=== PATIENT | male | born 1940 | race Caucasian/White ===

== ENCOUNTER → 2016-12-18 | Outpatient (CLI) | payer BC ==
[~2016-12-18] MED LIST: ASPEC81 PO; ATEN50TA8 PO; CALCTAB5 PO; CLR5 PO; COQ10100 PO; CRSUNK; HYDUNK; ISOS60TA25 PO; LISI-461 PO; MAGN400T6 PO; MULT-506 PO; NTRGSL/4 UT; OMEG10007 PO; SPIRULINA; flaxseed oil PO
[2016-12-18 10:02] LABS: CHOLESTEROL/HDL RATIO 2.7
== END | disposition home or self-care (01) ==
LOC: C.LAB1850 07:09
PROVIDERS: ATTEND Internal Medicine Cardiovascular Disease
DX: I25.10 Atherosclerotic heart disease of native coronary artery without angina pectoris (principal)

== ENCOUNTER → 2017-08-15 | Outpatient (CLI) | payer BC ==
--- NOTE | 2017-08-15 12:09 | DIAGNOSTIC IMAGING REPORT ---
ABDOMEN COMPLETE (US) CLINICAL HISTORY: Abdominal pain. COMPARISON STUDY: CT of the abdomen and pelvis August 26, 2016. FINDINGS: Liver morphology is normal. Several hepatic cysts are noted. There is no biliary ductal dilatation. A nonmobile gallstone was noted within the gallbladder. Mild gallbladder wall thickening was noted. The wall measured 5 mm in thickness. No sonographic Ledezma sign was elicited. Mild gallbladder distention was noted. There was no pericholecystic fluid. Pancreas was within normal limits by sonography although the tail was partially obscured. The size of the spleen is normal. The right kidney measures 11.3 cm and the left measures 10.3 cm. There is no hydronephrosis. The caliber of the abdominal aorta is normal. IMPRESSION: 1. Cholelithiasis, mild gallbladder wall thickening and mild gallbladder distention. No sonographic Ledezma sign. A hepatobiliary scan could be performed as indicated to evaluate for acute cholecystitis. 2. No biliary ductal dilatation. 3. No hydronephrosis. Electronically signed by: Varun Collins M.D. 08/15/2017 12:07 PM Dictated Date/Time: 08/15/2017 12:05 PM
== END | disposition home or self-care (01) ==
LOC: C.ULTR 10:35
PROVIDERS: ATTEND Family Medicine
DX: R10.9 Unspecified abdominal pain (principal); K80.20 Calculus of gallbladder without cholecystitis without obstruction

== ENCOUNTER → 2017-12-21 | Outpatient (CLI) | payer BC | END | disposition home or self-care (01) | LOC: C.LAB1850 08:03 | PROVIDERS: ATTEND Internal Medicine Cardiovascular Disease | DX: E78.00 Pure hypercholesterolemia, unspecified (principal) ==

== ENCOUNTER 2020-04-20 22:19 | Observation (INO) ==
[2020-04-20] MEDS ORDERED: LIDOCAINE 4% INH SOLN 4 ML BTL NAE ONE (22:25)
[2020-04-20] MEDS ORDERED: OXYMETAZOLINE 0.05% 30 ML BTL NAE ONE (22:25)
[2020-04-20] MEDS ORDERED: TXA 10% Non-IV Routes 100 MG/ML VIAL TOP ONE (22:25)
--- NOTE | 2020-04-20 22:51 | Emergency Department Note ---
History of Present Illness General Chief complaint: Nose Bleed (Minor) Stated complaint: NOSE BLEED Time Seen by Provider: 04/20/20 22:21 Source: patient, family (), RN notes reviewed and old records reviewed Mode of arrival: ambulatory Limitations: no limitations History of Present Illness Provider complaint: Epistaxis Onset (ago): hour(s) 1 Location: face (nose) Treatments prior to arrival: none This is a 89-year-old male who presents the emergency department complaining of nosebleed. The patient was seen approximate 1 week ago in the emergency department and a anterior balloon was placed. The patient had close follow-up with ear nose and throat. They cauterized his nose after the balloon was removed. Today the patient was trying to close a window and strained himself. He did start to bleed on the left nose. He denies any pain. He has been unable to get the bleeding under control using a towel. Home Medications Home Medications Medication Instructions Recorded Confirmed Type coenzyme Q10 [Co Q-10] 200 mg PO QAM #0 03/08/11 04/20/20 History ascorbic acid (vitamin C) [Vitamin 500 mg PO QAM 09/13/18 04/20/20 History C] blue-green algae (Spirulina) 500 500 mg PO QAM tab 04/08/19 04/20/20 History mg tablet cinnamon bark 500 mg capsule 1,000 mg PO QAM cap 04/08/19 04/20/20 History loratadine 10 mg capsule 10 mg PO QAM cap 04/08/19 04/20/20 History magnesium 250 mg tablet 250 mg PO QAM 04/08/19 04/20/20 History multivitamin 1 tab PO QAM 04/08/19 04/20/20 History nitroglycerin 0.4 mg sublingual 0.4 mg SL Q5M PRN #25 tab 04/08/19 04/20/20 History tablet flaxseed oil 1,000 mg capsule 1,000 mg PO BID cap 07/26/19 04/20/20 History aspirin 81 mg PO QAM 07/27/19 04/20/20 History atenolol 100 mg PO BID 07/27/19 04/20/20 History calcium carbonate-vitamin D3 1 tab PO BID 07/27/19 04/20/20 History [Os-Brent 500 + D3] omega 9-psf-ttc-fish oil [Fish Oil] 2 cap PO QAM 07/27/19 04/20/20 History saw palmetto 1,000 mg PO BID 07/27/19 04/20/20 History hydrochlorothiazide 25 mg tablet 25 mg PO QAM #90 tab 10/21/19 04/20/20 Rx rosuvastatin 40 mg tablet 40 mg PO HS #90 tab 03/08/20 04/20/20 Rx isosorbide mononitrate 60 mg PO QAM 04/14/20 04/20/20 History lisinopril 20 mg PO BID 04/14/20 04/20/20 History sodium chloride [Deep Sea Nasal] 2 spray INTRANASAL QID 04/20/20 04/20/20 History amoxicillin-pot clavulanate 1 tab PO BID #10 tab 04/22/20 Rx [Augmentin] oxycodone 5 mg PO Q4H PRN #30 tab 04/22/20 Rx Allergies Allergy/AdvReac Type Severity Reaction Status Date / Time streptokinase Allergy Intermediate Flushing Verified 04/20/20 23:46 Past Med/Surg History Medical History Atrial fibrillation DX 2014 (REASON FOR TAKING XARELTO) History of cardiac pacemaker 2007 (S/P SYNCOPAL EPISODE) FOLLOWED BY DR. SMITH 2019 CHANGED PACEMAKER (MEDTRONIC DEVICE) Hyperlipidemia Hypertension Myocardial Infarction 1991 Raynauds syndrome Sick sinus syndrome 2008 DX Surgical History History of cardiac catheterization 1992 ANGIOPLASTY @ [facility] [place] History of cataract surgery RT/LEFT History of colonoscopy History of wisdom tooth extraction Family History Father Heart disease Stroke Social History Smoking Status: Never smoker Second Hand Exposure: No; Hx Alcohol Use: No Hx Substance Use: No Preferred Language: Chinese Communication Ability: Effective Chief Substation Operator Required: No Beliefs That Will Affect Care: None marital status: Current Living Situation: Spouse 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 GENERAL - 79-year-old male appearing stated age who is in no acute distress. Communicates well with provider and answers questions appropriately. SKIN - Without rashes. HEAD - NC/AT. EYES - PERRL with EOMI bilaterally. Sclera anicteric. Palpebral conjunctiva pink and moist with no injection noted. EARS - No deformities of external structures noted on gross examination bilater ally. No pain elicited with palpation of the tragus bilaterally. External auditory canals without discharge or otorrhea. Tympanic membranes pearly ford without retraction or bulging. No fluid or purulent material visualized behind the TM. Handle of malleus, umbo, cone of light, pars tensa/flaccid all easily visualized. NOSE - Severe epistaxis left nostril, running into patient's throatSeptum midl ine without deviation or septal hematoma noted. MOUTH/OROPHARYNX - Without perioral cyanosis. Buccal mucosa pink and moist and without leukoplakia. Tongue midline with equal elevation of palate bilaterally. No tonsillar hypertrophy, erythema, or exudates noted. dentition noted. NECK - Neck with FROM. Supple to palpation. lymphadenopathy noted. No nuchal rigidity. LUNGS - Chest wall symmetric without accessory muscle use, intercostals retractions, or central cyanosis. Normal vesicular breath sounds CTA B/L. No wheezes, rales, or rhonchi appreciated. CARDIAC - RRR with S1/S2. No murmur, rubs, or gallops appreciated. ABDOMEN - Abdominal contour without pulsations or visible masses. BS normoactive all four quadrants. No tenderness, palpable masses, hepatosplenomegaly, or ascites noted. EXTREMITIES - No clubbing or peripheral cyanosis. No pretibial edema present. +3/5 radial, posterior tibial, and dorsalis pedis pulses palpated throughout. +5/5 strength noted in UE/LE bilaterally. NEUROLOGIC - Cranial nerves II through XII grossly intact. Sensory intact to light touch throughout. Patellar reflexes +2/4. PSYCH - A&Ox3 and cooperates fully with examiner. Pt is very pleasant and interacts well with examiner. Procedures Epistaxis Control Time Out Performed: Yes (I performed the procedure) Nostril: left (anterior and posterior) Nose Prepped With: lidocaine and phenylephrine Direct Inspection: unable to visualize Clots Removed by: manually Cautery Used: none Device Inserted: hemostatic balloon Device Size: 5 Patient Tolerated Procedure: well Complications: continued epistaxis (A second Balloon was placed in the patients anterior Right canal due to continued bleeding. ) Course Administered Medications Discontinued Medications Acetaminophen (Acetaminophen 325 Mg Tab) 650 mg PO Q4H PRN PRN Reason: Pain or Fever Stop: 05/21/20 01:42 Last Admin: 04/22/20 08:24 Dose: 650 mg Documented by: [id number] Admin: 04/21/20 12:55 Dose: 650 mg Documented by: [id number] Amoxicillin/Clavulanate Potassium (Amoxicillin/Clavulanate 875 Mg Tab) 1 tab PO NOW ONE Stop: 04/20/20 23:04 Last Admin: 04/21/20 01:18 Dose: 1 tab Documented by: [id number] Atenolol (Atenolol 50 Mg Tablet) 100 mg PO BID RUFUS Stop: 05/21/20 08:59 Last Admin: 04/22/20 08:24 Dose: 100 mg Documented by: [id number] Admin: 04/21/20 19:52 Dose: 100 mg Documented by: [id number] Admin: 04/21/20 08:45 Dose: 100 mg Documented by: [id number] Hydralazine HCl (Hydralazine Hcl 20 Mg/Ml Vial) 10 mg IV Q4H PRN PRN Reason: Hypertension Stop: 05/21/20 03:48 Last Admin: 04/21/20 04:25 Dose: 10 mg Documented by: [id number] Hydromorphone HCl (Hydromorphone Inj 0.5 Mg/0.5 Ml Syr) 0.5 mg IV NOW STA Stop: 04/21/20 00:35 Last Admin: 04/21/20 01:11 Dose: 0.5 mg Documented by: [id number] Acetaminophen (Ofirmev) 1,000 mg in 100 mls @ 400 mls/hr IV NOW STA Stop: 04/21/20 00:48 Last Infusion: 04/21/20 01:56 Dose: 0 mls/hr Documented by: [id number] Admin: 04/21/20 01:16 Dose: 400 mls/hr Documented by: [id number] Potassium Chloride/Sodium Chloride (Normal Saline W/20 Meq Kcl) 20 meq in 1,000 mls @ 80 mls/hr IV .[id number] [facility] Stop: 05/21/20 03:29 Last Infusion: 04/21/20 16:39 Dose: 0 mls/hr Documented by: [id number] Admin: 04/21/20 04:24 Dose: 80 mls/hr Documented by: [id number] Isosorbide Mononitrate (Isosorbide [place] Extended Rel 60 Mg Tabcr) 60 mg PO QAM RUFUS Stop: 05/21/20 08:59 Last Admin: 04/22/20 08:24 Dose: 60 mg Documented by: [id number] Admin: 04/21/20 08:46 Dose: 60 mg Documented by: [id number] Lidocaine HCl (Lidocaine 4% Inh Soln 4 Ml Btl) 3 ml SAI NOW ONE Stop: 04/20/20 22:26 Last Admin: 04/21/20 01:56 Dose: 3 ml Documented by: [id number] Lisinopril (Lisinopril 20 Mg Tab) 20 mg PO BID [facility] Stop: 05/21/20 08:59 Last Admin: 04/22/20 08:24 Dose: 20 mg Documented by: [id number] Admin: 04/21/20 19:53 Dose: 20 mg Documented by: [id number] Admin: 04/21/20 08:45 Dose: 20 mg Documented by: [id number] Ondansetron HCl (Ondansetron Inj 2 Mg/Ml 2 Ml Vial) 4 mg IV NOW [facility] Stop: 04/21/20 00:35 Last Admin: 04/21/20 01:08 Dose: 4 mg Documented by: [id number] Oxycodone HCl (Oxycodone Hcl Ir 5 Mg Tab (Immediate Release)) 5 mg PO Q4H PRN PRN Reason: Moderate Pain Stop: 05/05/20 18:23 Last Admin: 04/21/20 19:52 Dose: 5 mg Documented by: [id number] Oxymetazoline HCl (Oxymetazoline 0.05% 30 Ml Btl) 1 sprays SAI NOW ONE Stop: 04/20/20 22:26 Last Admin: 04/21/20 01:55 Dose: 1 sprays Documented by: [id number] Rosuvastatin Calcium (Rosuvastatin Calcium 20 Mg Tab) 40 mg PO HS RUFUS Stop: 05/21/20 20:59 Last Admin: 04/21/20 19:53 Dose: 40 mg Documented by: [id number] Tranexamic Acid (Txa 10% Non-Iv Routes 100 Mg/Ml Vial) 1,000 mg TOP ONE ONE Stop: 04/20/20 22:26 Last Admin: 04/21/20 01:55 Dose: 1,000 mg Documented by: [id number] Tranexamic Acid (Txa 10% Non-Iv Routes 100 Mg/Ml Vial) 1,000 mg TOP ONE ONE Stop: 04/21/20 00:35 Last Admin: 04/21/20 01:56 Dose: 1,000 mg Documented by: [id number] Medical Decision Making Differential Diagnosis Anterior epistaxis, coagulopathy, traumatic injury, fracture, septal hematoma, posterior epistaxis, infections, as well as other pathologies. Medical Records Attestation: I reviewed the patient's medical records. Home Medications Current Medication List: was personally reviewed by me Laboratory Data Result diagrams: 04/22/20 06:33 04/22/20 06:33 Lab Results 04/21/20 04/21/20 Range/Units 00:58 00:58 WBC 9.65 (4.8-10.8) K/uL RBC 4.76 (4.7-6.1) M/uL Hgb 14.6 (14.0-18.0) g/dL Hct 41.6 L (42-52) % MCV 87.4 (80-100) fL MCH 30.7 (25-34) pg MCHC 35.1 (32-36) g/dL RDW Std Deviation 41.0 (36.4-46.3) fL RDW Coeff of Larry 12.7 (11.5-14.5) % Plt Count 135 (130-400) K/uL MPV 11.9 H (7.4-10.4) fL Immature Gran % (Auto) 0.2 % Neut % (Auto) 78.5 % Lymph % (Auto) 12.4 % Harlan % (Auto) 7.9 % Eos % (Auto) 0.9 % Baso % (Auto) 0.1 % Neut # (Auto) 7.57 H (1.4-6.5) K/uL Lymph # (Auto) 1.20 (1.2-3.4) K/uL Harlan # (Auto) 0.76 H (0.11-0.59) K/uL Eos # (Auto) 0.09 (0-0.5) K/uL Baso # (Auto) 0.01 (0-0.2) K/uL Immature Gran # (Auto) 0.02 (0.00-0.02) K/uL Sodium 132 L (136-145) mmol/L Potassium 3.5 (3.5-5.1) mmol/L Chloride 101 (98-107) mmol/L Carbon Dioxide 23 (21-32) mmol/L Anion Gap 7.0 (3-11) BUN 22 H (7-18) mg/dl Creatinine 0.90 (0.6-1.4) mg/dl Est Cr Clr Drug Dosing 63.3 ml/min Est GFR ( Amer) 93.2 Est GFR (Non-Af Amer) 80.4 BUN/Creatinine Ratio 24.2 H (10-20) Glucose 147 H (70-99) mg/dl Calcium 8.8 (8.5-10.1) mg/dl Total Bilirubin 0.6 (0.2-1) mg/dl AST 31 (15-37) U/L ALT 35 (12-78) U/L Alkaline Phosphatase 60 (45-117) U/L Total Protein 7.1 (6.4-8.2) gm/dl Albumin 3.7 (3.4-5.0) gm/dl Globulin 3.4 (2.5-4.0) gm/dl Albumin/Globulin Ratio 1.1 (0.9-2) Lipase 261 (73-393) U/L ECG Data Attestation: I personally reviewed and interpreted this ECG as follows: Indication: + other (epistaxis) Rate (beats per minute): 70 Rhythm: + normal sinus ECG Intervals/blocks: + First degree AV block and + Left anterior fascicular block ECG [place]: + Normal ECG ST segments: no ST depression and no ST elevation Comparison ECG Date: from (04/14/2020) Change: the following changes noted (NSR has replaced paced rythym) MDM Narrative This is a 89-year-old male who presents emergency department with epistaxis of the left nares. I did originally attempt to get the bleeding under control with a left anterior balloon with no success. After that a left anterior posterior balloon was placed using TXA lidocaine and Afrin. Despite the placement of this balloon the patient continued to bleed out of his right nares and therefore a second balloon was placed in the right nares. Due to 2 balloons being placed I did discuss the case with ear nose and throat and noted that the patient would probably be admitted. I then discussed the case with the hospitalist service who did agree to admit the patient. Patient was seen and evaluated as above in room C8. Review was performed of nursing notes and vital signs. I did review pertinent previous visits and patient history. After obtaining a thorough history and physical examination the above work up was performed. An order was placed for continuous cardiac monitoring. The monitor shows a rate of 61 with Normal SInus rhythm. The patient was evaluated during the global COVID-19 pandemic, and that diagnosis was suspected/considered upon their initial presentation. Their evaluation, treatment and testing was consistent with current guidelines for patients who present with complaints or symptoms that may be related to COVID- 19. Impression & Plan Epistaxis Discharge Plan Visit Data Chief Complaint: Nose Bleed (Minor) Stated Complaint: NOSE BLEED ED Provider: Rocky Adams Discharge Problem: Epistaxis Patient Disposition: Home - Self-Care Condition: Good Discharge Instructions Interventions: ED Discharge Assessment Last Done: 04/21/20 03:03
[2020-04-20] MEDS ORDERED: AMOXICILLIN/CLAVULANATE 875 MG TAB PO ONE (23:03)
[2020-04-21] MEDS ORDERED: ACETAMINOPHEN 1,000 MG/100 ML VIAL IV STA (00:34)
[2020-04-21] MEDS ORDERED: HYDROmorphone INJ 0.5 MG/0.5 ML SYR IV STA (00:34)
[2020-04-21] MEDS ORDERED: TXA 10% Non-IV Routes 100 MG/ML VIAL TOP ONE (00:34)
[2020-04-21] MEDS ORDERED: ONDANSETRON INJ 2 MG/ML 2 ML VIAL IV STA (00:34)
[2020-04-21 01:11] LABS: Basophils # (auto) 0.01 K/uL (0-0.2); Basophils % (auto) 0.1 %; Eosinophils # (auto) 0.09 K/uL (0-0.5); Eosinophils % (auto) 0.9 %; Hematocrit (blood only) 41.6 % (42-52); Hemoglobin 14.6 g/dL (14.0-18.0); Immature Granulocytes # (auto) 0.02 K/uL (0.00-0.02); Immature Granulocytes % (auto) 0.2 %; Lymphocytes % (auto) 12.4 %; Mean Corpuscular Hemoglobin 30.7 pg (25-34); Mean Corpuscular Hgb Conc 35.1 g/dL (32-36); Mean Corpuscular Volume 87.4 fL (80-100); Mean Platelet Volume 11.9 fL (7.4-10.4); Monocytes # (auto) 0.76 K/uL (0.11-0.59); Monocytes % (auto) 7.9 %; Neutrophils # (auto) 7.57 K/uL (1.4-6.5); Neutrophils % (auto) 78.5 %; Platelet Count 135 K/uL (130-400); RDW Coefficient of Variation 12.7 % (11.5-14.5); Red Blood Count 4.76 M/uL (4.7-6.1); White Blood Count 9.65 K/uL (4.8-10.8)
[2020-04-21 01:28] LABS: Albumin Level 3.7 gm/dl (3.4-5.0); BUN Creatinine Ratio 24.2 (10-20); Calcium 8.8 mg/dl (8.5-10.1); Creatinine Clr Calc Pharmacy 63.3 ml/min; Est GFR (African American) 93.2; Est GFR (Non-African American) 80.4; Potassium 3.5 mmol/L (3.5-5.1)
[2020-04-21 01:31] LABS: Albumin Globulin Ratio 1.1 (0.9-2); Bilirubin,Total 0.6 mg/dl (0.2-1); Globulin 3.4 gm/dl (2.5-4.0); Total Protein 7.1 gm/dl (6.4-8.2)
[2020-04-21] MEDS ORDERED: HYDROmorphone INJ 0.5 MG/0.5 ML SYR IV PRN (01:35)
[2020-04-21] MEDS ORDERED: ONDANSETRON INJ 2 MG/ML 2 ML VIAL IV PRN (01:43)
--- NOTE | 2020-04-21 03:04 | History & Physical Report ---
Date of Service April 21, 2020 Assessment & Plan (1) Acute anterior epistaxis: Admit to monitored bed. Hold aspirin, flaxseed oil, omega-3 fish oil, and Xarelto. Consult ENT placed by the ED. Present on Admission?: Yes (2) Ulcerative colitis: (3) Coronary artery disease: CAD/hypertension/paroxysmal atrial fibrillation- Hold aspirin, flaxseed oil, HCTZ, omega-3 fatty acids, and Xarelto Present on Admission?: Yes (4) Paroxysmal atrial fibrillation: See above Present on Admission?: Yes (5) Raynauds phenomenon: (6) Hypercholesterolemia: Continue rosuvastatin 40 mg at bedtime Present on Admission?: Yes History of Present Illness Chief Complaint: Patient presents to the emergency department with a recurrence of severe nosebleed. Primary Care Provider: Ben Solis MD The patient is an 79-year-old male with a past medical history including history of LA, ulcerative colitis, Raynaud's phenomenon, presence of cardiac pacemaker, paroxysmal atrial fibrillation, hypercholesterolemia, CAD, BPH, sick sinus syndrome and hypertension. He was initially seen at the emergency department for a nosebleed on 04/14/2020, treated with rapid Rhino, and then referred to ENT. He was seen by ENT Dr. Sims on 04/18/2020 in the outpatient office, and had silver nitrate cautery and overlaid with Surgicel. His Xarelto had been discontinued at emergency room visit on 04/14, and was resumed on 04/18 after treatment above. The patient reports he began having uncontrolled bleeding earlier in the day today, and presented to the ED for treatment. Allergies Allergy/AdvReac Type Severity Reaction Status Date / Time streptokinase Allergy Intermediate Flushing Verified 04/20/20 23:46 Home Medications Home Medications Medication Instructions Recorded Confirmed Type coenzyme Q10 [Co Q-10] 200 mg PO QAM #0 03/08/11 04/20/20 History ascorbic acid (vitamin C) [Vitamin 500 mg PO QAM 09/13/18 04/20/20 History C] blue-green algae (Spirulina) 500 500 mg PO QAM tab 04/08/19 04/20/20 History mg tablet cinnamon bark 500 mg capsule 1,000 mg PO QAM cap 04/08/19 04/20/20 History loratadine 10 mg capsule 10 mg PO QAM cap 04/08/19 04/20/20 History magnesium 250 mg tablet 250 mg PO QAM 04/08/19 04/20/20 History multivitamin 1 tab PO QAM 04/08/19 04/20/20 History nitroglycerin 0.4 mg sublingual 0.4 mg SL Q5M PRN #25 tab 04/08/19 04/20/20 History tablet flaxseed oil 1,000 mg capsule 1,000 mg PO BID cap 07/26/19 04/20/20 History Xarelto 20 mg PO QDD 07/27/19 04/20/20 History aspirin 81 mg PO QAM 07/27/19 04/20/20 History atenolol 100 mg PO BID 07/27/19 04/20/20 History calcium carbonate-vitamin D3 1 tab PO BID 07/27/19 04/20/20 History [Os-Brent 500 + D3] omega 5-kdb-nid-fish oil [Fish Oil] 2 cap PO QAM 07/27/19 04/20/20 History saw palmetto 1,000 mg PO BID 07/27/19 04/20/20 History hydrochlorothiazide 25 mg tablet 25 mg PO QAM #90 tab 10/21/19 04/20/20 Rx rosuvastatin 40 mg tablet 40 mg PO HS #90 tab 03/08/20 04/20/20 Rx amoxicillin-pot clavulanate 1 tab PO BID #10 tab 04/14/20 04/20/20 Rx [Augmentin] isosorbide mononitrate 60 mg PO QAM 04/14/20 04/20/20 History lisinopril 20 mg PO BID 04/14/20 04/20/20 History mupirocin 2 % topical ointment 1 applic TOPICAL BID #15 g 04/18/20 04/20/20 Rx oxymetazoline 2 spray INTRANASAL TID 04/20/20 04/20/20 History sodium chloride [Deep Sea Nasal] 2 spray INTRANASAL QID 04/20/20 04/20/20 History Past Med/Surg History Medical History (Updated 04/20/20 @ 23:25 by Rocky Adams MD) Atrial fibrillation DX 2014 (REASON FOR TAKING XARELTO) History of cardiac pacemaker 2007 (S/P SYNCOPAL EPISODE) FOLLOWED BY DR. SMITH 2019 CHANGED PACEMAKER (MEDTRONIC DEVICE) Hyperlipidemia Hypertension Myocardial Infarction 1991 Raynauds syndrome Sick sinus syndrome 2008 DX Surgical History History of cardiac catheterization 1991 ANGIOPLASTY @ [facility] [place] History of cataract surgery RT/LEFT History of colonoscopy History of wisdom tooth extraction Family History Father Heart disease Stroke Social History Smoking Status: Former smoker Second Hand Exposure: No; Hx Alcohol Use: Yes Alcohol type: beer, wine and hard liquor Hx Substance Use: No Preferred Language: Korean Communication Ability: Effective Health Records Technology Teacher Required: No Beliefs That Will Affect Care: None marital status: Current Living Situation: Spouse 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 The review of systems is otherwise negative other than for that already noted above, and at least 10 systems have been reviewed. Physical Exam Physical Exam: The patient is awake, alert and oriented 3, well developed and well nourished, has a clip on nares bilaterally, lying in bed and in no acute distress. HEENT--PERRL, EOMI, mucous membranes and oropharynx dry. Neck--supple. No JVD. No bruits. Thyroid normal, trachea midline, no adenopathy. Heart--normal S1 and S2. No murmurs, rubs or gallops. Lungs--clear bilaterally, no respiratory distress, no accessory muscle use. Abdomen--normal bowel sounds and soft. Nontender. Nondistended. Extremities--no cyanosis or clubbing. No edema. Dermatologic--normal skin turgor, normal color, no abnormal lymph nodes, no rash. Neurologic--cranial nerves II through XII grossly intact. Rheumatologic--normal range of motion. Psychiatric--normal affect. Results & Data Results & Data ([facility]) Vital Signs (Past 12 Hours) Vital Signs Temp Pulse Resp BP BP Pulse Ox 04/21/20 02:00 94 04/21/20 01:59 66 20 213/122 H 94 04/20/20 22:39 97.3 F L 18 169/114 H Laboratory Results Laboratory Results WBC 9.65 K/uL (4.8-10.8) 04/21/20 00:58 RBC 4.76 M/uL (4.7-6.1) 04/21/20 00:58 Hgb 14.6 g/dL (14.0-18.0) 04/21/20 00:58 Hct 41.6 % (42-52) L 04/21/20 00:58 MCV 87.4 fL (80-100) 04/21/20 00:58 MCH 30.7 pg (25-34) 04/21/20 00:58 MCHC 35.1 g/dL (32-36) 04/21/20 00:58 RDW Std Deviation 41.0 fL (36.4-46.3) 04/21/20 00:58 RDW Coeff of Larry 12.7 % (11.5-14.5) 04/21/20 00:58 Plt Count 135 K/uL (130-400) 04/21/20 00:58 MPV 11.9 fL (7.4-10.4) H 04/21/20 00:58 Immature Gran % (Auto) 0.2 % 04/21/20 00:58 Neut % (Auto) 78.5 % 04/21/20 00:58 Lymph % (Auto) 12.4 % 04/21/20 00:58 [place] % (Auto) 7.9 % 04/21/20 00:58 Eos % (Auto) 0.9 % 04/21/20 00:58 Baso % (Auto) 0.1 % 04/21/20 00:58 Neut # (Auto) 7.57 K/uL (1.4-6.5) H 04/21/20 00:58 Lymph # (Auto) 1.20 K/uL (1.2-3.4) 04/21/20 00:58 [place] # (Auto) 0.76 K/uL (0.11-0.59) H 04/21/20 00:58 Eos # (Auto) 0.09 K/uL (0-0.5) 04/21/20 00:58 Baso # (Auto) 0.01 K/uL (0-0.2) 04/21/20 00:58 Immature Gran # (Auto) 0.02 K/uL (0.00-0.02) 04/21/20 00:58 Sodium 132 mmol/L (136-145) L 04/21/20 00:58 Potassium 3.5 mmol/L (3.5-5.1) 04/21/20 00:58 Chloride 101 mmol/L (98-107) 04/21/20 00:58 Carbon Dioxide 23 mmol/L (21-32) 04/21/20 00:58 Anion Gap 7.0 (3-11) 04/21/20 00:58 BUN 22 mg/dl (7-18) H 04/21/20 00:58 Creatinine 0.90 mg/dl (0.6-1.4) 04/21/20 00:58 Est Cr Clr Drug Dosing 63.3 ml/min 04/21/20 00:58 Est GFR ( Amer) 93.2 04/21/20 00:58 Est GFR (Non-Af Amer) 80.4 04/21/20 00:58 BUN/Creatinine Ratio 24.2 (10-20) H 04/21/20 00:58 Glucose 147 mg/dl (70-99) H 04/21/20 00:58 Calcium 8.8 mg/dl (8.5-10.1) 04/21/20 00:58 Total Bilirubin 0.6 mg/dl (0.2-1) 04/21/20 00:58 AST 31 U/L (15-37) 04/21/20 00:58 ALT 35 U/L (12-78) 04/21/20 00:58 Alkaline Phosphatase 60 U/L (45-117) 04/21/20 00:58 Total Protein 7.1 gm/dl (6.4-8.2) 04/21/20 00:58 Albumin 3.7 gm/dl (3.4-5.0) 04/21/20 00:58 Globulin 3.4 gm/dl (2.5-4.0) 04/21/20 00:58 Albumin/Globulin Ratio 1.1 (0.9-2) 04/21/20 00:58 Lipase 261 U/L (73-393) 04/21/20 00:58 Code Status & VTE Plan Code Status Full code VTE Prophylaxis Plan VTE Prophylaxis will be ordered: Yes PG Care Time/CCT Total # of Minutes Spent Total Time Spent with Patient: Total time spent is greater than 50% in coordination of care (as documented) at patient's floor/unit and/or counseling patient: Coding Level of Care Code 17436 OBS Care - Level 3 Diagnoses Acute anterior epistaxis R04.0 Ulcerative colitis K51.90 Coronary artery disease I25.10 Paroxysmal atrial fibrillation I48.0 Raynauds phenomenon I73.00 Hypercholesterolemia E78.00
[2020-04-21] MEDS ORDERED: NSS + 20MEQ KCL 20 MEQ/1,000 ML BAG IV SCH (03:30)
[2020-04-21] MEDS ORDERED: HydrALAZINE HCL 20 MG/ML VIAL IV PRN (03:49)
[2020-04-21 04:49] LABS: Appearance Urine Clear (Clear); Bilirubin Urine Negative (Negative); Blood Urine Negative (Negative); Color Urine Yellow; Glucose Urine UA Negative (Negative); Ketones Urine Negative (Negative); Leukocyte Esterase Urine Negative (Negative); Nitrite Urine Negative (Negative); Protein Urine Negative (Negative); Urobilinogen Urine Negative (Negative)
[2020-04-21 07:24] LABS: Basophils # (auto) 0.02 K/uL (0-0.2); Basophils % (auto) 0.2 %; Eosinophils # (auto) 0.02 K/uL (0-0.5); Eosinophils % (auto) 0.2 %; Hematocrit (blood only) 46.1 % (42-52); Hemoglobin 16.3 g/dL (14.0-18.0); Immature Granulocytes # (auto) 0.01 K/uL (0.00-0.02); Immature Granulocytes % (auto) 0.1 %; Lymphocytes # (auto) 1.35 K/uL (1.2-3.4); Mean Corpuscular Hgb Conc 35.4 g/dL (32-36); Mean Corpuscular Volume 87.8 fL (80-100); Mean Platelet Volume 12.7 fL (7.4-10.4); Monocytes # (auto) 0.53 K/uL (0.11-0.59); Monocytes % (auto) 6.3 %; Neutrophils # (auto) 6.53 K/uL (1.4-6.5); Neutrophils % (auto) 77.2 %; Platelet Count 152 K/uL (130-400); RDW Coefficient of Variation 12.6 % (11.5-14.5); RDW Standard Deviation 40.4 fL (36.4-46.3); Red Blood Count 5.25 M/uL (4.7-6.1); White Blood Count 8.46 K/uL (4.8-10.8)
[2020-04-21 07:46] LABS: Albumin Level 4.2 gm/dl (3.4-5.0); BUN Creatinine Ratio 18.8 (10-20); Creatinine Clr Calc Pharmacy 60.6 ml/min; Est GFR (African American) 88.4; Est GFR (Non-African American) 76.3; Potassium 3.7 mmol/L (3.5-5.1)
[2020-04-21 07:47] LABS: Phosphorus 2.6 mg/dl (2.5-4.9)
[2020-04-21] MEDS: ATENOLOL 50 MG TABLET PO SCH ×2 (08:45→19:52)
[2020-04-21] MEDS: lisinopriL 20 MG TAB PO SCH ×2 (08:45→19:53)
[2020-04-21] MEDS: ISOSORBIDE MONO EXTENDED REL 60 MG TABCR PO SCH (08:46)
[2020-04-21] MEDS ORDERED: AMOXICILLIN/CLAVULANATE 875MG HOME PACK PO SCH (09:00)
[2020-04-21] MEDS: ACETAMINOPHEN 325 MG TAB PO PRN (12:55)
--- NOTE | 2020-04-21 16:02 | Hospitalist Progress Note ---
Date of Service April 21, 2020 Assessment & Plan (1) Acute anterior epistaxis: Patient is had no reduced reduction in blood count remains on Augmentin therapy it was started on admission Hold aspirin, flaxseed oil, omega-3 fish oil, and Xarelto. Consult ENT placed by the ED did recontact ENT on 04/21 just for further advice patient's hemoglobin hemodynamics are stable likely will not need emergent intervention at this time. (2) Ulcerative colitis: (3) Coronary artery disease: CAD/hypertension/paroxysmal atrial fibrillation-remains rate controlled on atenolol 100 twice daily Hold aspirin, flaxseed oil, HCTZ, omega-3 fatty acids, and Xarelto Otherwise for his hypertension he is on lisinopril 20 mg twice daily and for coronary disease he continues to take isosorbide mononitrate 60 (4) Paroxysmal atrial fibrillation: See above (5) Raynauds phenomenon: (6) Hypercholesterolemia: Continue rosuvastatin 40 mg at bedtime Admission and Anticipated Discharge Date Admission Date: April 21, 2020 Subjective Patient is had no overt large amount of bleeding but he still has some oozing from his Rhino Rocket's and some blood actually coming from his right eye. Review of Systems Review of Systems: Mild distress and fatigue no headache, blurry or double vision Small bleeding from his right eye bilateral rhino rockets in place, inflated no speech or swallowing issues no chest pain, pressure or palpitations no shortness of breath, cough or wheezes no abdominal pain, nausea or vomiting, diarrhea or constipation no dysuria, hematuria or frequency no focal joint pain or swelling no back pain, CVA tenderness or radicular pain no bruising, bleeding or rashes no focal signs of weakness or numbness or altered sensation no complaints or anxiety or depression. Physical Exam Physical Exam: The patient appeared well nourished and normally developed. He is mildly uncomfortable because of his nasal packing. There is some bloody discharge from his right eye which likely is from his nasal lacrimal duct Posterior oropharynx is without active bleeding at this time Vital signs as documented. Head exam is normocephalic atraumatic no scleral icterus Neck is without JVD, thyromegaly, or carotid bruits. Lungs are clear to auscultation, no focal loss of breath sounds Cardiac exam, Rhythm is regular.. No murmurs, rubs or gallops. Neurologic exam is alert and oriented, no focal loss of strength or sensation Skin is without bruises or rashes Psychologically is without concerns for anxiety or depression Results & Data Results & Data ([facility]) Vital Signs (Past 12 Hours) Vital Signs Temp Pulse Pulse Resp BP BP Pulse Ox 04/21/20 14:58 97.9 F 68 20 174/84 H 96 04/21/20 11:17 97.5 F L 68 20 176/89 H 97 04/21/20 07:57 97.9 F 61 18 147/71 H 93 PG Care Time/CCT Total # of Minutes Spent Total Time Spent with Patient: Total time spent is greater than 50% in coordination of care (as documented) at patient's floor/unit and/or counseling patient: Coding Level of Care Code 91268 Subseq Obs Care Lvl 2 Diagnoses Acute anterior epistaxis R04.0 Ulcerative colitis K51.90 Coronary artery disease I25.10 Paroxysmal atrial fibrillation I48.0 Raynauds phenomenon I73.00 Hypercholesterolemia E78.00
[2020-04-21] MEDS ORDERED: MELATONIN 3 MG TAB PO PRN (18:24)
[2020-04-21] MEDS ORDERED: OXYCODONE HCL IR 5 MG TAB (IMMEDIATE RELEASE) PO PRN (18:24)
--- NOTE | 2020-04-21 18:24 | Billing Data ---
Date of Service April 21, 2020 Coding Level of Care Code 62159 Prolonged Care (int'l) Comment I spent from - in this patient's room in the hallway and discussion with healthcare providers regarding this patient's care
[2020-04-21] MEDS ORDERED: ROSUVASTATIN CALCIUM 20 MG TAB PO SCH (21:00)
[2020-04-22 07:19] LABS: Basophils # (auto) 0.01 K/uL (0-0.2); Basophils % (auto) 0.1 %; Eosinophils # (auto) 0.01 K/uL (0-0.5); Eosinophils % (auto) 0.1 %; Hematocrit (blood only) 43.2 % (42-52); Immature Granulocytes # (auto) 0.03 K/uL (0.00-0.02); Immature Granulocytes % (auto) 0.3 %; Lymphocytes # (auto) 1.14 K/uL (1.2-3.4); Lymphocytes % (auto) 9.9 %; Mean Corpuscular Hemoglobin 30.3 pg (25-34); Mean Corpuscular Hgb Conc 34.7 g/dL (32-36); Mean Corpuscular Volume 87.3 fL (80-100); Mean Platelet Volume 12.2 fL (7.4-10.4); Monocytes # (auto) 1.07 K/uL (0.11-0.59); Monocytes % (auto) 9.2 %; Neutrophils # (auto) 9.31 K/uL (1.4-6.5); Neutrophils % (auto) 80.4 %; Platelet Count 138 K/uL (130-400); RDW Coefficient of Variation 12.6 % (11.5-14.5); RDW Standard Deviation 40.5 fL (36.4-46.3); Red Blood Count 4.95 M/uL (4.7-6.1); White Blood Count 11.57 K/uL (4.8-10.8)
[2020-04-22 07:44] LABS: Albumin Level 3.3 gm/dl (3.4-5.0); BUN Creatinine Ratio 14.1 (10-20); Calcium 8.3 mg/dl (8.5-10.1); Est GFR (African American) 99.9; Est GFR (Non-African American) 86.2; Phosphorus 2.4 mg/dl (2.5-4.9); Potassium 3.9 mmol/L (3.5-5.1)
[2020-04-22] MEDS: ACETAMINOPHEN 325 MG TAB PO PRN (08:24)
[2020-04-22] MEDS: lisinopriL 20 MG TAB PO SCH (08:24)
[2020-04-22] MEDS: ATENOLOL 50 MG TABLET PO SCH (08:24)
[2020-04-22] MEDS: ISOSORBIDE MONO EXTENDED REL 60 MG TABCR PO SCH (08:24)
--- NOTE | 2020-04-22 16:27 | Electrocardiogram Report ---
Test Reason : Blood Pressure : / mmHG Vent. Rate : 070 BPM Atrial Rate : 070 BPM P-R Int : 242 ms QRS Dur : 118 ms QT Int : 406 ms P-R-T Axes : 103 -57 090 degrees QTc Int : 438 ms Poor data quality, interpretation may be adversely affected Sinus rhythm with 1st degree A-V block with Premature atrial complexes Left anterior fascicular block Left ventricular hypertrophy with QRS widening and repolarization abnormality Possible Lateral infarct (cited on or before 24-JAN-2008) Abnormal ECG When compared with ECG of 14-APR-2020 07:34, Sinus rhythm has replaced Electronic atrial pacemaker Confirmed by Dennis Adler ([id number]) on 04/22/2020 4:26:58 PM Referred By: REFERRED SELF Confirmed By:Dennis Adler
--- NOTE | 2020-05-04 17:45 | Discharge Summary ---
Date of Service April 22, 2020 Admission HPI Per Admitting Provider The patient is an 79-year-old male with a past medical history including history of MO, ulcerative colitis, Raynaud's phenomenon, presence of cardiac pacemaker, paroxysmal atrial fibrillation, hypercholesterolemia, CAD, BPH, sick sinus syndrome and hypertension. He was initially seen at the emergency department for a nosebleed on 04/14/2020, treated with rapid Rhino, and then referred to ENT. He was seen by ENT Dr. Sims on 04/18/2020 in the outpatient office, and had silver nitrate cautery and overlaid with Surgicel. His Xarelto had been discontinued at emergency room visit on 04/14, and was resumed on 04/18 after treatment above. The patient reports he began having uncontrolled bleeding earlier in the day today, and presented to the ED for treatment. Principal Diagnosis epistaxis Discharge Exam The patient appeared well Vital signs as documented. Both nares were packed with Rhino Rocket's they are crusted with some mild bruising Lungs are clear to auscultation and appear unlabored Cardiac exam, Rhythm is regular.. No murmurs, rubs or gallops. Abdominal exam reveals normal bowel sounds, soft non tender, no masses Extremities are nonedematous and both pedal pulses are normal. Neurologic exam is alert and oriented, no focal loss of strength or sensation Skin is without bruises or rashes Psychologically is without concerns for anxiety or depression. Discharge Data Allergies Allergy/AdvReac Type Severity Reaction Status Date / Time streptokinase Allergy Intermediate Flushing Verified 05/02/20 11:08 Consultations 04/21/20 00:23 Consult Otolaryngology (Head and Neck) Stat ED Decision to Admit Stat 04/21/20 01:47 Consult Case Management - Discharge Planning Routine 04/22/20 11:49 [facility] Routine Hospital Course (1) Acute anterior epistaxis: Patient is had no reduced reduction in blood count remains on Augmentin therapy it was started on admission Hold aspirin, flaxseed oil, omega-3 fish oil, and Xarelto. Consult ENT placed by the ED did recontact ENT on 04/21 just for further advice patient's hemoglobin hemodynamics are stable likely will not need emergent intervention at this time. 80 degrees and the patient has follow-up this week on recommend he goes home with moisturizing the protruding tips of the Rhino Rocket's with saline and continue his Augmentin therapy (2) Ulcerative colitis: (3) Coronary artery disease: CAD/hypertension/paroxysmal atrial fibrillation-remains rate controlled on atenolol 100 twice daily Continue to hold aspirin, flaxseed oil, HCTZ, omega-3 fatty acids, and Xarelto Otherwise for his hypertension he is on lisinopril 20 mg twice daily and for coronary disease he continues to take isosorbide mononitrate 60 (4) Paroxysmal atrial fibrillation: See above (5) Raynauds phenomenon: (6) Hypercholesterolemia: Continue rosuvastatin 40 mg at bedtime Total Time Total Time Spent Total Time Spent (In Minutes): It required greater than 30 minutes to prepare this patient for discharge Discharge Plan Discharge Items Patient Disposition: Home - Self-Care Reason For Visit: EPISTAXIS ON XARELTO Discharge Diagnosis: nose bleed on xarelto Condition on Discharge: Good Activity: Resume your previous activity Non-emergency contact: Primary Care Provider and Surgeon Call non-emergency contact if: you have any medication questions and your symptoms worsen Follow-up/Referrals: Ben Solis MD [Primary Care Provider] - Jenny Ghotra MD [Surgeon] - 04/26/20 Diet: Regular Addtl Attending Provider Instructions: please keep your nasal packing moist with saline take your antibiotics until instructed otherwise by ENT, while you are taking antibiotics it may help to have some probiotics in your diet, yogurt or cottage cheese can be good, or you may buy a probiotic pill or drink do not take your xarelto until you are instructed to restart by the ENT or Dr Bosch office call the ENT, Dr Paz, for appointment this week and notify Dr Bosch office that you were instructed to hold your Xarelto Pending Studies at Discharge: No Stand-Alone Forms: My [employer], Smoking Cessation Medications and DC Order Prescriptions: New oxycodone 5 mg Tablet 5 mg PO Q4H PRN (Reason: pain) Qty: 30 RF: 0 amoxicillin-pot clavulanate [Augmentin] 875-125 mg tablet 1 tab PO BID Qty: 10 RF: 0 Continued coenzyme Q10 [Co Q-10] 200 mg Capsule 200 mg PO QAM Qty: 0 RF: 0 hydrochlorothiazide 25 mg tablet 25 mg PO QAM Qty: 90 RF: 3 rosuvastatin 40 mg tablet 40 mg PO HS Qty: 90 RF: 3 loratadine 10 mg capsule 10 mg PO QAM RF: 0 magnesium 250 mg tablet 250 mg PO QAM RF: 0 nitroglycerin 0.4 mg tablet, sublingual 0.4 mg SL Q5M PRN (Reason: chest pain) Qty: 25 RF: 0 multivitamin tablet 1 tab PO QAM RF: 0 blue-green algae (Spirulina) 500 mg tablet 500 mg PO QAM RF: 0 flaxseed oil 1,000 mg capsule 1,000 mg PO BID RF: 0 lisinopril 20 mg tablet 20 mg PO BID RF: 0 isosorbide mononitrate 60 mg tablet extended release 24 hr 60 mg PO QAM RF: 0 sodium chloride [Deep Sea Nasal] 0.65 % Aerosol,Sandwich 2 spray INTRANASAL QID RF: 0 ascorbic acid (vitamin C) [Vitamin C] 500 mg Tablet 500 mg PO QAM RF: 0 cinnamon bark [Cinnamon] 500 mg capsule 1,000 mg PO QAM RF: 0 aspirin 81 mg Tablet,Delayed Release (Dr/Ec) 81 mg PO QAM RF: 0 saw palmetto 500 mg Capsule 1,000 mg PO BID RF: 0 calcium carbonate-vitamin D3 [Os-Brent 500 + D3] 500 mg(1,250mg) -200 unit Tablet 1 tab PO BID RF: 0 omega [id number] oil [Fish Oil] 1,000 mg (120 mg-180 mg) Capsule 2 cap PO QAM RF: 0 atenolol 100 mg tablet 100 mg PO BID RF: 0 Discontinued mupirocin 2 % ointment 1 applic topical BID Qty: 15 RF: 2 oxymetazoline 0.05 % Mist 2 spray INTRANASAL TID RF: 0 Xarelto 20 mg tablet 20 mg PO QDD RF: 0 Discharge Orders: Discharge Order (Routine); Ordered 04/22/20 Ordered By: Heraclio Lockett Admission Data Admit Date/Time: 04/21/20 01:44 Attending Provider: Heraclio Lockett Admit Provider: Jason Dupree Primary Care Provider: Ben Solis Other Providers: Jason Dupree ; Jenny Ghotra Other Interventions: Discharge Summary Assessment (RN) Last Done: 04/22/20 11:55 Coding Level of Care Code D/C Day Management >30 mins Diagnoses Acute anterior epistaxis R04.0 Ulcerative colitis K51.90 Coronary artery disease I25.10 Paroxysmal atrial fibrillation I48.0 Raynauds phenomenon I73.00 Hypercholesterolemia E78.00
== END 2020-04-22 12:34 | disposition home or self-care (01) ==
LOC: ED 22:19 → 2N 22:19 → SUATTDRO 04-21 01:44 → 2N 04-21 03:03

== ENCOUNTER 2024-09-28 09:19 | Inpatient (IN) ==
--- NOTE | 2024-09-28 09:24 | Emergency Department Note ---
Impression & Plan Observed seizure-like activity ADMIT ED Provider Note HPI: History obtained from The patient is a 84-year-old gentleman with history of intracranial hemorrhage, history of paroxysmal atrial fibrillation currently on anticoagulation with Xarelto, presents the emergency department with a chief complaint of seizure- like activity. Patient's later arrived at the bedside and stated that the patient was eating breakfast and in his normal state of health when he seemed to become acutely altered and then fell over and began to shake like he was having a seizure. Patient's states this lasted several minutes and she did contact EMS. On arrival here to the ED the patient is alert to verbal stimuli but he is seemingly confused, he is unable to follow commands, he is saturating well on room air on arrival. Blood pressure is 168/107 on my initial assessment. Patient's states that he did take his Xarelto last night around dinnertime. ROS: - Per HPI Differential Diagnosis: New onset seizure, intracranial hemorrhage, stroke, syncopal event, arrhythmia, critical electrolyte abnormalities, amongst other potential pathologies. *Outpatient medications and allergy history reviewed. PE: General: Alert to verbal stimuli HEENT: Laceration to the left anterior scalp approximately 3 cm in length with minimal active bleeding, otherwise normocephalic, trachea midline Eyes: Extraocular eye movement is intact, no scleral erythema Pulmonary: Clear to auscultation bilaterally, no wheezing Cardio: Regular rate and rhythm GI: Abdomen is soft to palpation : No suprapubic tenderness MSK: No evidence of trauma or malformation of the extremities, no edema Skin: No evidence of rash Neuro: Alert, no focal deficits, ambulates all extremities spontaneously, unable to follow commands Psychiatric: Cooperative INDEPENDENT INTERPRETATIONS: personnel monitor: (As interpreted by myself): - An order was placed for continuous cardiac monitoring - Patient was noted to be in Atrial fibrillation with a rate of 80 EKG: (As interpreted by myself): Rate: 79 Rhythm: Atrial fibrillation Intervals: Within normal limits ST changes: No ST elevation Time: 0936 Interventions provided in ED: -IV fluid bolus, IV Keppra, IV labetalol, lidocaine epinephrine topical Laceration repair: Verbal consent was obtained from the patient Wound was irrigated with tap water, no evidence of foreign body Location: Left forehead Length: [3 cm] Anesthesia: Topical lidocaine with epinephrine Suture: 6 separate mandeep were placed with good approximation of the wound edges Patient tolerated the procedure well Medical Decision Making: IV was established and lab work obtained, patient was placed on radiologic technician. Stroke alert was initiated from the field to expedite patient CT imaging over concern for possible intracranial hemorrhage given his history, CT imaging of the head without contrast does not show any evidence of intracranial hemorrhage. 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 Lab work obtained shows white blood cell count of 5.6, hemoglobin is stable at 11.6, platelet count is 84 which appears to be slightly below the patient's normal baseline. CMP does not show any evidence of any critical findings. Troponin is negative. Blood glucose level is 142. NIH was unable to be obtained secondary to the patient's inability to follow commands on arrival, patient appears to had a new onset seizure. No evidence of any large vessel occlusion on CT angiography. Patient does not have any obvious focal deficits on my exam to suggest an acute ischemic stroke. Patient is not a candidate for lysis regardless with his history of intracranial hemorrhage and also current anticoagulation. I discussed all of the above findings with the patient and his at the bedside, the case was also discussed with the on-call neurosurgery attending at [facility], Dr. Wade, he is in agreement at this time for the patient to be admitted at our facility and in regards to the 7 mm GLORIA aneurysm he will help arrange outpatient follow-up to have repeat CT angiography done in the future. Case was discussed with the on-call hospitalist for [facility], Dr. De Santiago, the patient was placed for admission in stable condition. Consultants/Discussions held with other healthcare providers: -Hospitalist, Dr. De Santiago -Neurosurgery at [facility], Dr. Wade Disposition discussion held by myself with: -Patient and patient's at the bedside Diagnosis: 1. Seizure-like activity, acute 2. Closed head injury, acute 3. Forehead laceration, acute 4. Thrombocytopenia, acute on chronic 5. Altered mental status, acute Disposition: Admission Gary Lockett DO Emergency Medicine Past Med/Surg History Problem List (Updated 09/28/24 @ 14:46 by Gary Lockett DO) Observed seizure-like activity (Acute) Seizure-like activity Intracranial hemorrhage Other symptoms and signs involving cognitive functions and awareness Epistaxis (Acute) H/O umbilical hernia repair (08/18/19) Open Umbilical Hernia Repair Dr. Zamora 08/18/19 Encounter for pre-operative examination Patient okay for surgery as per cardiology 07/26/19. Past heart attack (Acute) had in 1991 Presence of cardiac pacemaker (Acute) Paroxysmal atrial fibrillation (Acute) Hyperglycemia (Acute) Hypercholesterolemia (Acute) Gross hematuria (Acute) Former smoker (Acute) Elevated prostate specific antigen (PSA) (Acute) Coronary artery disease (Acute) Benign prostatic hyperplasia with elevated prostate specific antigen (PSA) (Acute) Allergic rhinitis (Acute) Umbilical hernia without mention of obstruction or gangrene Sick sinus syndrome (Acute) 2008 DX Hypertension (Acute) Medical History (Updated 09/28/24 @ 14:46 by Gary Lockett DO) Raynauds syndrome Atrial fibrillation DX 2014 (REASON FOR TAKING XARELTO) Myocardial Infarction 1991 Hyperlipidemia Raynauds phenomenon Ulcerative colitis History of cardiac pacemaker 2007 (S/P SYNCOPAL EPISODE) FOLLOWED BY DR. SMITH 2019 CHANGED PACEMAKER (MEDTRONIC DEVICE) Surgical History History of colonoscopy History of cataract surgery RT/LEFT History of cardiac catheterization 1991 ANGIOPLASTY @ [facility] History of wisdom tooth extraction Family History Father Heart disease Stroke Social History Smoking Status: Never smoker Second Hand Exposure: No; Do You Dip or Chew Tobacco: No; Hx Alcohol Use: No Hx Substance Use: No Preferred Language: Nigerian Communication Ability: Effective Business Intelligence Director Required: No Beliefs That Will Affect Care: None marital status: Current Living Situation: Spouse 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 status: 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 Feels Safe at Home: Yes Assistive Devices: None Allergies Allergies Allergy/AdvReac Type Severity Reaction Status Date / Time streptokinase Allergy Intermediate Flushing Verified 09/27/24 10:22 Home Meds Home Medications Medication Instructions Recorded Confirmed coenzyme Q10 200 mg capsule (Co 200 mg PO QAM ##0 03/08/11 09/28/24 Q-10) ascorbic acid (vitamin C) 500 mg 500 mg PO QAM 09/13/18 09/27/24 tablet (Vitamin C) nitroglycerin 0.4 mg sublingual 0.4 mg sublingual Q5M PRN chest 08/02/19 01/22/25 tablet pain #25 tabs aspirin 81 mg tablet,delayed 81 mg PO QAM 07/27/19 09/28/24 release sodium chloride 0.65 % nasal spray 2 spray intranasal QID PRN NASAL 04/20/20 09/28/24 aerosol (Deep Sea Nasal) DRYNESS magnesium 250 mg tablet 400 mg PO QAM 07/11/20 09/27/24 cholecalciferol (vitamin D3) 25 25 mcg PO DAILY 01/11/21 09/27/24 mcg (1,000 unit) capsule [id number] 300 mcg-K 60 1 tab PO DAILY 01/10/22 09/28/24 mcg-lycop 600 mcg-lutein 300 mcg tablet (Centrum Silver Men) rivaroxaban 20 mg tablet (Xarelto) 20 mg PO QDD 06/22/24 09/28/24 lisinopril 2.5 mg tablet 2.5 mg PO DAILY 09/27/24 09/28/24 Previous Rx's Medication Instructions Recorded rosuvastatin 40 mg tablet 40 mg PO HS #90 tabs 03/18/24 atenolol 100 mg tablet 100 mg PO BID #180 tabs 05/23/24 escitalopram oxalate 5 mg tablet 5 mg PO DAILY #20 tabs 09/11/24 Results & Data (ED) Vital Signs Vital Signs - 24 hr 09/28/24 09:35 09/28/24 09:36 09/28/24 09:51 Temperature 36.8 C Temperature Source Skin Pulse Rate 81 79 Pulse Rate from SpO2 Sensor Respiratory Rate 18 Blood Pressure 168/107 H 168/106 H Blood Pressure Mean 127 122 Pulse Oximetry 96 Oxygen Delivery Method Room Air Sepsis Recent Fever Within 48 Hours No Sepsis New/Unexplained Change in Mental Status Yes Sepsis Action Taken by Nursing No Action Required 09/28/24 09:53 09/28/24 09:54 09/28/24 10:00 Temperature Temperature Source Pulse Rate 77 76 Pulse Rate from SpO2 Sensor 78 Respiratory Rate 16 Blood Pressure 168/106 H 139/94 Blood Pressure Mean 99 Pulse Oximetry 95 Oxygen Delivery Method Sepsis Recent Fever Within 48 Hours Sepsis New/Unexplained Change in Mental Status Sepsis Action Taken by Nursing 09/28/24 10:00 09/28/24 10:08 Temperature Temperature Source Pulse Rate 92 H 88 Pulse Rate from SpO2 Sensor 90 Respiratory Rate 20 Blood Pressure 132/94 Blood Pressure Mean Pulse Oximetry 96 Oxygen Delivery Method Sepsis Recent Fever Within 48 Hours Sepsis New/Unexplained Change in Mental Status Sepsis Action Taken by Nursing Laboratory Data 09/28/24 09:36 09/28/24 09:36 Lab Results 09/28/24 09/28/24 Range/Units 09:34 09:36 WBC 5.67 (4.8-10.8) K/ul RBC 3.82 L (4.70-6.10) M/uL Hgb 11.6 L (14.0-18.0) g/dl Hct 34.9 L (42.0-52.0) % MCV 91.4 (80.0-100.0) fL MCH 30.4 (25.0-34.0) pg MCHC 33.2 (32.0-36.0) g/dL RDW Std Deviation 48.9 H (36.4-46.3) fL RDW Coeff of Larry 14.6 H (11.5-14.5) % Plt Count 84 L (130-400) K/uL MPV 12.1 (9.4-12.4) fL Immature Gran % (Auto) 0.5 % Neut % (Auto) 66.7 % Lymph % (Auto) 22.4 % Mccracken % (Auto) 7.4 % Eos % (Auto) 2.5 % Baso % (Auto) 0.5 % Neut # (Auto) 3.78 (1.40-6.50) K/uL Lymph # (Auto) 1.27 (1.20-3.40) K/uL Mccracken # (Auto) 0.42 (0.11-0.59) K/uL Eos # (Auto) 0.14 (0.00-0.50) K/uL Baso # (Auto) 0.03 (0.00-0.20) K/uL Immature Gran # (Auto) 0.03 (0.01-0.20) K/uL PT 16.1 H (9.0-12.0) Seconds INR 1.5 H (0.9-1.1) APTT 29 (21-31) Seconds PTT Ratio 1.1 Sodium 137 (136-145) mmol/L Potassium 3.9 (3.5-5.1) mmol/L Chloride 104 (98-107) mmol/L Carbon Dioxide 24 (21-32) mmol/L Anion Gap 9 (3-11) BUN 12 (6-23) mg/dl Creatinine 0.79 (0.6-1.4) mg/dl Est Cr Clr Drug Dosing 66.1 ml/min eGFR 87.06 BUN/Creatinine Ratio 15.2 (10-20) Glucose 142 H (70-99(Fasting)) mg/dl POC Glucose 140 H (70-99) mg/dl Calcium 8.5 L (8.6-10.3) mg/dl Magnesium 1.9 (1.7-2.4) mg/dl Total Bilirubin 0.8 (0.2-1.0) mg/dl AST 20 (13-39) U/L ALT 14 (7-52) U/L Alkaline Phosphatase 41 (34-104) U/L Troponin I High Sens 4.6 (0-20) pg/ml Total Protein 5.0 L (6.0-8.3) gm/dl Albumin 3.5 (3.4-5.0) gm/dl Globulin 1.5 L (2.5-4.0) gm/dl Albumin/Globulin Ratio 2.3 H (0.9-2) Blood Type O Negative Antibody Screen NEGATIVE Administered Medications Discontinued Medications Sodium Chloride (Nss) 1,000 mls @ 999 mls/hr IV .Q1H1M ONE Stop: 09/28/24 10:37 Last Infusion: 09/28/24 11:58 Dose: Infused Documented By: Admin: 09/28/24 09:47 Dose: 999 mls/hr Documented By: JUANY Ioversol (Optiray 320 125ml) 112 ml IV ONCE ONE Stop: 09/28/24 09:33 Last Admin: 09/28/24 09:32 Dose: 112 ml Documented By: JOSE ENRIQUE Labetalol HCl (Labetalol Hcl Iv 5 Mg/Ml 20ml) 10 mg IV NOW STA Stop: 09/28/24 09:47 Last Admin: 09/28/24 09:53 Dose: 10 mg Documented By: JUANY Levetiracetam (Levetiracetam 500 Mg/5 Ml Vial) 2,000 mg IV NOW STA Stop: 09/28/24 09:37 Last Admin: 09/28/24 09:47 Dose: 2,000 mg Documented By: JUANY Lidocaine (Lidocaine/Epineph/Tetracaine 1 Ea Syr) 1 each EXT NOW STA Stop: 09/28/24 09:42 Last Admin: 09/28/24 09:54 Dose: 1 each Documented By: JUANY Imaging Data Radiologist's Impression: Head CT 09/28/24 09:21 CT OF THE HEAD WITHOUT CONTRAST CLINICAL HISTORY: neuro deficit, acute stroke suspected. Fall. Laceration. COMPARISON STUDY: Head CT September 11, 2024. TECHNIQUE: Helical axial images of the head were obtained without IV contrast. Automated exposure control was utilized for the study. A dose lowering technique was utilized adhering to the principles of ALARA. FINDINGS: No acute intracranial hemorrhage, midline shift or mass effect is present. Encephalomalacia within the left frontal lobe is similar to CT of September 11, 2024. A punctate radiodensity on image 23 is unchanged. This favors a calcification. The findings favor sequela of prior hemorrhage shown on CT of June 22, 2024 as well as postoperative change. Ventricular system is stable. The basal cisterns are patent. There are no extra axial collections. Extensive white matter hypodensities are unchanged and favor small vessel disease. There are no calvarial fractures. A left frontal craniotomy is noted. There is overlying soft tissue swelling and soft tissue gas. There is also a small left temporal scalp contusion. Given the clinical history, these findings are likely traumatic. Small air-fluid level with mucosal thickening within the left maxillary sinus is present. There are postoperative findings within the sinuses. IMPRESSION: 1. No acute intracranial findings. No change in appearance of the brain since CT of September 11, 2024. 2. No calvarial fractures. 3. Status post left frontal craniotomy. Overlying soft tissue swelling and soft tissue gas and a small left temporal scalp contusion. Given the clinical history of trauma, the findings favor a scalp contusion and laceration. ACT 112: Negative or not required by law. Electronically signed by: Varun Collins M.D. 09/28/2024 9:48 AM Head CTA 09/28/24 09:21 CT angio head w con CLINICAL HISTORY: neuro deficit, acute stroke suspected. COMPARISON STUDY: None TECHNIQUE: Unenhanced axial CT scan of the brain is performed. Subsequently, following the IV administration of 112 cc of Optiray, CT angiogram of the brain was performed from the skull base to the vertex. Images are reviewed in the axial, sagittal, and coronal planes. 3-D MIPS images are created and assessed. IV contrast was administered without complication. All measurements were obtained according to NASCET criteria. A dose lowering technique was utilized adhering to the principles of ALARA. CT DOSE: 1090.53 mGy.cm FINDINGS: The left vertebral artery is dominant and the distal aspect of the right vertebral artery is diminutive, anatomic variant. Otherwise no significant narrowing seen at the intracranial internal carotid or vertebral arteries bilaterally. Basilar artery is widely patent. Anterior, middle, and posterior cerebral arteries are patent bilaterally. There is a oval aneurysm at the anterior communicating artery, best seen on axial series 6 image 122 and coronal series 600 image 33. There is prominence of the ventricles out of proportion for sulci which could represent cerebral atrophy or normal pressure hydrocephalus. IMPRESSION: 1. No significant arterial narrowing or occlusion seen at the brain. 2. 7 mm anterior communicating artery aneurysm. Follow-up CTA suggested in 6 months. Consider consultation with interventional neurology/neuroradiology. ACT 112: Positive. There are findings on this exam that require communication between the performing entity and the patient following Patient Test Result Information Act ([place] Act 112) guidelines. The above report was generated using voice recognition software. It may contain grammatical, syntax or spelling errors. Electronically signed by: Dave Van M.D. 09/28/2024 9:48 AM Neck CTA 09/28/24 09:21 CT angio neck with con CLINICAL HISTORY: neuro deficit, acute stroke suspected TECHNIQUE: CT angiography of the neck was performed following intravenous administration of iodinated contrast. Coronal and sagittal MIPS were obtained from the axial data set and were submitted for review. Automated dose lowering techniques and/or adjustment according to patient size were utilized for this examination. All measurements were calculated based on NASCET criteria. Comparison: None available at the time of this dictation. FINDINGS: Lungs and soft tissues are unremarkable. CTA Neck: The left common carotid artery shares common origin with the innominate artery. There is no significant atherosclerotic plaque in the aortic arch or the origins of the innominate, left common carotid, and left subclavian arteries. The common carotid, external carotid, cervical segments of the internal carotid arteries, and the cervical segments of the vertebral arteries are patent without hemodynamically significant stenosis. The left vertebral artery is dominant. IMPRESSION: No occlusion, hemodynamically significant stenosis, or dissection in the major cervical arteries. Assessment of stenosis of the internal carotid arteries is based on NASCET criteria. ACT 112: Negative or not required by law. Electronically signed by: Jamison Womack M.D. 09/28/2024 9:45 AM Discharge Plan Visit Data Chief Complaint: Stroke Alert Stated Complaint: STROKE ALERT, SEIZURE, FALL ED Provider: Gary Lockett Discharge Problem: Observed seizure-like activity Patient Disposition: Admitted As Inpatient Discharge Instructions Interventions: ED Discharge Assessment Last Done: 09/28/24 12:51
[2024-09-28] MEDS: OPTIRAY 320 125ml IV ONE (09:32)
[2024-09-28] MEDS: levETIRAcetam 500 MG/5 ML VIAL IV STA (09:47)
[2024-09-28] MEDS: SODIUM CHLORIDE 0.9% 1,000 ML IV ONE (09:47)
--- NOTE | 2024-09-28 09:47 | CT Scan Report ---
CT angio neck with con CLINICAL HISTORY: neuro deficit, acute stroke suspected TECHNIQUE: CT angiography of the neck was performed following intravenous administration of iodinated contrast. Coronal and sagittal MIPS were obtained from the axial data set and were submitted for rev iew. Automated dose lowering techniques and/or adjustment according to patient size were utilized fo r this examination. All measurements were calculated based on NASCET criteria. Comparison: None available at the time of this dictation. FINDINGS: Lungs and soft tissues are unremarkable. CTA Neck: The left common carotid artery shares common origin with the innominate artery. There is n o significant atherosclerotic plaque in the aortic arch or the origins of the innominate, left common carotid, and left subclavian arteries. The common carotid, external carotid, cervical segments of t he internal carotid arteries, and the cervical segments of the vertebral arteries are patent without hemodynamically significant stenosis. The left vertebral artery is dominant. IMPRESSION: No occlusion, hemodynamically significant stenosis, or dissection in the major cervical arteries. Assessment of stenosis of the internal carotid arteries is based on NASCET criteria. ACT 112: Negative or not required by law. Electronically signed by: Jamison Womack M.D. 09/28/2024 9:45 AM
--- NOTE | 2024-09-28 09:49 | CT Scan Report ---
CT angio head w con CLINICAL HISTORY: neuro deficit, acute stroke suspected. COMPARISON STUDY: None TECHNIQUE: Unenhanced axial CT scan of the brain is performed. Subsequently, following the IV adminis tration of 112 cc of Optiray, CT angiogram of the brain was performed from the skull base to the vert ex. Images are reviewed in the axial, sagittal, and coronal planes. 3-D MIPS images are created and a ssessed. IV contrast was administered without complication. All measurements were obtained according to NASCET criteria. A dose lowering technique was utilized adhering to the principles of ALARA. CT DOSE: 1090.53 mGy.cm FINDINGS: The left vertebral artery is dominant and the distal aspect of the right vertebral artery i s diminutive, anatomic variant. Otherwise no significant narrowing seen at the intracranial internal carotid or vertebral arteries bilaterally. Basilar artery is widely patent. Anterior, middle, and pos terior cerebral arteries are patent bilaterally. There is a oval aneurysm at the anterior communicati ng artery, best seen on axial series 6 image 122 and coronal series 600 image 33. There is prominence of the ventricles out of proportion for sulci which could represent cerebral atrophy or normal press ure hydrocephalus. IMPRESSION: 1. No significant arterial narrowing or occlusion seen at the brain. 2. 7 mm anterior communicating artery aneurysm. Follow-up CTA suggested in 6 months. Consider consult ation with interventional neurology/neuroradiology. ACT 112: Positive. There are findings on this exam that require communication between the performing entity and the patient following Patient Test Result Information Act ([place] Act 112) guidelines. The above report was generated using voice recognition software. It may contain grammatical, syntax o r spelling errors. Electronically signed by: Dave Van M.D. 09/28/2024 9:48 AM
--- NOTE | 2024-09-28 09:49 | CT Scan Report ---
CT OF THE HEAD WITHOUT CONTRAST CLINICAL HISTORY: neuro deficit, acute stroke suspected. Fall. Laceration. COMPARISON STUDY: Head CT September 11, 2024. TECHNIQUE: Helical axial images of the head were obtained without IV contrast. Automated exposure con trol was utilized for the study. A dose lowering technique was utilized adhering to the principles o f ALARA. FINDINGS: No acute intracranial hemorrhage, midline shift or mass effect is present. Encephalomalacia within the left frontal lobe is similar to CT of September 11, 2024. A punctate radiodensity on image 2 3 is unchanged. This favors a calcification. The findings favor sequela of prior hemorrhage shown on CT of June 22, 2024 as well as postoperative change. Ventricular system is stable. The basal ciste rns are patent. There are no extra axial collections. Extensive white matter hypodensities are unchan ged and favor small vessel disease. There are no calvarial fractures. A left frontal craniotomy is no chas. There is overlying soft tissue swelling and soft tissue gas. There is also a small left temporal scalp contusion. Given the clinical history, these findings are likely traumatic. Small air-fluid le brisa with mucosal thickening within the left maxillary sinus is present. There are postoperative findi ngs within the sinuses. IMPRESSION: 1. No acute intracranial findings. No change in appearance of the brain since CT of September 11, 2024. 2. No calvarial fractures. 3. Status post left frontal craniotomy. Overlying soft tissue swelling and soft tissue gas and a smal l left temporal scalp contusion. Given the clinical history of trauma, the findings favor a scalp con tusion and laceration. ACT 112: Negative or not required by law. Electronically signed by: Varun Collins M.D. 09/28/2024 9:48 AM
[2024-09-28] MEDS: LABETALOL HCL IV 5 MG/ML 20ML IV STA (09:53)
[2024-09-28] MEDS: LIDOCAINE/EPINEPH/TETRACAINE 1 EA SYR EXT STA (09:54)
[2024-09-28 10:02] LABS: INR 1.5 (0.9-1.1); Partial Thromboplastin Ratio 1.1; Partial Thromboplastin Time 29 Seconds (21-31); Prothrombin Time 16.1 Seconds (9.0-12.0)
[2024-09-28 10:23] LABS: Albumin Globulin Ratio 2.3 (0.9-2); Albumin Level 3.5 gm/dl (3.4-5.0); BUN Creatinine Ratio 15.2 (10-20); Bilirubin,Total 0.8 mg/dl (0.2-1.0); Calcium 8.5 mg/dl (8.6-10.3); Creatinine Clr Calc Pharmacy 66.1 ml/min; Globulin 1.5 gm/dl (2.5-4.0); Magnesium 1.9 mg/dl (1.7-2.4); Potassium 3.9 mmol/L (3.5-5.1)
[2024-09-28 10:27] LABS: Basophils # (auto) 0.03 K/uL (0.00-0.20); Basophils % (auto) 0.5 %; Eosinophils # (auto) 0.14 K/uL (0.00-0.50); Eosinophils % (auto) 2.5 %; Hematocrit (blood only) 34.9 % (42.0-52.0); Hemoglobin 11.6 g/dl (14.0-18.0); Immature Granulocytes # (auto) 0.03 K/uL (0.01-0.20); Immature Granulocytes % (auto) 0.5 %; Lymphocytes # (auto) 1.27 K/uL (1.20-3.40); Lymphocytes % (auto) 22.4 %; Mean Corpuscular Hemoglobin 30.4 pg (25.0-34.0); Mean Corpuscular Hgb Conc 33.2 g/dL (32.0-36.0); Mean Corpuscular Volume 91.4 fL (80.0-100.0); Mean Platelet Volume 12.1 fL (9.4-12.4); Monocytes # (auto) 0.42 K/uL (0.11-0.59); Monocytes % (auto) 7.4 %; Neutrophils # (auto) 3.78 K/uL (1.40-6.50); Neutrophils % (auto) 66.7 %; Platelet Count 84 K/uL (130-400); RDW Coefficient of Variation 14.6 % (11.5-14.5); RDW Standard Deviation 48.9 fL (36.4-46.3); Red Blood Count 3.82 M/uL (4.70-6.10); White Blood Count 5.67 K/ul (4.8-10.8)
[2024-09-28 10:28] LABS: Troponin I High Sensitivity 4.6 pg/ml (0-20)
--- NOTE | 2024-09-28 11:01 | History & Physical Report ---
Date of Service September 28, 2024 Assessment & Plan (1) Seizure-like activity: (2) Paroxysmal atrial fibrillation: (3) Presence of cardiac pacemaker: Plan Dung is an 84M with a PMHx of CAD, paroxysmal afib (on Xarelto), HTN, intracranial hemorrhage (06/2024), BPH, REJI on CPAP who presents to the ED with concerns for seizure like activity. Fell from sitting, with shaking activity and post ictal state - not being able to follow commands. Head CT no acute findings. Pacemaker is not MRI compatible. Admitted for neurology consult, EEG and further workup. #Seizure like activity/Altered Mental Status No hx of seizures, but did have ICH 06/2024 CT head no acute findings. 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 Pacemaker is not MRI compatible. Consult Neurology - keep NPO until eval EEG orderedd Received 2g Keppra in ED. continue 500mg BD IV per Neurology PT/OT #Head Laceration S/p Staple placement - 6 mandeep placed in ED 09/28 - remove in 7 to 10 days #Paroxysmal Afib /CAD/ HTN Hold Xarelto and Aspirin. Continue atenolol, statin, lisinopril when safe to take PO Mental health - continue lexapro when safe to take PO Dispo: admit to PCU DVT proh: hold chemical with hx of ICH and AMS, SCDs CODE STATUS: DNR/DNI Family updated at bedside on admission. History of Present Illness Chief Complaint: Stroke Alert Primary Care Provider: Kenny Rubalcava MD Dung is an 84M with a PMHx of CAD, paroxysmal afib (on Xarelto), HTN, intracranial hemorrhage (06/2024), BPH, REJI on CPAP who presents to the ED with concerns for seizure like activity. This morning he showered and had breakfast and took medications this morning without issue. Was sitting on the kitchen chair, his heard a noise and Dung was making a face and then feel to the floor. Shaking while down and has not been the same since. Unsure if he was incontinent during this episode, as that is something that frequently happens to him. Scalp laceration at area of prior incision from brain surgery. Responds to name but does not answer questions appropriately and does not follow commands. reports that he had been in his normal state of health the last few days. Did not sleep well last night and was very restless. Some underlying cognitive impairment, no formal dx, was supposed to see psychiatry and this was appointment was cancelled due to his brain bleed. No recent illness, fevers or chills. reports no recent changes in appetite. Saw cardiology yesterday and had no issues. ED Course: Keppra 2g IV NSS 1L x 1 labetalol 10mg IV x1 Allergies Allergy/AdvReac Type Severity Reaction Status Date / Time streptokinase Allergy Intermediate Flushing Verified 09/27/24 10:22 Home Medications Medication Instructions Recorded Confirmed Type coenzyme Q10 200 mg capsule (Co 200 mg PO QAM ##0 03/08/11 09/28/24 History Q-10) ascorbic acid (vitamin C) 500 mg 500 mg PO QAM 09/13/18 09/27/24 History tablet (Vitamin C) nitroglycerin 0.4 mg sublingual 0.4 mg sublingual Q5M PRN chest 04/08/19 09/28/24 History tablet pain #25 tabs aspirin 81 mg tablet,delayed 81 mg PO QAM 07/27/19 09/28/24 History release sodium chloride 0.65 % nasal spray 2 spray intranasal QID PRN NASAL 04/20/20 09/28/24 History aerosol (Deep Sea Nasal) DRYNESS magnesium 250 mg tablet 400 mg PO QAM 07/11/20 09/27/24 History cholecalciferol (vitamin D3) 25 25 mcg PO DAILY 01/11/21 09/27/24 History mcg (1,000 unit) capsule skxygopo-uh-hlkwa 300 mcg-K 60 1 tab PO DAILY 01/10/22 09/28/24 History mcg-lycop 600 mcg-lutein 300 mcg tablet (Centrum Silver Men) rosuvastatin 40 mg tablet 40 mg PO HS #90 tabs 03/18/24 09/28/24 Rx atenolol 100 mg tablet 100 mg PO BID #180 tabs 05/23/24 09/28/24 Rx rivaroxaban 20 mg tablet (Xarelto) 20 mg PO QDD 06/22/24 09/28/24 History escitalopram oxalate 5 mg tablet 5 mg PO DAILY #20 tabs 09/11/24 09/28/24 Rx lisinopril 2.5 mg tablet 2.5 mg PO DAILY 09/27/24 09/28/24 History Past Med/Surg History Problem List (Updated 09/28/24 @ 14:46 by Gary Lockett DO) Observed seizure-like activity (Acute) Seizure-like activity Intracranial hemorrhage Other symptoms and signs involving cognitive functions and awareness Epistaxis (Acute) H/O umbilical hernia repair (08/18/19) Open Umbilical Hernia Repair Dr. Zamora 08/18/19 Encounter for pre-operative examination Patient okay for surgery as per cardiology 07/26/19. Past heart attack (Acute) had in 1991 Presence of cardiac pacemaker (Acute) Paroxysmal atrial fibrillation (Acute) Hyperglycemia (Acute) Hypercholesterolemia (Acute) Gross hematuria (Acute) Former smoker (Acute) Elevated prostate specific antigen (PSA) (Acute) Coronary artery disease (Acute) Benign prostatic hyperplasia with elevated prostate specific antigen (PSA) (Acute) Allergic rhinitis (Acute) Umbilical hernia without mention of obstruction or gangrene Sick sinus syndrome (Acute) 2008 DX Hypertension (Acute) Medical History (Updated 09/28/24 @ 14:46 by Gary Lockett DO) Raynauds syndrome Atrial fibrillation DX 2014 (REASON FOR TAKING XARELTO) Myocardial Infarction 1991 Hyperlipidemia Raynauds phenomenon Ulcerative colitis History of cardiac pacemaker 2007 (S/P SYNCOPAL EPISODE) FOLLOWED BY DR. SMITH 2018 CHANGED PACEMAKER (MEDTRONIC DEVICE) Surgical History History of colonoscopy History of cataract surgery RT/LEFT [place] of cardiac [place] [facility] [place] of wisdom tooth extraction Family History Father Heart disease Stroke Social History Smoking Status: Former smoker Tobacco Type: Cigarettes Second Hand Exposure: No; Do You Dip or Chew Tobacco: No; Hx Alcohol Use: Yes Alcohol type: wine Hx Substance Use: No Preferred Language: South Korean Communication Ability: Effective Formal Service Waiter Required: No Beliefs That Will Affect Care: None marital status: Current Living Situation: Spouse 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 no focal deficits, no facial droop Skin: scalp lesion - stapled by ED, dressing in place c/d/i Results & Data Results & Data Vital Signs (Past 12 Hours) Vital Signs Temp Pulse Resp BP Pulse Ox O2 Del Method 09/28/24 10:08 88 132/94 09/28/24 10:00 92 H 20 96 09/28/24 10:00 139/94 09/28/24 09:54 76 16 95 09/28/24 09:53 77 168/106 H 09/28/24 09:51 168/106 H 09/28/24 09:36 79 09/28/24 09:35 98.2 F 81 18 168/107 H 96 Room Air Laboratory Results cbc, chemistry, INR reviewed troponin reviewed Diagnostic Findings head and neck CTA head CT reviewed Supervising Physician Co-Signing Physician Notes I personally saw and examined the patient. I independently reviewed the labs, EKG, imaging, problem list, medication list, past medical history and family history. I verified all mitchell points and agree with Yumiko Estrella PA-C with the following exceptions and/or additions: 84 year old male presents to the ER with concern for seizure like activity while at the kitchen table causing him to fall off the chair and hit his head. Reportedly following commands better than from earlier in the day. O/E Alert, HS irregular rhythm, regular rate, no murmurs, Chest CTAB, Abdo SNT, some expressive dysphasia and difficulty following directions making neurology exam difficult but no pronator drift, possible difficulty moving right lower extremity A/P Seizure like episode - start Keppra 500mg IV BID, EEG, consult neurology for ongoing recommendations Stroke-like symptoms - having difficulty with expressive dysphasia similar to prior stroke, suspected post ictal (recrudescence of prior stroke symptoms) from seizure activity and appears to be improving, unable to get MRI Traumatic head injury - mandeep placed in the ER for laceration, CT head in AM, hold Xarelto pending CT head PG Care Time/CCT Total # of Minutes Spent Total Time Spent with Patient: Total time spent is greater than 50% in coordination of care (as documented) at patient's floor/unit and/or counseling patient: Coding Level of Care Code 97639 INT INP/OBS CARE 3/75MIN Diagnoses Seizure-like activity R56.9 Paroxysmal atrial fibrillation I48.0 Presence of cardiac pacemaker Z95.0
--- NOTE | 2024-09-28 11:48 | Electrocardiogram Report ---
Test Reason : Blood Pressure : */* mmHG Vent. Rate : 79 BPM Atrial Rate : * BPM P-R Int : * ms QRS Dur : 114 ms QT Int : 428 ms P-R-T Axes : * -55 115 degrees QTcB Int : 490 ms Atrial fibrillation with frequent ventricular-paced complexes Left axis deviation Minimal voltage criteria for LVH, may be normal variant Septal infarct , age undetermined Abnormal ECG When compared with ECG of 11-Sep-2024 12:08, Vent. rate has increased by 11 bpm Confirmed by Samuel Dubose ([id number]) on 09/28/2024 11:48:10 AM Referred By: Confirmed By: Samuel Dubose
--- NOTE | 2024-09-28 12:45 | Neurology Consultation ---
Date of Consultation September 28, 2024 Assessment & Plan (1) Seizure-like activity: History of Present Illness History of Present Illness S: pt now awake and talking and interacting. answering simple questions. CT head no acute bleed or findins, does have left frontal scalp hematoma/bleed from the fall today. pt did hit his head as he was falling this morning. pt with prior hx of SDH from a fall and s/p left frtonal crani. chart reviewed. pt followed by michoacano robert in our clinic. admission HPI: Dung is an 84M with a PMHx of CAD, paroxysmal afib (on Xarelto), HTN, intracranial hemorrhage (06/2024), BPH, REJI on CPAP who presents to the ED with concerns for seizure like activity. This morning he showered and had breakfast and took medications this morning without issue. Was sitting on the kitchen chair, his heard a noise and Dung was making a face and then feel to the floor. Shaking while down and has not been the same since. Unsure if he was incontinent during this episode, as that is something that frequently happens to him. Scalp laceration at area of prior incision from brain surgery. Responds to name but does not answer questions appropriately and does not follow commands. reports that he had been in his normal state of health the last few days. Did not sleep well last night and was very restless. Some underlying cognitive impairment, no formal dx, was supposed to see psychiatry and this was appointment was cancelled due to his brain bleed. No recent illness, fevers or chills. reports no recent changes in appetite. Saw cardiology yesterday and had no issues. Allergies Allergy/AdvReac Type Severity Reaction Status Date / Time streptokinase Allergy Intermediate Flushing Verified 09/27/24 10:22 Home Medications Medication Instructions Recorded Confirmed Type coenzyme Q10 200 mg capsule (Co 200 mg PO QAM ##0 03/08/11 09/28/24 History Q-10) ascorbic acid (vitamin C) 500 mg 500 mg PO QAM 09/13/18 09/27/24 History tablet (Vitamin C) nitroglycerin 0.4 mg sublingual 0.4 mg sublingual Q5M PRN chest 04/08/19 09/28/24 History tablet pain #25 tabs aspirin 81 mg tablet,delayed 81 mg PO QAM 07/27/19 09/28/24 History release sodium chloride 0.65 % nasal spray 2 spray intranasal QID PRN NASAL 04/20/20 09/28/24 History aerosol (Deep Sea Nasal) DRYNESS magnesium 250 mg tablet 400 mg PO QAM 07/11/20 09/27/24 History cholecalciferol (vitamin D3) 25 25 mcg PO DAILY 01/11/21 09/27/24 History mcg (1,000 unit) capsule qlvxduse-ag-lxzli 300 mcg-K 60 1 tab PO DAILY 01/10/22 09/28/24 History mcg-lycop 600 mcg-lutein 300 mcg tablet (Centrum Silver Men) rosuvastatin 40 mg tablet 40 mg PO HS #90 tabs 03/18/24 09/28/24 Rx atenolol 100 mg tablet 100 mg PO BID #180 tabs 05/23/24 09/28/24 Rx rivaroxaban 20 mg tablet (Xarelto) 20 mg PO QDD 06/22/24 09/28/24 History escitalopram oxalate 5 mg tablet 5 mg PO DAILY #20 tabs 09/11/24 09/28/24 Rx lisinopril 2.5 mg tablet 2.5 mg PO DAILY 09/27/24 09/28/24 History Patient History Medical History (Updated 09/28/24 @ 11:34 by Sheila Martinez PA-C) Raynauds syndrome Atrial fibrillation DX 2014 (REASON FOR TAKING XARELTO) Myocardial Infarction 1991 Hyperlipidemia Raynauds phenomenon Ulcerative colitis History of cardiac pacemaker 2007 (S/P SYNCOPAL EPISODE) FOLLOWED BY DR. SMITH 2019 CHANGED PACEMAKER (MEDTRONIC DEVICE) Surgical History History of colonoscopy History of cataract surgery RT/LEFT History of cardiac catheterization 1992 ANGIOPLASTY @ [facility] [place] History of wisdom tooth extraction Family History Father Heart disease Stroke Social History Smoking Status: Never smoker Second Hand Exposure: No; Do You Dip or Chew Tobacco: No; Hx Alcohol Use: No Hx Substance Use: No Preferred Language: Guinean Communication Ability: Effective Shade Classifier Required: No Beliefs That Will Affect Care: None marital status: Current Living Situation: Spouse 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 follows simple commands. , fluent speech, normal comprehension, mild apraxia, noted for L/R confusion, no neglect CN: PERRL, Full EOM, symmetric face, midline T/U/P, grossly full ROM neck Motor: No abnormal movements, normal tone, 5/5 t/o bilaterally grossly overall Coord: intact grossly. DTR: 1+ sym b/l Impression: 84 yo male with likely seizure event and post seizure confusion and s/p concussion from the fall in setting of prior SDH, on OAC. Recommendations: hold OAC for next 24 hrs for now, get repeat non-con CT head again tomorrow morning. if CT head stable, restart Xarelto, recommend not starting ASA anymore in the future. continue keppra 500mg IV/PO bid seizure precaution. check for UTI and metabolic disorders can't get mri due to pacer not compatible. pending EEG, pt clinically not in status. Chart reviewed I have spent more than 50% educating patient about potential diagnosis and neurological evaluation and coordinating care with patient's treatment team. Total time spent (including chart review and coordination of care): 60 min (this includes chart review). Results & Data Vital Signs (Past 12 Hours) Vital Signs Temp Pulse Pulse Resp BP BP Pulse Ox 09/28/24 12:38 76 17 148/101 H 99 09/28/24 10:08 88 132/94 09/28/24 10:00 92 H 20 96 09/28/24 10:00 139/94 09/28/24 09:54 76 16 95 09/28/24 09:53 77 168/106 H 09/28/24 09:51 168/106 H 09/28/24 09:36 79 09/28/24 09:35 36.8 C 81 18 168/107 H 96 O2 Del Method 09/28/24 12:38 Room Air 09/28/24 10:08 09/28/24 10:00 09/28/24 10:00 09/28/24 09:54 09/28/24 09:53 09/28/24 09:51 09/28/24 09:36 09/28/24 09:35 Room Air PG Care Time/CCT Total # of Minutes Spent Total Time Spent with Patient: Total time spent is greater than 50% in coordination of care (as documented) at patient's floor/unit and/or counseling patient: Coding Level of Care Code 02160 IN/OBS CONSULT LVL 4,60M Diagnoses Seizure-like activity R56.9
--- NOTE | 2024-09-28 15:04 | Electroencephalogram ---
EEG Procedure Note Date of Service September 28, 2024 Start / End Times Start Time: 1423 End Time: 1453 Referring Physician lena rice History seizure Home Medication List Medication Instructions Recorded Confirmed Type coenzyme Q10 200 mg capsule (Co 200 mg PO QAM ##0 03/08/11 09/28/24 History Q-10) ascorbic acid (vitamin C) 500 mg 500 mg PO QAM 09/13/18 09/27/24 History tablet (Vitamin C) nitroglycerin 0.4 mg sublingual 0.4 mg sublingual Q5M PRN chest 04/08/19 09/28/24 History tablet pain #25 tabs aspirin 81 mg tablet,delayed 81 mg PO QAM 07/27/19 09/28/24 History release sodium chloride 0.65 % nasal spray 2 spray intranasal QID PRN NASAL 04/20/20 09/28/24 History aerosol (Deep Sea Nasal) DRYNESS magnesium 250 mg tablet 400 mg PO QAM 07/11/20 09/27/24 History cholecalciferol (vitamin D3) 25 25 mcg PO DAILY 01/11/21 09/27/24 History mcg (1,000 unit) capsule rshhthfx-xu-vuypn 300 mcg-K 60 1 tab PO DAILY 01/10/22 09/28/24 History mcg-lycop 600 mcg-lutein 300 mcg tablet (Centrum Silver Men) rosuvastatin 40 mg tablet 40 mg PO HS #90 tabs 03/18/24 09/28/24 Rx atenolol 100 mg tablet 100 mg PO BID #180 tabs 05/23/24 09/28/24 Rx rivaroxaban 20 mg tablet (Xarelto) 20 mg PO QDD 06/22/24 09/28/24 History escitalopram oxalate 5 mg tablet 5 mg PO DAILY #20 tabs 09/11/24 09/28/24 Rx lisinopril 2.5 mg tablet 2.5 mg PO DAILY 09/27/24 09/28/24 History Inpatient Medication List Discontinued Medications Sodium Chloride (Nss) 1,000 mls @ 999 mls/hr IV .Q1H1M ONE Stop: 09/28/24 10:37 Last Infusion: 09/28/24 11:58 Dose: Infused Documented By: Admin: 09/28/24 09:47 Dose: 999 mls/hr Documented By: DS Ioversol (Optiray 320 125ml) 112 ml IV ONCE ONE Stop: 09/28/24 09:33 Last Admin: 09/28/24 09:32 Dose: 112 ml Documented By: JOSE ENRIQUE Labetalol HCl (Labetalol Hcl Iv 5 Mg/Ml 20ml) 10 mg IV NOW STA Stop: 09/28/24 09:47 Last Admin: 09/28/24 09:53 Dose: 10 mg Documented By: JUANY Levetiracetam (Levetiracetam 500 Mg/5 Ml Vial) 2,000 mg IV NOW STA Stop: 09/28/24 09:37 Last Admin: 09/28/24 09:47 Dose: 2,000 mg Documented By: JUANY Lidocaine (Lidocaine/Epineph/Tetracaine 1 Ea Syr) 1 each EXT NOW STA Stop: 09/28/24 09:42 Last Admin: 09/28/24 09:54 Dose: 1 each Documented By: JUANY Description This is a 21 electrode EEG with a single channel dedicated to limited EKG. The electrodes were placed in accordance with the International 10-20 system. Interpretation This is a 21 electrode EEG with a single channel dedicated to limited EKG. The electrodes were placed in accordance with the International 10-20 system. There is a posterior dominant rhythm of 8 Hz which is symmetrically dist ributed and attenuates with eye opening. There is a normal anterior to posterior organization. Photic stimulation: unremarkable Hyperventilation performed: ___ unremarkable; _x_ not performed. There is no focal slowing. No epileptiform abnormalities. Sleep stage: _x_ not achieved, ___drowsy state, ___ Stage II, ___ REM stage achieved. Interpretation Normal-appearing awake EEG. A normal EEG does not completely exclude a diagnosis of epilepsy. [facility] EEG Procedure Codes Indication for Procedure (1) Seizure-like activity: Neurology Neurology: 84051 EEG include record awake & drowsy
[2024-09-28 15:54] LABS: Appearance Urine Clear (Clear); Bacteria Urine Automated 4+ (None Seen); Bilirubin Urine Negative (Negative); Blood Urine Trace (Negative); Cast Urine Automated 0-2 /lpf (0-2); Color Urine Yellow; Epithelial Cell Urine Auto 0-2 /hpf (0-2); Glucose Urine UA Negative (Negative); Ketones Urine Negative (Negative); Leukocyte Esterase Urine 2+ (Negative); Nitrite Urine Positive (Negative); Protein Urine Negative (Negative); Specific Gravity Urine 1.026 (1.000-1.030); Urobilinogen Urine Negative (Negative); WBC Urine Automated >50 /hpf (0-5)
[2024-09-28] MEDS: levETIRAcetam 500 MG/5 ML VIAL IV SCH (21:33)
[2024-09-28] MEDS: ATENOLOL 50 MG TABLET PO SCH (21:39)
[2024-09-28] MEDS: ROSUVASTATIN CALCIUM 20 MG TAB PO SCH (21:39)
[2024-09-28 23:30] VITALS: RESP 18
[2024-09-29 06:54] LABS: Basophils # (auto) 0.02 K/uL (0.00-0.20); Basophils % (auto) 0.3 %; Eosinophils # (auto) 0.06 K/uL (0.00-0.50); Eosinophils % (auto) 0.8 %; Hematocrit (blood only) 36.9 % (42.0-52.0); Hemoglobin 12.3 g/dl (14.0-18.0); Immature Granulocytes # (auto) 0.02 K/uL (0.01-0.20); Immature Granulocytes % (auto) 0.3 %; Lymphocytes # (auto) 1.41 K/uL (1.20-3.40); Lymphocytes % (auto) 18.1 %; Mean Corpuscular Hemoglobin 30.8 pg (25.0-34.0); Mean Corpuscular Hgb Conc 33.3 g/dL (32.0-36.0); Mean Corpuscular Volume 92.3 fL (80.0-100.0); Mean Platelet Volume 12.7 fL (9.4-12.4); Monocytes # (auto) 0.68 K/uL (0.11-0.59); Monocytes % (auto) 8.7 %; Neutrophils # (auto) 5.61 K/uL (1.40-6.50); Neutrophils % (auto) 71.8 %; Platelet Count 94 K/uL (130-400); RDW Coefficient of Variation 14.4 % (11.5-14.5); RDW Standard Deviation 48.8 fL (36.4-46.3)
[2024-09-29 06:56] LABS: BUN Creatinine Ratio 16.7 (10-20); Calcium 8.9 mg/dl (8.6-10.3); Creatinine Clr Calc Pharmacy 60.7 ml/min; Potassium 3.4 mmol/L (3.5-5.1)
[2024-09-29] MEDS: lisinopril 2.5 MG TAB PO SCH (08:29)
[2024-09-29] MEDS: ESCITALOPRAM OXALATE 10 MG TAB PO SCH (08:29)
--- NOTE | 2024-09-29 08:32 | CT Scan Report ---
CT head/brain wo con CLINICAL HISTORY: [address], seizure like activity, fall Technique: Contiguous axial CT images of the head were acquired from the base of the skull to the alexandro joesph without intravenous contrast administration. Images were viewed in brain, subdural and bone windo ws. Automated dose lowering techniques and/or adjustment according to patient size were utilized for this exam. Comparison: Comparison is made to CT head 09/28/2024 Findings: In the interval, there is development of subarachnoid hemorrhage in the left posterior fossa outlinin g the tentorium and cerebellum. There is also a small amount of extension into the lateral ventricles bilaterally. Bilateral maxillary sinus soft tissue thickening is seen. The orbits appear normal. Post craniotomy c hanges are seen again seen in the left frontal calvarium. Impression: Interval development of subarachnoid hemorrhage with intraventricular extension. ACT 112: Negative or not required by law. Electronically signed by: Jamison Womack M.D. 09/29/2024 8:31 AM
[2024-09-29] MEDS: POTASSIUM CHLORIDE CRTAB 20 MEQ TABCR PO STA (08:33)
[2024-09-29] MEDS: KCENTRA (500unit vial) 2000 units IVP IV SCH (09:56)
--- NOTE | 2024-09-29 10:20 | Neurology Progress Note ---
Date of Service September 29, 2024 Assessment & Plan (1) Intracranial hemorrhage: Admission and Anticipated Discharge Date Admission Date: September 28, 2024 Subjective pt this morning still confused but alert and follows command occasionally. speech still slow and dysarthric. CT head noted SAH with small IVH component. Results & Data Vital Signs (Past 12 Hours) Vital Signs Temp Pulse Pulse Resp BP Pulse Ox O2 Del Method 09/29/24 07:45 37.1 C 78 18 164/115 H 99 Room Air 09/29/24 02:36 37.4 C 78 18 174/101 H 96 Room Air 09/28/24 22:55 36.7 C 63 18 155/83 H 97 Room Air 09/28/24 22:21 72 Exam (Neuro) Physical Exam: Neuro: Mental: Alert, knew his , not sure of month or time. follows simple commands. , fluent speech but slow and dysarthric, , mild apraxia, noted for L/R confusion, no neglect CN: PERRL, Full EOM, symmetric face, Motor: No abnormal movements, normal tone, 5/5 t/o bilaterally grossly overall Coord: intact grossly. Impression: 84 yo male with likely seizure event and post seizure confusion and s/p concussion from the fall in setting of prior SDH, on OAC, repeat CT head noted for now new SAH and small IVH too. Pt is DNR/DNI. discussed with family about transfer and they will discuss with hopsitalist for furher action as if they want surgical intervention or not to transfer to [place]. Recommendations: hold all anticoag and antiplatelet meds for at least 2 weeks, until bleeding resolved. keep SBP below 150. fall precaution repeat non-con CT head q24 hrs next 3 days. continue keppra 500mg IV/PO bid seizure precaution. EEG unremarkable. pending decision by family for possible transfer to [place] or not. Chart reviewed I have spent more than 50% educating patient/family about potential diagnosis and neurological evaluation and coordinating care with patient's treatment team. Total time spent (including chart review and coordination of care): 35 min (this includes chart review). PG Care Time/CCT Total # of Minutes Spent Total Time Spent with Patient: Total time spent is greater than 50% in coordination of care (as documented) at patient's floor/unit and/or counseling patient: Coding Level of Care Code 30494 SUB INP/OBS CARE 235MIN Diagnoses Intracranial hemorrhage I62.9
--- NOTE | 2024-09-29 13:02 | Hospitalist Progress Note ---
Date of Service September 29, 2024 Assessment & Plan (1) Seizure-like activity: Plan: New onset. This was witnessed by his and occurred before he fell, not after. Appreciate neurology consultation and recommendations. Keppra has been discontinued and reversed with Kcentra. He is now on intravenous Keppra which we will continue for now (2) Intracranial hemorrhage: Plan: Seen on second head CT scan. Xarelto is on hold and has been reversed with Kcentra. Arranging transfer to [facility] for neurosurgery evaluation (3) Paroxysmal atrial fibrillation: Plan: Ventricular rate controlled. Xarelto has been discontinued and reversed. PPM in place. Telemetry (4) Presence of cardiac pacemaker: Plan: Not MRI compatible. Telemetry (5) Coronary artery disease: Plan: Stable. Continue current medical management. Telemetry Plan Hopeful transfer to [facility] for tertiary care and neurosurgical evaluation Admission and Anticipated Discharge Date Admission Date: September 28, 2024 Subjective The patient is awake and alert but totally disoriented. Family is at the bedside. Awaiting callback from [facility] neurosurgery to see if they will accept this patient back to their facility since he recently had neurosurgery there in June 2024 related to a subdural hemorrhage. Xarelto is on hold and Kcentra has been administered for reversal per Dr. Reeder. MRI cannot be obtained due to presence of incompatible pacemaker. Mild hypokalemia will be corrected orally. He remains on intravenous Keppra. Neurology consultation and recommendations appreciated. Review of Systems 2 Review of Systems: The patient is totally disoriented and cannot reliably answer any questions related to review of systems at this time Physical Exam 2 Physical Exam: General-alert but totally disoriented. No distress. No fever HEENT-head atraumatic and normocephalic, pupils equal and reactive to light, extraocular muscles intact. Bandaged staple laceration left temporal region at the site of the previous neurosurgery Neck-no lymphadenopathy or thyromegaly, trachea midline Chest-clear to auscultation. No rales, wheezing or rhonchi Cardiac-regular rate and rhythm, normal S1 and S2 Abdomen-normal bowel sounds, no hepatosplenomegaly Extremities-no cyanosis, clubbing, or edema Neuro-cranial nerves II through XII intact, motor and sensory function within normal limits, strength symmetrical, no focal deficits Psych-normal affect, but disoriented Results & Data Results & Data Vital Signs (Past 12 Hours) Vital Signs Temp Pulse Resp BP Pulse Ox O2 Del Method 09/29/24 11:45 36.7 C 78 18 174/106 H 98 Room Air 09/29/24 07:45 37.1 C 78 18 164/115 H 99 Room Air 09/29/24 02:36 37.4 C 78 18 174/101 H 96 Room Air Laboratory Results 09/29/24 06:11 09/29/24 06:11 PG Care Time/CCT Total # of Minutes Spent Total Time Spent with Patient: Total time spent is greater than 50% in coordination of care (as documented) at patient's floor/unit and/or counseling patient: Coding Level of Care Code 65184 SUB INP/OBS CARE 3/50MIN Diagnoses Seizure-like activity R56.9 Intracranial hemorrhage I62.9 Paroxysmal atrial fibrillation I48.0 Presence of cardiac pacemaker Z95.0 Coronary artery disease I25.10
[2024-09-29] MEDS ORDERED: hydrALAZINE HCL 20 MG/ML VIAL IV PRN (13:14)
--- NOTE | 2024-09-29 13:19 | Discharge Summary ---
Discharge Summary Date of Service September 29, 2024 Principal Dx & Hospital Course #1 = Principal Diagnosis (1) Seizure-like activity: New onset. This was witnessed by his and occurred before he fell, not after. Appreciate neurology consultation and recommendations. Keppra has been discontinued and reversed with Kcentra. He is now on intravenous Keppra which we will continue for now (2) Intracranial hemorrhage: Seen on second head CT scan. Xarelto is on hold and has been reversed with Kcentra. Arranging transfer to [facility] for neurosurgery evaluation (3) Paroxysmal atrial fibrillation: Ventricular rate controlled. Xarelto has been discontinued and reversed. PPM in place. Telemetry (4) Presence of cardiac pacemaker: Not MRI compatible. Telemetry (5) Coronary artery disease: Stable. Continue current medical management. Telemetry Plan Hopeful transfer to [facility] for tertiary care and neurosurgical evaluation Admission HPI Per Admitting Provider Dung is an 84M with a PMHx of CAD, paroxysmal afib (on Xarelto), HTN, intracranial hemorrhage (06/2024), BPH, REJI on CPAP who presents to the ED with concerns for seizure like activity. This morning he showered and had breakfast and took medications this morning without issue. Was sitting on the kitchen chair, his heard a noise and Dung was making a face and then feel to the floor. Shaking while down and has not been the same since. Unsure if he was incontinent during this episode, as that is something that frequently happens to him. Scalp laceration at area of prior incision from brain surgery. Responds to name but does not answer questions appropriately and does not follow commands. reports that he had been in his normal state of health the last few days. Did not sleep well last night and was very restless. Some underlying cognitive impairment, no formal dx, was supposed to see psychiatry and this was appointment was cancelled due to his brain bleed. No recent illness, fevers or chills. reports no recent changes in appetite. Saw cardiology yesterday and had no issues. ED Course: Keppra 2g IV NSS 1L x 1 labetalol 10mg IV x1 Discharge Exam General-alert but totally disoriented. No distress. No fever HEENT-head atraumatic and normocephalic, pupils equal and reactive to light, extraocular muscles intact. Bandaged staple laceration left temporal region at the site of the previous neurosurgery Neck-no lymphadenopathy or thyromegaly, trachea midline Chest-clear to auscultation. No rales, wheezing or rhonchi Cardiac-regular rate and rhythm, normal S1 and S2 Abdomen-normal bowel sounds, no hepatosplenomegaly Extremities-no cyanosis, clubbing, or edema Neuro-cranial nerves II through XII intact, motor and sensory function within normal limits, strength symmetrical, no focal deficits Psych-normal affect, but disoriented Discharge Plan Discharge Items Patient Disposition: Transfer Acute Care Hospital Reason For Visit: AMS, SEIZURE LIKE ACTIVITY Discharge Diagnosis: Subarachnoid hemorrhage after fall, new onset tonic-clonic seizure activity Activity: As commented below Activity Comment: Bedrest for now Non-emergency contact: Primary Care Provider Call non-emergency contact if: your symptoms worsen Follow-up/Referrals: Kenny Rubalcava MD [Primary Care Provider] - Diet: Regular and Heart Healthy Addtl Attending Provider Instructions: See your primary care provider soon as possible after return from [facility] Pending Studies at Discharge: No Stand-Alone Forms: My [facility] Skilled Items Patient informed of condition?: Yes DNR: Yes Discharge Level of Care: Other Communicable Disease: No Discharge Prognosis: Stable Lines: Peripheral IV Urinary Catheter: Yes Medications and DC Order Prescriptions: New levetiracetam [Keppra] 500 mg/5 mL Solution 500 mg IV Q12H Qty: 0 0RF hydralazine 20 mg/mL Solution 10 mg IV Q2H PRN (Reason: hypertension) Qty: 0 0RF Continued coenzyme Q10 [Co Q-10] 200 mg Capsule 200 mg PO QAM Qty: 0 rosuvastatin 40 mg tablet 40 mg PO HS Qty: 90 3RF atenolol 100 mg tablet 100 mg PO BID Qty: 180 3RF Centrum Silver Men 300-600-300 mcg tablet 1 tab PO DAILY nitroglycerin 0.4 mg tablet, sublingual 0.4 mg SL Q5M PRN (Reason: chest pain) Qty: 25 magnesium 250 mg tablet 400 mg PO QAM cholecalciferol (vitamin D3) 25 mcg (1,000 unit) capsule 25 mcg PO DAILY lisinopril 2.5 mg tablet 2.5 mg PO DAILY Deep Sea Nasal 0.65 % Aerosol,[place] 2 spray INTRANASAL QID PRN (Reason: NASAL DRYNESS) ascorbic acid (vitamin C) [Vitamin C] 500 mg Tablet 500 mg PO QAM aspirin 81 mg Tablet,Delayed Release (Dr/Ec) 81 mg PO QAM escitalopram oxalate 5 mg tablet 5 mg PO DAILY Qty: 20 0RF Discontinued Xarelto 20 mg tablet 20 mg PO QDD Rx Instructions: must administer with evening meal Discharge Orders: Discharge Order (Routine); Ordered 09/29/24 Ordered By: Dung Hung Admission Data Admit Date/Time: 09/28/24 11:45 Attending Provider: Dung Hung Admit Provider: Jonel De Santiago Primary Care Provider: Kenny Rubalcava Other Providers: Jonel De Santiago; Noah Dhillon; Renata Reeder Hospital Stay Data Consultations 09/28/24 10:46 ED Decision to Admit Stat 09/28/24 11:17 Consult Neurology Routine 09/29/24 08:56 Consult Hematology Routine Diagnostic Imagining Performed 09/28/24 09:21 CT angio head w con Stat CT angio neck with con Stat CT head/brain wo con Stat 09/29/24 07:00 CT head/brain wo con Urgent Pending Results Patient Have Any Pending Studies at Discharge: No Discharge Instructions Given to Patient (Per Discharging Provider) See your primary care provider soon as possible after return from [facility] Total Time Total Time Spent Total Time Spent (In Minutes): 50 minutes Coding Level of Care Code 28736 INP/OBS DISCH >30 MIN Diagnoses Seizure-like activity R56.9 Intracranial hemorrhage I62.9 Paroxysmal atrial fibrillation I48.0 Presence of cardiac pacemaker Z95.0 Coronary artery disease I25.10
[2024-09-29] MEDS: hydrALAZINE HCL 20 MG/ML VIAL IV STA (13:22)
--- NOTE | 2024-09-29 13:46 | Discharge Summary ---
Discharge Summary Date of Service September 29, 2024 Principal Dx & Hospital Course #1 = Principal Diagnosis (1) Seizure-like activity: New onset. This was witnessed by his and occurred before he fell, not after. Appreciate neurology consultation and recommendations. Keppra has been discontinued and reversed with Kcentra. He is now on intravenous Keppra which we will continue for now (2) Intracranial hemorrhage: Seen on second head CT scan. Xarelto is on hold and has been reversed with Kcentra. Arranging transfer to [facility] for neurosurgery evaluation (3) Paroxysmal atrial fibrillation: Ventricular rate controlled. Xarelto has been discontinued and reversed. PPM in place. Telemetry (4) Presence of cardiac pacemaker: Not MRI compatible. Telemetry (5) Coronary artery disease: Stable. Continue current medical management. Telemetry Plan transfer to [facility] today, 09/29, for tertiary care and neurosurgical evaluation Admission HPI Per Admitting Provider Dung is an 84M with a PMHx of CAD, paroxysmal afib (on Xarelto), HTN, intracranial hemorrhage (06/2024), BPH, REJI on CPAP who presents to the ED with concerns for seizure like activity. This morning he showered and had breakfast and took medications this morning without issue. Was sitting on the kitchen chair, his heard a noise and Dung was making a face and then feel to the floor. Shaking while down and has not been the same since. Unsure if he was incontinent during this episode, as that is something that frequently happens to him. Scalp laceration at area of prior incision from brain surgery. Responds to name but does not answer questions appropriately and does not follow commands. reports that he had been in his normal state of health the last few days. Did not sleep well last night and was very restless. Some underlying cognitive impairment, no formal dx, was supposed to see psychiatry and this was appointment was cancelled due to his brain bleed. No recent illness, fevers or chills. reports no recent changes in appetite. Saw cardiology yesterday and had no issues. ED Course: Keppra 2g IV NSS 1L x 1 labetalol 10mg IV x1 Discharge Exam General-alert but totally disoriented. No distress. No fever HEENT-head atraumatic and normocephalic, pupils equal and reactive to light, extraocular muscles intact. Bandaged staple laceration left temporal region at the site of the previous neurosurgery Neck-no lymphadenopathy or thyromegaly, trachea midline Chest-clear to auscultation. No rales, wheezing or rhonchi Cardiac-regular rate and rhythm, normal S1 and S2 Abdomen-normal bowel sounds, no hepatosplenomegaly Extremities-no cyanosis, clubbing, or edema Neuro-cranial nerves II through XII intact, motor and sensory function within normal limits, strength symmetrical, no focal deficits Psych-normal affect, but disoriented Discharge Plan Discharge Items Patient Disposition: Transfer Acute Care Hospital Reason For Visit: AMS, SEIZURE LIKE ACTIVITY Discharge Diagnosis: Subarachnoid hemorrhage after fall, new onset tonic-clonic seizure activity Activity: As commented below Activity Comment: Bedrest for now Non-emergency contact: Primary Care Provider Call non-emergency contact if: your symptoms worsen Follow-up/Referrals: Kenny Rubalcava MD [Primary Care Provider] - Diet: Regular and Heart Healthy Addtl Attending Provider Instructions: See your primary care provider soon as possible after return from [facility] Pending Studies at Discharge: No Stand-Alone Forms: My [facility] Skilled Items Patient informed of condition?: Yes DNR: Yes Discharge Level of Care: Other Communicable Disease: No Discharge Prognosis: Stable Lines: Peripheral IV Urinary Catheter: Yes Medications and DC Order Prescriptions: New levetiracetam [Keppra] 500 mg/5 mL Solution 500 mg IV Q12H Qty: 0 0RF hydralazine 20 mg/mL Solution 10 mg IV Q2H PRN (Reason: hypertension) Qty: 0 0RF Continued coenzyme Q10 [Co Q-10] 200 mg Capsule 200 mg PO QAM Qty: 0 rosuvastatin 40 mg tablet 40 mg PO HS Qty: 90 3RF atenolol 100 mg tablet 100 mg PO BID Qty: 180 3RF Centrum Silver Men 300-600-300 mcg tablet 1 tab PO DAILY nitroglycerin 0.4 mg tablet, sublingual 0.4 mg SL Q5M PRN (Reason: chest pain) Qty: 25 magnesium 250 mg tablet 400 mg PO QAM cholecalciferol (vitamin D3) 25 mcg (1,000 unit) capsule 25 mcg PO DAILY lisinopril 2.5 mg tablet 2.5 mg PO DAILY Deep Sea Nasal 0.65 % Aerosol,[place] 2 spray INTRANASAL QID PRN (Reason: NASAL DRYNESS) ascorbic acid (vitamin C) [Vitamin C] 500 mg Tablet 500 mg PO QAM aspirin 81 mg Tablet,Delayed Release (Dr/Ec) 81 mg PO QAM escitalopram oxalate 5 mg tablet 5 mg PO DAILY Qty: 20 0RF Discontinued Xarelto 20 mg tablet 20 mg PO QDD Rx Instructions: must administer with evening meal Discharge Orders: Discharge Order (Routine); Ordered 09/29/24 Ordered By: Dung Hung Admission Data Admit Date/Time: 09/28/24 11:45 Attending Provider: Dung Hung Admit Provider: Jonel De Santiago Primary Care Provider: Kenny Rubalcava Other Providers: Jonel De Santiago; Noah Dhillon; Renata Reeder Hospital Stay Data Consultations 09/28/24 10:46 ED Decision to Admit Stat 09/28/24 11:17 Consult Neurology Routine 09/29/24 08:56 Consult Hematology Routine 09/29/24 13:33 Burn CD for patient Routine Diagnostic Imagining Performed 09/28/24 09:21 CT angio head w con Stat CT angio neck with con Stat CT head/brain wo con Stat 09/29/24 07:00 CT head/brain wo con Urgent Pending Results Patient Have Any Pending Studies at Discharge: No Discharge Instructions Given to Patient (Per Discharging Provider) See your primary care provider soon as possible after return from [facility] Total Time Total Time Spent Total Time Spent (In Minutes): 45 minutes Coding Level of Care Code 92835 INP/OBS DISCH >30 MIN Diagnoses Seizure-like activity R56.9 Intracranial hemorrhage I62.9 Paroxysmal atrial fibrillation I48.0 Presence of cardiac pacemaker Z95.0 Coronary artery disease I25.10
[2024-09-29 14:55] VITALS: BP 134/86; PULSE 81; TEMP 98.8; O2SAT 97
[2024-09-29] MEDS ORDERED: traMADol HCL 50 MG TABLET PO PRN (15:12)
[2024-09-29] MEDS: traMADol HCL 50 MG TABLET PO STA (15:51)
== END 2024-09-29 16:29 | disposition short-term general hospital (02) | DRG 87 ==
LOC: ED 09:19 → EDINP 11:45 → SUATTDRO 11:45 → 2E 12:51

== ENCOUNTER 2024-11-04 12:22 | Inpatient (IN) ==
--- NOTE | 2024-11-04 12:45 | Emergency Department Note ---
Impression & Plan AMS (altered mental status), UTI (urinary tract infection), RLL pneumonia ED Provider Note NAME: MALATHI GAMEZ Jr AGE: 84 SEX: Male INFORMANT: Patient and ED PROVIDER(S): Noah Domínguez MD CHIEF COMPLAINT: Change in mental status PLAN: Disposition: Admitted Outpatient prescription management: None Referral: None MEDICAL DECISION MAKING: Patient present because of change mental status. Testing was performed. He underwent CT and CT angiography. No acute findings were noted thankfully. Patient had an unremarkable Bio[employer]. Laboratory testing was unremarkable. He did have findings concerning for pneumonia on x-ray imaging. noted he was flushed and had a cough yesterday. Antibiotics ordered after discussion with ED pharmacist. Patient had a urinalysis formed and was also found to have a UTI. Further management in the hospital will be necessary. and patient in agreement. Consultation was made with Dr. Armando Langford of the [facility] service. Patient was evaluated in the ER for further management. Care/management discussed with: none Level of care consideration(s): After review of the information above and other included data, I feel the patient requires escalation of care to admission Triage Nursing notes: reviewed and agree them. Vital Signs: reviewed and remarkable for no significant abnormalities Additional History obtained from: Patient's Chronic Medical/Social Conditions affecting care: History Prior/ Outside/ External records reviewed: none Differential Diagnosis: CVA, TIA,Infection, dehydration, metabolic abnormality, hypo/hyperglycemia, electrolyte disturbance, anemia, hypoxia, cardiac sources, intracerebral event, toxicologic, neurologic, as well as other pathologies. Diagnostics, independently interpreted by me: ECG: Twelve-lead ECG reveals atrial fibrillation at 75 bpm. Left anterior fascicular block and LVH. Cardiac Monitoring: Cardiac monitoring ordered by me: The patient was placed on continuous cardiac monitoring and observed. It revealed a paced rhythm at 87 bpm. Medical decision rules: none Imaging studies: Head CT: A noncontrast CT scan of the head was performed and was negative for tumor, fracture, intracranial hemorrhage, or other acute pathology. Chest x-ray concerning for lobar infiltrate HPI: 84 year old Male arrives for evaluation of change in mental status. This started last night and is worse today. is present helps with history. She notes that he slid out of bed last night. He did not appear to hurt himself. He was generally weak and seemed to be confused this morning. He was less communicative. Patient suffered an intracranial hemorrhage on October 05 and was treated at [facility]. He spent 2 weeks at [facility]. Has been home for about a week and a half. Patient was given no medications prior to arrival. Current pain is rated as 0/10. Patient is able to answer a few basic questions and denies any headache, chest pain, or abdominal pain. History is limited secondary to his mental status. PAST MEDICAL HISTORY: See Below, CVA PAST SURGICAL HISTORY: See Below, SOCIAL HISTORY: See Below, HOME MEDICATIONS: See Below ALLERGIES: Streptokinase, see below VITALS: See Below PHYSICAL EXAMINATION: GENERAL: Awake, alert, [id number]-[id number], in no distress HENT: Normocephalic, atraumatic. Oropharynx unremarkable. EYES: Normal conjunctiva. Sclera non-icteric. PERRLA. Patient will not follow commands for EOMI testing however with observation he does appear to move his eyes appropriately throughout without any visible deficit. NECK: Inspection normal. Non-tender. Supple. No nuchal rigidity. FROM. No masses. RESPIRATORY: Clear to auscultation. No wheezes. No rales. Normal respiratory effort. CARDIAC: Normal rate. Normal rhythm. No murmurs. No rubs. Extremities warm and well perfused. Pulses equal. No JVD. GI: Soft, non-distended. No tenderness to palpation. No rebound or guarding. No masses. MUSCULOSKELETAL: Atraumatic. Chest examination reveals no tenderness. The back is symmetrical on inspection without obvious abnormality. There is no CVA tenderness to palpation. No joint edema. LOWER EXTREMITIES: Calves are equal size bilaterally and non-tender. No edema. No discoloration. NEURO: Altered sensorium. Patient seems generally weak. He has drift in all extremities. He has difficulty following commands and has very limited response to questioning. SKIN: No rash or jaundice noted. PROCEDURES: none CRITICAL CARE: None OBSERVATION NOTE: none Past Med/Surg History Problem List (Updated 11/04/24 @ 20:51 by Noah Domínguez MD) RLL pneumonia (Acute) UTI (urinary tract infection) (Acute) AMS (altered mental status) (Acute) Intracranial hemorrhage Seizure-like activity Other symptoms and signs involving cognitive functions and awareness Epistaxis (Acute) H/O umbilical hernia repair (12/12/19) Open Umbilical Hernia Repair Dr. Zamora 08/18/19 Encounter for pre-operative examination Patient okay for surgery as per cardiology 07/26/19. Past heart attack (Acute) had in 1991 Hyperglycemia (Acute) Hypercholesterolemia (Acute) Gross hematuria (Acute) Former smoker (Acute) Elevated prostate specific antigen (PSA) (Acute) Benign prostatic hyperplasia with elevated prostate specific antigen (PSA) (Acute) Allergic rhinitis (Acute) Umbilical hernia without mention of obstruction or gangrene Sick sinus syndrome (Acute) 2008 DX Hypertension (Acute) Medical History (Updated 11/04/24 @ 20:51 by Noah Domínguez MD) Coronary artery disease Paroxysmal atrial fibrillation Presence of cardiac pacemaker Raynauds syndrome Atrial fibrillation DX 2014 (REASON FOR TAKING XARELTO) Myocardial Infarction 1991 Hyperlipidemia Raynauds phenomenon Ulcerative colitis History of cardiac pacemaker 2007 (S/P SYNCOPAL EPISODE) FOLLOWED BY DR. SMITH 2018 CHANGED PACEMAKER (MEDTRONIC DEVICE) Surgical History (Updated 10/09/24 @ 00:05 by Sahil Manriquez) History of colonoscopy History of cataract surgery RT/LEFT History of cardiac catheterization 1991 ANGIOPLASTY @ 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 Feels Safe at Home: Yes Assistive Devices: CPAP, Walker and Wheelchair Allergies Allergies Allergy/AdvReac Type Severity Reaction Status Date / Time streptokinase Allergy Intermediate Flushing Verified 09/27/24 10:22 Home Meds Home Medications Medication Instructions Recorded Confirmed coenzyme Q10 200 mg capsule (Co 200 mg PO QAM ##0 03/08/11 11/04/24 Q-10) nitroglycerin 0.4 mg sublingual 0.4 mg sublingual Q5M PRN chest 08/02/19 02/28/25 tablet pain #25 tabs aspirin 81 mg tablet,delayed 81 mg PO QAM 07/27/19 11/04/24 release sodium chloride 0.65 % nasal spray 2 spray intranasal QID PRN NASAL 04/20/20 11/04/24 aerosol (Deep Sea Nasal) DRYNESS [id number] 300 mcg-K 60 1 tab PO QAM 01/10/22 11/04/24 mcg-lycop 600 mcg-lutein 300 mcg tablet (Centrum Silver Men) lisinopril 2.5 mg tablet 10 mg PO BID 09/27/24 11/04/24 escitalopram oxalate 5 mg tablet 5 mg PO QAM 11/04/24 11/04/24 Previous Rx's Medication Instructions Recorded rosuvastatin 40 mg tablet 40 mg PO HS #90 tabs 03/18/24 atenolol 100 mg tablet 100 mg PO BID #180 tabs 05/23/24 Results & Data (ED) Vital Signs Vital Signs - 24 hr 11/04/24 12:20 11/04/24 14:19 11/04/24 14:26 Temperature 36.7 C Temperature Source Oral Pulse Rate 68 76 Pulse Rate [Apical] 73 Pulse Rhythm Regular Pulse Strength Normal Pulse Strength [Apical] Normal Respiratory Rate 19 18 Respiratory Effort / Characteristics Non-Labored Spontaneous Non-Labored Spontaneous Respiratory Depth Normal Normal Respiratory Pattern Regular Regular Blood Pressure 163/111 H Blood Pressure [Right Arm] 167/107 H Blood Pressure Mean 128 Blood Pressure Mean [Right Arm] 127 Pulse Oximetry 90 99 Oxygen Delivery Method Room Air Room Air Sepsis Recent Fever Within 48 Hours No Sepsis New/Unexplained Change in Mental Status Yes Sepsis Action Taken by Nursing No Action Required Laboratory Data 11/04/24 12:44 11/04/24 12:44 Lab Results 11/04/24 11/04/24 11/04/24 Range/Units 12:44 12:49 13:29 WBC 5.71 (4.8-10.8) K/ul RBC 4.56 L (4.70-6.10) M/uL Hgb 14.3 (14.0-18.0) g/dl POC Hgb 14.6 (14.0-18.0) g/dl Hct 42.8 (42.0-52.0) % POC Hct 43 (42-52) % MCV 93.9 (80.0-100.0) fL MCH 31.4 (25.0-34.0) pg MCHC 33.4 (32.0-36.0) g/dL RDW Std Deviation 43.0 (36.4-46.3) fL RDW Coeff of Larry 12.4 (11.5-14.5) % Plt Count 130 (130-400) K/uL MPV 12.5 H (9.4-12.4) fL Immature Gran % (Auto) 0.4 % Neut % (Auto) 67.7 % Lymph % (Auto) 21.9 % Cloud % (Auto) 8.4 % Eos % (Auto) 1.4 % Baso % (Auto) 0.2 % Neut # (Auto) 3.87 (1.40-6.50) K/uL Lymph # (Auto) 1.25 (1.20-3.40) K/uL Cloud # (Auto) 0.48 (0.11-0.59) K/uL Eos # (Auto) 0.08 (0.00-0.50) K/uL Baso # (Auto) 0.01 (0.00-0.20) K/uL Immature Gran # (Auto) 0.02 (0.01-0.20) K/uL PT 11.7 (9.0-12.0) Seconds INR 1.1 (0.9-1.1) APTT 25 (21-31) Seconds PTT Ratio 0.9 POC Sodium 143 (135-144) mmol/L Sodium 143 (136-145) mmol/L POC Potassium 3.8 (3.3-5.0) mmol/L Potassium 3.8 (3.5-5.1) mmol/L POC Chloride 106 (101-112) mmol/L Chloride 109 H (98-107) mmol/L Carbon Dioxide 31 (21-32) mmol/L POC Total CO2 27 (24-31) mmol/L Anion Gap 3 (3-11) POC Anion Gap 16.0 (16-25) mmol/L POC BUN 13 (7-18) mg/dl BUN 14 (6-23) mg/dl Creatinine 0.96 (0.6-1.4) mg/dl POC Creatinine 1.0 (0.6-1.3) mg/dl Est Cr Clr Drug Dosing 52.5 ml/min eGFR 77.46 BUN/Creatinine Ratio 14.6 (10-20) Glucose 89 (70-99(Fasting)) mg/dl POC Glucose (other) 87 (70-99) mg/dl Calcium 9.5 (8.6-10.3) mg/dl POC Ioniz Calcium Fouzia 1.23 (1.12-1.32) mmol/l Magnesium 2.3 (1.7-2.4) mg/dl Total Bilirubin 0.6 (0.2-1.0) mg/dl AST 21 (13-39) U/L ALT 22 (7-52) U/L Alkaline Phosphatase 66 (34-104) U/L Troponin I High Sens 10.6 (0-20) pg/ml B-Natriuretic Peptide (0-100) pg/ml Total Protein 6.6 (6.0-8.3) gm/dl Albumin 4.2 (3.4-5.0) gm/dl Globulin 2.4 L (2.5-4.0) gm/dl Albumin/Globulin Ratio 1.8 (0.9-2) Procalcitonin (0-0.5) ng/ml Adenovirus (PCR) Not Detected (NotDetected) B. pertussis DNA (PCR) Not Detected (NotDetected) B.parapertussis DNA PCR Not Detected (NotDetected) C. pneumoniae DNA (PCR) Not Detected (NotDetected) Coronavirus OC43 (PCR) Not Detected (NotDetected) Coronavirus HKU1 (PCR) Not Detected (NotDetected) Coronavirus 229E (PCR) Not Detected (NotDetected) SARS-CoV-2 (PCR) Not Detected (NotDetected) Coronavirus NL63 (PCR) Not Detected (NotDetected) Human Metapneumovir PCR Not Detected (NotDetected) Influenza Type A (PCR) Not Detected (NotDetected) Influenza Type B (PCR) Not Detected (NotDetected) M. pneumoniae (PCR) Not Detected (NotDetected) Parainfluenza 1 (PCR) Not Detected (NotDetected) Parainfluenza 2 (PCR) Not Detected (NotDetected) Parainfluenza 3 (PCR) Not Detected (NotDetected) Parainfluenza 4 (PCR) Not Detected (NotDetected) RSV (PCR) Not Detected (NotDetected) Entero/Rhino (PCR) Not Detected (NotDetected) Blood Type O Negative Antibody Screen NEGATIVE 11/04/24 Range/Units 14:26 WBC (4.8-10.8) K/ul RBC (4.70-6.10) M/uL Hgb (14.0-18.0) g/dl POC Hgb (14.0-18.0) g/dl Hct (42.0-52.0) % POC Hct (42-52) % MCV (80.0-100.0) fL MCH (25.0-34.0) pg MCHC (32.0-36.0) g/dL RDW Std Deviation (36.4-46.3) fL RDW Coeff of Larry (11.5-14.5) % Plt Count (130-400) K/uL MPV (9.4-12.4) fL Immature Gran % (Auto) % Neut % (Auto) % Lymph % (Auto) % Cloud % (Auto) % Eos % (Auto) % Baso % (Auto) % Neut # (Auto) (1.40-6.50) K/uL Lymph # (Auto) (1.20-3.40) K/uL Cloud # (Auto) (0.11-0.59) K/uL Eos # (Auto) (0.00-0.50) K/uL Baso # (Auto) (0.00-0.20) K/uL Immature Gran # (Auto) (0.01-0.20) K/uL PT (9.0-12.0) Seconds INR (0.9-1.1) APTT (21-31) Seconds PTT Ratio POC Sodium (135-144) mmol/L Sodium (136-145) mmol/L POC Potassium (3.3-5.0) mmol/L Potassium (3.5-5.1) mmol/L POC Chloride (101-112) mmol/L Chloride (98-107) mmol/L Carbon Dioxide (21-32) mmol/L POC Total CO2 (24-31) mmol/L Anion Gap (3-11) POC Anion Gap (16-25) mmol/L POC BUN (7-18) mg/dl BUN (6-23) mg/dl Creatinine (0.6-1.4) mg/dl POC Creatinine (0.6-1.3) mg/dl Est Cr Clr Drug Dosing ml/min eGFR BUN/Creatinine Ratio (10-20) Glucose (70-99(Fasting)) mg/dl POC Glucose (other) (70-99) mg/dl Calcium (8.6-10.3) mg/dl POC Ioniz Calcium Fouzia (1.12-1.32) mmol/l Magnesium (1.7-2.4) mg/dl Total Bilirubin (0.2-1.0) mg/dl AST (13-39) U/L ALT (7-52) U/L Alkaline Phosphatase (34-104) U/L Troponin I High Sens (0-20) pg/ml B-Natriuretic Peptide 393 H (0-100) pg/ml Total Protein (6.0-8.3) gm/dl Albumin (3.4-5.0) gm/dl Globulin (2.5-4.0) gm/dl Albumin/Globulin Ratio (0.9-2) Procalcitonin < 0.02 (0-0.5) ng/ml Adenovirus (PCR) (NotDetected) B. pertussis DNA (PCR) (NotDetected) B.parapertussis DNA PCR (NotDetected) C. pneumoniae DNA (PCR) (NotDetected) Coronavirus OC43 (PCR) (NotDetected) Coronavirus HKU1 (PCR) (NotDetected) Coronavirus 229E (PCR) (NotDetected) SARS-CoV-2 (PCR) (NotDetected) Coronavirus NL63 (PCR) (NotDetected) Human Metapneumovir PCR (NotDetected) Influenza Type A (PCR) (NotDetected) Influenza Type B (PCR) (NotDetected) M. pneumoniae (PCR) (NotDetected) Parainfluenza 1 (PCR) (NotDetected) Parainfluenza 2 (PCR) (NotDetected) Parainfluenza 3 (PCR) (NotDetected) Parainfluenza 4 (PCR) (NotDetected) RSV (PCR) (NotDetected) Entero/Rhino (PCR) (NotDetected) Blood Type Antibody Screen Administered Medications Atenolol (Atenolol 50 Mg Tablet) 100 mg PO BID RUFUS Stop: 12/04/24 20:59 Last Admin: 11/04/24 20:17 Dose: 100 mg Documented By: JOSE Lisinopril (Lisinopril 10 Mg Tab) 10 mg PO BID RUFUS Stop: 12/04/24 20:59 Last Admin: 11/04/24 20:17 Dose: 10 mg Documented By: JOSE Rosuvastatin Calcium (Rosuvastatin Calcium 20 Mg Tab) 40 mg PO HS RUFUS Stop: 12/04/24 20:59 Last Admin: 11/04/24 20:17 Dose: 40 mg Documented By: JOSE Discontinued Medications Cefepime HCl (Maxipime 2000mg) 2,000 mg in 20 mls @ 5 mls/min IV NOW STA; Protocol Stop: 11/04/24 13:52 Last Admin: 11/04/24 14:29 Dose: 5 mls/min Documented By: EYAD Doxycycline Hyclate 100 mg/ (Dextrose) 100 mls @ 50 mls/hr IV NOW STA Stop: 11/04/24 15:48 Last Infusion: 11/04/24 16:30 Dose: Infused Documented By: Admin: 11/04/24 14:26 Dose: 50 mls/hr Documented By: EYAD Ioversol (Optiray 320 125ml) 118 ml IV ONCE ONE Stop: 11/04/24 13:09 Last Admin: 11/04/24 13:09 Dose: 118 ml Documented By: ZA Labetalol HCl (Labetalol Hcl Iv 5 Mg/Ml 20ml) 5 mg IV NOW STA Stop: 11/04/24 16:56 Last Admin: 11/04/24 17:03 Dose: 5 mg Documented By: EYAD Labetalol HCl (Labetalol Hcl Iv 5 Mg/Ml 20ml) 5 mg IV NOW STA Stop: 11/04/24 18:05 Last Admin: 11/04/24 18:27 Dose: 5 mg Documented By: EYAD Imaging Data Radiologist's Impression: Chest X-Ray 11/04/24 12:30 XR chest 1V portable CLINICAL HISTORY: neuro deficit, acute stroke suspected COMPARISON STUDY: 09/11/2024 FINDINGS: Stable pacemaker. Stable cardiomegaly without pulmonary vascular congestion. There is interval faint reticular and patchy opacity at the right lung base. No pleural effusion or pneumothorax. IMPRESSION: Early pneumonia versus atelectasis right lung base. ACT 112: Negative or not required by law. Electronically signed by: Dave Van M.D. 11/04/2024 1:[address] 11/04/24 12:30 CT head/brain wo con CLINICAL HISTORY: neuro deficit, acute stroke suspected. TECHNIQUE: Multiple axial CT images of the head were obtained without contrast. A dose lowering technique was utilized adhering to the principles of ALARA. CT DOSE: 1045 COMPARISON: 09/29/2024 FINDINGS: There is stable prominence of the ventricles out of proportion to sulci which could represent cerebral atrophy or normal pressure hydrocephalus. There are stable severe chronic small vessel ischemic changes. Stable small area of encephalomalacia anterior left frontal lobe. No intracranial hemorrhage seen. No mass effect or midline shift. No skull fracture seen. IMPRESSION: No acute findings. ACT 112: Negative or not required by law. The above report was generated using voice recognition software. It may contain grammatical, syntax or spelling errors. Electronically signed by: Dave Van M.D. 11/04/2024 1:18 PM Head CTA 11/04/24 12:30 CT angio head w con, CT angio neck with con CLINICAL HISTORY: 84 years-old Male with neuro deficit, acute stroke suspected. Acute stroke like symptoms COMPARISON STUDY: Head CT of same day, CTA head and neck on 225 TECHNIQUE: Following the IV administration of 118 cc of Optiray, CT angiogram of the head and neck was performed from the aortic arch to the skull apex. Images are reviewed in the axial, sagittal, and coronal planes. 3-D MIPS images are created and assessed. IV contrast was administered without complication. All measurements were obtained according to NASCET criteria. A dose lowering technique was utilized adhering to the principles of ALARA. CT DOSE: 1044.83 mGy.cm FINDINGS: CT BRAIN: Dictated separately. Chronic left frontal lobe infarct. Left frontal craniotomy. CT ANGIOGRAM OF THE BRAIN: Left subclavian pacer. Atherosclerosis of the thoracic aortic arch. Patency of the innominate and image subclavian arteries. The common carotid arteries are patent. Atherosclerosis of the carotid bulbs without high-grade stenosis. The bilateral anterior and middle cerebral arteries are also patent. 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 The vertebrobasilar system and posterior cerebral arteries are widely patent. There is no aneurysm, high-grade stenosis, or proximal branch occlusion identified. Dural sinuses appear patent. Interstitial pulmonary edema. Layering right pleural effusion. Mild mediastinal lymphadenopathy. Degenerative changes of the cervical spine. Mild to moderate mucosal thickening of the paranasal sinuses. IMPRESSION: 1. No arterial occlusion or high-grade stenosis identified. 2. 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 ACT 112: Negative or not required by law. The above report was generated using voice recognition software. It may contain grammatical, syntax or spelling errors. Electronically signed by: Danilo Sheehan M.D. 11/04/2024 1:36 PM Neck CTA 11/04/24 12:30 CT angio head w con, CT angio neck with con CLINICAL HISTORY: 84 years-old Male with neuro deficit, acute stroke suspected. Acute stroke like symptoms COMPARISON STUDY: Head CT of same day, CTA head and neck on TECHNIQUE: Following the IV administration of 118 cc of Optiray, CT angiogram of the head and neck was performed from the aortic arch to the skull apex. Images are reviewed in the axial, sagittal, and coronal planes. 3-D MIPS images are created and assessed. IV contrast was administered without complication. All measurements were obtained according to NASCET criteria. A dose lowering technique was utilized adhering to the principles of ALARA. CT DOSE: 1044.83 mGy.cm FINDINGS: CT BRAIN: Dictated separately. Chronic left frontal lobe infarct. Left frontal craniotomy. CT ANGIOGRAM OF THE BRAIN: Left subclavian pacer. Atherosclerosis of the thoracic aortic arch. Patency of the innominate and image subclavian arteries. The common carotid arteries are patent. Atherosclerosis of the carotid bulbs without high-grade stenosis. The bilateral anterior and middle cerebral arteries are also patent. 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 The vertebrobasilar system and posterior cerebral arteries are widely patent. There is no aneurysm, high-grade stenosis, or proximal branch occlusion identified. Dural sinuses appear patent. Interstitial pulmonary edema. Layering right pleural effusion. Mild mediastinal lymphadenopathy. Degenerative changes of the cervical spine. Mild to moderate mucosal thickening of the paranasal sinuses. IMPRESSION: 1. No arterial occlusion or high-grade stenosis identified. 2. 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 ACT 112: Negative or not required by law. The above report was generated using voice recognition software. It may contain grammatical, syntax or spelling errors. Electronically signed by: Danilo Sheehan M.D. 11/04/2024 1:36 PM Discharge Plan Visit Data Chief Complaint: Neuro Symptoms/Deficit ED Provider: Noah Domínguez Discharge Problem: AMS (altered mental status), UTI (urinary tract infection), RLL pneumonia Patient Disposition: Admitted As Inpatient Discharge Instructions Interventions: ED Discharge Assessment Last Done: 11/04/24 18:09
[2024-11-04 13:01] LABS: iSTAT Hemoglobin 14.6 g/dl (14.0-18.0); iSTAT Ionized Calcium 1.23 mmol/l (1.12-1.32); iSTAT Potassium 3.8 mmol/L (3.3-5.0)
[2024-11-04] MEDS: OPTIRAY 320 125ml IV ONE (13:09)
[2024-11-04 13:17] LABS: Basophils # (auto) 0.01 K/uL (0.00-0.20); Basophils % (auto) 0.2 %; Eosinophils # (auto) 0.08 K/uL (0.00-0.50); Eosinophils % (auto) 1.4 %; Hematocrit (blood only) 42.8 % (42.0-52.0); Hemoglobin 14.3 g/dl (14.0-18.0); Immature Granulocytes # (auto) 0.02 K/uL (0.01-0.20); Immature Granulocytes % (auto) 0.4 %; Lymphocytes # (auto) 1.25 K/uL (1.20-3.40); Lymphocytes % (auto) 21.9 %; Mean Corpuscular Hemoglobin 31.4 pg (25.0-34.0); Mean Corpuscular Hgb Conc 33.4 g/dL (32.0-36.0); Mean Corpuscular Volume 93.9 fL (80.0-100.0); Mean Platelet Volume 12.5 fL (9.4-12.4); Monocytes # (auto) 0.48 K/uL (0.11-0.59); Monocytes % (auto) 8.4 %; Neutrophils # (auto) 3.87 K/uL (1.40-6.50); Neutrophils % (auto) 67.7 %; Platelet Count 130 K/uL (130-400); RDW Coefficient of Variation 12.4 % (11.5-14.5); Red Blood Count 4.56 M/uL (4.70-6.10); White Blood Count 5.71 K/ul (4.8-10.8)
--- NOTE | 2024-11-04 13:20 | CT Scan Report ---
CT head/brain wo con CLINICAL HISTORY: neuro deficit, acute stroke suspected. TECHNIQUE: Multiple axial CT images of the head were obtained without contrast. A dose lowering tech nique was utilized adhering to the principles of ALARA. CT DOSE: 1045 COMPARISON: 09/29/2024 FINDINGS: There is stable prominence of the ventricles out of proportion to sulci which could represe nt cerebral atrophy or normal pressure hydrocephalus. There are stable severe chronic small vessel is chemic changes. Stable small area of encephalomalacia anterior left frontal lobe. No intracranial hem orrhage seen. No mass effect or midline shift. No skull fracture seen. IMPRESSION: No acute findings. ACT 112: Negative or not required by law. The above report was generated using voice recognition software. It may contain grammatical, syntax o r spelling errors. Electronically signed by: Dave Van M.D. 11/04/2024 1:18 PM
[2024-11-04 13:35] LABS: Albumin Globulin Ratio 1.8 (0.9-2); Albumin Level 4.2 gm/dl (3.4-5.0); BUN Creatinine Ratio 14.6 (10-20); Bilirubin,Total 0.6 mg/dl (0.2-1.0); Calcium 9.5 mg/dl (8.6-10.3); Creatinine Clr Calc Pharmacy 52.5 ml/min; Globulin 2.4 gm/dl (2.5-4.0); Magnesium 2.3 mg/dl (1.7-2.4); Potassium 3.8 mmol/L (3.5-5.1); Total Protein 6.6 gm/dl (6.0-8.3)
--- NOTE | 2024-11-04 13:37 | CT Scan Report ---
CT angio head w con, CT angio neck with con CLINICAL HISTORY: 84 years-old Male with neuro deficit, acute stroke suspected. Acute stroke like symptoms COMPARISON STUDY: Head CT of same day, CTA head and neck on 225 TECHNIQUE: Following the IV administration of 118 cc of Optiray, CT angiogram of the head and neck wa s performed from the aortic arch to the skull apex. Images are reviewed in the axial, sagittal, and c oronal planes. 3-D MIPS images are created and assessed. IV contrast was administered without complic ation. All measurements were obtained according to NASCET criteria. A dose lowering technique was uti lized adhering to the principles of ALARA. CT DOSE: 1044.83 mGy.cm FINDINGS: CT BRAIN: Dictated separately. Chronic left frontal lobe infarct. Left frontal craniotomy. CT ANGIOGRAM OF THE BRAIN: Left subclavian pacer. Atherosclerosis of the thoracic aortic arch. Patency of the innominate and elsa ge subclavian arteries. The common carotid arteries are patent. Atherosclerosis of the carotid bulbs without high-grade stenosis. The bilateral anterior and middle cerebral arteries are also patent. 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 The vertebrobasilar system and posterior cereb ral arteries are widely patent. There is no aneurysm, high-grade stenosis, or proximal branch occlusi on identified. Dural sinuses appear patent. Interstitial pulmonary edema. Layering right pleural effusion. Mild mediastinal lymphadenopathy. Dege nerative changes of the cervical spine. Mild to moderate mucosal thickening of the paranasal sinuses. IMPRESSION: 1. No arterial occlusion or high-grade stenosis identified. 2. 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 ACT 112: Negative or not required by law. The above report was generated using voice recognition software. It may contain grammatical, syntax o r spelling errors. Electronically signed by: Danilo Sheehan M.D. 11/04/2024 1:36 PM
[2024-11-04 13:39] LABS: Troponin I High Sensitivity 10.6 pg/ml (0-20)
[2024-11-04 13:40] LABS: INR 1.1 (0.9-1.1); Partial Thromboplastin Ratio 0.9; Partial Thromboplastin Time 25 Seconds (21-31); Prothrombin Time 11.7 Seconds (9.0-12.0)
--- NOTE | 2024-11-04 13:43 | XRay Report ---
XR chest 1V portable CLINICAL HISTORY: neuro deficit, acute stroke suspected COMPARISON STUDY: 09/11/2024 FINDINGS: Stable pacemaker. Stable cardiomegaly without pulmonary vascular congestion. There is inter ashley faint reticular and patchy opacity at the right lung base. No pleural effusion or pneumothorax. IMPRESSION: Early pneumonia versus atelectasis right lung base. ACT 112: Negative or not required by law. Electronically signed by: Dave Van M.D. 11/04/2024 1:41 PM
[2024-11-04] MEDS: DOXYCYCLINE HYCLATE 100 MG in DEXTROSE 5% MINI-B 100 ML IV STA (14:26)
[2024-11-04] MEDS: CEFEPIME 2000MG 2,000 MG/20 ML SYR IV STA (14:29)
--- NOTE | 2024-11-04 14:33 | History & Physical Report ---
Date of Service November 04, 2024 Assessment & Plan (1) UTI (urinary tract infection): (2) RLL pneumonia: (3) AMS (altered mental status): Plan Dung is an 84-year-old male with PMH of intracranial hemorrhage, MO, BPH, sick sinus syndrome, and HTN. He presented on 11/04 for altered mental status. Patient is a poor historian at this time. History is obtained from his (Hilda) who was present at bedside. reports that he had a unwitnessed fall around 12:30 AM this morning. She is unsure if he accidentally slid out of bed; he was found directly on the side of the bed, and his CPAP machine was stuck between the bed and the wall. Patient is unable to provide details of this fall. #UTI UA positive on arrival No leukocytosis; afebrile Blood cultures drawn in the ED Most recent UCx on 09/28/24 grew Klebsiella with sensitivities to ceftriaxone Ceftriaxone 2000 mg IV q24h Follow current UCx #Pneumonia CXR revealed early pneumonia in the right lower lung BioFire negative Procalcitonin WNL Rocephin (as above) Will add on doxycycline 100 mg IV BID for atypical coverage #Fall/ambulatory dysfunction PT/OT evaluations appreciated Fall precautions #Altered mental status Suspect secondary to UTI/acute infection Note: ED initially presented patient as a stroke workup on admission Head CT, head CTA, and neck CTA on arrival revealed no acute findings At this time, patient exhibits no focal deficits on physical exam Patient's denies slurred speech, facial droop, or unilateral deficits on admission Given positive UA, suspect that his altered mental status is more in alignment with acute UTI v. stroke Note: Patient has a cardiac pacemaker that is not MRI compatible; will defer at this time While lower suspicion for stroke, given his history, recommend monitoring for interval progression of symptoms / repeat head CT on 11/05 if clinical worsening Okay to treat BP; labetalol product safety professional for SBP >180 or DBP >120 #Remote history of ICH Occurred on 06/2024 Recurrence of seizure-like activity and altered mental status on 09/28/2024 Continue Keppra #Atrial fibrillation Rate controlled; continue beta-josé miguel No anticoagulation [facility] Regular diet, aspiration cautions VTE PPx: Teds History of Present Illness Chief Complaint: Neurosymptoms/deficits Primary Care Provider: Kenny Rubalcava MD Dung is an 84-year-old male with PMH of intracranial hemorrhage, MO, BPH, sick sinus syndrome, and HTN. He presented on 11/04 for altered mental status. Patient is a poor historian at this time. History is obtained from his (Hilda) who was present at bedside. reports that he had a unwitnessed fall around 12:30 AM this morning. She is unsure if he accidentally slid out of bed; he was found directly on the side of the bed, and his CPAP machine was stuck between the bed and the wall. Patient is unable to provide details of this fall. called neighbor, and they were able to get him back in the bed. He slept all night, but then he when he woke up this morning he was "not himself". He would barely interact or look at the physical therapist to came to their house. He also did endorse increased weakness this morning, and was not willing to walk. Patient's reports that he does have a history of UTIs, with the last being in July. She has also had a dry cough. The physical therapist took the patient's temperature this morning, but did not notice a fever. That said, patient's reports that there has been an acute change in cognitive baseline since last night. She denies any slurred speech, facial droop, or unilateral deficits today. Although, does note his right leg has been weaker than his left ever since his hospitalization in September 2024.remote history of intracranial hemorrhage at [facility] 06/2024, and recent hospital admission at [facility] 09/2024; was discharged from [facility] ago. Patient denies smoking, tobacco use, recent alcohol use. Patient is hypertensive 167/107 at time of admission; vitals otherwise stable. ED course: Cefepime 2000 mg IV Doxycycline 100 mg IV Unable to obtain ROS due to patient's cognitive baseline. Allergies Allergy/AdvReac Type Severity Reaction Status Date / Time streptokinase Allergy Intermediate Flushing Verified 09/27/24 10:22 Home Medications Medication Instructions Recorded Confirmed Type coenzyme Q10 200 mg capsule (Co 200 mg PO QAM ##0 03/08/11 11/04/24 History Q-10) nitroglycerin 0.4 mg sublingual 0.4 mg sublingual Q5M PRN chest 04/08/19 11/04/24 History tablet pain #25 tabs aspirin 81 mg tablet,delayed 81 mg PO QAM 07/27/19 11/04/24 History release sodium chloride 0.65 % nasal spray 2 spray intranasal QID PRN NASAL 04/20/20 11/04/24 History aerosol (Deep Sea Nasal) DRYNESS imcvulco-ry-chgob 300 mcg-K 60 1 tab PO QAM 01/10/22 11/04/24 History mcg-lycop 600 mcg-lutein 300 mcg tablet (Centrum Silver Men) rosuvastatin 40 mg tablet 40 mg PO HS #90 tabs 03/18/24 11/04/24 Rx atenolol 100 mg tablet 100 mg PO BID #180 tabs 05/23/24 11/04/24 Rx lisinopril 2.5 mg tablet 10 mg PO BID 09/27/24 11/04/24 History escitalopram oxalate 5 mg tablet 5 mg PO QAM 11/04/24 11/04/24 History Past Med/Surg History Problem List (Updated 11/04/24 @ 16:58 by Lyle Mckeon PA-C) RLL pneumonia UTI (urinary tract infection) AMS (altered mental status) (Acute) Intracranial hemorrhage Seizure-like activity Other symptoms and signs involving cognitive functions and awareness Epistaxis (Acute) H/O umbilical hernia repair (08/18/19) Open Umbilical Hernia Repair Dr. Zamora 08/18/19 Encounter for pre-operative examination Patient okay for surgery as per cardiology 07/26/19. Past heart attack (Acute) had in 1991 Hyperglycemia (Acute) Hypercholesterolemia (Acute) Gross hematuria (Acute) Former smoker (Acute) Elevated prostate specific antigen (PSA) (Acute) Benign prostatic hyperplasia with elevated prostate specific antigen (PSA) (Acute) Allergic rhinitis (Acute) Umbilical hernia without mention of obstruction or gangrene Sick sinus syndrome (Acute) 2007 DX Hypertension (Acute) Medical History (Updated 11/04/24 @ 16:58 by Lyle Mckeon PA-C) Coronary artery disease Paroxysmal atrial fibrillation Presence of cardiac pacemaker Raynauds syndrome Atrial fibrillation DX 2014 (REASON FOR TAKING XARELTO) Myocardial Infarction 1991 Hyperlipidemia Raynauds phenomenon Ulcerative colitis History of cardiac pacemaker 2007 (S/P SYNCOPAL EPISODE) FOLLOWED BY DR. SMITH 2019 CHANGED PACEMAKER (MEDTRONIC DEVICE) Surgical History (Updated 10/09/24 @ 00:05 by Sahil Manriquez) History of colonoscopy History of cataract surgery RT/LEFT History of cardiac catheterization 1991 ANGIOPLASTY @ [facility] History of wisdom tooth extraction Family History Father Heart disease Stroke Social History Smoking Status: Former smoker Tobacco Type: Cigarettes Second Hand Exposure: No; Do You Dip or Chew Tobacco: No; Hx Alcohol Use: Yes Alcohol type: wine Hx Substance Use: No Preferred Language: Guamanian Communication Ability: Effective Technical Producer Required: No Beliefs That Will Affect Care: None marital status: Current Living Situation: Spouse 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 status: 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 Feels Safe at Home: Yes Assistive Devices: CPAP, Walker and Wheelchair Review of Systems Review of Systems: See HPI above Physical Exam Physical Exam: General: no acute distress; at bedside; non-toxic appearing; frail appearing; cooperative; SpO2 99% on RA HEENT: normocephalic, atraumatic; no scleral icterus; PERRLA w/ EOMs intact; vision and hearing intact Neck: supple; trachea midline Skin: warm, dry without signs of tenting; no cyanosis; no rashes, bruising, lesions, or erythema noted CV: chest wall NTP; RRR; S1/S2 normal; no murmurs/rubs/gallops; pulses intact and symmetric at radial, DP, and PT Lungs: no acute respiratory distress; symmetrical chest wall expansion; clear breath sounds across all lung lucas w/o adventitious sounds; no wheezing ABD: Soft, NTP; BS present; no rebound/guarding; no distention MSK: no tics or fasciculations; no edema noted in the LEs b/l, nonerythematous; 5/5 data management strength bilaterally; patient demonstrates ability to wiggle toes and lift legs from the bed bilaterally with 5/5 strength Neuro: Patient is oriented to name and date of ; no facial droop or slurred speech; not oriented to purpose in the hospital, events of his fall, month, or location; he does respond to some questions and commands, but not others (for instance he will wiggle his toes and lift his legs, but not stick out his tongue on command (since that he gives a blank stare); unable to assess sensation Results & Data Results & Data Vital Signs (Past 12 Hours) Vital Signs Temp Pulse Pulse Resp BP BP Pulse Ox 11/04/24 14:26 76 11/04/24 14:19 73 18 167/107 H 99 11/04/24 12:20 36.7 C 68 19 163/111 H 90 O2 Del Method 11/04/24 14:26 11/04/24 14:19 Room Air 11/04/24 12:20 Room Air Laboratory Results Abnormal lab results 11/04/24 Range/Units 12:44 RBC 4.56 L (4.70-6.10) M/uL MPV 12.5 H (9.4-12.4) fL Chloride 109 H (98-107) mmol/L Globulin 2.4 L (2.5-4.0) gm/dl Diagnostic Findings Chest X-Ray 11/04/24 12:30 XR chest 1V portable CLINICAL HISTORY: neuro deficit, acute stroke suspected COMPARISON STUDY: 09/11/2024 FINDINGS: Stable pacemaker. Stable cardiomegaly without pulmonary vascular congestion. There is interval faint reticular and patchy opacity at the right lung base. No pleural effusion or pneumothorax. IMPRESSION: Early pneumonia versus atelectasis right lung base. ACT 112: Negative or not required by law. Electronically signed by: Dave Van M.D. 11/04/2024 1:[address] 11/04/24 12:30 CT head/brain wo con CLINICAL HISTORY: neuro deficit, acute stroke suspected. TECHNIQUE: Multiple axial CT images of the head were obtained without contrast. A dose lowering technique was utilized adhering to the principles of ALARA. CT DOSE: 1045 COMPARISON: 09/29/2024 FINDINGS: There is stable prominence of the ventricles out of proportion to sulci which could represent cerebral atrophy or normal pressure hydrocephalus. There are stable severe chronic small vessel ischemic changes. Stable small area of encephalomalacia anterior left frontal lobe. No intracranial hemorrhage seen. No mass effect or midline shift. No skull fracture seen. IMPRESSION: No acute findings. ACT 112: Negative or not required by law. The above report was generated using voice recognition software. It may contain grammatical, syntax or spelling errors. Electronically signed by: Dave Van M.D. 11/04/2024 1:18 PM Head CTA 11/04/24 12:30 CT angio head w con, CT angio neck with con CLINICAL HISTORY: 84 years-old Male with neuro deficit, acute stroke suspected. Acute stroke like symptoms COMPARISON STUDY: Head CT of same day, CTA head and neck on 225 TECHNIQUE: Following the IV administration of 118 cc of Optiray, CT angiogram of the head and neck was performed from the aortic arch to the skull apex. Images are reviewed in the axial, sagittal, and coronal planes. 3-D MIPS images are created and assessed. IV contrast was administered without complication. All measurements were obtained according to NASCET criteria. A dose lowering technique was utilized adhering to the principles of ALARA. CT DOSE: 1044.83 mGy.cm FINDINGS: CT BRAIN: Dictated separately. Chronic left frontal lobe infarct. Left frontal craniotomy. CT ANGIOGRAM OF THE BRAIN: Left subclavian pacer. Atherosclerosis of the thoracic aortic arch. Patency of the innominate and image subclavian arteries. The common carotid arteries are patent. Atherosclerosis of the carotid bulbs without high-grade stenosis. The bilateral anterior and middle cerebral arteries are also patent. 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 The vertebrobasilar system and posterior cerebral arteries are widely patent. There is no aneurysm, high-grade stenosis, or proximal branch occlusion identified. Dural sinuses appear patent. Interstitial pulmonary edema. Layering right pleural effusion. Mild mediastinal lymphadenopathy. Degenerative changes of the cervical spine. Mild to moderate mucosal thickening of the paranasal sinuses. IMPRESSION: 1. No arterial occlusion or high-grade stenosis identified. 2. 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 ACT 112: Negative or not required by law. The above report was generated using voice recognition software. It may contain grammatical, syntax or spelling errors. Electronically signed by: Danilo Sheehan M.D. 11/04/2024 1:36 PM Neck CTA 11/04/24 12:30 CT angio head w con, CT angio neck with con CLINICAL HISTORY: 84 years-old Male with neuro deficit, acute stroke suspected. Acute stroke like symptoms COMPARISON STUDY: Head CT of same day, CTA head and neck on 225 TECHNIQUE: Following the IV administration of 118 cc of Optiray, CT angiogram of the head and neck was performed from the aortic arch to the skull apex. Images are reviewed in the axial, sagittal, and coronal planes. 3-D MIPS images are created and assessed. IV contrast was administered without complication. All measurements were obtained according to NASCET criteria. A dose lowering technique was utilized adhering to the principles of ALARA. CT DOSE: 1044.83 mGy.cm FINDINGS: CT BRAIN: Dictated separately. Chronic left frontal lobe infarct. Left frontal craniotomy. CT ANGIOGRAM OF THE BRAIN: Left subclavian pacer. Atherosclerosis of the thoracic aortic arch. Patency of the innominate and image subclavian arteries. The common carotid arteries are patent. Atherosclerosis of the carotid bulbs without high-grade stenosis. The bilateral anterior and middle cerebral arteries are also patent. 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 The vertebrobasilar system and posterior cerebral arteries are widely patent. There is no aneurysm, high-grade stenosis, or proximal branch occlusion identified. Dural sinuses appear patent. Interstitial pulmonary edema. Layering right pleural effusion. Mild mediastinal lymphadenopathy. Degenerative changes of the cervical spine. Mild to moderate mucosal thickening of the paranasal sinuses. IMPRESSION: 1. No arterial occlusion or high-grade stenosis identified. 2. 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 ACT 112: Negative or not required by law. The above report was generated using voice recognition software. It may contain grammatical, syntax or spelling errors. Electronically signed by: Danilo Sheehan M.D. 11/04/2024 1:36 PM ECG Additional Comments: ECG revealed atrial fibrillation at 75 bpm; QTc 464 Code Status & VTE Plan Code Status DNR/DNI (confirmed with patient's at bedside) VTE Prophylaxis Plan VTE Prophylaxis will be ordered: Yes Supervising Physician Co-Signing Physician Notes Patient seen and examined, chart reviewed, case discussed with Lyle Mckeon PA-C and I agree with the assessment and plan as above except as otherwise noted Labs and images reviewed 84-year-old male with a past history of ICH/CVA, hypoglycemia, tobacco abuse, sick sinus syndrome who presents with altered mental status. Is found to have suspected early pneumonia versus atelectasis at the right lung base on chest x- ray and a infected appearing UA. No leukocytosis. Was initially activated stroke alert due to altered mental status although without focal neurologic symptoms on exam. CTA head/neck and CThead are without acute findings. Patient does have ventriculomegaly similar to prior given age and persistence likely ex vacuo although NPH is not definitively excluded. Given evidence of UTI suspect metabolic encephalopathy is more likely. Agree with treat with antibiotics. Rocephin/Doxy will also cover potential pneumonia although x-ray findings are subtle and DDx they are includes atelectasis. He has not hypoxic and O2 sat is 99% on room air. Agree with assessment and management as above. At time of bedside he has no focal deficits, some increased speech latency but distal extremity strength and sensation is intact and has no cranial nerve deficits. Given underlying UTI and lower suspicion for stroke would treat to BP goal of 180. Stroke is not definitively ruled out as patient cannot get an MRI however lower suspicion for this. Can obtain a 24-hour CT if needed and patient does not improve her suspected metabolic encephalopathy. Agree with above. PG Care Time/CCT Total # of Minutes Spent Total Time Spent with Patient: Total time spent is greater than 50% in coordination of care (as documented) at patient's floor/unit and/or counseling patient: [place] [address] INT INP/OBS CARE 3/75MIN Patient Type Established History Comprehensive Exam Comprehensive Medical Decision Making High Complexity Diagnoses UTI (urinary tract infection) N39.0 RLL pneumonia J18.9 AMS (altered mental status) R41.82
[2024-11-04 14:35] LABS: Adenovirus PCR Not Detected (NotDetected); Bordetella parapertussis PCR Not Detected (NotDetected); Bordetella pertussis PCR Not Detected (NotDetected); Chlamydia pneumoniae PCR Not Detected (NotDetected); Coronavirus 229E PCR Not Detected (NotDetected); Coronavirus CoV-2 (COVID19)PCR Not Detected (NotDetected); Coronavirus HKU1 PCR Not Detected (NotDetected); Coronavirus NL63 PCR Not Detected (NotDetected); Coronavirus OC43PCR Not Detected (NotDetected); Human Metapneumovirus PCR Not Detected (NotDetected); Influenza A PCR Not Detected (NotDetected); Influenza B PCR Not Detected (NotDetected); Mycoplasma pneumoniae PCR Not Detected (NotDetected); Parainfluenza Virus 1 PCR Not Detected (NotDetected); Parainfluenza Virus 2 PCR Not Detected (NotDetected); Parainfluenza Virus 3 PCR Not Detected (NotDetected); Parainfluenza Virus 4 PCR Not Detected (NotDetected); Respiratory Syncytial VirusPCR Not Detected (NotDetected); Rhinovirus/Enterovirus PCR Not Detected (NotDetected)
[2024-11-04 14:45] LABS: Appearance Urine Cloudy (Clear); Bacteria Urine Automated 4+ (None Seen); Bilirubin Urine Negative (Negative); Blood Urine Negative (Negative); Cast Urine Automated 0-2 /lpf (0-2); Color Urine Yellow; Epithelial Cell Urine Auto 0-2 /hpf (0-2); Glucose Urine UA Negative (Negative); Ketones Urine Negative (Negative); Leukocyte Esterase Urine 2+ (Negative); Nitrite Urine Negative (Negative); Protein Urine Trace (Negative); RBC Urine Automated 0-2 /hpf (0-2); Specific Gravity Urine 1.015 (1.000-1.030); Urobilinogen Urine Negative (Negative); WBC Urine Automated >50 /hpf (0-5); pH Urine 7.5 (4.5-7.5)
[2024-11-04] MEDS ORDERED: LABETALOL HCL IV 5 MG/ML 20ML IV PRN (16:54)
[2024-11-04] MEDS: LABETALOL HCL IV 5 MG/ML 20ML IV STA ×2 (17:03→18:27)
[2024-11-04] MEDS ORDERED: ACETAMINOPHEN 325 MG TAB PO PRN (18:08)
[2024-11-04] MEDS ORDERED: MELATONIN 3 MG TAB PO PRN (18:08)
[2024-11-04] MEDS: ATENOLOL 50 MG TABLET PO SCH (20:17)
[2024-11-04] MEDS: lisinopril 10 MG TAB PO SCH (20:17)
[2024-11-04] MEDS: ROSUVASTATIN CALCIUM 20 MG TAB PO SCH (20:17)
--- OUTSIDE RECORDS SUMMARY | 2024-11-04 21:35 | External Medical Summary | Continuity of Care Document ---
Author Name Unknown Organization [facility] Address [address] [place] [phone] Care Team Providers Care Cutter Grinder Name Role Phone Kenny Rubalcava Primary Care Physician [phone] Encounter [facility] [id number] Date(s): 09/29/24 - 10/06/[address] [phone] Encounter Diagnosis Tinea unguium(Discharge Diagnosis) - 09/29/24 Intraparenchymal hemorrhage of brain(Discharge Diagnosis) - 10/06/24 IVH (intraventricular hemorrhage)(Discharge Diagnosis) - 10/06/24 Discharge Disposition: Other Type Healthcare Facility Attending Physician: MD Rayne, Dave Napoles Admitting Physician: MD Ashly, Shaw Garcia Allergies, Adverse Reactions, Alerts Substance Criticality Severity Reaction Reaction Severity Status streptokinase hot flash, rash Active streptogramins Propensity to adverse reaction Active Functional Status 10/06/24 History of Fall in Last 3 Months Carranza Y es Presence of Secondary Diagnosis Carranza Ye s Use of Ambulatory Aid Carranza None/bedrest /nurse assist IV/Heparin Lock Fall Risk Carranza Yes Gait/Transferring Fall Risk Carranza Weak Mental Status Fall Risk Carranza Forgets li mitations Carranza Fall Risk Score 85 Carranza Fall Risk High risk 10/06/24 Neurological Symptoms Confusion/Disorien tation ADLs Moderate assistance Facial Symmetry Symmetric Gait Unable to assess Swallowing Difficulty Pills, Solids Level of Consciousness Neuro Alert Hallucinations Present None Speech Pattern Clear, Aphasic Immunizations Given and Recorded Vaccine Date Status Refusal Reason RSV Vaccine Unspecified 08/07/23 Recorded SARS-CoV-2 (COVID-19) mRNA-vacc - [id number] 06/17/23 Recorded influenza virus vaccine, inactivated 06/03/23 Give n influenza virus vaccine, inactivated 06/07/21 Give n influenza virus vaccine, inactivated 06/08/20 Valdez rded influenza virus vaccine, inactivated 07/08/19 Give n influenza virus vaccine, inactivated 06/08/18 Give n influenza virus vaccine, inactivated 07/06/17 Give n influenza virus vaccine, inactivated 06/20/16 Give n influenza virus vaccine, inactivated 07/13/15 Give n influenza virus vaccine, inactivated 05/31/14 Give n influenza virus vaccine, inactivated 08/18/13 Give n influenza virus vaccine, inactivated 07/15/12 Give n SARS-CoV-2 mRNA-1273 (6y+ bivalent) 2 07/16/22 Rec orded SARS-CoV-2 (COVID-19) mRNA-1273 vaccine 3 12/25/21 Recorded SARS-CoV-2 (COVID-19) mRNA-1273 vaccine 4 07/25/21 Recorded SARS-CoV-2 (COVID-19) mRNA-1273 vaccine 12/04/20 R ecorded SARS-CoV-2 (COVID-19) mRNA-1273 vaccine 11/02/20 R ecorded SARS-CoV-2 (COVID-19) mRNA BNT-162b2 vax 12/04/20 Recorded pneumococcal 23-valent vaccine 07/18/19 Given zoster vaccine, inactivated 5 11/01/18 Recorded zoster vaccine, inactivated 07/02/18 Recorded pneumococcal 13-valent vaccine 05/26/17 Given zoster vaccine live 07/15/12 Recorded influenza virus vaccine, H1N1 6 07/28/09 Recorded 1Result Comment: 2023-09-04: Historical information-source unspecified 2Result Comment: 2023-06-03: Historical information-source unspecified 3Result Comment: 2023-06-03: Historical information-source unspecified 4Result Comment: 2023-06-03: Historical information-source unspecified 5Result Comment: 2019-07-18: Historical information-source unspecified 6Result Comment: 2019-07-18: Historical information-source unspecified Medications aspirin 81 mg oral delayed release tablet Start: 10/06/24 9:57:00 AM EST, 1 tab, PO, Daily Start Date: 10/06/24 Status: Ordered atenolol 100 mg oral tablet Start: 04/27/20 10:05:00 AM EDT, 1 tab, PO, bid Start Date: 04/27/20 Status: Ordered Crestor 40 mg oral tablet Start: 08/01/13 8:32:59 AM EST, See Instructions, Disp# 90, Refills: 3, TAKE ONE TABLET BY MOUTH ATBEDTIME, Pharmacy: [facility] #[id number], TAKE ONE TABLET BY MOUTH AT BEDTIME Start Date: 08/01/13 Status: Ordered Deep Sea Nasal [place] Start: 05/22/22 1:13:00 PM EDT, 2 spray intranasally qid Start Date: 05/22/22 Status: Ordered escitalopram 5 mg oral tablet Start: 09/22/24 12:05:00 PM EST, 1 tab, PO, Daily, Disp# 30 tab, Refills: 3, Pharmacy: [facility]/pharmacy #[id number] Start Date: 09/22/24 Status: Ordered Bhumi-C 1000 mg oral tablet Start: 03/05/15 9:59:00 AM EDT, 1 tab, PO, Daily Start Date: 03/05/15 Status: Ordered HumaLOG Sliding Scale Low Dose Range: SSI, injection, subQ, 10/03/24 4:30:00 PM EST, 10/03/24 4:33:01 PM EST, Estimated correction need for patients using total insulin daily dose between 31 and 60 units., 09/30/24 23:48:00 EST Start Date: 10/03/24 Stop Date: 10/03/24 Status: Completed HumaLOG Sliding Scale Low Dose Range: SSI, injection, subQ, 10/03/24 10:00:00 PM EST, 10/03/24 10:05:15 PM EST, Estimated correction need for patients using total insulin daily dose between 31 and 60 units., 09/30/24 23:48:00 EST Start Date: 10/03/24 Stop Date: 10/03/24 Status: Completed HumaLOG Sliding Scale Low Dose Range: SSI, injection, subQ, 10/04/24 7:30:00 AM EST, 10/04/24 9:06:17 AM EST, Estimated correction need for patients using total insulin daily dose between 31 and 60 units., 09/30/24 23:48:00 EST Start Date: 10/04/24 Stop Date: 10/04/24 Status: Completed isosorbide dinitrate 20 mg oral tablet Start: 10/06/24 9:57:00 AM EST, 1 tab, PO, tid Start Date: 10/06/24 Status: Ordered Keppra 250 mg oral tablet Start: 10/06/24 9:58:00 AM EST, 1 tab, PO, bid Start Date: 10/06/24 Status: Ordered lisinopril 10 mg oral tablet Start: 10/06/24 9:57:00 AM EST, 1 tab, PO, q12h Start Date: 10/06/24 Status: Ordered magnesium gluconate Start: 09/06/24 11:49:00 AM EST, 200mg daily Start Date: 09/06/24 Status: Ordered multivitamin Start: 05/22/22 1:12:00 PM EDT, 1 tab, PO, Daily, centrum silver men Start Date: 05/22/22 Status: Ordered nitroglycerin 0.4 mg sublingual tablet Start: 07/29/24 3:06:00 PM EST, 1 tab, SL, q5min, Disp# 25 tab, Refills: 3, PRN: as needed for chest pain, Pharmacy: [facility]/pharmacy #[id number] Start Date: 07/29/24 Status: Ordered Penlac Nail Lacquer 8% topical solution Start: 09/22/24 11:24:00 AM EST, 1 appl, topical, Daily, Disp# 6.6 mL, Refills: 6, Apply to affectedtoenails once per day for 6 months, Pharmacy: [facility] #[id number] Start Date: 09/22/24 Stop Date: 12/12/27 Status: Ordered Tylenol 325 mg oral tablet Start: 08/13/24 12:15:00 PM EST, 2 tab, PO, q4h, PRN: fever/mild pain (1-3) Start Date: 08/13/24 Status: Ordered Mental Status 09/30/24 Primary Language Paraguayan Problem List Condition Confirmation Course Effective Dates Status H ealth Status Informant Actinic keratosis Confirmed Active Atrial fibrillation Confirmed Active BPH without urinary obstruction Confirmed Active Body mass index [BMI] 24.0-24.9, adult Confirmed 04/26/24 Active CAD - Coronary artery disease Confirmed Active Changing skin lesion Confirmed Active Daytime sleepiness Confirmed 04/26/24 Active Encounter for follow-up examination after completed treatment for cancer Confirmed Active History of actinic keratoses Confirmed Active History of intracranial hemorrhage Confirmed Active 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 Hypertension Confirmed Active Impaired fasting glycaemia Confirmed Active Inflamed seborrheic keratosis Confirmed Active Chronic anticoagulation Confirmed Active Hyperlipidemia Confirmed Active Notalgia paresthetica Confirmed Active REJI on CPAP Confirmed Active Tinea unguium Confirmed Active Bursitis, prepatellar, left Confirmed Active Seborrheic keratoses Confirmed Active Sun-damaged skin Confirmed Active Hypovitaminosis D Confirmed Active Diagnosis Diagnosis Type Effective Dates Health Status Clinical Service Informant Tinea unguium Discharge Diagnosis 09/29/24 Non-Specified Intraparenchymal hemorrhage of brain Discharge Diagnosis 10/06/24 Non-Specified IVH (intraventricular hemorrhage) Discharge Diagnosis 10/06/24 Non-Specified Procedures Procedure Date Related Diagnosis Body Site Status Curettage 1 07/25/21 Completed Shave biopsy and cauterization of skin 07/17/21 Completed Shave biopsy 2 05/04/[address] - Computerised tomography,ABD/Pelvis combo 08/26/16 Comp leted Shave biopsy of skin 08/05/16 Comp leted Shave biopsy 01/29/16 Completed Cataract surgery 3 05/17/14 Comple chas Colonoscopy 4 09/25/09 Completed Cataract surgery 2003 Complete d Angiopathy Completed Full sleep study Complete d pacemaker Completed 1w/ drysol 2central scalp 3left eye 4Normal mucosa. No inflammation. Few diverticuli. No polyps/neoplasia. Cecum ok. Random Bx. Results Laboratory List Name Date Complete Blood Count (CBC w Platelets) Nephrology Panel 10/06/24 Complete Blood Count (CBC w Platelets) Nephrology Panel 10/05/24 Glucose Meter (GLUCOSE METER) 10/04/24 Complete Blood Count (CBC w Platelets) Nephrology Panel 10/04/24 Glucose Meter (GLUCOSE METER) 10/03/24 Glucose Meter (GLUCOSE METER) 10/03/24 Hemoglobin A1C 10/01/24 Added on Lab order 09/30/24 Liver Profile (LIVER PROFILE) 09/30/24 Phos, Mg (PHOS, MG) 09/30/24 Blood Type/Antibody Screen (for possible transfusion) (TYPE AND SCREEN) 09/29/24 Prothrombin Time w/ INR (PT/INR) 09/29/24 MRSA Surveillance (Nasal Swab) 1/23/25 Most recent to oldest [Reference Range]: 1 2 3 ABO/Rh O NEGATIVE (09/29/24 9:42 PM) Antibody Scr NEGATIVE (09/29/24 9:42 PM) Expires at 0600AM on 10/02/2024 (09/29/24 9:42 PM) # Units 0 (09/29/24 9:42 PM) R Number NRQ (09/29/24 9:42 PM) eGFR CKD-EPI [>60 mL/min/1.73 m2] >90 mL/min/1.73 m2 (10/06/24 7:43 AM) 86 mL/min/1.73 m2 (10/05/24 3:07 AM) 85 mL/min/1.73 m2 (10/04/24 3:11 AM) Blood Glucose [70-120 mg/dL] 133 mg/dL 1 *HI* (10/04/24 9:06 AM) 139 mg/dL 2 *HI* (10/03/24 10:05 PM) 138 mg/dL 3 *HI* (10/03/24 4:32 PM) Estimated Average Glucose 108 mg/dL (10/01/24 4:16 AM) Request of Physician mag rosado LFT (09/30/24 4:15 AM) Action Taken YES (09/30/24 4:15 AM) Estimated CrCl 73.99 mL/min (10/06/24 9:58 AM) 60.46 mL/min (10/05/24 4:02 AM) 56.98 mL/min (10/04/24 4:34 AM) MPV [9.0-12.2 fL] 12.9 fL *HI* (10/06/24 7:43 AM) 12.8 fL *HI* (10/05/24 3:07 AM) 12.5 fL *HI* (10/04/24 3:11 AM) RDW [11.5-14.2 %] 14.3 % *HI* (10/06/24 7:43 AM) 14.4 % *HI* (10/05/24 3:07 AM) 14.4 % *HI* (10/04/24 3:11 AM) Component RED CELLS (09/29/24 9:42 PM) MRSA Surveillance, on Admission [MSND] MRSA NOT detected (09/29/24 6:48 PM) Anion Gap [5-14 mmol/L] 14 mmol/L (10/06/24 7:43 AM) 11 mmol/L (10/05/24 3:07 AM) 9 mmol/L (10/04/24 3:11 AM) Alb [3.5-5.2 g/dL] 3.7 g/dL (10/06/24 7:43 AM) 3.7 g/dL (10/05/24 3:07 AM) 3.6 g/dL (10/04/24 3:11 AM) Alk Phos [40-130 unit/L] 53 unit/L 4 (09/30/24 4:14 AM) ALT [0-41 unit/L] 13 unit/L (09/30/24 4:14 AM) BUN [6-23 mg/dL] 20 mg/dL (10/06/24 7:43 AM) 29 mg/dL *HI* (10/05/24 3:07 AM) 27 mg/dL *HI* (10/04/24 3:11 AM) Ca [8.4-10.2 mg/dL] 9.3 mg/dL (10/06/24 7:43 AM) 8.8 mg/dL (10/05/24 3:07 AM) 9.0 mg/dL (10/04/24 3:11 AM) Cl- [98-107 mmol/L] 109 mmol/L *HI* (10/06/24 7:43 AM) 112 mmol/L *HI* (10/05/24 3:07 AM) 112 mmol/L *HI* (10/04/24 3:11 AM) HCO3 [22-29 mmol/L] 19 mmol/L *LOW* (10/06/24 7:43 AM) 23 mmol/L (10/05/24 3:07 AM) 23 mmol/L (10/04/24 3:11 AM) Cret [0.70-1.30 mg/dL] 0.67 mg/dL *LOW* (10/06/24 7:43 AM) 0.82 mg/dL (10/05/24 3:07 AM) 0.87 mg/dL (10/04/24 3:11 AM) HbA1c [<5.7 %] 5.4 % 5 (10/01/24 4:16 AM) Glu [74-109 mg/dL] 103 mg/dL 6 (10/06/24 7:43 AM) 108 mg/dL 7 (10/05/24 3:07 AM) 136 mg/dL 8 *HI* (10/04/24 3:11 AM) Gluc Meter [74-109 mg/dL] 133 mg/dL *HI* (10/04/24 9:04 AM) 139 mg/dL *HI* (10/03/24 10:03 PM) 138 mg/dL *HI* (10/03/24 4:30 PM) Hct [39-48 %] 39.6 % (10/06/24 7:43 AM) 37.0 % *LOW* (10/05/24 3:07 AM) 34.2 % *LOW* (10/04/24 3:11 AM) Hgb [13.0-17.0 g/dL] 12.9 g/dL *LOW* (10/06/24 7:43 AM) 11.8 g/dL *LOW* (10/05/24 3:07 AM) 11.1 g/dL *LOW* (10/04/24 3:11 AM) INR [0.9-1.1] 1.2 9 *HI* (09/29/24 6:48 PM) K [3.5-5.1 mmol/L] 3.4 mmol/L 10 *LOW* (10/06/24 7:43 AM) 3.9 mmol/L (10/05/24 3:07 AM) 3.6 mmol/L (10/04/24 3:11 AM) MCH [28-33 pg] 30.8 pg (10/06/24 7:43 AM) 31.0 pg (10/05/24 3:07 AM) 30.7 pg (10/04/24 3:11 AM) MCHC [32-36 g/dL] 32.6 g/dL (10/06/24 7:43 AM) 31.9 g/dL *LOW* (10/05/24 3:07 AM) 32.5 g/dL (10/04/24 3:11 AM) MCV [81-96 fL] 94.5 fL (10/06/24 7:43 AM) 97.1 fL *HI* (10/05/24 3:07 AM) 94.7 fL (10/04/24 3:11 AM) Mg [1.6-2.6 mg/dL] 2.2 mg/dL (09/30/24 4:14 AM) Na [136-145 mmol/L] 142 mmol/L (10/06/24 7:43 AM) 146 mmol/L *HI* (10/05/24 3:07 AM) 144 mmol/L (10/04/24 3:11 AM) PO4 [2.5-4.5 mg/dL] 2.8 mg/dL (10/06/24 7:43 AM) 2.8 mg/dL (10/05/24 3:07 AM) 2.8 mg/dL (10/04/24 3:11 AM) Plts [150-350 K/uL] 140 K/uL *LOW* (10/06/24 7:43 AM) 119 K/uL *LOW* (10/05/24 3:07 AM) 108 K/uL *LOW* (10/04/24 3:11 AM) PT [12.0-14.2 seconds] 14.7 seconds *HI* (09/29/24 6:48 PM) RBC [4.40-5.60 M/uL] 4.19 M/uL *LOW* (10/06/24 7:43 AM) 3.81 M/uL *LOW* (10/05/24 3:07 AM) 3.61 M/uL *LOW* (10/04/24 3:11 AM) T Bili [0.0-1.2 mg/dL] 1.0 mg/dL (09/30/24 4:14 AM) WBC [4.0-10.4 K/uL] 9.64 K/uL (10/06/24 7:43 AM) 6.10 K/uL (10/05/24 3:07 AM) 5.99 K/uL (10/04/24 3:11 AM) 1Result Comment: Performed at: [address] [place] [address] 2Result Comment: Performed at: [address] [place] [address] 3Result Comment: Performed at: [facility], [facility] [place] [address] 4Result Comment: Low levels of ALKP may indicate a deficiency in zinc, magnesium, or malnutritionbutcan also be an indicator of a rare genetic disease hypophosphatasia (HPP). 5Result Comment: ADA Recommended [place] Reference Range: Normal: <5.7% Prediabetes: 5.7-6.4% Diabetes: >6.4% Hb A1c results in patients with severe anemia or recent RBC transfusion are unreliable and do not represent the patient glycemic control. 6Result Comment: ADA recommendation for FASTING Serum/Plasma Glucose: Normal: 70-100 mg/dL Prediabetes: 100-125 mg/dL Diabetes: 126 mg/dL or higher 7Result Comment: ADA recommendation for FASTING Serum/Plasma Glucose: Normal: 70-100 mg/dL Prediabetes: 100-125 mg/dL Diabetes: 126 mg/dL or higher 8Result Comment: ADA recommendation for FASTING Serum/Plasma Glucose: Normal: 70-100 mg/dL Prediabetes: 100-125 mg/dL Diabetes: 126 mg/dL or higher 9Result Comment: Suggested therapeutic range for low-intensity Coumadin therapy for venous thromboembolism is INR 2.0-3.0 (ex: atrial fibrillation, history of TIA/stroke). For high risk patients, the suggested therapeutic range is INR 2.5-3.5 (ex: mechanical prosthetic valves). 10Result Comment: HEMOLYZED SPECIMEN Radiology Reports * Exam Date Time Procedure Performing Provider Status 09/30/24 8:[address] Brain/Head w/o Contrast Olivia Loera V; Final Notes: (CT Brain/Head w/o Contrast) Reason For Exam: F/u [facility] CT Brain/Head w/o Contrast EXAMINATION: CT OF THE HEAD WITHOUT CONTRAST CLINICAL HISTORY: F/u [facility] COMPARISON: CT/CTA head 09/29/2024. CT head 08/13/2024. CT/CTA head 06/22/2024 (Image timestamp is early 06/23/2024) TECHNIQUE: Noncontrast CT head. [employer] procedural planning protocol. 1 mm thick axial images and 2 mm thick coronal and sagittal images reconstructed with a soft tissue algorithm. DOSE: Total Reported Dose Length Product (DLP) = 976.61 mGy.cm FINDINGS: Gliosis and encephalomalacia in the left frontal lobe is compatible with sequelae of the previous parenchymal hemorrhage seen more acutely in the CT scan of 06/22/2024 and post surgical changes secondary to subsequent evacuation. Minimal calcification is present along the lateral periphery of the gliosis. Postsurgical changes secondary to previous left frontal craniotomy are also evident. Residual soft tissue swelling is present in the adjacent scalp. The subarachnoid hemorrhage at the left ambient cistern the left side of the quadrigeminal plate cistern does not appear significantly changed in amount compared to 09/29/2024. Mass effect mildly indents the adjacent left posterior aspect of the midbrain. A small focus of subarachnoid hemorrhage also appears to be present within a lateral left cerebellar sulcus, also likely not significantly changed. A thin hyperdense component extending to the inferior lateral right occipital sulcus does not appear significantly changed dating back to 06/22/2024 images represent calcification. A small amount of hyperdense hemorrhage within the dependent aspects of the trigones of the lateral ventricles is also not significantly changed in amount. Other ill-defined hypodensity in the periventricular regions extending to the subcortical white matter is nonspecific but compatible with moderate severe chronic microvascular ischemic changes. Thereis no definite CT evidence of new transcortical infarction new extra axial collection, new intracranial mass, or significant midline shift. Moderate enlargement of the third and lateral ventricles does not appear significantly changed compared to 09/29/2024. No destructive osseous lesions. Mild mucosal thickening in the left maxillary sinus with a few minimal cortical components in the remainder the paranasal sinuses. The mastoid air cells appear clear. Intraocular lens implants are present. IMPRESSION: 1. Subarachnoid hemorrhage, predominantly at the left ambient cistern the left side of the quadrigeminal plate cistern, and a small amount of intraventricular hemorrhage do not appear significantly changed in amount. 2. Sequelae of previous hemorrhage in the left frontal lobe. 3. Moderately enlarged ventricles do not appear significantly changed in size. 4. 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 [place] Act 112: This study does not meet the requirements of [place] Act 112. Workstation ID: [id number] Final Dictated by:MD Shasha, Freddy Linda Dictated DT/TM:09/30/2024 10:04 Signed by:MD Pulliam Scott Nyshin Signed (Electronic Signature):09/30/2024 10:03 * Exam Date Time Procedure Performing Provider Status 09/29/24 11:[address] Angio Brain/Head Miranda Adkins Iris ie; Final Notes: (CT Angio Brain/Head) Reason For Exam: L infratent SAH, IVH, c/f anx CT Angio Brain/Head EXAMINATION: CT Angio Brain/Head CLINICAL HISTORY: L infratent SAH, IVH, c/f anx COMPARISON: CT head 08/13/2024. CT/CTA head 06/22/2024 (Images are time-stamped as early 06/23/2024). TECHNIQUE: CT head without contrast: Axial 1 mm and 5 mm thick images. 2 mm thick coronal and sagittal images. CTA head with IV contrast: 1 mm thick and 3 mm thick axial images. 2 mm thick axial, sagittal, and coronal maximum intensity projection images. Full slab maximum intensity projection and 3D volumetric images. This study was analyzed with Viz ContaCT for measurement of intracranial arterial flow for detection of large vessel occlusion. FINDINGS: Head CT: Cerebral parenchyma: Unchanged area of encephalomalacia/gliosis in the left frontal lobe with tiny region of peripheral calcification from prior intraparenchymal hemorrhage 06/22/2024. No acute intraparenchymal hemorrhage. Unchanged confluent periventricular and deep matter hypodensities which are nonspecific but can be seen with [id number] microangiopathic ischemic changes. No CT evidence of acute transcortical infarction. Extra-axial spaces: Hyperdense subarachnoid hemorrhage within the left ambient cistern and left side of the quadrigeminal plate cistern with extension along the left side of the tentorium. Possible small focus in a left lateral cerebellar sulcus. Resolution of previous hypodense left subdural collection. Ventricles: Small amount of hemorrhage in the dependent aspects of the trigones of the lateral ventricles. Moderate ex vacuo dilation is not significantly change in comparison to 06/22/2024. Mass effect: Mass effect contours the adjacent left posterior aspect of the midbrain. Overall, no significant midline shift. No other evidence of new intracranial soft tissue mass. Orbits: Intraocular lens implants. Other: Postoperative changes from left frontal craniotomy with some overlying soft tissue edema. Mild mucosal thickening left maxillary sinus. Head CTA: Internal carotid artery: Calcifications are present along the distal internal carotid arteries, from the petrous to supraclinoid segments on the left and at the cavernous to supraclinoid segments andthe right. There is mild luminal irregularity and narrowing. GLORIA: Anatomic variation is present with a hypoplastic right A1 segment. The aneurysm at the anterior commuting artery appears to involve the junction of the left A1 and A2 segments. The anterior cerebral arteries otherwise appear patent. ACOM: Unchanged size of anterior communicating artery aneurysm measuring approximately 6 mm in length and 4 mm in width in the current study and in the study of 06/22/2024. As noted above, the aneurysm appears to involve the junction of the left A1 and A2 segments. Although in close proximity to the right A1 A2 junction, there appears to be a small gap between the junction in the aneurysm. MCA: Normal ACCOUNTING SUPERVISOR: Normal PCOM: The posterior containing arteries are likely hypoplastic. Vertebrobasilar arteries: Normal. The left vertebral artery is dominant Dural venous sinuses: No definite abnormal filling defect IMPRESSION: 1. New subarachnoid hemorrhage, predominantly within the left ambient cistern and left side of the quadrigeminal cisterns. 2. Small amount of intraventricular hemorrhage within the bilateral lateral ventricles. 3. 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 4. No new aneurysm. No high-grade intracranial arterial stenosis. 5. Encephalomalacia/ gliosis of the left frontal lobe from previous hemorrhage. [place] Act 112: This study does not meet the requirements of [place] Act 112. Dr. Julius Gore is the dictating resident. Finalized reports status indicates that the attending has reviewed the images and report, and agrees with the interpretation. Preliminary report status should be regarded as NOT interpreted by the attending radiologist. Workstation ID: [id number] Final Dictated by:DO Gore Alex Dictated DT/TM:09/30/2024 10:56 Resident:DO Gore Alex Signed by:MD Pulliam Scott Nyshin Signed (Electronic Signature):09/30/2024 10:54 Vital Signs Most recent to oldest [Reference Range]: 1 2 3 Height 172 cm (09/29/24 7:08 PM) Patient Weight 62.2 kg (10/06/24 6:20 AM) 67.5 kg (10/05/24 8:24 PM) 64.8 kg (10/04/24 12:00 PM) Body Mass Index 21.9 kg/m2 (09/30/24 8:00 AM) 21.94 kg/m2 (09/29/24 7:08 PM) Temperature [36.5-37.9 DegC] 35.9 DegC *LOW* (10/06/24 11:20 AM) 36.2 DegC *LOW* (10/06/24 7:54 AM) 36.3 DegC *LOW* (10/06/24 3:39 AM) Heart Rate 81 bpm (10/06/24 11:20 AM) 88 bpm (10/06/24 7:54 AM) 80 bpm (10/06/24 3:39 AM) Respiratory Rate 16 br/min (10/06/24 11:20 AM) 16 br/min (10/06/24 7:54 AM) 16 br/min (10/06/24 3:39 AM) Blood Pressure 109/77mmHg (10/06/24 11:20 AM) 125/74mmHg (10/06/24 7:54 AM) 144/95mmHg (10/06/24 3:39 AM) Mean Blood Pressure 87 mmHg (10/06/24 11:20 AM) 90 mmHg (10/06/24 7:54 AM) 107 mmHg (10/06/24 3:39 AM) Cuff Pulse Pressure 32 mmHg (10/06/24 11:20 AM) 51 mmHg (10/06/24 7:54 AM) 49 mmHg (10/06/24 3:39 AM) BP Location # 1 Left Arm (10/06/24 11:20 AM) Left Arm (10/06/24 7:54 AM) Left Arm (10/06/24 3:39 AM) Social History Social History Type Response Tobacco Former smoker, Cigar ettes, Started age 16 Years. Stopped age 21 Years. Smoking Status Former Smoker, quit > 1 yr Sex Male Sex Representation Male (finding) Implantable Device List Procedure Provider Procedure Date Device Type Site Unknown Unknown 06/24/24 Unknown Unknown Device Identifier Serial Number Lot or Batch Number Manufacturing Date Expiration Date Distinct Identification Code MRI Safety Implantable Status Assigning Authority Unknown Unknown n.a Unknown Unknown Unknown Unknown Active Unkn own Unknown Unknown n.a Unknown Unknown Unknown Unknown Active Unkn own Unknown Unknown n.a Unknown Unknown Unknown Unknown Active Unkn own Unknown Unknown [id number] Unknown 06/06/26 Unknown Unknown Active Unk [employer] [facility] * RAMAN Quiros Kristen E: MODIFY, MODIFY, MODIFY, MODIFY, MODIFY, PERFORM, MODIFY, MODIFY, MODIFY Event Display: [facility] Authored Date: [id number] [facility] HISTORY AND PHYSICAL Name: MALATHI GAMEZ Jr. Patient Number: [id number] : 1940 Date of Service: 09/30/2024 Chief Complaint: IPH w/hypertension History of Present Illness: Mr. Malathi Gamez is an 84 year old male with previous left frontal IPHs/p SANDEEP evacuation 06/2024, acute on chronic SDH after fall without surgical intervention 08/2024 as well as atrial fibrillation on Eliquis, CAD/MD s/p pacemaker on aspirin, hypertension, hyperlipidemia, and REJI who presented to [facility] on 09/28/2024 due to full body shaking witnessed by followed by fall. Initially, his head CT was negative for acute intracranial abnormality. He was admitted to [facility] for close neurological monitoring and follow up head CT. On follow up head CT (09/29), he was noted to have a left infratentorial hemorrhage. His Eliquis was reversed. He was loaded with levetiracetam and started on 500 mg BID. He was transferred to [facility] for further evaluation/management. Overnight, he had SBP > 150 requiring 5 prns for blood pressure control. There was also concern for waxing/waning exam; head CT pending as well as EEG. He is being upgraded for concern of mental status change and blood pressure control. Of note, he was last seen via tele health visit in 09/2024. Baseline is oriented to name only and dysarthria otherwise no other deficits appreciated. Past Medical History: 1. L frontal IPH, 06/2024 2. 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 Atrial fibrillation 4. CAD/MD 5. Hypertension 6. Hyperlipidemia 7. Obstructive sleep apnea compliant w/CPAP 8. BPH Surgical History: 1. SANDEEP evacuation 06/2024 2. Pacemaker Social History: . 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 Lives at home with car salesman assistance. Nonsmoker. Allergies and Sensitivities: streptogramins(Propensity to adverse reaction) streptokinase(hot flash, rash) 24-Hour Vital Signs: T Range: Tmax: HR Range: RR Range: SBP Range: DBP Range: O2 Sat. Range: Most Recent Fi02: 36.3- 36.4 36.4 72- 98 13- 25 122-186 87-118 98-100 Neurophysiology: No ranges over the past 24 hours found. Hemodynamics: No ranges over the past 24 hours found. Monitor Rhythm: Afib w/PVC No Vent Detail Found. Weight: On admission: 09/29 64.900 kg Today: 64.9 kg on 09/29/2024 19:08 Input and Output - (6am Yesterday - 6am Today) Total In: 306 Total Out: 500 Total Balance: -194 Electrolyte IV Solution 1,000 mL: 298 Male External Urinary Device: 500 DCP GENERIC CODE: 8 Total Balance x 3 days: -194 Total Balance x 7 days: -194 Most Recent Lab Results over the last 24 Hours: CBC: on 09/30/2024 04:14 BMP: on 09/30/2024 04:14 12.7 142 106 13 7.2 100 94 38.4 3.7 20 0.68 Ca = 8.8 PT: = 14.0 INR: = 1.2 Active Inpt Meds: atenolol 100 mg PO bid clotrimazole topical (clotrimazole 1% topical cream) 1 appl topical bid escitalopram 5 mg PO Daily famotidine (Pepcid) 20 mg PO bid levETIRAcetam (Keppra) 500 mg PO bid lisinopril 2.5 mg PO Daily mupirocin topical (mupirocin 2% nasal ointment) 1 appl each nostril bid rosuvastatin (Crestor) 40 mg PO qhs senna 8.6 mg PO Daily Active PRN Meds: calcium carbonate (Tums 500 mg oral tablet, chewable) 500 mg PO tid guaiFENesin (Robitussin) 200 mg PO q4h hydrALAZINE 10 mg IV Push q20min labetalol 10 mg IV Push q10min loratadine (Claritin) 10 mg PO Daily nitroglycerin 0.4 mg SL q5min ocular lubricant (Refresh ophthalmic solution) 1 drop both eyes q6h ondansetron (Zofran) 4 mg IV Push q6h phenol topical (Chloraseptic Viburnum) 1 spray PO As indicated polyethylene glycol 3350 (MiraLax) 17 g PO Daily simethicone 20 mg PO q6h sodium chloride nasal ([place]erton 0.65% nasal spray) 1 spray each nostril q30min One Time Meds: (Completed) iohexol (Omnipaque 350) 75 mL w/ contrast-IV ONCE Active IV Meds: Electrolyte IV Solution 1,000 mL 1,000 mL 75 mL/HR Physical Exam: General: Awake, communicative on initial meeting - stated "Good morning." Head: L forehead mandeep. Regards, tracks. PERRL - 3 mm. Mixed aphasia w/dysarthria. Difficult to assess facial symmetry. Cardiac: Irregular rate, rhythm. S1, S2 - no murmurs appreciated. Lungs: Respirations equal, unlabored. Breath sounds with rhonchi in right lower lobe otherwise clear/diminished. Abdomen: Soft, flat. : Incontinence. Extremities: No edema appreciated. Neuro: Eyes open spontaneously. Agreed to name but not oriented despite options to place/time; perseverating speech. Intermittently follows commands otherwise mimics - BUE 5/5 w/right side high tone.BLE spontaneously 2/5. Skin: [place], warm, dry. B PIV. Assessment/Plan: Acute L infratentorial IPH w/SAH & IVH w/acute encephalopathy related to neurological injury; concern for seizures - previous L frontal IPH w/SANDEEP evacuation (06/2024) -> EEG during this admission neg for seizures - previous acute on chronic left subdural hematoma (08/2024) - neuro checks q1h - CTA (09/29): neg for vascular abnormality per NSGY, pending read - head CT pending now given change in exam - episode of full body shaking witnessed by -> loaded w/levetiracetam, cont on 500 mg BID -> EEG pending - SBP goal < 150 -> see below - hold home Eliquis (s/p reversal) -> per NSGY, unlikely to restart given recent hemorrhage history - hold home aspirin - maintain euglycemia -> glucose 90's, SSI low dose, A1c pending (06/30: 6) - pain control: prn acetaminophen Mood disorder - cont home escitalopram 5 mg daily Hypertensive emergency; atrial fibrillation; CAD w/previous MD s/p pacemaker - SBP goal < 150 - HR goal < 110 - per last FCM clinic note, BP at home 140-160 -> d/c amlodipine, started low dose lisinopril d/t labile blood pressures - cont home lisinopril 2.5 mg daily (recently started) -> low threshold to titrate up - cont home atenolol 100 mg q12h - start isosorbide 20 mg TID (home isosorbide ER 60 mg daily) - hold home HCTZ 25 mg daily for now - prn labetalol, hydralazine -> required 5 overnight - start nicardipine for goal - place arterial line - hold home Eliquis and aspirin given IPH - keep K > 4, mag > 2.5 - add on mag, phos to morning labs Hyperlipidemia - cont home rosuvastatin 40 mg daily - added on LFTs to morning labs REJI - per , he does use a ResMed CPAP at home, but struggles during night with its use - will hold for now, agrees with plan FEN; concern for dysphagia - per clinic note 09/2024, recent weight loss - NPO pending dysphagia screen, STREET VENDOR ordered - Normosol @ 75 mL/hr - bowel regimen: senna - daily labs Hypokalemia - replace for K goal > 4 - add on mag, phos to morning labs BPH - bladder scan prn Prophylaxis: DVT: SCDs, pharm contraindicated given IPH GIB: no indication Disposition: - requires NCCU due to potential for rapid neurological decline necessitating frequent neuro exams,hemodynamic monitoring w/titration of vasoactive medications - POA: (Living Will on chart) - full code - reordered PT/OT Critical Care Shared/Split Visit: I have spent40 minutes of discrete time providing critical care services at the bedside. This includes performing a bedside examination of the patient and reviewing the electronic medical record, including progress notes by consultants or other members of the interprofessional team. The timeEXCLUDEStime performing procedures. Timealsoincludesthe following: _X__ Review results of diagnostic testing and/or imaging _X__ Interprofessional collaboration to establish/discuss plan of care _X__ Collaboration with primary team and/or consultants to establish/discuss plan of care _X__ Establish/discuss plan of care with the patient and/or family member(s) _X__ Document care in the medical record Electronic Signature on File Electronically Reviewed/Signed by: RAMAN Foley Author Signature Dt/Tm:09/30/2024 04:42 PM Department of Neurosurgery [facility] * MD Limon Ephraim W: MODIFY MD Limon Ephraim W: MODIFY Event Display: Neurosurgery H&P Authored Date: [id number] Name:MALATHI GAMEZ Jr. Patient Number:[id number] :1940 Date of Service:09/29/2024 Chief Complaint Confusion, c/f sz History of Present Illness This is an 83-year-old male with history of hypertension, hyperlipidemia, CAD, A-fib, MD, pacemaker, ulcerative colitis, BPH, and REJI who is presenting [facility] as a transfer from [facility] emergency department after being found to have a 1cm Left infratentorial SAH w/ IVH. Of note he is on eliquis/ASAfor the above which he last took 09/27 and 09/28. He was first seen by our department in June 2024 when he presented with a left frontal 30cc IPH requiring surgical evacuation after his exam declined. He presented again in August after a falland was found to have a L frontal acute on chronic SDH requiring reversal of his anticoagulation but no surgical intervention. His current baseline is oriented by 1 otherwise intact. He lives at home with his and shehas caretakers to help take care of him. She states that he was doing quite well up untilyesterday when he had an episode of full body shaking concerning for seizure and fell.His prior left frontal incision opened up and was bleeding and he hadstaples placed at the outside hospital. Shestates that they reversed his Xarelto and his INR was 1.2 on his arrival atour institution. Shestates that they also gave him Keppra. He has no history of seizures. His prior CTAdid not show anyaneurysms. After the event he had some dysarthria and some difficulty understanding her. She states that he is not moving around as much as he used to but she cannot say whether 1 side is movingmore less than the other. She states that he does seem more confused than usual. Review of Systems Negative except as in HPI Physical Exam Vitals & Measurements T:36.4C HR:97(Monitored) RR:22 BP:164/93 SpO2:98% Oxygen Therapy:Room Air HT:172cm WT:64.900kg(Dosing) WT:64.9kg BMI:21.94 Alert and oriented x1 (baseline) PERRL, EOMI Unable to test facial sensation Face symmetric, Tongue midline (however the patient does not follow commands smile) Unable to test drift Patient not following commands Purposely moving all extremities antigravity The left side he appears to movemore spontaneously than the right Mobile present left forehead Assessment/Plan NEURO: - Mitchell Issue:1cm SAH along infra L tent w/ IVH - Neuro Checks: q2 - Meds: hold home ASA/eliquis, cont home escitalopram, cont keppra - Cranial Imaging: rCTH/A pend - Plan to consult neurology for continuous EEG CV: #Hx afib/MD/pacemaker on ASA/Xarelto, HTN, HLD - SBP < 150 -BP PRNs - eliquis/ASA rs plan pend - cont home lisinopril, statin, atenolol PULM: No needs GI:Diet pend swallow eval, bowel reg ordered :No Needs HEME: Daily CBC ID: No needs ENDO: No Needs PPX: SCDs, pLov contraindicated at this time DISPO: IMC, PTOTSLP Attestation Attending vascular neurosurgeon attestation: I did not see the patient but I reviewed the relevant imaging and discussed the case with the party demonstrator team. I agree with the resident physician/PA assessment and plan. Problem List/Past Medical History Ongoing Actinic keratosis Atrial fibrillation Body mass index [BMI] 24.0-24.9, adult BPH without urinary obstruction Bursitis, prepatellar, left CAD - Coronary artery disease Changing skin lesion Chronic anticoagulation Daytime sleepiness Encounter for follow-up examination after completed treatment for cancer History of actinic keratoses History of intracranial hemorrhage History of squamous cell carcinoma in situ Hyperlipidemia Hypertension Hypovitaminosis D Impaired fasting glycaemia Inflamed seborrheic keratosis Notalgia paresthetica REJI on CPAP Seborrheic keratoses Sun-damaged skin Tinea unguium Resolved Cyst Fatigue Hearing loss Medicare annual wellness visit, subsequent Neoplasm of uncertain behavior of skin Piriformis syndrome ROUTINE GENERAL MEDICAL EXAMINATION AT A HEALTH CARE FACILITY Senile hyperkeratosis TMJ SYNDROME. Procedure/Surgical History Curettage| Service Date: 07/25/2021have biopsy and cauterization of skin| Service Date: 07/17/2021have biopsy| Service Date: 05/04/2018CT - Computerised tomography,ABD/Pelvis combo| Service Date: 08/26/2016Shave biopsy of skin| Service Date: 08/05/2016Shave biopsy| Service Date: 01/29/2016Cataract surgery| Service Date: 05/17/2014Colonoscopy| Service Date: 09/25/2009Cataract surgery| Service Date: 2003AngiopathypacemakerFull sleep study Medications Inpatient atenolol, 100 mg= 2 tab, PO, bid calcium carbonate(Tums 500 mg oral tablet, chewable), 500 mg= 1 tab, PO, tid, PRN clotrimazole topical(clotrimazole 1% topical cream), 1 appl, topical, bid Electrolyte IV Solution 1,000 mL, 1000 mL, IV Fluid escitalopram, 5 mg= 0.5 tab, PO, Daily famotidine(Pepcid), 20 mg= 1 tab, PO, bid guaiFENesin(Robitussin), 200 mg= 10 mL, PO, q4h, PRN hydrALAZINE, 10 mg= 0.5 mL, IV Push, q20min, PRN labetalol, 10 mg= 2 mL, IV Push, q10min, PRN levETIRAcetam(Keppra), 500 mg= 1 tab, PO, bid lisinopril, 2.5 mg= 1 tab, PO, Daily loratadine(Claritin), 10 mg= 1 tab, PO, Daily, PRN mupirocin topical(mupirocin 2% nasal ointment), 1 appl, each nostril, bid nitroglycerin, 0.4 mg= 1 tab, SL, q5min, PRN ocular lubricant(Refresh ophthalmic solution), 1 drop, both eyes, q6h, PRN ondansetron(Zofran), 4 mg= 2 mL, IV Push, q6h, PRN phenol topical(Chloraseptic Viburnum), 1 spray, PO, As indicated, PRN polyethylene glycol 3350(MiraLax), 17 g, PO, Daily, PRN rosuvastatin(Crestor), 40 mg= 1 tab, PO, qhs senna, 8.6 mg= 1 tab, PO, Daily simethicone, 20 mg= 0.3 mL, PO, q6h, PRN sodium chloride nasal([place] 0.65% nasal spray), 1 spray, each nostril, q30min, PRN Home acetaminophen(Tylenol 325 mg oral tablet), 650 mg= 2 tab, PO, q4h, PRN ascorbic acid(Bhumi-C 1000 mg oral tablet), 1000 mg= 1 tab, PO, Daily atenolol(atenolol 100 mg oral tablet), 100 mg= 1 tab, PO, bid ciclopirox topical(Penlac Nail Lacquer 8% topical solution), 1 appl, topical, Daily, 6 refills escitalopram(escitalopram 5 mg oral tablet), 5 mg= 1 tab, PO, Daily, 3 refills lisinopril(lisinopril 2.5 mg oral tablet), 2.5 mg= 1 tab, PO, Daily, 3 refills magnesium gluconate multivitamin, 1 tab, PO, Daily nitroglycerin(nitroglycerin 0.4 mg sublingual tablet), 0.4 mg= 1 tab, SL, q5min, PRN, 3 refills potassium chloride(Potassium Chloride (Eqv-K-Tab) 20 mEq oral tablet, extended release) rivaroxaban(Xarelto 20 mg oral tablet), 20 mg= 1 tab, PO, qPM rosuvastatin(Crestor 40 mg oral tablet), See Instructions, 3 refills sodium chloride nasal(Deep Sea Nasal Viburnum) Allergies streptograminsPropensity to adverse reaction streptokinasehot flash, rash Social History Smoking Status Patient refused to answer Alcohol Use:Current Type:Liquor Frequency:3-5 times per week Average drinks per episode in last year:1 Exercise - Occasional exercise Duration (average number of minutes):120 Times per week:1-2 times/week Self assessment:Good condition Exercise type:Walking, Weight lifting, Treadmill running - Comments: Now more active under the guidance of Dr Gallardo Hasn't been able to exercise regularly d/t having cancer for the past year. Takes care of the household duties (cooking, cleaning etc.) Home/Environment Lives with:Spouse - Comments: Condo Tobacco - Low Risk Use:Former smoker Type:Cigarettes Started at age:16Years Stopped at age:21Years Family History Aortic aneurysm..: Father. Arthritis: Mother. Heart attack: Father. Health Status Family Member(s) Immunizations Vaccine Date Status RSV Vaccine Unspecified 08/07/2023 Recorded SARS-CoV-2 (COVID-19) mRNA-vacc - [id number] 06/17/2023 Recorded Comments : 2023-09-04: Historical information-source unspecified influenza virus vaccine, inactivated 06/03/2023 Given SARS-CoV-2 mRNA-1273 (6y+ bivalent) 07/16/2022 Recorded Comments : 2023-06-03: Historical information-source unspecified SARS-CoV-2 (COVID-19) mRNA-1273 vaccine 12/25/2021 Recorded Comments : 2023-06-03: Historical information-source unspecified SARS-CoV-2 (COVID-19) mRNA-1273 vaccine 07/25/2021 Recorded Comments : 2023-06-03: Historical information-source unspecified influenza virus vaccine, inactivated 06/07/2021 Given SARS-CoV-2 (COVID-19) mRNA-1273 vaccine 12/04/2020 Recorded SARS-CoV-2 (COVID-19) mRNA-1273 vaccine 11/02/2020 Recorded influenza virus vaccine, inactivated 06/08/2020 Recorded pneumococcal 23-valent vaccine 07/18/2019 Given influenza virus vaccine, inactivated 07/08/2019 Given zoster vaccine, inactivated 11/01/2018 Recorded Comments : 2019-07-18: Historical information-source unspecified zoster vaccine, inactivated 07/02/2018 Recorded influenza virus vaccine, inactivated 06/08/2018 Given influenza virus vaccine, inactivated 07/06/2017 Given pneumococcal 13-valent vaccine 05/26/2017 Given influenza virus vaccine, inactivated 06/20/2016 Given influenza virus vaccine, inactivated 07/13/2015 Given influenza virus vaccine, inactivated 05/31/2014 Given influenza virus vaccine, inactivated 08/18/2013 Given influenza virus vaccine, inactivated 07/15/2012 Given zoster vaccine live 07/15/2012 Recorded influenza virus vaccine, H1N1 07/28/2009 Recorded Comments : 2019-07-18: Historical information-source unspecified Electronic Signature on File Electronically Reviewed/Signed by: Alee Carcamo MD Author Signature Dt/Tm:09/29/2024 09:31 PM Resident Department of Neurosurgery Electronically Reviewed/Signed by: Shaw Limon MD, FAANS, FACS Cosigner Signature Dt/Tm: 09/30/2024 03:03 PM E Learning Designer of Neurosurgery, Neurology, and Eyelet Row Marker, Cerebral Revascularization Program Department of Neurosurgery, [facility] Neurology Consult note * MD Cesia, Jarett: MODIFY MD Callaway Bhavan: MODIFY, MODIFY, MODIFY Event Display: Neurology Consult Authored Date: [id number] Chief Complaint Transfer from OSH after found to have SAH and IVH Reason for Consultation Seizure activity History of Present Illness 83-year-old male with history of hypertension, hyperlipidemia, CAD, A-fib, MD, pacemaker, ulcerative colitis, BPH, and REJI who is presenting [facility] as a transfer from [facility] emergency department after being found to have a 1cm Left infratentorial SAH w/ IVH. Of note he is on eliquis/ASAfor the above which he last took 09/27 and 09/28. Neurology were consulted for concerns of seizure. History was gathered from chart review as patient appears encephalopathic. Per H&P: "... 83-year-old male with history of hypertension, hyperlipidemia, CAD, A-fib, MD, pacemaker, ulcerative colitis, BPH, and REJI who is presenting [facility] as a transfer from [facility] emergency department after being found to have a 1cm Left infratentorial SAH w/ IVH.Of note he is on eliquis/ASAfor the above which he last took 09/27 and 09/28. He was first seen ... in June 2024 when he presented with a left frontal 30cc IPH requiring surgical evacuation after his exam declined. He presented again in August after a fall and was foundto have a L frontal acute on chronic SDH requiring reversal of his anticoagulation but no surgical intervention. His current baseline is oriented by 1 otherwise intact. He lives at home with his and shehas caretakers to help take care of him. She states that he was doing quite well up untilyesterday when he had an episode of full body shaking concerning for seizure and fell.His prior left frontal incision opened up and was bleeding and he hadstaples placed at the outside hospital. Shestates that they reversed his Xarelto and his INR was 1.2 on his arrival atour institution. Shestates that they also gave him Keppra. He has no history of seizures. His prior CTAdid not show anyaneurysms. After the event he had some dysarthria and some difficulty understanding her. She states that he is not moving around as much as he used to but she cannot say whether 1 side is movingmore less than the other. She states that he does seem more confused than usual. When neurology consult went to see the patient,he appeared to be sleepingand was opened his eyes to voice. He really noddedwhen asked iflights could be turned on forhistory taking. When askedto state his full name, patient triedspeaking butit was onlygarbledwords. Patien tdid not answer any further questions or did not follow commands. Patient was resisting examinationlike eye openingandpassive movement of theall extremities. Patientseemeddrowsy andwouldclose his eyesquickly butwould open his eyes tolight touch. Patientgroanedand withdraw to painin all 4 extremities. Review of Systems Unable to obtain due to patient's status Physical Exam Vitals & Measurements T:36.4C HR:85(Monitored) RR:18 BP:150/93 SpO2:98% Oxygen Therapy:Room Air WT:64.900kg(Dosing) WT:64.9kg Input and Output - Last 24 hours (Last 8 hours) Total In: 6 (6) Total Out: 100 (100) Total Balance: -94 (-94) MED INTAKE:6 (6) Male External Urinary Device:100 (100) General:Not in acute distress Neurologic Examination: Mental status:Opens eyes tovoice and tactile stimuli. Does not answer any questions or followcommands.One time when patienttried to state namespeech was dysarthric, expressive aphasia. CN:Blink to threat is presentin both eyes; PERRL, patient also appeared to trackresidentwhen moving in the room,nofacial asymmetry Motor:Patient resistingpassive movement of all 4 extremities. Patient did move all4 extremities on his own spontaneously and equally. Withdraws to pain in all 4 extremities. Reflexes:Deferreddue to patient'scooperation Sensory:Withdraws to pain in all 4 extremities Coordination:Unable to perform due to patient's cooperation Gait:Deferred for patient's safety Assessment/Plan 83-year-old male with history of hypertension, hyperlipidemia, CAD, A-fib, MD, pacemaker, ulcerative colitis, BPH, and REJI who is presenting [facility] as a transfer from [facility] emergency department after being found to have a 1cm Left infratentorial SAH w/ IVH. Patient does not have history of prior seizures. Reported to haveseizure activity described as full body shaking followed by a fall. Imaging at the outside hospital hadshown new1 cm left infratentorial subarachnoid hemorrhage with IVH. Patient also has prior history of intraparenchymal hemorrhage andSDH - L frontal IPH s/p SANDEEP evac (06/2024 30cc), L acute on cSDH (08/2024). Patient currentlyappears encephalopathicbutopens eyestospeech andtactile stimuli. Moves all extremities spontaneously,and withdraws to pain in all 4 extremities. He appears to haveexpressive aphasiaand dysarthria. Patient's seizureis described as full body shaking. Routine EEG done at OSHwas reportedly normal(no report available). Lower suspicion of ongoing seizures at this time. Recommendations: No suspicion of subclinical seizures at this time.Continuous EEGwill be considered if there is any deterioration ofpatient's exam concerning forseizure-like activity orsubclinicalseizures. Recommend getting routine EEG in the morning. S/p Keppra loadgiven at the OSHbutdose of the Keppra given at OSH not confirmed. Continue Keppra 500 mg twice daily. Patient wasdiscussed over the phone_with_attending of recordDr. Jarett Callaway,who agrees with the plan with exceptions in their addendum. Attestation Attending addendum Idiscussed this patient with the Resident on phone and reviewed the note authored by the Resident. I confirmed the mitchell elements of history and physical examination, discussed the care plan with theResident and agree with the impression and plan as noted above.I also agree with the problem list, status, severity, goals and plans as outlined above. Cesia Denson MD, MPH, E Learning Designer Neurology Division of Epilepsy Problem List/Past Medical History Ongoing Actinic keratosis Atrial fibrillation Body mass index [BMI] 24.0-24.9, adult BPH without urinary obstruction Bursitis, prepatellar, left CAD - Coronary artery disease Changing skin lesion Chronic anticoagulation Daytime sleepiness Encounter for follow-up examination after completed treatment for cancer History of actinic keratoses History of intracranial hemorrhage History of squamous cell carcinoma in situ Hyperlipidemia Hypertension Hypovitaminosis D Impaired fasting glycaemia Inflamed seborrheic keratosis Notalgia paresthetica REJI on CPAP Seborrheic keratoses Sun-damaged skin Tinea unguium Resolved Cyst Fatigue Hearing loss Medicare annual wellness visit, subsequent Neoplasm of uncertain behavior of skin Piriformis syndrome ROUTINE GENERAL MEDICAL EXAMINATION AT A [facility] Senile hyperkeratosis TMJ SYNDROME. Procedure/Surgical History Curettage| Service Date: 07/25/2021have biopsy and cauterization of skin| Service Date: 07/17/2021have biopsy| Service Date: 05/04/2018CT - Computerised tomography,ABD/Pelvis combo| Service Date: 08/26/2016Shave biopsy of skin| Service Date: 08/05/2016Shave biopsy| Service Date: 01/29/2016Cataract surgery| Service Date: 05/17/2014Colonoscopy| Service Date: 09/25/2009Cataract surgery| Service Date: 2003AngiopathypacemakerFull sleep study Medications Inpatient atenolol, 100 mg= 1 tab, PO, bid calcium carbonate(Tums 500 mg oral tablet, chewable), 500 mg= 1 tab, PO, tid, PRN clotrimazole topical(clotrimazole 1% topical cream), 1 appl, topical, bid Electrolyte IV Solution 1,000 mL, 1000 mL, IV Fluid escitalopram, 5 mg= 0.5 tab, PO, Daily famotidine(Pepcid), 20 mg= 1 tab, PO, bid guaiFENesin(Robitussin), 200 mg= 10 mL, PO, q4h, PRN hydrALAZINE, 10 mg= 0.5 mL, IV Push, q20min, PRN iohexol(Omnipaque 350), 75 mL, contrast-IV, ONCE labetalol, 10 mg= 2 mL, IV Push, q10min, PRN levETIRAcetam(Keppra), 500 mg= 1 tab, PO, bid lisinopril, 2.5 mg= 1 tab, PO, Daily loratadine(Claritin), 10 mg= 1 tab, PO, Daily, PRN mupirocin topical(mupirocin 2% nasal ointment), 1 appl, each nostril, bid nitroglycerin, 0.4 mg= 1 tab, SL, q5min, PRN ocular lubricant(Refresh ophthalmic solution), 1 drop, both eyes, q6h, PRN ondansetron(Zofran), 4 mg= 2 mL, IV Push, q6h, PRN phenol topical(Chloraseptic Viburnum), 1 spray, PO, As indicated, PRN polyethylene glycol 3350(MiraLax), 17 g, PO, Daily, PRN rosuvastatin(Crestor), 40 mg= 1 tab, PO, qhs senna, 8.6 mg= 1 tab, PO, Daily simethicone, 20 mg= 0.3 mL, PO, q6h, PRN sodium chloride nasal([place] 0.65% nasal spray), 1 spray, each nostril, q30min, PRN Home acetaminophen(Tylenol 325 mg oral tablet), 650 mg= 2 tab, PO, q4h, PRN ascorbic acid(Bhumi-C 1000 mg oral tablet), 1000 mg= 1 tab, PO, Daily atenolol(atenolol 100 mg oral tablet), 100 mg= 1 tab, PO, bid ciclopirox topical(Penlac Nail Lacquer 8% topical solution), 1 appl, topical, Daily, 6 refills escitalopram(escitalopram 5 mg oral tablet), 5 mg= 1 tab, PO, Daily, 3 refills lisinopril(lisinopril 2.5 mg oral tablet), 2.5 mg= 1 tab, PO, Daily, 3 refills magnesium gluconate multivitamin, 1 tab, PO, Daily nitroglycerin(nitroglycerin 0.4 mg sublingual tablet), 0.4 mg= 1 tab, SL, q5min, PRN, 3 refills potassium chloride(Potassium Chloride (Eqv-K-Tab) 20 mEq oral tablet, extended release) rivaroxaban(Xarelto 20 mg oral tablet), 20 mg= 1 tab, PO, qPM rosuvastatin(Crestor 40 mg oral tablet), See Instructions, 3 refills sodium chloride nasal(Deep Sea Nasal Viburnum) Allergies streptograminsPropensity to adverse reaction streptokinasehot flash, rash Social History Smoking Status Patient refused to answer Alcohol Use:Current Type:Liquor Frequency:3-5 times per week Average drinks per episode in last year:1 Exercise - Occasional exercise Duration (average number of minutes):120 Times per week:1-2 times/week Self assessment:Good condition Exercise type:Walking, Weight lifting, Treadmill running - Comments: Now more active under the guidance of Dr Gallardo Hasn't been able to exercise regularly d/t having cancer for the past year. Takes care of the household duties (cooking, cleaning etc.) Home/Environment Lives with:Spouse - Comments: Condo Tobacco - Low Risk Use:Former smoker Type:Cigarettes Started at age:16Years Stopped at age:21Years Family History Aortic aneurysm..: Father. Arthritis: Mother. Heart attack: Father. Health Status Family Member(s) Immunizations Vaccine Date Status RSV Vaccine Unspecified 08/07/2023 Recorded SARS-CoV-2 (COVID-19) mRNA-vacc - [id number] 06/17/2023 Recorded Comments : 2023-09-04: Historical information-source unspecified influenza virus vaccine, inactivated 06/03/2023 Given SARS-CoV-2 mRNA-1273 (6y+ bivalent) 07/16/2022 Recorded Comments : 2023-06-03: Historical information-source unspecified SARS-CoV-2 (COVID-19) mRNA-1273 vaccine 12/25/2021 Recorded Comments : 2023-06-03: Historical information-source unspecified SARS-CoV-2 (COVID-19) mRNA-1273 vaccine 07/25/2021 Recorded Comments : 2023-06-03: Historical information-source unspecified influenza virus vaccine, inactivated 06/07/2021 Given SARS-CoV-2 (COVID-19) mRNA-1273 vaccine 12/04/2020 Recorded SARS-CoV-2 (COVID-19) mRNA-1273 vaccine 11/02/2020 Recorded influenza virus vaccine, inactivated 06/08/2020 Recorded pneumococcal 23-valent vaccine 07/18/2019 Given influenza virus vaccine, inactivated 07/08/2019 Given zoster vaccine, inactivated 11/01/2018 Recorded Comments : 2019-07-18: Historical information-source unspecified zoster vaccine, inactivated 07/02/2018 Recorded influenza virus vaccine, inactivated 06/08/2018 Given influenza virus vaccine, inactivated 07/06/2017 Given pneumococcal 13-valent vaccine 05/26/2017 Given influenza virus vaccine, inactivated 06/20/2016 Given influenza virus vaccine, inactivated 07/13/2015 Given influenza virus vaccine, inactivated 05/31/2014 Given influenza virus vaccine, inactivated 08/18/2013 Given influenza virus vaccine, inactivated 07/15/2012 Given zoster vaccine live 07/15/2012 Recorded influenza virus vaccine, H1N1 07/28/2009 Recorded Comments : 2019-07-18: Historical information-source unspecified Electronic Signature on File Electronically Reviewed/Signed by: Jeferson Matos MD Author Signature Dt/Tm:09/30/2024 03:24 AM Resident Department of Neurology Electronically Reviewed/Signed by: Meron Ordoñez Signature Dt/Tm: 10/03/2024 10:10 AM Department of Neurology [facility] Facility Discharge Instructions * RAMILA Rodriguez, Latricia Funk: PERFORM Event Display: Facility Discharge Instructions Authored Date: [id number] VERA Nelson MALATHI Murphy :1940 Visit Date:09/29/2024 Facility Discharge Instructions [facility] For medical concerns, call: . Date of Admission:09/29/2024 Date of Discharge:10/06/2024 Physician:MD Rayne, Dave Napoles Service:Neurosurgery Discharge Disposition: Primary Care Provider/Phone: MD ARNEL, KENNY Diaz (BUSINESS) [phone] (FAX BUSINESS) . Advance Directive:Living will, Health Care Power of Director Security Management Reason for Hospitalization Intraparenchymal hemorrhage of brain Your Diagnoses Intraparenchymal hemorrhage of brain IVH (intraventricular hemorrhage) Tinea unguium My Health Patient Portal: [facility] makes it easy for you to manage your health information online. My [facility] [employer]ot is a free service that provides you instant, secure access to your medical information anytime, anywhere. Sign in or set up your account today at [email or web address] Thank you for allowing us to assist you with your healthcare needs. If you need additional community resources, REBECCA Paul can help at [email or web address]. 211 can assist you in connecting with social programs based on your unique needs and locations. 211 is an anonymous search that can help you locate resources for: Food, Housing, Transportation, Goods, Education and Healthcare. Hospital Course 09/29/2024 CT Angio Brain/Head IMPRESSION: 1. New subarachnoid hemorrhage, predominantly within the left ambient cistern and left side of the quadrigeminal cisterns. 2. Small amount of intraventricular hemorrhage within the bilateral lateral ventricles. 3. 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 4. No new aneurysm. No high-grade intracranial arterial stenosis. 5. Encephalomalacia/ gliosis of the left frontal lobe from previous hemorrhage. 09/30/2024 CT Brain/Head w/o Contrast IMPRESSION: 1. Subarachnoid hemorrhage, predominantly at the left ambient cistern the left side of the quadrigeminal plate cistern, and a small amount of intraventricular hemorrhage do not appear significantly changed in amount. 2. Sequelae of previous hemorrhage in the left frontal lobe. 3. Moderately enlarged ventricles do not appear significantly changed in size. 4. 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 EEG09/30/2024 Impression: This is an abnormal routine EEG due to moderate diffuse background slowing which is suggestive of moderate encephalopathy of non specific etiology. No seizures or epileptiform discharges seen. Brief History: Mr. 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 Initially, his head CT was negative for acute intracranial abnormality. He was admitted to [facility] for close neurological monitoring and follow up head CT. On follow up head CT (09/29), he was noted to have aleft infratentorial hemorrhage. His Eliquis was reversed. He was loaded with levetiracetam and start ed on 500 mg BID. He was transferred to [facility] for further evaluation/management. Hospital Course: Mr. Tongferred for further evaluation and management. Hewas hypertensiverequiringmultiplePRN medications.He was thenupgradedtothe ICUfora cardenedrip.Therewere concerns for waxing/waning exam. An EEG was performed which was negative for seizures. A repeat CT head showed a stable subarachnoid hemorrhage, predominantly at the left ambient cistern theleft side of the quadrigeminal plate cistern, and a small amount of intraventricular hemorrhage do not appear significantly changed in amount. His blood pressure remained stable off of the cardenedrip on 10/02/24, he was downgraded. His exam slowly improved. PT/OT evaluated the patient andidentifiedongoing inpatientneeds.Patient was cleared for a level 6 diet. Discharged [facility]10/06[facility]24.Patient was afebrile, voiding spontaneously, toleratingPO diet, and medically and neurologically stable. Follow-up with neurosurgery in1 monthwith CT. He was discharged in stable medical/neurological condition. Optimal future stroke prevention and risk factor modification was addressed/discussed. He and his family received a stroke information packet near the time of hospital discharge. Exam on Discharge Vitals & Measurements: T:36.2C TMIN:36.0C TMAX:36.4C HR:88(Monitored) RR:16 BP:125/74 SpO2:98% Oxygen Therapy:Room Air WT:62.2kg Neuro Exam: Eyes open spontaneously, alert and oriented x 0-1 (baseline) int answ questions o/w expressively aphasic PERRL, face symmetric intermittently Following commands BUE purposeful movements Ag BLE move spontaneously antigravity L frontal inc CDI, mandeep in place Medications What How Much When Why Instructions Next Dose New aspirin (aspirin 81 mg oral delayed release tablet) 1 tab(s) by mouth Once daily New isosorbide dinitrate (isosorbide dinitrate 20 mg oral tablet) 1 tab(s) by mouth 3 times daily New levETIRAcetam (Keppra 250 mg oral tablet) 1 tab(s) by mouth 2 times daily Changed lisinopril (lisinopril 10 mg oral tablet) 1 tab(s) by mouth Every 12 hours Unchanged acetaminophen (Tylenol 325 mg oral tablet) 2 tab(s) by mouth Every 4 hours as needed for fever/mild pain (1-3) Unchanged ascorbic acid (Bhumi-C 1000 mg oral tablet) 1 tab(s) by mouth Once daily Unchanged atenolol (atenolol 100 mg oral tablet) 1 tab(s) by mouth 2 times daily Unchanged ciclopirox topical (Penlac Nail Lacquer 8% topical solution) 1 adriana topically Once daily Tinea unguium Duration: 24 week(s) Apply to affected toenails once per day for 6 months Unchanged escitalopram (escitalopram 5 mg oral tablet) 1 tab(s) by mouth Once daily Unchanged magnesium gluconate 200mg daily Unchanged multivitamin 1 tab(s) by mouth Once daily centrum silver men Unchanged nitroglycerin (nitroglycerin 0.4 mg sublingual tablet) 1 tab(s) sublingually Every 5 minutes as needed for as needed for chest pain Unchanged rosuvastatin (Crestor 40 mg oral tablet) See instructions TAKE ONE TABLET BY MOUTH AT BEDTIME Unchanged sodium chloride nasal (Deep Sea Nasal Viburnum) 2 spray intranasally qid What How Much When Comments Stop Taking potassium chloride (Potassium Chloride (Eqv-K-Tab) 20 mEq oral tablet, extended release) Stop Taking rivaroxaban (Xarelto 20 mg oral tablet) 1 tab(s) by mouth Every evening TAKE 1 TABLET BY MOUTH DAILY, TAKE WITH EVENING MEAL Allergies streptograminsPropensity to adverse reaction streptokinasehot flash, rash What to do next Instructions From Your Doctor --Follow up with neurosurgery in one month. You will have a CT scan prior to the visit. You will be contacted with the date and time of this appointment. Call [phone] if you have not received an appointment within5 business days of discharge or to cancel/change an appointment. -- DVT prophylaxis per facility (no contraindication) -- Bowel regimen per facility -- Please remove mandeep on 10/12/2024 -- Restart Aspirin 10/06/2024 -- DO NOT RESTART ELIQUIS - THIS WILL BE DISCUSSED AT HIS FOLLOW UP APPOINTMENT. --Follow up with your primary care physician (PCP) in 1-2 weeks following discharge. Lifestyle changes such as quitting tobacco, limiting alcohol intake, eating a diet low in salt and saturated fat, and routinely doing 30 minutes of exercise daily can help to improve your health without the addition of prescription medications. Work with your PCP to modify any of the risk factors below which are applicable to you in order to reduce your risk of having another stroke: - High blood pressure - High cholesterol - Diabetes - Obstructive sleep apnea - Being overweight - Tobacco use - Excessive alcohol use - Illicit/Illegal drug use - Atrial fibrillation - Heart disease Diet Instructions: --Level 6 soft and bite sized diet, thin liquids. Meds crushed in puree. Call [phone] immediately if experiencing any of the warning signs and symptoms of stroke --B.E. F.A.S.T. : Balance: Is there trouble with walking or coordination? Eyes: Is there double vision or visual loss? Face: Smile - do both sides of the face move equally? Arm: Raise arms - do both arms move equally? Speech: Is speech slurred or inappropriate? Time: Time is critical, call [phone] immediately You may also reach the stroke nurse line at [facility] at [phone] (M-F 8a-5p). After hours, contact the care line at . Call for: - any activity causing shortness of breath or chest pain - a fever greater than 101 degrees F - nausea, vomiting or abdominal pain - bleeding or bruising - twitching or seizure activity - any other concerns Contact neurosurgery at [phone] with any other questions/concerns. After 5 PM and on weekends/holidays call [phone] and ask for the neurosurgery resident on-call. If you notice the following symptoms Please report any of the following symptoms to the neurosurgery office at [phone] Thursday through Thursday 8a.m.4:30p.m. After hours and on weekends or holidays please call [phone] and ask for the neurosurgery resident on-call: Signs and symptoms of infection, such as a fever > 101F Persistent or severe headache unrelieved by pain medicine Extreme neck stiffness Seizures Changes in mental function such as confusion, restlessness, or drowsiness New or increased weakness of the arms/legs Difficulty speaking or walking Visual changes, including double vision, blurry vision, or dark spots Calf tenderness or swelling If unable to contact your physician and you feel it is an emergency, go to the nearest Emergency Room or call 911 Contact the [facility] Careline at . If unable to contact your physician and you feel it is an emergency, go to the nearest Emergency Room or call 911 Diet Instructions Speech Therapy Recommendations: 1. Level 6 Soft and Bite Sized diet, thin liquids. Must be fully awake and alert 2. Aspiration precautions: sit upright 90*, remain upright 20 min after meals, small bites/sips, eat slowly 3. Oral care 2-3x/daily 4. Meds crushed in puree Activity Instructions --Follow the activities recommended by your physical, occupational and/or speech therapist. --Gradually increase your activity level with a goal of 30 minutes most days of the week. --Please do not drive or operate heavy machinery until you are cleared by your PCP or neurosurgery. Follow-Up Appointments Scheduled Follow-Up Appointments Date/Time:Provider/Resource: Nov 02:25 pmMD Arnel, Kenny Diaz Location/Instructions:[facility], [address] [place] [address], [place] [address] Someone Will Contact You Regarding These Appointments --Follow up with neurosurgery in one month. You will have a CT scan prior to the visit. You will be contacted with the date and time of this appointment. Call [phone] if you have not received an appointment within5 business days of discharge or to cancel/change an appointment. The Following Services Have Been Arranged for You Service: Organization: Business Address: Phone Number: Acute Rehab [facility] formerly [address], [address] Tests Pending None Nursing Assessment Spann: Male External Urinary Device Insert Date:09/29/24 19:15 Removal Date:09/30/24 08:00 Spann: Male External Urinary Device Insert Date:10/01/24 14:00 Removal Date:10/01/24 18:00 SPECIAL NEEDS: Sensory Deficits: Speech deficit Level of Consciousness Neuro: Alert Neurological Symptoms: Confusion/Disorientation ADLS: Moderate assistance Last BM: 09/07/2024 Basic Skin Assessment: [place], Warm, Dry Special Instructions Common Emergency Awareness Tips Call 911 immediately if: experiencing any of the warning signs and symptoms of stroke: B.E. F.A.S.T. Balance: is there trouble with walking or coordination Eyes: is there double vision or visual loss Face: Smile, do both sides of face move equally Arm: Raise arms, do both arms move equally Speech: Is speech slurred or inappropriate Time: Time is critical, call 911 immediately Heart Attack Signs Chest discomfort: Most heart attacks involve discomfort in the center of the chest and lasts more than a few minutes, or goes away and comes back. It can feel like uncomfortable pressure, squeezing, fullness or pain. Discomfort in upper body: Symptoms can include pain or discomfort in one or both arms, back, neck, jaw or stomach. Shortness of breath: With or without discomfort. Other signs: Breaking out in a cold sweat, nausea, or lightheaded. Remember, MINUTES DO MATTER. If you experience any of these heart attack warning signs, call to get immediate medical attention! Patient Care team information Care Team Personnel Name: Sylvia Mendez Amy E Position: Pharmacist Member Role: Pharmacy - Lifetime Address: [address] [address] [place] Name: DO Syed Sameer Position: Resident Member Role: Lifetime Relationship Address: [address] [address] [place] Name: MD Rubalcava Joseph P Position: Physician - Family Med Member Role: Primary Care Provider Address: [address] [place] [address] Care Team Related Persons Name: GREGORY GAMEZ Name: NEHA GAMEZ Name: NEHA GAMEZ Name: FREDDY GAMEZ
[2024-11-04] MEDS: cefTRIAXone SODIUM 2,000 MG/50 ML BAG IV SCH (21:58)
--- NOTE | 2024-11-04 23:02 | Electrocardiogram Report ---
Test Reason : Blood Pressure : */* mmHG Vent. Rate : 75 BPM Atrial Rate : * BPM P-R Int : * ms QRS Dur : 110 ms QT Int : 416 ms P-R-T Axes : * -53 120 degrees QTcB Int : 464 ms Atrial fibrillation Left anterior fascicular block Left ventricular hypertrophy with repolarization abnormality Abnormal ECG When compared with ECG of 28-Sep-2024 09:36, Ventricular paced complexes are no longer present Confirmed by Dennis Adler ([id number]) on 11/04/2024 11:02:33 PM Referred By: Confirmed By: Dennis Adler
[2024-11-05] MEDS: DOXYCYCLINE HYCLATE 100 MG in DEXTROSE 5% MINI-B 100 ML IV SCH (01:36)
[2024-11-05 06:50] LABS: BUN Creatinine Ratio 12.2 (10-20); Calcium 8.8 mg/dl (8.6-10.3); Creatinine Clr Calc Pharmacy 61.5 ml/min; Potassium 3.4 mmol/L (3.5-5.1)
[2024-11-05 07:15] LABS: Basophils # (auto) 0.02 K/uL (0.00-0.20); Basophils % (auto) 0.3 %; Eosinophils # (auto) 0.18 K/uL (0.00-0.50); Hematocrit (blood only) 40.1 % (42.0-52.0); Hemoglobin 13.4 g/dl (14.0-18.0); Immature Granulocytes # (auto) 0.02 K/uL (0.01-0.20); Immature Granulocytes % (auto) 0.3 %; Lymphocytes % (auto) 18.3 %; Mean Corpuscular Hemoglobin 30.7 pg (25.0-34.0); Mean Corpuscular Hgb Conc 33.4 g/dL (32.0-36.0); Mean Platelet Volume 12.2 fL (9.4-12.4); Monocytes # (auto) 0.45 K/uL (0.11-0.59); Monocytes % (auto) 7.5 %; Neutrophils # (auto) 4.25 K/uL (1.40-6.50); Neutrophils % (auto) 70.6 %; Platelet Count 113 K/uL (130-400); RDW Coefficient of Variation 12.1 % (11.5-14.5); RDW Standard Deviation 40.7 fL (36.4-46.3); Red Blood Count 4.36 M/uL (4.70-6.10); White Blood Count 6.02 K/ul (4.8-10.8)
[2024-11-05] MEDS: ASPIRIN 81 MG ECTAB PO SCH (08:59)
[2024-11-05] MEDS ORDERED: levETIRAcetam 500 MG TAB PO SCH (09:00)
[2024-11-05] MEDS: ESCITALOPRAM OXALATE 10 MG TAB PO SCH (09:00)
[2024-11-05] MEDS: levETIRAcetam ORAL SOLN 100MG/ML PO SCH (09:04)
--- NOTE | 2024-11-05 14:12 | Hospitalist Progress Note ---
Date of Service November 05, 2024 Assessment & Plan (1) UTI (urinary tract infection): (2) RLL pneumonia: (3) AMS (altered mental status): Plan Dung is an 84-year-old male with PMH of intracranial hemorrhage, IN, BPH, sick sinus syndrome, and HTN. He presented on 11/04 for altered mental status with an unwitnessed fall - he was found directly on the side of the bed, and his CPAP machine was stuck between the bed and the wall. Patient is unable to provide details of this fall. Inital evaluation revealed UA concerning for UTI and PNA on CXR. Heat CT/ head and neck CTA showed no acute findings. #UTI UA positive on arrival. UC: Klebsiella, sensitivities pending. Contiue ceftriaxone based on prior cultures. Blood cultures: pending #Pneumonia CXR revealed early pneumonia in the right lower lung. BioFire negative Rocephin (as above), Continue doxycycline 100 mg IV BID for atypical coverage #Fall/ambulatory dysfunction PT/OT evaluations appreciated Fall precautions #Altered mental status Suspect secondary to UTI/acute infection. Head CT, head CTA, and neck CTA on arrival revealed no acute findings Was a stroke alert on admission, however no focal deficits. AMS is likely secondary to infection but given his history if progression of symptoms plan for repeat head CT Mental status seems improved 11/05 and confirms, will hold off head CT for now #Remote history of ICH Occurred on 06/2024, Recurrence of seizure-like activity and altered mental status on 09/28/2024 Continue Keppra #Atrial fibrillation Rate controlled; continue beta-josé miguel No anticoagulation Disposition: continued inpatient stay, awaiting therapy evals. Of note, does not want to return to [facility] PPx: Berry updated at bedside 11/05 Admission and Anticipated Discharge Date Admission Date: November 04, 2024 Supervising Physician Co-Signing Physician Notes Attending Attestation - Chart reviewed, care plan d/w REBECCA Martinez. I agree w/ the mitchell components of her documentation. Patient with expressive aphasia - apparently since his last ICH?? CT head with very large ventricles - could be due to brain atrophy - but consider w/u for NPH. Prior B12/TSH/B1 levels all wnl in 2023. Jonel Martinez MD Subjective Patient seen sitting up in bed, present at bedside. reports that he is much better today - recent admission at [facility] stating that he had brain bleed, but did not a require surgery has been basically aphasic since Denies pain, able to follow most of my commands Review of Systems Review of Systems: All systems reviewed & are unremarkable except as noted in Subjective Physical Exam Physical Exam: General: NAD, VS as above, fraile appearing sitting up in bed, Resp: normal respiratory effort, lungs clear to auscultation CV: RRR, no murmur, Abd: normal bowel sounds, non tender, no suprapubic tenderness . Extremities: Moves all extremities, no edema Neuro: orientation difficulty to full assess because of dysphagia - follows commands, can wiggle toes. no focal neuro deficits Results & Data Results & Data Vital Signs (Past 12 Hours) Vital Signs Temp Pulse Resp BP BP Pulse Ox O2 Del Method 11/05/24 10:24 77 131/79 11/05/24 08:57 81 140/87 11/05/24 07:23 98.2 F 84 16 147/94 H 98 Room Air Laboratory Results cbc, chemistry, UA reviewed PG Care Time/CCT Total # of Minutes Spent Total Time Spent with Patient: Total time spent is greater than 50% in coordination of care (as documented) at patient's floor/unit and/or counseling patient: Coding Level of Care Code 30409 SUB INP/OBS CARE 3/50MIN Diagnoses UTI (urinary tract infection) N39.0 RLL pneumonia J18.9 AMS (altered mental status) R41.82
[2024-11-06 06:33] LABS: Hematocrit (blood only) 42.7 % (42.0-52.0); Hemoglobin 14.4 g/dl (14.0-18.0); Mean Corpuscular Hemoglobin 30.6 pg (25.0-34.0); Mean Corpuscular Hgb Conc 33.7 g/dL (32.0-36.0); Mean Corpuscular Volume 90.9 fL (80.0-100.0); Mean Platelet Volume 12.3 fL (9.4-12.4); Platelet Count 99 K/uL (130-400); RDW Coefficient of Variation 12.2 % (11.5-14.5); RDW Standard Deviation 40.9 fL (36.4-46.3); White Blood Count 6.01 K/ul (4.8-10.8)
[2024-11-06 07:04] LABS: BUN Creatinine Ratio 14.9 (10-20); Calcium 8.9 mg/dl (8.6-10.3); Creatinine Clr Calc Pharmacy 68.1 ml/min; Potassium 3.7 mmol/L (3.5-5.1)
--- NOTE | 2024-11-06 13:08 | Hospitalist Progress Note ---
Date of Service November 06, 2024 Assessment & Plan (1) UTI (urinary tract infection): (2) RLL pneumonia: (3) AMS (altered mental status): Plan Dung is an 84-year-old male with PMH of intracranial hemorrhage, [place], BPH, sick sinus syndrome, and HTN. He presented on 11/04 for altered mental status with an unwitnessed fall - he was found directly on the side of the bed, and his CPAP machine was stuck between the bed and the wall. Patient is unable to provide details of this fall. Inital evaluation revealed UA concerning for UTI and PNA on CXR. Heat CT/ head and neck CTA showed no acute findings. #Altered mental status Suspect secondary to UTI/acute infection. Head CT, head CTA, and neck CTA on arrival revealed no acute findings Was a stroke alert on admission, however no focal deficits. AMS is likely secondary to infection but given his history if progression of symptoms plan for repeat head CT 11/06: mental status seems to be worse, not following commands. ? hypoactive delrium with hx of ICH. regardless repeat Head CT today would be helpful to have records from recent [facility] d/[place] #UTI UA positive on arrival. UC: Klebsiella. continue ceftriaxone, can be transition to oral at discharge Blood cultures: no growth at 24 hours #Pneumonia CXR revealed early pneumonia in the right lower lung. BioFire negative Rocephin (as above), Continue doxycycline 100 mg IV BID for atypical coverage #Fall/ambulatory dysfunction PT/OT - recommend rehab Fall precautions #Remote history of ICH Occurred on 06/2024, Recurrence of seizure-like activity and altered mental status on 09/28/2024 Keppra discontinued - reports he does not take this anymore #Atrial fibrillation Rate controlled; continue beta-josé miguel No anticoagulation Disposition: continued inpatient stay, awaiting therapy evals. Of note, does not want to return to [facility] PPx: Berry updated at bedside 11/05 & 11/06 Admission and Anticipated Discharge Date Admission Date: November 04, 2024 Supervising Physician Co-Signing Physician Notes Attending Attestation - Chart reviewed, care plan d/w REBECCA Martinez. I agree w/ the mitchell components of her documentation. Patient with expressive aphasia - apparently since his last ICH?? CT head with very large ventricles - could be due to brain atrophy - but consider w/u for NPH. Prior B12/TSH/B1 levels all wnl in 2023. Continues with altered MS - agree with repeat head CT. Unfortunately MRI brain is not possible - pacemaker is incompatible. Jonel Martinez MD Subjective patient seen this morning around 10 AM, present at bedside at this time. He did not wake to verbal stimuli. said that he had been sleeping for most the duration. States that she has done her research and the vesting that you can do for brain bleed is to let them sleep. I agreed with letting him sleep but I will reevaluate after lunch Reevaluated around 12:40 PM. Patient is awake to stimuli at this time, is no longer present at bedside. However does not answer my questions in any form, did not follow commands to wiggle his toes. Will plan to repeat head CT this afternoon Review of Systems Review of Systems: Unobtainable due to cognitive status Physical Exam Physical Exam: General: NAD, VS as above, fraile appearing sitting up in bed, Resp: normal respiratory effort, lungs clear to auscultation CV: RRR, no murmur, Abd: normal bowel sounds, non tender, no suprapubic tenderness . Neuro: orientation difficulty to full assess because of dysphagia - does not follow commands today. No focal neurological deficits. very flat affect, stares blankly Results & Data Results & Data Vital Signs (Past 12 Hours) Vital Signs Temp Pulse Resp BP Pulse Ox O2 Del Method 11/06/24 09:22 68 136/82 11/06/24 07:51 97.5 F L 82 18 167/97 H 98 Room Air Laboratory Results CBC and chemistry reviewed Blood cultures and urine culture reviewed PG Care Time/CCT Total # of Minutes Spent Total Time Spent with Patient: Total time spent is greater than 50% in coordination of care (as documented) at patient's floor/unit and/or counseling patient: Coding Level of Care Code 04258 SUB INP/OBS CARE 3/50MIN Diagnoses UTI (urinary tract infection) N39.0 RLL pneumonia J18.9 AMS (altered mental status) R41.82
--- NOTE | 2024-11-06 14:04 | CT Scan Report ---
CT head/brain wo con CLINICAL HISTORY: 84 years-old Male with AMS, hx of ICH. Acutely altered mental status TECHNIQUE: Multiple axial CT images of the head were obtained without contrast. A dose lowering tech nique was utilized adhering to the principles of ALARA. CT DOSE: 547.75 mGy.cm COMPARISON: 11/04/2024 FINDINGS: No acute intracranial hemorrhage, midline shift, intracranial mass, acute hydrocephalus, territorial ischemia or abnormal extra-axial collection. Involutional changes with chronic microvascular ischemic disease. Chronic left frontal lobe encephalomalacia with adjacent craniotomy. Unchanged ventriculome brandie which may be secondary to the chronic volume loss. The calvarium is intact. Minimal mucosal thickening of the paranasal sinuses. Unremarkable soft tiss ues and orbits. IMPRESSION: 1. No acute intracranial abnormality. 2. Chronic findings as above. ACT 112: Negative or not required by law. The above report was generated using voice recognition software. It may contain grammatical, syntax o r spelling errors. Electronically signed by: Danilo Sheehan M.D. 11/06/2024 2:03 PM
[2024-11-07 07:36] LABS: Hematocrit (blood only) 39.7 % (42.0-52.0); Hemoglobin 13.4 g/dl (14.0-18.0); Mean Corpuscular Hemoglobin 30.8 pg (25.0-34.0); Mean Corpuscular Hgb Conc 33.8 g/dL (32.0-36.0); Mean Corpuscular Volume 91.3 fL (80.0-100.0); Mean Platelet Volume 12.3 fL (9.4-12.4); Platelet Count 132 K/uL (130-400); RDW Standard Deviation 40.2 fL (36.4-46.3); Red Blood Count 4.35 M/uL (4.70-6.10); White Blood Count 5.62 K/ul (4.8-10.8)
[2024-11-07 07:57] LABS: Calcium 8.9 mg/dl (8.6-10.3); Potassium 3.2 mmol/L (3.5-5.1)
[2024-11-07 08:03] LABS: BUN Creatinine Ratio 18.4 (10-20)
--- NOTE | 2024-11-07 08:27 | Hospitalist Progress Note ---
Date of Service November 07, 2024 Assessment & Plan (1) UTI (urinary tract infection): (2) RLL pneumonia: (3) AMS (altered mental status): Plan Dung is an 84-year-old male with PMH of intracranial hemorrhage (June 2024, September 2024) [place], BPH, sick sinus syndrome, HTN. He presented on 11/04 for altered mental status with an unwitnessed fall - he was found directly on the side of the bed, and his CPAP machine was stuck between the bed and the wall. Patient is unable to provide details of this fall. Initial evaluation revealed UA concerning for UTI and PNA on CXR. Heat CT/ head and neck CTA showed no acute findings. #Altered mental status Suspected secondary to UTI/acute infection, possible PNA however doubtful. Was a stroke alert on admission, however no focal deficits. AMS is likely secondary to infection but given his history if progression of symptoms, repeat CT head obtained 11/06 which did NOT show any acute changes. MRI unfortunately unable to complete due to pacemaker. Does have hx afib, pacemaker interrogation obtained (<1hr/day activity) but notes 100% afib. Not on xarelto anymore due to hx ICH/falls but possible throwing small clots but risk/benefit discussion and discussed w/ prior neurosurgeon Dr Burch 11/07 and slight increased ventricle size but no need for shunt and suspect residual sequela from repeat fall/bleeding from recent event (worse since fall in September and not recovered like he did in June per on 11/07) Suspect compounded by hypoactive delirium. HIM request official records from [facility] [place]. Remains on ASA 81mg daily, no Xarelto given above. K 3.2, 40meq PO x 1 ordered. Mag wnl 2.0 and yovana plan to keep replete. Atenolol BID continued for rates Continues on Ceftriaxone/Doxy - urine cx w/ klebsiella as below. -Repeat CXR negative for consolidation Maintain wake/sleep schedules Notable was on Keppra on admission and per NOT LONGER TAKING since stopped at [facility] and did have worsening mentation while on that (last dose AM 11/05, possible need to wash out) Will check B12/TSH w/ AM labs PT/OT consulted, updated 11/07 #Atrial fibrillation Rate controlled; continue beta-josé miguel w/ atenolol BID. Pacemaker interrogation as above 100% afib. Was on xarelto/no longer with hx ICH as outlined, remains on ASA 81mg daily. Keep K/mag replete --> PO Kcl for today, BMP in Am #UTI UA + on admission, urine cx w/ klebsiella, pansensitive except nitrofurantoin Ceftriaxone IV continued (day 4 on 11/07), can convert to PO in am to complete course given blood cx remain NGTD #Pneumonia CXR revealed early pneumonia in the right lower lung v atelectasis. Biofire checked and negative. Remains on CTX for +UTI as above, doxy for atypical Remains on room air, repeat CXR w/o consolidation #Fall/ambulatory dysfunction PT/OT - recommend rehab Fall precautions Check b12 w/ AM labs #Remote history of ICH Occurred on 06/2024, Recurrence of seizure-like activity and altered mental status on 09/28/2024 Keppra discontinued - reports he does not take this anymore --> last dose 11/05 AM Imaging reviewed by neurosurgeon, no acute intervention/some enlargement ventricles but no recs for shunt/etc. can reach back out w/ any changes VTE PPx: Stevie head, added SCDs Disposition: continued inpatient stay, awaiting therapy evals. Of note, does not want to return to [facility] . CM to follow and ref to [facility] in place, [facility] as 4th option. updated x2 at bedside 11/07 Admission and Anticipated Discharge Date Admission Date: November 04, 2024 Supervising Physician Co-Signing Physician Notes Attending Attestation - Chart reviewed, care plan d/w PA Migdalia Wills. I agree w/ the mitchell components of her documentation. Ms Wills spoke with neurosurgery today, Dr Burch. NPH felt unlikely; no plans to pursue w/u for this. Cont IV abx for UTI/suspected RLL pneumonia. Jonel Martinez MD Subjective Eval this morning around 11am, at bedside. Discussed pushed imaging to [facility], she reports has seen multiple provider, believes main Neurosurgeon on case is Dr Mclain, but also seen by Dr Wade and Dr Limon as well. Will f/u. Also got pacemaker interrogation, in afib. Confirmed with has been on baby aspirin but not xarelto or keppra. She notes his mentation was much worse on the keppra and improved off. Discussed may take some time. Does not appear in any acute distress, mild dehydrated and encouraged PO but discussed if issues will order some gentle IVF. Catheter with bag clear yellow urine. On abx for PNA/UTI but on room air. She reports he was doing well after ICH in June but since September has had a rough time with recovery. Did better at home per her report than when he was at [facility], likely due to being in familiar environment. Questions/concerns addressed at this time. Physical Exam 2 Physical Exam: General: 84yo male sitting up in bed, NAD, in room/at bedside Head: prior craniotomy noted, no other abn, mm slightly dry, trachea midline Resp; even/unlabored, no overt wheezing/rales, 97% on RA CV: paced/afib, pacemaker placement noted, no significant m/r/g, no pitting edema, pulses present, no calf edema compared to the other GI: +BS, soft/NT : catheter with clear yellow urine MSK/Neuo: baseline dysphagia/expressive aphasia, ?receptive aphasia, flat affect, not able to follow commands at times, alert to person, familiar with in room but no meaningful conversation Results & Data Results & Data Vital Signs (Past 12 Hours) Vital Signs Temp Pulse Resp BP Pulse Ox O2 Del Method 11/07/24 07:31 36.6 C 68 16 151/84 H 97 Room Air Laboratory Results 11/07/24 06:11 11/07/24 06:11 Mag 2.0 Diagnostic Findings Chest X-Ray 11/07/24 08:34 XR chest 1V portable CLINICAL HISTORY: f/u pna vs atelectasis COMPARISON STUDY: 11/04/2024 FINDINGS: Stable pacemaker. Stable mild cardiomegaly without pulmonary vascular congestion. Prior right lung base opacity has resolved. No consolidation or pleural effusion. IMPRESSION: No pneumonia seen. ACT 112: Negative or not required by law. Electronically signed by: Dave Van M.D. 11/07/2024 9:29 AM PG Care Time/CCT Total # of Minutes Spent Total Time Spent with Patient: Total time spent is greater than 50% in coordination of care (as documented) at patient's floor/unit and/or counseling patient: Coding Level of Care Code 60453 SUB INP/OBS CARE 3/50MIN Diagnoses UTI (urinary tract infection) N39.0 RLL pneumonia J18.9 AMS (altered mental status) R41.82
[2024-11-07] MEDS: POTASSIUM CHLORIDE CRTAB 20 MEQ TABCR PO STA (08:37)
--- NOTE | 2024-11-07 09:30 | XRay Report ---
XR chest 1V portable CLINICAL HISTORY: f/u pna vs atelectasis COMPARISON STUDY: 11/04/2024 FINDINGS: Stable pacemaker. Stable mild cardiomegaly without pulmonary vascular congestion. Prior rig ht lung base opacity has resolved. No consolidation or pleural effusion. IMPRESSION: No pneumonia seen. ACT 112: Negative or not required by law. Electronically signed by: Dave Van M.D. 11/07/2024 9:29 AM
[2024-11-07] MEDS: DOXYCYCLINE HYCLATE 100 MG CAP PO SCH (21:39)
--- NOTE | 2024-11-08 07:44 | Hospitalist Progress Note ---
Date of Service November 08, 2024 Assessment & Plan (1) UTI (urinary tract infection): (2) RLL pneumonia: (3) AMS (altered mental status): Plan Dung is an 84-year-old male with PMH of intracranial hemorrhage (June 2024, September 2024) [place], BPH, sick sinus syndrome, HTN. He presented on 11/04 for altered mental status with an unwitnessed fall - he was found directly on the side of the bed, and his CPAP machine was stuck between the bed and the wall. Patient is unable to provide details of this fall. Initial evaluation revealed UA concerning for UTI and PNA on CXR. Heat CT/ head and neck CTA showed no acute findings. #Altered mental status -- suspected 2nd to [facility] from recent ICH but also worsened with acute infection w/ UTI, possible PNA Stroke alert on admission, however no focal deficits. AMS is likely secondary to infection but given his history if progression of symptoms, repeat CT head obtained 11/06 which did NOT show any acute changes. MRI unfortunately unable to complete due to pacemaker. Does have hx afib, pacemaker interrogation obtained (<1hr/day activity) but notes 100% afib. Not on xarelto anymore due to hx ICH/falls but possible throwing small clots but risk/benefit discussion and discussed w/ prior neurosurgeon Dr Burch 11/07 and slight increased ventricle size but no need for shunt and suspect residual sequela from repeat fall/bleeding from recent event (worse since fall in September and not recovered like he did in June per on 11/07) Suspect compounded by hypoactive delirium. B12 not deficient, Lyme negative Head CT imaging as noted above IMPROVED 11/08-able to assist with some eating today/improved PO intake and hydration status. More conversive/alert to person and place today. OFF KEPPRA since 11/05 AM - per , had been dc at [facility] but was continued at [facility] and reported patient MUCH worse on this medication and suspected some time to wash out.no seizure activity reported/witnessed Also notable had BP elevated to 145/95 this morning and added hydralazine 10mg IV q8h prn and repeat BP improved to 127/79 and will monitor/continue to have available as needed Remains on ASA 81mg daily, atenolol 100mg BID No Xarelto given recent ICH. Pacemaker interrogation w notable <1hr activity per day, in afib 100% of time. Remains on Atenolol for rate control and PO Kcl provided 3/3 for K 3.2 (mag 2.0) and stable on repeat labs. TSH checked for completeness and was slightly elevated to 5.95, but normal T4/3 and not on supplementation at baseline and not started Ceftriaxone/Doxy (started 11/04), can dc Doxy after tomorrow given 5 day course but rec transition Ceftriaxone to PO abx for 7 day course for UTI below Maintain wake/sleep schedules PT/OT w/ recs for rehab. CM following and ref to [facility] in place, [facility] as 4th option. HIM request official records from [facility] pending Monitor labs/exam on repeat #Atrial fibrillation Not on xarelto at present given recent ICH but has been on baby ASA. Pacemaker interrogation noted in afib 100% of time. Remains on atenolol 100mg BID for rate control Keep mag/K replete - given PO Kcl on 11/07 for K 3.2 and improved to 3.9. Mag 2.0. Improvement in PO intake and will monitor chemistries in AM Stevie head/Addi continued for DVT proph #UTI +UA, urine cx w/ klebsiella, pansensitive except nitrofurantoin Ceftriaxone IV (has received 5 doses). WBC wnl/afebrile. Blood cx NGTD. Can convert to PO in am to complete 7 day course. #Pneumonia CXR revealed early pneumonia in the right lower lung v atelectasis. Biofire checked and negative. Remains on CTX for +UTI as above, doxy for atypical Remains on room air, repeat CXR w/o consolidation #Fall/ambulatory dysfunction PT/OT - recommend rehab, CM following as above. Continues w/ fall precautions. B12 not deficient/Lyme negative. Tx UTI as above #Remote history of ICH Occurred on 06/2024, Recurrence of seizure-like activity and altered mental status on 09/28/2024 Ines discontinued - reports he does not take this anymore --> last dose 11/05 AM Imaging reviewed by neurosurgeon 11/07 Dr Burch, no acute intervention/some enlargement ventricles but no recs for shunt/etc. can reach back out w/ any changes VTE PPx: Stevie hose, SCDs Disposition: continued inpatient stay, plan to convert abx to PO for UTI in am for 7day course. Continue assistance w/ meals. Eventual rehab once bed/facility in place. CM following. updated at bedside 11/07, voicemail left 11/08 Admission and Anticipated Discharge Date Admission Date: November 04, 2024 Supervising Physician Co-Signing Physician Notes The patient was not seen by me. The chart was reviewed. Case discussed with REBECCA Stratton. Agree with assessment and plan Subjective Improved PO intake/nursing assisted with breakfast, ate ~50% Patient was able to assist with some eating at lunch, able to have more of a conversation with me today/appears improved. No pain reported. Some occasional picking at IV but sleeve readjusted. Knows in hospital, not sure if was here today or not but will call with update. Continued assistance with feeding, remains on aspirin. Electrolytes stable and pacemaker interrogation noted 100% of time in afib/flutter and will continue to keep mag/k replete CM following for rehab placement, referrals in place. Physical Exam 2 Physical Exam: General: 84yo male sitting up in bed, NAD, appears improved/more conversive today Head: prior craniotomy noted, no other abn, mm slightly dry but improved today, trachea midline Resp; even/unlabored, no overt wheezing/rales, on RA CV: paced/afib, pacemaker placement noted, no evidence for infection. no significant m/r/g, no pitting edema/calf tenderness and pulses palpable GI: +BS, soft/NT : catheter with clear yellow urine MSK/Neuo: baseline expressive aphasia, ?receptive aphasia, flat affect (improved), more conversive, able to follow commands better today Psych: alert to person/place (knows in hospital), not month/year at this time Results & Data Results & Data Vital Signs (Past 12 Hours) Vital Signs Temp Pulse Resp BP Pulse Ox O2 Del Method 11/08/24 07:07 Room Air 11/07/24 21:32 36.5 C 83 16 145/95 H 98 Room Air Laboratory Results 11/07/24 06:11 11/08/24 08:54 TSH 5.950 T4 1.05 wnl T3 2.58 wnl Lyme negative B12 818 PG Care Time/CCT Total # of Minutes Spent Total Time Spent with Patient: Total time spent is greater than 50% in coordination of care (as documented) at patient's floor/unit and/or counseling patient: Coding Level of Care Code 82940 SUB INP/OBS CARE 350MIN Diagnoses UTI (urinary tract infection) N39.0 RLL pneumonia J18.9 AMS (altered mental status) R41.82
[2024-11-08] MEDS: hydrALAZINE HCL 20 MG/ML VIAL IV PRN (08:17)
[2024-11-08 10:36] LABS: BUN Creatinine Ratio 22.1 (10-20); Calcium 9.6 mg/dl (8.6-10.3); Creatinine Clr Calc Pharmacy 53.1 ml/min; Potassium 3.9 mmol/L (3.5-5.1); Thyroid Stimulating Hormone 5.95 uIu/ml (0.300-4.500)
[2024-11-08 11:14] LABS: T4 Free Thyroxine 1.05 ng/dl (0.61-1.60)
--- NOTE | 2024-11-09 08:13 | Hospitalist Progress Note ---
Date of Service November 09, 2024 Assessment & Plan (1) UTI (urinary tract infection): (2) RLL pneumonia: (3) AMS (altered mental status): Plan Dung is an 84-year-old male with PMH of intracranial hemorrhage (June 2024, September 2024) [place], BPH, sick sinus syndrome, HTN. He presented on 11/04 for altered mental status with an unwitnessed fall - he was found directly on the side of the bed, and his CPAP machine was stuck between the bed and the wall. Patient is unable to provide details of this fall. Initial evaluation revealed UA concerning for UTI and PNA on CXR. Heat CT/ head and neck CTA showed no acute findings. #Altered mental status -- suspected 2nd to sequela from recent ICH but also worsened with acute infection w/ UTI, possible PNA Stroke alert on admission, however no focal deficits. AMS is likely secondary to infection but given his history if progression of symptoms, repeat CT head obtained 11/06 which did NOT show any acute changes. MRI unfortunately unable to complete due to pacemaker. Does have hx afib, pacemaker interrogation obtained (<1hr/day activity) but notes 100% afib. Not on xarelto anymore due to hx ICH/falls but possible throwing small clots but risk/benefit discussion and discussed w/ prior neurosurgeon Dr Burch 11/07 and slight increased ventricle size but no need for shunt and suspect residual sequela from repeat fall/bleeding from recent event (worse since fall in September and not recovered like he did in June per on 11/07) but remains on ASA 81mg daily and atenolol 100mg BID for rate control Suspect dementia compounded by hypoactive delirium. B12 not deficient, Lyme negative Head CT imaging as noted above IMPROVED 11/08 - 11/09 -Able to assist with some eating today/improved PO intake and hydration status. More conversive/alert to person and place today. Remains OFF KEPPRA (last dose AM 11/05, per typically made him worse and was discontinued at [facility] earlier this year) BP elevated but improved w/ hydralazine 10mg IV x 1 on 11/08 and stayed stable but again elevated and planned to start amlodipine 5mg daily (has been on in past per /no issues w/ edema) Ceftriaxone IV continued for UTI below, doxy completed 5 day course for atypical/possible PNA coverage. Convert to PO abx to complete course for UTI in AM PT/OT rec rehab, CM following and revisiting [facility] when rehab/bed available planned Updated bedside 11/09 #Atrial fibrillation As above, no Xarelto w/ recent ICH but remains on baby aspirin. Pacer interrogation noting in afib 100% of time and remains on atenolol 100mg BID for rate control Prior K replacement ordered and remains stable 4.3. Mag 2.0 and ensure replete SCDs/stevie hose for DVT proph, chemoproph contraindicated #UTI Urine cx klebsiella -pansensitive except nitrofurantoin Ceftriaxone IV continued/plan for PO in AM to complete 7 day course. Blood cx remain neg #Pneumonia CXR w/ early pneumonia in the right lower lung v atelectasis. Biofire checked and negative. Abx w/ CTX/Doxy as above and completed doxy. No SOB/remains on RA and CTX for UTI above w/ plans for PO in am to complete course #Fall/ambulatory dysfunction PT/OT - recommend rehab, CM following as above. Continues w/ fall precautions. B12 not deficient/Lyme negative. Tx UTI as above #Remote history of ICH Occurred on 06/2024, Recurrence of seizure-like activity and altered mental status on 09/28/2024 Keppra discontinued as above, DO NOT RESUME, no seizure activity. Case reviewed/discussed w/ his neurosurgeon as outlined and can reach out if any needs/concerns VTE PPx: Stevie head, SCDs. Chemoproph contraindicated as above Disposition: continued inpatient stay for rehab. Plan completion tx UTi as outlined. Updated at bedside 11/09 and CM following for placement Admission and Anticipated Discharge Date Admission Date: November 04, 2024 Supervising Physician Co-Signing Physician Notes The patient was not seen by me. The chart was reviewed. Case discussed with REBECCA Stratton. Agree with assessment and plan Subjective Eval this morning around 11am, did well w/ breakfast for nursing. Little sleepy today. Discussed BP elevation/amlodipine -- reports has been on that medication in the past/no issues w/ leg swelling. Discussed pacemaker interrogation/keeping electrolytes replete and remains on atenolol for rate control. On abx for UTI, plan to convert to PO to complete course in AM. +BS on exam/no pain. Ongoing rehab at in planned, will touch base w/ CM today about seeing where we are at w/ referral process. Questions/concerns addressed a this time. Physical Exam 2 Physical Exam: General: 84yo male sitting up in bed, NAD, stable, in room Head: prior craniotomy noted, no other abn, mm improved but still slighty dry(being assisted with meals), trachea midline Resp; even/unlabored, no overt wheezing/rales, 99% on RA CV: paced/afib, pacemaker placement noted, no evidence for infection. no significant m/r/g, no pitting edema/calf tenderness and pulses palpable GI: +BS, soft/NT : catheter with clear yellow urine MSK/Neuo: baseline expressive aphasia, ?receptive aphasia, flat affect (improved), more conversive, able to follow commands better today Psych: alert to person/place (knows in hospital), not month/year at this time Results & Data Results & Data Vital Signs (Past 12 Hours) Vital Signs Temp Pulse Resp BP BP Pulse Ox O2 Del Method 11/09/24 07:27 36.4 C L 71 16 185/109 H 99 Room Air 11/08/24 21:24 36.6 C 73 17 172/99 H 99 Room Air Laboratory Results 11/07/24 06:11 11/09/24 08:42 Mag 2.0 PG Care Time/CCT Total # of Minutes Spent Total Time Spent with Patient: Total time spent is greater than 50% in coordination of care (as documented) at patient's floor/unit and/or counseling patient: Coding Level of Care Code 03090 SUB INP/OBS CARE 3/50MIN Diagnoses UTI (urinary tract infection) N39.0 RLL pneumonia J18.9 AMS (altered mental status) R41.82
[2024-11-09] MEDS: amLODIPine BESYLATE 5 MG TAB PO ONE (08:42)
[2024-11-09 09:10] LABS: Calcium 9.6 mg/dl (8.6-10.3); Potassium 4.3 mmol/L (3.5-5.1)
[2024-11-09 09:16] LABS: BUN Creatinine Ratio 24.7 (10-20); Creatinine Clr Calc Pharmacy 69.1 ml/min
--- NOTE | 2024-11-09 16:17 | Electrocardiogram Report ---
Test Reason : Blood Pressure : */* mmHG Vent. 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
[2024-11-10 07:13] LABS: Calcium 9.2 mg/dl (8.6-10.3)
[2024-11-10 07:18] LABS: BUN Creatinine Ratio 24.7 (10-20); Creatinine Clr Calc Pharmacy 62.2 ml/min
--- NOTE | 2024-11-10 07:46 | Hospitalist Progress Note ---
Date of Service November 10, 2024 Assessment & Plan (1) UTI (urinary tract infection): (2) RLL pneumonia: (3) AMS (altered mental status): Plan Dung is an 84-year-old male with PMH of intracranial hemorrhage (June 2024, September 2024) [place], BPH, sick sinus syndrome, HTN. He presented on 11/04 for altered mental status with an unwitnessed fall - he was found directly on the side of the bed, and his CPAP machine was stuck between the bed and the wall. Patient is unable to provide details of this fall. Initial evaluation revealed UA concerning for UTI and PNA on CXR. Heat CT/ head and neck CTA showed no acute findings. #Altered mental status -- suspected 2nd to sequela from recent ICH but also worsened with acute infection w/ UTI, possible PNA Stroke alert on admission, however no focal deficits. AMS is likely secondary to infection but given his history if progression of symptoms, repeat CT head obtained 11/06 which did NOT show any acute changes. MRI unfortunately unable to complete due to pacemaker. Does have hx afib, pacemaker interrogation obtained (<1hr/day activity) but notes 100% afib. Not on xarelto anymore due to hx ICH/falls but possible throwing small clots but risk/benefit discussion and discussed w/ prior neurosurgeon Dr Burch 11/07 and slight increased ventricle size but no need for shunt and suspect residual sequela from repeat fall/bleeding from recent event (worse since fall in September and not recovered like he did in June per on 11/07) but remains on ASA 81mg daily and atenolol 100mg BID for rate control Suspect dementia compounded by hypoactive delirium. B12 not deficient, Lyme negative Head CT imaging as noted above IMPROVED/stable 11/10 Assisting with meals/able to assist some at times Remains OFF KEPPRA, dc from med list at dc BP much better since addition of amlodipine 5mg daily, 138/87 most recently Ceftriaxone IV x7 day course completed, doxy x 5 days for "atypical for poss pna" +BM 11/09, bowel regimen PT/OT consulted, rehab planned and [facility]. Planning to arrange for transport AM 11/11. updated at bedside #Atrial fibrillation As above, no Xarelto w/ recent ICH but remains on baby aspirin. Pacer interrogation noting in afib 100% of time -Remains on atenolol 100mg BID for HR control. K/mag stable SCDs/stevie hose in place. No AC 2nd to ICH #UTI Urine cx klebsiella -pansensitive except nitrofurantoin Completed course IV abx while inpatient. Blood cx NGTD #Pneumonia CXR w/ early pneumonia in the right lower lung v atelectasis. Biofire negative Completed course Ceftriaxone/Doxy while inpatient and remains 99% on RA #Fall/ambulatory dysfunction B12 not deficient/Lyme negative. Tx UTI as above has been completed. Fall precautions and rehab planned at dc as outlined #Remote history of ICH Occurred on 06/2024,recurrence of seizure-like activity and altered mental status on 09/28/2024 however keppra discontinued at OSH/Neurosurgery prior and has been DISCONTINUED Case reviewed/discussed w/ his neurosurgeon as outlined and can reach out if any concerns VTE PPx: Stevie hose, SCDs. Chemoproph contraindicated as above Disposition: plan for dc to [facility] 11/11. CM working on arranging transportation for tomorrow morning. updated at bedside 11/10 Admission and Anticipated Discharge Date Admission Date: November 04, 2024 Supervising Physician Co-Signing Physician Notes The patient was not seen by me. The chart was reviewed. Case discussed with REBECCA Stratton. Agree with assessment and plan Subjective Eval this afternoon, in room. She assisted with lunch and reports he did well. Ate good breakfast. +BM 3/5. Sleeping a bit per but he woke up for me today/smiling and answering some questions, appropriately and able to follow commands. Discussed plan for [facility] but given later transport will plan for AM. Questions/concerns addressed with in room. She has appt at 10am tomorrow, will have CM notify her for time for transport. Physical Exam 2 Physical Exam: General: 84yo male resting in bed, NAD, easily awoken to my voice,smiling/pleasant Head: prior craniotomy noted, no other abn, mm improved, trachea midline Resp; even/unlabored, no overt wheezing/rales, 99% on RA CV: paced/afib, pacemaker placement noted, no evidence for infection. no significant m/r/g, no pitting edema/calf tenderness and pulses palpable GI: +BS, soft/NT : catheter with clear yellow urine MSK/Neuo: baseline expressive aphasia, flat affect but smiling and able to answer more yes/no questions, denied pain, able to follow commands better as asked Psych: alert to person/place (knows in hospital), not month/year at this time Results & Data Results & Data Vital Signs (Past 12 Hours) Vital Signs O2 Del Method 11/10/24 01:15 Room Air Laboratory Results 11/07/24 06:11 11/10/24 06:46 PG Care Time/CCT Total # of Minutes Spent Total Time Spent with Patient: Total time spent is greater than 50% in coordination of care (as documented) at patient's floor/unit and/or counseling patient: Coding Level of Care Code 42845 SUB INP/OBS CARE 3/50MIN Diagnoses UTI (urinary tract infection) N39.0 RLL pneumonia J18.9 AMS (altered mental status) R41.82
[2024-11-10] MEDS: amLODIPine BESYLATE 5 MG TAB PO SCH (09:25)
[2024-11-11 07:18] VITALS: PULSE 70; TEMP 98.2
--- NOTE | 2024-11-11 08:08 | Discharge Summary ---
Discharge Summary Date of Service November 11, 2024 Principal Dx & Hospital Course #1 = Principal Diagnosis (1) UTI (urinary tract infection): (2) RLL pneumonia: (3) AMS (altered mental status): Barbara Razo is an 84-year-old male with PMH of intracranial hemorrhage (June 2024, September 2024) [place], BPH, sick sinus syndrome, HTN. He presented on 11/04 for altered mental status with an unwitnessed fall - he was found directly on the side of the bed, and his CPAP machine was stuck between the bed and the wall. Patient is unable to provide details of this fall. Initial evaluation revealed UA concerning for UTI and PNA on CXR. Heat CT/ head and neck CTA showed no acute findings. #Altered mental status -- suspected 2nd to sequela from recent ICH but also worsened with acute infection w/ UTI, possible PNA Stroke alert on admission, however no focal deficits. AMS is likely secondary to infection but given his history if progression of symptoms, repeat CT head obtained 11/06 which did NOT show any acute changes. MRI unfortunately unable to complete due to pacemaker. Does have hx afib, pacemaker interrogation obtained (<1hr/day activity) but notes 100% afib. Not on xarelto anymore due to hx ICH/falls but possible throwing small clots with his afib however unable to be on AC w/ ICH and was discussed with Discussed w/ prior neurosurgeon Dr Burch 11/07 given slight increased ventricl e size -- agreed slight increase however rec no need for shunt and suspect residual sequela from repeat fall/bleeding from recent event (worse since fall in September and not recovered like he did in June per on 11/07) but remains on ASA 81mg daily and atenolol 100mg BID for rate control Suspect dementia compounded by hypoactive delirium. B12 not low, Lyme negative. Had stopped prior ordered Keppra and had improvement and Ceftriaxone IV x 7 day course for UTI completed while inpatient and was moving his bowels. Improvement in PO itnake and BUN/Cr 20/0.84 prior to discharge BPs had been elevated and improved with low dose amlodipine 5mg as was on in the past per and has been continued. Would continue to monitor/possibly adjust in follow up if needed to help prevent significant elevations F/u PCP and neurosurgery at discharge, timing for AC if at all possilbe pending f/u but remained on ASA 81mg daily and atenolol BID for rate control. PT/OT consulted and arranged for transportation for [facility] for ongoing rehab at discharge has been arranged. Overnight pulse ox does show drop to 70% at times, but average 97. Given hx afib, would benefit from sleep study outpatient ( reported sleeping alot during the day) #Atrial fibrillation As above, no Xarelto w/ recent ICH but remains on baby aspirin daily. Pacemaker interrogation noted in AF 100% of time and remained on atenolol, SCDs/chas head. F/u neuro outpt but suspect not able to resume AC given repeat falls/bleeds but can be discussed if stays stable over next month or two in follow up. As above, possible could be having small strokes not seen on CT but were unable to complete MRI due to pacemaker compatibility #UTI Urine cx klebsiella -pansensitive except nitrofurantoin and completed course IV abx while inpatient and blood cultures NGTD on final #Pneumonia CXR w/ early pneumonia in the right lower lung v atelectasis. Biofire negative and completed abx as above and remained on RA #Fall/ambulatory dysfunction B12 not deficient/Lyme negative. Tx UTI as above has been completed. Fall precautions and rehab planned at [facility] as outlined #Remote history of ICH Occurred on 06/2024,recurrence of seizure-like activity and altered mental status on 09/28/2024 however keppra discontinued at OSH/Neurosurgery prior and has been DISCONTINUED Case reviewed/discussed w/ his neurosurgeon as outlined and can reach out if any concerns in follow up VTE PPx: Addi Ramos. Chemoproph contraindicated as above w/ recent ICH Disposition: plan for dc to [facility] 11/11. CM arranged transportation and updated on plan for discharge PM 3/6 (she has appt at 10am) and transport arranged for 12pm Notes For Next Care Provider consider formal sleep study to eval for underlying REJI monitor BP/adjustment to amlodipine if needed vs additinal agent but responded nicely to amlodipine completed course Ceftriaxone IV x 7 days and Doxy BID for UTI/possible PNA and do suspect had UTI contributuing to sx, however did not feel had pneumonia and remained on room air without hypoxia during stay but should monitor for any issues. has been tolerating diet with assistance w/ feeding but no issues w/ swallowing/choking were reported Medication Changes From Visit Amlodipine 5mg PO daily Tylenol as needed pain/fever/BENNETT Admission HPI Per Admitting Provider Dung is an 84-year-old male with PMH of intracranial hemorrhage, [place], BPH, sick sinus syndrome, and HTN. He presented on 11/04 for altered mental status. Patient is a poor historian at this time. History is obtained from his (Hilda) who was present at bedside. reports that he had a unwitnessed fall around 12:30 AM this morning. She is unsure if he accidentally slid out of bed; he was found directly on the side of the bed, and his CPAP machine was stuck between the bed and the wall. Patient is unable to provide details of this fall. called neighbor, and they were able to get him back in the bed. He slept all night, but then he when he woke up this morning he was "not himself". He would barely interact or look at the physical therapist to came to their house. He also did endorse increased weakness this morning, and was not willing to walk. Patient's reports that he does have a history of UTIs, with the last being in July. She has also had a dry cough. The physical therapist took the patient's temperature this morning, but did not notice a fever. That said, patient's reports that there has been an acute change in cognitive baseline since last night. She denies any slurred speech, facial droop, or unilateral deficits today. Although, does note his right leg has been weaker than his left ever since his hospitalization in September 2024.remote history of intracranial hemorrhage at [facility] 06/2024, and recent hospital admission at [facility] 09/2024; was discharged from [facility] 2 weeks ago. Patient denies smoking, tobacco use, recent alcohol use. Patient is hypertensive 167/107 at time of admission; vitals otherwise stable. ED course: Cefepime 2000 mg IV Doxycycline 100 mg IV Unable to obtain ROS due to patient's cognitive baseline. Admission Exam Per Admitting Provider General: no acute distress; at bedside; non-toxic appearing; frail appearing; cooperative; SpO2 99% on RA HEENT: normocephalic, atraumatic; no scleral icterus; PERRLA w/ EOMs intact; vision and hearing intact Neck: supple; trachea midline Skin: warm, dry without signs of tenting; no cyanosis; no rashes, bruising, lesions, or erythema noted CV: chest wall NTP; RRR; S1/S2 normal; no murmurs/rubs/gallops; pulses intact and symmetric at radial, DP, and PT Lungs: no acute respiratory distress; symmetrical chest wall expansion; clear breath sounds across all lung lucas w/o adventitious sounds; no wheezing ABD: Soft, NTP; BS present; no rebound/guarding; no distention MSK: no tics or fasciculations; no edema noted in the LEs b/l, nonerythematous; 5/5 wrecker driver strength bilaterally; patient demonstrates ability to wiggle toes and lift legs from the bed bilaterally with 5/5 strength Neuro: Patient is oriented to name and date of ; no facial droop or slurred speech; not oriented to purpose in the hospital, events of his fall, month, or location; he does respond to some questions and commands, but not others (for instance he will wiggle his toes and lift his legs, but not stick out his tongue on command (since that he gives a blank stare); unable to assess sensation Discharge Exam General: 84yo male resting in bed, NAD, easily awoken to my v oice,smiling/pleasant Head: prior craniotomy noted, no other abn, mm improved, trachea midline Resp; even/unlabored, no overt wheezing/rales, 95% on RA CV: paced/afib, pacemaker placement noted, no evidence for infection. no significant m/r/g, no pitting edema/calf tenderness and pulses palpable GI: +BS, soft/NT : catheter with clear yellow urine MSK/Neuo: baseline expressive aphasia, flat affect but smiling and able to answer more yes/no questions, denied pain, able to follow commands better as asked but sometimes does not Psych: alert to person/place (knows in hospital), not month/year at this time Discharge Plan Discharge Items Patient Disposition: Transfer Inpatient Rehab Fac Reason For Visit: UTI, PNA Discharge Diagnosis: UTI Goals: You have been hospitalized for an acute medical problem. During your stay at [facility], we have made an effort to correct the problem that brought you to the hospital while keeping you as comfortable as possible. Medications were used to bring your condition under control and your discharge instructions will include directions for any medications you should take after leaving the hospital. Please make sure you see your Primary Care Provider as part of your follow up plan. Activity: As commented below Non-emergency contact: Primary Care Provider and Neurologist Call non-emergency contact if: you have any medication questions, your symptoms worsen, your pain is not controlled, your pain is concerning for you and you have a fever Follow-up/Referrals: Bruno Khan MD [Physician] - Kenny Rubalcava MD [Primary Care Provider] - Diet: Heart Healthy and Low Potassium (2gm) Addtl Attending Provider Instructions: You have been hospitalized for a fall. Imaging of the brain did not show any acute stroke/worsened bleeding. Your urine did appear infected and there were also concerns for possible pneumonia and you have been provided course of antibiotics while in the hospital and white count has been normal/blood cultures are negative and urine cultures indicate adequate treatment on the antibiotics that were ordered. You have completed the course while in the hospital and do not have any further doses at discharge. We repeated a CT head inpatient and I did discuss the case with Dr Burch and he did not feel any need for intervention/changes at that time but can follow up as needed in follow up vs local neurology to see about potential resumption of your xarelto at all in the future if/when timing deemed safe but given repeat bleeding twice in past 6 months this is to remain on hold and you are to continue only the baby aspirin 81mg daily for now. As discussed with you and , your pacemaker showed you are in afib almost 100% of the time and could have small little strokes not being seen but cannot complete MRI due to your pacemaker and we have done the best to keep your potassium/magnesium replenished and have been stable on repeat testing. You should continue your atenolol twice daily for rate control. I did add LOW DOSE medication called amlodipine 5mg once daily to help get better control of your blood pressure to prevent increased risk for further events and your blood pressure has improved/stayed stable. We are continuing amlodipine 5mg daily at discharge and recommend keeping an eye on your blood pressure. You should NOT be continued on keppra as discussed and have no evidence for seizure. You should follow up with primary care in the next 7-10 days to monitor your progress after hospitalization. I recommend having them repeat thyroid levels outpatient in 4 weeks to ensure normal but if still slightly high with your afib they could consider adding medication called Synthroid. Therapy evaluations were undertaken and arrangements made for [facility] for ongoing rehab. Please return to the ER with any fever/chills, chest pain, shortness of breath, increased confusion/seizure like activity or for any other symptoms that are concerning for you. Pending Studies at Discharge: No Stand-Alone Forms: My [facility] [address] Skilled Items Patient informed of condition?: Yes DNR: Yes Discharge Level of Care: Acute rehab Communicable Disease: No Discharge Prognosis: Stable Lines: None Urinary Catheter: No Medications and DC Order Prescriptions: New amlodipine [Norvasc] 5 mg Tablet 5 mg PO QAM Qty: 30 0RF acetaminophen 325 mg Tablet 650 mg PO Q4H PRN (Reason: fever or pain) Qty: 10 0RF Continued coenzyme Q10 [Co Q-10] 200 mg Capsule 200 mg PO QAM Qty: 0 rosuvastatin 40 mg tablet 40 mg PO HS Qty: 90 3RF atenolol 100 mg tablet 100 mg PO BID Qty: 180 3RF Centrum Silver Men 300-600-300 mcg tablet 1 tab PO QAM nitroglycerin 0.4 mg tablet, sublingual 0.4 mg SL Q5M PRN (Reason: chest pain) Qty: 25 lisinopril 2.5 mg tablet 10 mg PO BID Deep Sea Nasal 0.65 % Aerosol,Trimont 2 spray INTRANASAL QID PRN (Reason: NASAL DRYNESS) aspirin 81 mg Tablet,Delayed Release (Dr/Ec) 81 mg PO QAM escitalopram oxalate 5 mg tablet 5 mg PO QAM Discharge Orders: Discharge Order (Routine); Ordered 11/11/24 Ordered By: Migdalia Wills Admission Data Admit Date/Time: 11/04/24 15:39 Attending Provider: Dung Hung Admit Provider: Armando Langford Primary Care Provider: Kenny Rubalcava Other Providers: Armando Langford; [facility]; [facility]; [facility]; [facility] Hospital Stay Data Consultations 11/04/24 14:09 ED Decision to Admit Stat 11/07/24 08:31 HIM [Consult Health Information Management] Routine Diagnostic Imagining Performed Chest X-Ray 11/04/24 12:30 XR chest 1V portable CLINICAL HISTORY: neuro deficit, acute stroke suspected COMPARISON STUDY: 09/11/2024 FINDINGS: Stable pacemaker. Stable cardiomegaly without pulmonary vascular congestion. There is interval faint reticular and patchy opacity at the right lung base. No pleural effusion or pneumothorax. IMPRESSION: Early pneumonia versus atelectasis right lung base. ACT 112: Negative or not required by law. Electronically signed by: Dave Van M.D. 11/04/2024 1:[address] 11/04/24 12:30 CT head/brain wo con CLINICAL HISTORY: neuro deficit, acute stroke suspected. TECHNIQUE: Multiple axial CT images of the head were obtained without contrast. A dose lowering technique was utilized adhering to the principles of ALARA. CT DOSE: 1045 COMPARISON: 09/29/2024 FINDINGS: There is stable prominence of the ventricles out of proportion to sulci which could represent cerebral atrophy or normal pressure hydrocephalus. There are stable severe chronic small vessel ischemic changes. Stable small area of encephalomalacia anterior left frontal lobe. No intracranial hemorrhage seen. No mass effect or midline shift. No skull fracture seen. IMPRESSION: No acute findings. ACT 112: Negative or not required by law. The above report was generated using voice recognition software. It may contain grammatical, syntax or spelling errors. Electronically signed by: Dave Van M.D. 11/04/2024 1:18 PM Head CTA 11/04/24 12:30 CT angio head w con, CT angio neck with con CLINICAL HISTORY: 84 years-old Male with neuro deficit, acute stroke suspected. Acute stroke like symptoms COMPARISON STUDY: Head CT of same day, CTA head and neck on 225 TECHNIQUE: Following the IV administration of 118 cc of Optiray, CT angiogram of the head and neck was performed from the aortic arch to the skull apex. Images are reviewed in the axial, sagittal, and coronal planes. 3-D MIPS images are created and assessed. IV contrast was administered without complication. All measurements were obtained according to NASCET criteria. A dose lowering technique was utilized adhering to the principles of ALARA. CT DOSE: 1044.83 mGy.cm FINDINGS: CT BRAIN: Dictated separately. Chronic left frontal lobe infarct. Left frontal craniotomy. CT ANGIOGRAM OF THE BRAIN: Left subclavian pacer. Atherosclerosis of the thoracic aortic arch. Patency of the innominate and image subclavian arteries. The common carotid arteries are patent. Atherosclerosis of the carotid bulbs without high-grade stenosis. The bilateral anterior and middle cerebral arteries are also patent. 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 The vertebrobasilar system and posterior cerebral arteries are widely patent. There is no aneurysm, high-grade stenosis, or proximal branch occlusion identified. Dural sinuses appear patent. Interstitial pulmonary edema. Layering right pleural effusion. Mild mediastinal lymphadenopathy. Degenerative changes of the cervical spine. Mild to moderate mucosal thickening of the paranasal sinuses. IMPRESSION: 1. No arterial occlusion or high-grade stenosis identified. 2. 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 ACT 112: Negative or not required by law. The above report was generated using voice recognition software. It may contain grammatical, syntax or spelling errors. Electronically signed by: Danilo Sheehan M.D. 11/04/2024 1:36 PM Neck CTA 11/04/24 12:30 CT angio head w con, CT angio neck with con CLINICAL HISTORY: 84 years-old Male with neuro deficit, acute stroke suspected. Acute stroke like symptoms COMPARISON STUDY: Head CT of same day, CTA head and neck on 225 TECHNIQUE: Following the IV administration of 118 cc of Optiray, CT angiogram of the head and neck was performed from the aortic arch to the skull apex. Images are reviewed in the axial, sagittal, and coronal planes. 3-D MIPS images are created and assessed. IV contrast was administered without complication. All measurements were obtained according to NASCET criteria. A dose lowering te chnique was utilized adhering to the principles of ALARA. CT DOSE: 1044.83 mGy.cm FINDINGS: CT BRAIN: Dictated separately. Chronic left frontal lobe infarct. Left frontal craniotomy. CT ANGIOGRAM OF THE BRAIN: Left subclavian pacer. Atherosclerosis of the thoracic aortic arch. Patency of the innominate and image subclavian arteries. The common carotid arteries are patent. Atherosclerosis of the carotid bulbs without high-grade stenosis. The bilateral anterior and middle cerebral arteries are also patent. 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 The vertebrobasilar system and posterior cerebral arteries are widely patent. There is no aneurysm, high-grade stenosis, or proximal branch occlusion identified. Dural sinuses appear patent. Interstitial pulmonary edema. Layering right pleural effusion. Mild mediastinal lymphadenopathy. Degenerative changes of the cervical spine. Mild to moderate mucosal thickening of the paranasal sinuses. IMPRESSION: 1. No arterial occlusion or high-grade stenosis identified. 2. 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 ACT 112: Negative or not required by law. The above report was generated using voice recognition software. It may contain grammatical, syntax or spelling errors. Electronically signed by: Danilo Sheehan M.D. 11/04/2024 1:[address] 11/06/24 13:01 CT head/brain wo con CLINICAL HISTORY: 84 years-old Male with AMS, hx of ICH. Acutely altered mental status TECHNIQUE: Multiple axial CT images of the head were obtained without contrast. A dose lowering technique was utilized adhering to the principles of ALARA. CT DOSE: 547.75 mGy.cm COMPARISON: 11/04/2024 FINDINGS: No acute intracranial hemorrhage, midline shift, intracranial mass, acute hydrocephalus, territorial ischemia or abnormal extra-axial collection. Involutional changes with chronic microvascular ischemic disease. Chronic left frontal lobe encephalomalacia with adjacent craniotomy. Unchanged ventriculomegaly which may be secondary to the chronic volume loss. The calvarium is intact. Minimal mucosal thickening of the paranasal sinuses. Unremarkable soft tissues and orbits. IMPRESSION: 1. No acute intracranial abnormality. 2. Chronic findings as above. ACT 112: Negative or not required by law. The above report was generated using voice recognition software. It may contain grammatical, syntax or spelling errors. Electronically signed by: Danilo Sheehan M.D. 11/06/2024 2:03 PM Chest X-Ray 11/07/24 08:34 XR chest 1V portable CLINICAL HISTORY: f/u pna vs atelectasis COMPARISON STUDY: 11/04/2024 FINDINGS: Stable pacemaker. Stable mild cardiomegaly without pulmonary vascular congestion. Prior right lung base opacity has resolved. No consolidation or pleural effusion. IMPRESSION: No pneumonia seen. ACT 112: Negative or not required by law. Electronically signed by: Dave Van M.D. 11/07/2024 9:29 AM Discharge Instructions Given to Patient (Per Discharging Provider) You have been hospitalized for a fall. Imaging of the brain did not show any acute stroke/worsened bleeding. Your urine did appear infected and there were also concerns for possible pneumonia and you have been provided course of antibiotics while in the hospital and white count has been normal/blood cultures are negative and urine cultures indicate adequate treatment on the antibiotics that were ordered. You have completed the course while in the hospital and do not have any further doses at discharge. We repeated a CT head inpatient and I did discuss the case with Dr Burch and he did not feel any need for intervention/changes at that time but can follow up as needed in follow up vs local neurology to see about potential resumption of your xarelto at all in the future if/when timing deemed safe but given repeat bleeding twice in past 6 months this is to remain on hold and you are to continue only the baby aspirin 81mg daily for now. As discussed with you and , your pacemaker showed you are in afib almost 100% of the time and could have small little strokes not being seen but cannot complete MRI due to your pacemaker and we have done the best to keep your potassium/magnesium replenished and have been stable on repeat testing. You should continue your atenolol twice daily for rate control. I did add LOW DOSE medication called amlodipine 5mg once daily to help get better control of your blood pressure to prevent increased risk for further events and your blood pressure has improved/stayed stable. We are continuing amlodipine 5mg daily at discharge and recommend keeping an eye on your blood pressure. You should NOT be continued on keppra as discussed and have no evidence for seizure. You should follow up with primary care in the next 7-10 days to monitor your progress after hospitalization. I recommend having them repeat thyroid levels outpatient in 4 weeks to ensure normal but if still slightly high with your afib they could consider adding medication called Synthroid. Therapy evaluations were undertaken and arrangements made for [facility] for ongoing rehab. Please return to the ER with any fever/chills, chest pain, shortness of breath, increased confusion/seizure like activity or for any other symptoms that are concerning for you. Supervising Physician Co-Signing Physician Notes The patient was not seen by me. The chart was reviewed. Case discussed with REBECCA Stratton. Agree with assessment and plan Total Time Total Time Spent Total Time Spent (In Minutes): 60 Coding Level of Care Code 70524 INP/OBS DISCH >30 MIN Diagnoses UTI (urinary tract infection) N39.0 RLL pneumonia J18.9 AMS (altered mental status) R41.82
[2024-11-11 08:43] VITALS: BP 157/92; RESP 18; O2SAT 95
[2024-11-11 12:14] LABS: BUN Creatinine Ratio 23.8 (10-20); Calcium 9.3 mg/dl (8.6-10.3); Potassium 3.6 mmol/L (3.5-5.1)
== END 2024-11-11 13:05 | DRG 56 ==
LOC: ED 12:22 → EDINP 15:39 → SUATTDRO 15:39 → 3N 21:00

== ENCOUNTER 2024-12-01 18:02 | Inpatient (IN) ==
[2024-12-01 18:38] LABS: Basophils # (auto) 0.02 K/uL (0.00-0.20); Basophils % (auto) 0.2 %; Eosinophils # (auto) 0.11 K/uL (0.00-0.50); Eosinophils % (auto) 1.3 %; Hematocrit (blood only) 41.4 % (42.0-52.0); Hemoglobin 13.5 g/dl (14.0-18.0); Immature Granulocytes # (auto) 0.01 K/uL (0.01-0.20); Immature Granulocytes % (auto) 0.1 %; Lymphocytes # (auto) 0.71 K/uL (1.20-3.40); Lymphocytes % (auto) 8.6 %; Mean Corpuscular Hemoglobin 29.9 pg (25.0-34.0); Mean Corpuscular Hgb Conc 32.6 g/dL (32.0-36.0); Mean Corpuscular Volume 91.6 fL (80.0-100.0); Mean Platelet Volume 12.3 fL (9.4-12.4); Monocytes # (auto) 0.55 K/uL (0.11-0.59); Monocytes % (auto) 6.7 %; Neutrophils # (auto) 6.83 K/uL (1.40-6.50); Neutrophils % (auto) 83.1 %; Platelet Count 110 K/uL (130-400); RDW Coefficient of Variation 12.9 % (11.5-14.5); RDW Standard Deviation 42.9 fL (36.4-46.3); Red Blood Count 4.52 M/uL (4.70-6.10); White Blood Count 8.23 K/ul (4.8-10.8)
--- NOTE | 2024-12-01 18:49 | Emergency Department Note ---
Impression & Plan Altered mental status, Influenza A virus subtype H1 2009 pandemic strain present, Acute UTI, Dementia ED Provider Note NAME: MALATHI GAMEZ Jr AGE: 84 SEX: M : 1940 ARRIVES VIA: Ambulance INFORMANT: Patient ED PROVIDER(S): Matthieu Dong MD CHIEF COMPLAINT: Confusion PLAN: Disposition: Admit MEDICAL DECISION MAKING: The patient is an 84-year-old gentleman with past medical history of dementia, hypertension, hyperlipidemia, BPH, ICH, atrial fibrillation not on anticoagulation secondary to bleeding risk, sick sinus syndrome status post PPM who presents to the emergency department via EMS from home for evaluation of confusion and decreased responsiveness from his baseline for dementia which was noticed today by his . Primus report patient was in bed and not responding to his when she started talking to him. Patient noted to be febrile by EMS and was awake and responsive and following commands but would not answer questions. Patient was recently hospitalized for urinary tract infection and pneumonia and discharged to [facility] but had been discharged to home. On evaluation the patient is in no acute distress, afebrile with blood pressure in the 140s/90s and vital signs otherwise stable. Patient appears clinically dry. He is moving all extremities equally without focal extremity weakness. He is awake and follows commands but will not answer questions. EKG without overt acute ischemia. CXR negative for acute cardiopulmonary process per my personal preliminary review/interpretation. WBC within normal limits with neutrophilia but no left shift. H/H similar to prior. Platelets 1 10K, similar to prior. Chemistry without metabolic acidosis. Lactic acid 1.1, within normal limits. Electrolytes and LFTs unremarkable. HS troponin 3.1, within normal limits. Lipase is normal. Procalcitonin is not elevated. TSH 6.1 however free T4 within normal limits. UA is consistent with infection on straight catheterization with positive nitrites and WBCs and 4+ bacteria. Initial treatment with IV ceftriaxone. Patient was also noted to have influenza A. Tamiflu was ordered. CT of the head was negative for acute abnormalities. CT of the pelvis demonstrates evidence of cystitis. Dr. Dupree, [facility] hospitalist, to evaluate the patient for admission. Further management per admitting team. Triage Nursing notes reviewed and agree them. Prior/external medical records reviewed Vital Signs: reviewed Differential diagnosis: Infection, hypoglycemia, electrolyte abnormalities, overdose, toxicologic, cardiac sources, intracerebral event, neurologic, trauma, as well as other pathologies. ER treatment provided: See below. Diagnostics interpreted by me: ECG: Atrial fibrillation, 102 bpm, no ectopy, incomplete right bundle branch block, left anterior fascicular block, no overt ST elevation or depression, QTc 417, QRS 106. Cardiac Monitoring: An order for continuous cardiac monitoring was placed and demonstrated Atrial fibrillation, 102 bpm, no ectopy Laboratory studies: See below Imaging studies: See below Consultation(s): Dr. Dupree, [facility] hospitalist. HPI: The patient is an 84-year-old gentleman with past medical history of dementia, hypertension, hyperlipidemia, BPH, ICH, atrial fibrillation not on anticoagulation secondary to bleeding risk, sick sinus syndrome status post PPM who presents to the emergency department via EMS from home for evaluation of confusion and decreased responsiveness from his baseline for dementia which was noticed today by his . Primus report patient was in bed and not responding to his when she started talking to him. Patient noted to be febrile by EMS and was awake and responsive and following commands but would not answer questions. Patient was recently hospitalized for urinary tract infection and pneumonia and discharged to [facility] but had been discharged to home. ROS: See above HPI for pertinent positives & negatives. A total of 10 systems reviewed and were otherwise negative. VITALS:See Below PHYSICAL EXAMINATION: GENERAL: Awake, alert, in no distress HENT: Normocephalic, atraumatic. Oropharynx with dry mucous membranes and otherwise unremarkable. EYES: Normal conjunctiva. Sclera non-icteric. EOMI. No nystamgus. PEARRL. NECK: Supple. No nuchal rigidity. FROM. No JVD. RESPIRATORY: Clear to auscultation. CARDIAC: Regular rate, irregular rhythm. Extremities warm and well perfused. Pulses equal. ABDOMEN: Soft, non-distended. No tenderness to palpation. No rebound or guarding. No masses. MUSCULOSKELETAL: Chest examination reveals no tenderness. The back is symmetrical on inspection without obvious abnormality. There is no CVA tenderness to palpation. No joint edema. LOWER EXTREMITIES: Calves are equal size bilaterally and non-tender. No edema. No discoloration. NEURO: Awake and alert and will follow commands but will not answer questions. Moves all extremities equally without overt focal weakness. SKIN: No rash or jaundice noted. Matthieu Dong MD Past Med/Surg History Problem List (Updated 12/02/24 @ 06:32 by Matthieu Dong MD) Dementia (Acute) Altered mental status (Acute) Acute UTI (Acute) Influenza A virus subtype H1 2009 pandemic strain present (Acute) Atrial fibrillation with RVR Cholelithiasis Constipation Dysphagia Influenza A RLL pneumonia (Acute) UTI (urinary tract infection) (Acute) AMS (altered mental status) (Acute) Intracranial hemorrhage Seizure-like activity Other symptoms and signs involving cognitive functions and awareness Epistaxis (Acute) H/O umbilical hernia repair (08/18/19) Open Umbilical Hernia Repair Dr. Zamora 08/18/19 Encounter for pre-operative examination Patient okay for surgery as per cardiology 07/26/19. Past heart attack (Acute) had in 1991 Hyperglycemia (Acute) Hypercholesterolemia (Acute) Gross hematuria (Acute) Former smoker (Acute) Elevated prostate specific antigen (PSA) (Acute) Benign prostatic hyperplasia with elevated prostate specific antigen (PSA) (Acute) Allergic rhinitis (Acute) Umbilical hernia without mention of obstruction or gangrene Sick sinus syndrome (Acute) 2008 DX Hypertension (Acute) Medical History (Updated 12/02/24 @ 06:32 by Matthieu Dong MD) Coronary artery disease Paroxysmal atrial fibrillation Presence of cardiac pacemaker Raynauds syndrome Atrial fibrillation DX 2014 (REASON FOR TAKING XARELTO) Myocardial Infarction 1991 Hyperlipidemia Raynauds phenomenon Ulcerative colitis History of cardiac pacemaker 2007 (S/P SYNCOPAL EPISODE) FOLLOWED BY DR. SMITH 2019 CHANGED PACEMAKER (MEDTRONIC DEVICE) Surgical History History of colonoscopy History of cataract surgery RT/LEFT History of cardiac catheterization [place]OP[place] [facility] [place] History of wisdom tooth extraction Family History Father Heart disease Stroke Social History Smoking Status: Unknown if ever smoked Tobacco Type: Cigarettes Second Hand Exposure: No; Do You Dip or Chew Tobacco: No; Hx Alcohol Use: No Hx Substance Use: No Preferred Language: Australian Communication Ability: Effective Yarn Carrier Required: No Beliefs That Will Affect Care: None marital status: Current Living Situation: Spouse 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 status: 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65 % nasal spray 2 spray intranasal QID PRN NASAL 04/20/20 12/01/24 aerosol (Deep Sea Nasal) DRYNESS [id number] 300 mcg-K 60 1 tab PO QAM 01/10/22 12/01/24 mcg-lycop 600 mcg-lutein 300 mcg tablet (Centrum Silver Men) escitalopram oxalate 5 mg tablet 5 mg PO QAM 11/04/24 12/01/24 lisinopril 10 mg tablet 10 mg PO HS 12/01/24 12/01/24 lisinopril 20 mg tablet 20 mg PO QAM 12/01/24 12/01/24 Previous Rx's Medication Instructions Recorded rosuvastatin 40 mg tablet 40 mg PO HS #90 tabs 03/18/24 atenolol 100 mg tablet 100 mg PO BID #180 tabs 05/23/24 acetaminophen 325 mg tablet 650 mg (2 x 325 mg) PO Q4H PRN 11/10/24 fever or pain #10 tabs Results & Data (ED) Vital Signs Vital Signs - 24 hr 12/01/24 18:04 12/01/24 18:33 12/01/24 21:00 Temperature 37.5 C Temperature Source Oral Pulse Rate 85 86 87 Pulse Rate from SpO2 Sensor 33 L Pulse Rhythm Regular Pulse Strength Normal Respiratory Rate 20 20 Respiratory Effort / Characteristics Non-Labored Spontaneous Respiratory Depth Normal Respiratory Pattern Regular Blood Pressure 144/96 H 138/82 Blood Pressure Mean 112 100 Pulse Oximetry 96 82 L Oxygen Delivery Method Room Air Sepsis Recent Fever Within 48 Hours Yes Sepsis New/Unexplained Change in Mental Status Yes Sepsis Action Taken by Nursing No Action Required 12/01/24 21:42 12/01/24 22:21 Temperature Temperature Source Pulse Rate 83 82 Pulse Rate from SpO2 Sensor Pulse Rhythm Pulse Strength Respiratory Rate 25 H 20 Respiratory Effort / Characteristics Respiratory Depth Respiratory Pattern Blood Pressure 135/92 135/92 Blood Pressure Mean 106 106 Pulse Oximetry Oxygen Delivery Method Sepsis Recent Fever Within 48 Hours Sepsis New/Unexplained Change in Mental Status Sepsis Action Taken by Nursing Laboratory Data Attestation: I reviewed the patient's lab results. 12/01/24 18:15 12/01/24 18:15 Lab Results 12/01/24 12/01/24 12/01/24 Range/Units 18:15 18:18 18:48 WBC 8.23 (4.8-10.8) K/ul RBC 4.52 L (4.70-6.10) M/uL Hgb 13.5 L (14.0-18.0) g/dl Hct 41.4 L (42.0-52.0) % MCV 91.6 (80.0-100.0) fL MCH 29.9 (25.0-34.0) pg MCHC 32.6 (32.0-36.0) g/dL RDW Std Deviation 42.9 (36.4-46.3) fL RDW Coeff of Larry 12.9 (11.5-14.5) % Plt Count 110 L (130-400) K/uL MPV 12.3 (9.4-12.4) fL Immature Gran % (Auto) 0.1 % Neut % (Auto) 83.1 % Lymph % (Auto) 8.6 % [place] % (Auto) 6.7 % Eos % (Auto) 1.3 % Baso % (Auto) 0.2 % Neut # (Auto) 6.83 H (1.40-6.50) K/uL Lymph # (Auto) 0.71 L (1.20-3.40) K/uL [place] # (Auto) 0.55 (0.11-0.59) K/uL Eos # (Auto) 0.11 (0.00-0.50) K/uL Baso # (Auto) 0.02 (0.00-0.20) K/uL Immature Gran # (Auto) 0.01 (0.01-0.20) K/uL PT 11.8 (9.0-12.0) Seconds INR 1.1 (0.9-1.1) Sodium 142 (136-145) mmol/L Potassium 4.2 (3.5-5.1) mmol/L Chloride 106 (98-107) mmol/L Carbon Dioxide 29 (21-32) mmol/L Anion Gap 7 (3-11) BUN 22 (6-23) mg/dl Creatinine 0.96 (0.6-1.4) mg/dl Est Cr Clr Drug Dosing Not Reportable eGFR 77.46 BUN/Creatinine Ratio 22.9 H (10-20) Glucose 106 H (70-99(Fasting)) mg/dl Lactate (0.4-2.0) mmol/L Calcium 9.5 (8.6-10.3) mg/dl Phosphorus 2.7 (2.5-4.9) mg/dl Magnesium 2.2 (1.7-2.4) mg/dl Total Bilirubin 0.6 (0.2-1.0) mg/dl AST 23 (13-39) U/L ALT 19 (7-52) U/L Alkaline Phosphatase 76 (34-104) U/L Troponin I High Sens 3.1 (0-20) pg/ml Total Protein 6.8 (6.0-8.3) gm/dl Albumin 4.2 (3.4-5.0) gm/dl Globulin 2.6 (2.5-4.0) gm/dl Albumin/Globulin Ratio 1.6 (0.9-2) Lipase 37 (11-82) U/L Procalcitonin < 0.02 (0-0.5) ng/ml TSH 6.159 H (0.300-4.500) uIu/ml Free T4 0.84 (0.61-1.60) ng/dl Urine Color Yellow Urine Appearance Cloudy A (Clear) Urine pH 8.5 H (4.5-7.5) Ur Specific [place] 1.017 (1.000-1.030) Urine Protein 1+ H (Negative) Urine Glucose (UA) Negative (Negative) Urine Ketones Negative (Negative) Urine Blood Negative (Negative) Urine Nitrite Positive A (Negative) Urine Bilirubin Negative (Negative) Urine Urobilinogen Negative (Negative) Ur Leukocyte Esterase 3+ H (Negative) Urine WBC (Auto) >50 H (0-5) /hpf Urine RBC (Auto) 0-2 (0-2) /hpf U Hyaline Cast (Auto) 0-2 (0-2) /lpf U Epithel Cells (Auto) 0-2 (0-2) /hpf Urine Bacteria (Auto) 4+ H (None Seen) Nasal Influ A H1 2008 PCR DETECTED A (NotDetected) Adenovirus (PCR) Not Detected (NotDetected) B. pertussis DNA (PCR) Not Detected (NotDetected) B.parapertussis DNA PCR Not Detected (NotDetected) C. pneumoniae DNA (PCR) Not Detected (NotDetected) Coronavirus OC43 (PCR) Not Detected (NotDetected) Coronavirus HKU1 (PCR) Not Detected (NotDetected) Coronavirus 229E (PCR) Not Detected (NotDetected) SARS-CoV-2 (PCR) Not Detected (NotDetected) Coronavirus NL63 (PCR) Not Detected (NotDetected) Human Metapneumovir PCR Not Detected (NotDetected) Influenza Type B (PCR) Not Detected (NotDetected) M. pneumoniae (PCR) Not Detected (NotDetected) Parainfluenza 1 (PCR) Not Detected (NotDetected) Parainfluenza 2 (PCR) Not Detected (NotDetected) Parainfluenza 3 (PCR) Not Detected (NotDetected) Parainfluenza 4 (PCR) Not Detected (NotDetected) RSV (PCR) Not Detected (NotDetected) Entero/Rhino (PCR) Not Detected (NotDetected) 12/01/24 Range/Units 19:40 WBC (4.8-10.8) K/ul RBC (4.70-6.10) M/uL Hgb (14.0-18.0) g/dl Hct (42.0-52.0) % MCV (80.0-100.0) fL MCH (25.0-34.0) pg MCHC (32.0-36.0) g/dL RDW Std Deviation (36.4-46.3) fL RDW Coeff of Larry (11.5-14.5) % Plt Count (130-400) K/uL MPV (9.4-12.4) fL Immature Gran % (Auto) % Neut % (Auto) % Lymph % (Auto) % [place] % (Auto) % Eos % (Auto) % Baso % (Auto) % Neut # (Auto) (1.40-6.50) K/uL Lymph # (Auto) (1.20-3.40) K/uL [place] # (Auto) (0.11-0.59) K/uL Eos # (Auto) (0.00-0.50) K/uL Baso # (Auto) (0.00-0.20) K/uL Immature Gran # (Auto) (0.01-0.20) K/uL PT (9.0-12.0) Seconds INR (0.9-1.1) Sodium (136-145) mmol/L Potassium (3.5-5.1) mmol/L Chloride (98-107) mmol/L Carbon Dioxide (21-32) mmol/L Anion Gap (3-11) BUN (6-23) mg/dl Creatinine (0.6-1.4) mg/dl Est Cr Clr Drug Dosing eGFR BUN/Creatinine Ratio (10-20) Glucose (70-99(Fasting)) mg/dl Lactate 1.1 (0.4-2.0) mmol/L Calcium (8.6-10.3) mg/dl Phosphorus (2.5-4.9) mg/dl Magnesium (1.7-2.4) mg/dl Total Bilirubin (0.2-1.0) mg/dl AST (13-39) U/L ALT (7-52) U/L Alkaline Phosphatase (34-104) U/L Troponin I High Sens (0-20) pg/ml Total Protein (6.0-8.3) gm/dl Albumin (3.4-5.0) gm/dl Globulin (2.5-4.0) gm/dl Albumin/Globulin Ratio (0.9-2) Lipase (11-82) U/L Procalcitonin (0-0.5) ng/ml TSH (0.300-4.500) uIu/ml Free T4 (0.61-1.60) ng/dl Urine Color Urine Appearance (Clear) Urine pH (4.5-7.5) Ur Specific [place] (1.000-1.030) Urine Protein (Negative) Urine Glucose (UA) (Negative) Urine Ketones (Negative) Urine Blood (Negative) Urine Nitrite (Negative) Urine Bilirubin (Negative) Urine Urobilinogen (Negative) Ur Leukocyte Esterase (Negative) Urine WBC (Auto) (0-5) /hpf Urine RBC (Auto) (0-2) /hpf U Hyaline Cast (Auto) (0-2) /lpf U Epithel Cells (Auto) (0-2) /hpf Urine Bacteria (Auto) (None Seen) Nasal Influ A H1 2009 PCR (NotDetected) Adenovirus (PCR) (NotDetected) B. pertussis DNA (PCR) (NotDetected) B.parapertussis DNA PCR (NotDetected) C. pneumoniae DNA (PCR) (NotDetected) Coronavirus OC43 (PCR) (NotDetected) Coronavirus HKU1 (PCR) (NotDetected) Coronavirus 229E (PCR) (NotDetected) SARS-CoV-2 (PCR) (NotDetected) Coronavirus NL63 (PCR) (NotDetected) Human Metapneumovir PCR (NotDetected) Influenza Type B (PCR) (NotDetected) M. pneumoniae (PCR) (NotDetected) Parainfluenza 1 (PCR) (NotDetected) Parainfluenza 2 (PCR) (NotDetected) Parainfluenza 3 (PCR) (NotDetected) Parainfluenza 4 (PCR) (NotDetected) RSV (PCR) (NotDetected) Entero/Rhino (PCR) (NotDetected) Administered Medications Sodium Chloride (Nss) 1,000 mls @ 80 mls/hr IV .[id number] RUFUS Stop: 12/02/24 10:44 Last Admin: 12/02/24 00:28 Dose: 80 mls/hr Documented By: KMF Discontinued Medications Sodium Chloride (Nss) 500 mls @ 999 mls/hr IV .Q31M ONE Stop: 12/01/24 18:39 Last Infusion: 12/01/24 20:15 Dose: Infused Documented By: Admin: 12/01/24 19:44 Dose: 999 mls/hr Documented By: ALEX Ceftriaxone Sodium (Rocephin) 2,000 mg in 50 mls @ 100 mls/hr IV NOW STA Stop: 12/01/24 19:57 Last Infusion: 12/01/24 20:15 Dose: Infused Documented By: Admin: 12/01/24 19:43 Dose: 100 mls/hr Documented By: ALEX Ioversol (Optiray 320 100ml) 87 ml IV ONCE ONE Stop: 12/01/24 19:21 Last Admin: 12/01/24 19:21 Dose: 87 ml Documented By: LATA Oseltamivir Phosphate (Oseltamivir Phosphate 75 Mg Cap) 75 mg PO NOW STA Stop: 12/01/24 20:39 Last Admin: 12/01/24 21:42 Dose: Not Given Documented By: ALEX Imaging Data Radiologist's Impression: Chest X-Ray 12/01/24 18:08 EXAM: XR chest 1V portable CLINICAL HISTORY: Chest pain, nonspecific TECHNIQUE: An X-ray image of the chest is obtained in AP projection. COMPARISON: No prior studies are available for comparison. FINDINGS: Pulmonary Parenchyma: Prominent bronchovascular markings No evidence of consolidation, collapse Small nodular opacity projected over the right lower lung zone, possibly nipple shadow No evidence of pleural effusion or pleural thickening. Heart and Mediastinum: Cardiomegaly Pacemaker is noted No mediastinal widening or masses. No hilar or mediastinal lymphadenopathy. Bony Thorax: The bony thorax appears intact without fractures or deformities. Possible right 2nd posterior rib lateral aspect old fracture Soft Tissues: Soft tissues overlying the chest wall are unremarkable. IMPRESSION: 1. Prominent bronchovascular markings suggesting lung congestion, clinical correlation/follow-up is suggested 2. Cardiomegaly Electronically signed by Robbie Silvestre 12-01-2024 7:39 PM Abdomen/Pelvis CT 12/01/24 19:01 EXAM: CT Abdomen and Pelvis With Intravenous Contrast INDICATION: Altered mental status. Question urinary tract infection TECHNIQUE: Axial computed tomography images of the abdomen and pelvis with intravenous contrast. Sagittal and coronal reformatted images were created and reviewed. This CT exam was performed using one or more of the following dose reduction techniques: automated exposure control, adjustment of the mA and/or kV according to patient size, and/or use of iterative reconstruction technique. CONTRAST: 87ml of Optiray 320 was administered intravenously. COMPARISON: 08/26/2016 FINDINGS: Limitations: None. Lung bases: 5 mm oval subpleural noncalcified right lower lobe pulmonary nodule present. Pleural space: No visualized pleural effusion or pneumothorax. Heart: Cardiomegaly noted. Cardiac pacing device noted. Metallic artifact limits assessment of lead integrity. Mediastinum: No abnormality noted. ABDOMEN: Liver: Low attenuation focus in the liver consistent with a hepatic cyst. No follow-up is necessary. Gallbladder and bile ducts: Significant enlargement of a 3 cm lamellated stone in the gallbladder fundus. No ductal dilatation or calcification. Pancreas: Homogeneous enhancement. No mass, inflammation or ductal dilation. Spleen: No significant abnormality noted. Adrenals: No significant abnormality noted. Kidneys and ureters: There is normal homogeneous, symmetrical enhancement of each kidney. No hydronephrosis, stone, gas or perinephric edema. Stable mild perinephric scarring. Stomach and bowel: Prominent fluid in nondilated small bowel. Moderate amounts of formed stool in the colon. No obstruction, thickening or inflammatory process. PELVIS: Appendix: Well seen and appears normal. Bladder: The urinary bladder is circumferentially thickened. No stones or gas. Reproductive: Stable heterogeneous prostate with possible right paramedian nodule of 2.3 cm. ABDOMEN and PELVIS: Intraperitoneal space: No free air. No significant fluid collection. Bones/joints: Degenerative changes noted throughout the spine. No acute osseous abnormality seen. Soft tissues: Fat-containing left inguinal hernia is unchanged. Vasculature: Atherosclerotic calcification of the aorta and branches. No aneurysm. Lymph nodes: No pathologically enlarged lymph nodes. IMPRESSION: 1. Cystitis. 2. Moderate amounts of formed stool in the colon with prominent small bowel fluid suggesting constipation. No inflammatory process. 3. Interval enlargement of a 3 cm lamellated stone in the gallbladder fundus. ACT 112: N/A Electronically signed by Roula Pittman 12-01-2024 7:[address] 12/01/24 19:01 EXAM: CT Head Without Intravenous Contrast INDICATION: Altered mental status. Dementia. TECHNIQUE: Axial computed tomography images of the head/brain without intravenous contrast. Sagittal and/or coronal reformats are provided. Sagittal and coronal reformatted images were created and reviewed. This CT exam was performed using one or more of the following dose reduction techniques: automated exposure control, adjustment of the mA and/or kV according to patient size, and/or use of iterative reconstruction technique. COMPARISON: 11/06/2024 FINDINGS: Limitations: None. Brain and extra-axial spaces: There is age appropriate cortical atrophy and chronic ischemic periventricular white matter hypodensity. No acute infarct, hemorrhage or mass noted. Old left frontal infarct. Bones/joints: No acute changes. Soft tissues: No significant abnormality noted. Vasculature: No acute abnormality noted. Sinuses: No layering fluid in the visualized portions of the paranasal sinuses. Mastoid air cells: No mastoid effusion. Orbits: No significant abnormality noted. IMPRESSION: Cerebral atrophy. No acute changes. ACT 112: N/A Electronically signed by Roula Pittman 12-01-2024 7:37 PM Discharge Plan Visit Data Chief Complaint: Altered Mental Status ED Provider: Matthieu Dong Discharge Problem: Altered mental status, Influenza A virus subtype H1 2009 pandemic strain present, Acute UTI, Dementia Patient Disposition: Admitted As Inpatient Discharge Instructions Interventions: ED Discharge Assessment Last Done: 12/02/24 00:10 Discharge Problem: Altered mental status Qualifiers: Altered mental status type: unspecified Qualified Code(s): R41.82 - Altered mental status, unspecified Dementia Qualifiers: Dementia type: unspecified type Dementia severity: unspecified severity D ementia behavioral or psychological symptom: unspecified whether behavioral, psychotic, or mood disturbance or anxiety Qualified Code(s): F03.90 - Unspecified dementia, unspecified severity, without behavioral disturbance, psychotic disturbance, mood disturbance, and anxiety
[2024-12-01 18:59] LABS: Alanine Aminotransferase 19 U/L (7-52); Albumin Globulin Ratio 1.6 (0.9-2); Albumin Level 4.2 gm/dl (3.4-5.0); Alkaline Phosphatase 76 U/L (34-104); Anion Gap 7 (3-11); Aspartate Aminotransferase 23 U/L (13-39); BUN Creatinine Ratio 22.9 (10-20); Bilirubin,Total 0.6 mg/dl (0.2-1.0); Blood Urea Nitrogen 22 mg/dl (6-23); Calcium 9.5 mg/dl (8.6-10.3); Carbon Dioxide 29 mmol/L (21-32); Chloride 106 mmol/L (98-107); Globulin 2.6 gm/dl (2.5-4.0); Glucose 106 mg/dl (70-99(Fasting)); Lipase 37 U/L (11-82); Magnesium 2.2 mg/dl (1.7-2.4); Phosphorus 2.7 mg/dl (2.5-4.9); Potassium 4.2 mmol/L (3.5-5.1); Sodium 142 mmol/L (136-145); Total Protein 6.8 gm/dl (6.0-8.3)
[2024-12-01 19:04] LABS: Troponin I High Sensitivity 3.1 pg/ml (0-20)
[2024-12-01 19:09] LABS: INR 1.1 (0.9-1.1); Prothrombin Time 11.8 Seconds (9.0-12.0)
[2024-12-01 19:13] LABS: Thyroid Stimulating Hormone 6.159 uIu/ml (0.300-4.500)
[2024-12-01 19:18] LABS: Appearance Urine Cloudy (Clear); Bacteria Urine Automated 4+ (None Seen); Bilirubin Urine Negative (Negative); Blood Urine Negative (Negative); Cast Urine Automated 0-2 /lpf (0-2); Color Urine Yellow; Epithelial Cell Urine Auto 0-2 /hpf (0-2); Glucose Urine UA Negative (Negative); Ketones Urine Negative (Negative); Leukocyte Esterase Urine 3+ (Negative); Nitrite Urine Positive (Negative); Protein Urine 1+ (Negative); RBC Urine Automated 0-2 /hpf (0-2); Specific Gravity Urine 1.017 (1.000-1.030); Urobilinogen Urine Negative (Negative); WBC Urine Automated >50 /hpf (0-5); pH Urine 8.5 (4.5-7.5)
[2024-12-01] MEDS: OPTIRAY 320 100ml IV ONE (19:21)
--- NOTE | 2024-12-01 19:38 | CT Scan Report ---
EXAM: CT Head Without Intravenous Contrast INDICATION: Altered mental status. Dementia. TECHNIQUE: Axial computed tomography images of the head/brain without intravenous contrast. Sagittal and/or coronal reformats are provided. Sagittal and coronal reformatted images were created and reviewed. This CT exam was performed using one or more of the following dose reduction techniques: automated exposure control, adjustment of the mA and/or kV according to patient size, and/or use of iterative reconstruction technique. COMPARISON: 11/06/2024 FINDINGS: Limitations: None. Brain and extra-axial spaces: There is age appropriate cortical atrophy and chronic ischemic periventricular white matter hypodensity. No acute infarct, hemorrhage or mass noted. Old left frontal infarct. Bones/joints: No acute changes. Soft tissues: No significant abnormality noted. Vasculature: No acute abnormality noted. Sinuses: No layering fluid in the visualized portions of the paranasal sinuses. Mastoid air cells: No mastoid effusion. Orbits: No significant abnormality noted. IMPRESSION: Cerebral atrophy. No acute changes. ACT 112: N/A Electronically signed by Roula Pittman 12-01-2024 7:37 PM
--- NOTE | 2024-12-01 19:40 | XRay Report ---
EXAM: XR chest 1V portable CLINICAL HISTORY: Chest pain, nonspecific TECHNIQUE: An X-ray image of the chest is obtained in AP projection. COMPARISON: No prior studies are available for comparison. FINDINGS: Pulmonary Parenchyma: Prominent bronchovascular markings No evidence of consolidation, collapse Small nodular opacity projected over the right lower lung zone, possibly nipple shadow No evidence of pleural effusion or pleural thickening. Heart and Mediastinum: Cardiomegaly Pacemaker is noted No mediastinal widening or masses. No hilar or mediastinal lymphadenopathy. Bony Thorax: The bony thorax appears intact without fractures or deformities. Possible right 2nd posterior rib lateral aspect old fracture Soft Tissues: Soft tissues overlying the chest wall are unremarkable. IMPRESSION: 1. Prominent bronchovascular markings suggesting lung congestion, clinical correlation/follow-up is suggested 2. Cardiomegaly Electronically signed by Robbie Silvestre 12-01-2024 7:39 PM
--- NOTE | 2024-12-01 19:42 | CT Scan Report ---
EXAM: CT Abdomen and Pelvis With Intravenous Contrast INDICATION: Altered mental status. Question urinary tract infection TECHNIQUE: Axial computed tomography images of the abdomen and pelvis with intravenous contrast. Sagittal and coronal reformatted images were created and reviewed. This CT exam was performed using one or more of the following dose reduction techniques: automated exposure control, adjustment of the mA and/or kV according to patient size, and/or use of iterative reconstruction technique. CONTRAST: 87ml of Optiray 320 was administered intravenously. COMPARISON: 08/26/2016 FINDINGS: Limitations: None. Lung bases: 5 mm oval subpleural noncalcified right lower lobe pulmonary nodule present. Pleural space: No visualized pleural effusion or pneumothorax. Heart: Cardiomegaly noted. Cardiac pacing device noted. Metallic artifact limits assessment of lead integrity. Mediastinum: No abnormality noted. ABDOMEN: Liver: Low attenuation focus in the liver consistent with a hepatic cyst. No follow-up is necessary. Gallbladder and bile ducts: Significant enlargement of a 3 cm lamellated stone in the gallbladder fundus. No ductal dilatation or calcification. Pancreas: Homogeneous enhancement. No mass, inflammation or ductal dilation. Spleen: No significant abnormality noted. Adrenals: No significant abnormality noted. Kidneys and ureters: There is normal homogeneous, symmetrical enhancement of each kidney. No hydronephrosis, stone, gas or perinephric edema. Stable mild perinephric scarring. Stomach and bowel: Prominent fluid in nondilated small bowel. Moderate amounts of formed stool in the colon. No obstruction, thickening or inflammatory process. PELVIS: Appendix: Well seen and appears normal. Bladder: The urinary bladder is circumferentially thickened. No stones or gas. Reproductive: Stable heterogeneous prostate with possible right paramedian nodule of 2.3 cm. ABDOMEN and PELVIS: Intraperitoneal space: No free air. No significant fluid collection. Bones/joints: Degenerative changes noted throughout the spine. No acute osseous abnormality seen. Soft tissues: Fat-containing left inguinal hernia is unchanged. Vasculature: Atherosclerotic calcification of the aorta and branches. No aneurysm. Lymph nodes: No pathologically enlarged lymph nodes. IMPRESSION: 1. Cystitis. 2. Moderate amounts of formed stool in the colon with prominent small bowel fluid suggesting constipation. No inflammatory process. 3. Interval enlargement of a 3 cm lamellated stone in the gallbladder fundus. ACT 112: N/A Electronically signed by Roula Pittman 12-01-2024 7:42 PM
[2024-12-01] MEDS: cefTRIAXone SODIUM 2,000 MG/50 ML BAG IV STA (19:43)
[2024-12-01] MEDS: SODIUM CHLORIDE 0.9% 500 ML IV ONE (19:44)
[2024-12-01 19:46] LABS: T4 Free Thyroxine 0.84 ng/dl (0.61-1.60)
[2024-12-01 19:54] LABS: Adenovirus PCR Not Detected (NotDetected); Bordetella parapertussis PCR Not Detected (NotDetected); Bordetella pertussis PCR Not Detected (NotDetected); Chlamydia pneumoniae PCR Not Detected (NotDetected); Coronavirus 229E PCR Not Detected (NotDetected); Coronavirus CoV-2 (COVID19)PCR Not Detected (NotDetected); Coronavirus HKU1 PCR Not Detected (NotDetected); Coronavirus NL63 PCR Not Detected (NotDetected); Coronavirus OC43PCR Not Detected (NotDetected); Human Metapneumovirus PCR Not Detected (NotDetected); Influenza A (H1 2009) PCR DETECTED (NotDetected); Influenza B PCR Not Detected (NotDetected); Mycoplasma pneumoniae PCR Not Detected (NotDetected); Parainfluenza Virus 1 PCR Not Detected (NotDetected); Parainfluenza Virus 2 PCR Not Detected (NotDetected); Parainfluenza Virus 3 PCR Not Detected (NotDetected); Parainfluenza Virus 4 PCR Not Detected (NotDetected); Respiratory Syncytial VirusPCR Not Detected (NotDetected); Rhinovirus/Enterovirus PCR Not Detected (NotDetected)
[2024-12-01] MEDS: OSELTAMIVIR PHOSPHATE 75 MG CAP PO STA (21:42)
--- NOTE | 2024-12-01 21:52 | History & Physical Report ---
Date of Service December 01, 2024 Assessment & Plan (1) AMS (altered mental status): (2) UTI (urinary tract infection): (3) Influenza A: (4) Dysphagia: (5) Constipation: (6) Atrial fibrillation with RVR: (7) Cholelithiasis: Plan Patient is an 84-year-old male with past medical history of intracranial hemorrhage 06/30, BPH, sick sinus syndrome, hypertension, A-fib not anticoagulated. He presented to the ED via EMS after he was found to be more confused and unresponsive to questions at home by his . Patient was found to have a UTI and influenza A. #Altered mental status suspect secondary to recent ICH but worsened with acute infection with UTI/influenza A Head CT negative for acute changes MRI unable to be obtained during recent admission due to pacer, interrogated during recent admission and showed 100% A-fib recent B12 and Lyme testing within normal limits TSH WNL electrolytes stable promote good sleep wake cycles fall and aspiration precautions PT/OT consulted, recently discharged from [facility] for inpatient rehab #UTI Recent admission with UTI and completed 5-day course of ceftriaxone Urine cultures grew Klebsiella with intermediate resistance to nitrofurantoin UA cloudy, positive for nitrates, 3+ leukocyte esterase, >50 WBC, 4+ bacteria AP CT showed cystitis Suspect patient needs a longer course of antibiotics, recommend 14 days Rocephin restarted in ED, continue Rocephin 2G every 24 hours follow urine cultures and blood cultures #influenza A VSS, non-hypoxic CXR showing congestion, cardiomegaly procalcitonin negative oxygen prn for O2 <94%, wean as tolerated incentive spirometry Tylenol prn continue Tamiflu as suspension as able to tolerate PO intake #dysphagia failed dysphagia screen in ED Repeat in a.m. as suspect component of AMS/acute infection contributing to and will improve reports difficulty swallowing pills at home and she crushes them up in applesauce, typically able to tolerate fluids Holding p.o. medications and NPO NSS at 80 mL/hour x 1 bag to avoid dehydration Aspiration precautions #constipation Reports diarrhea for several days, suspect overflow diarrhea AP CT shows moderate amounts of formed stool within colon with prominent small bowel fluid suggesting constipation Miralax prn as able to tolerate PO intake - reports is able to swallow fluids without difficulty #A-fib with RVR History of known A-fib, on atenolol 100 Mg twice daily A-fib with RVR, rate 102 on admitting EKG does have pacer With failing dysphagia screen and unable to tolerate p.o. intake, will order Lopressor as needed for HR>120 not anticoagulated given recent history of intracranial hemorrhage #cholelithiasis AP CT showed interval enlargement of 3 cm lamellated stone in gallbladder fundus LFTs WNL asymptomatic Follow-up with PCP Chronic stable diagnoses: History of ICH 06/30, no longer on antiseizure medication, follows with neurologist Dr. Dhillon, contributing to confusion HTNholding atenolol and lisinopril with being unable to tolerate p.o. intake, Lopressor as needed for SBP>185 and DBP >95 VTE ppx: SCDs and TEDs, for chemical PPx with history of ICH Diet: NPO until pass dysphagia screen Dispo: med/tele with potential for hypoxia and IV hypertensive control with failing dysphagia screen/unable to take p.o. hypertensive medications Admission and Anticipated Discharge Date Admission Date: 12/01/24 History of Present Illness Chief Complaint: [facility] Primary Care Provider: Kenny Rubalcava MD Patient is an 84-year-old male with past medical history of intracranial hemorrhage 06/30, BPH, sick sinus syndrome, hypertension, A-fib not anticoagulated. He presented to the ED via EMS after he was found to be more confused and unresponsive to questions at home by his . Patient was found to have a UTI and influenza A. Patient was recently admitted from 11/04 to 11/11 for UTI and pneumonia. completed a 5-day course of ceftriaxone and 7 days of doxycycline. He was discharged To [facility] where he was sent home Wednesday 11/01. Patient seen at bedside with his . Following history was provided by patient's as patient is confused and slow to respond to questions. she stated that this evening he was more confused than his baseline and not responding to his questions. She also noted him to be warm and have a cough today. He also has been shaky today. She stated he has been confused since his intracranial hemorrhage in June. She also has concerns of him having clen kristi/rigidity over the past few weeks. stated he has had diarrhea for several days, suspect overflow diarrhea. He denies any shortness of breath, abd pain, dysuria, hematuria. She stated he often has difficulty swallowing pills and she has to put it in applesauce. He has no issues with swallowing liquids at home as per the patient's . Did take his home medications this morning but did not get his evening medications. She stated that there are paperwork states they would not want resuscitated however she believes that he would want CPR and intubated in the event of acute cardiac arrest, will make full code. His is agreeable to starting Tamiflu, as patient is able to tolerate p.o. intake. Of note patient is to have urology appointment with Dr. Pack however has not arranged for several months. He was to undergo workup for recurrent UTIs. Allergies Allergy/AdvReac Type Severity Reaction Status Date / Time streptokinase Allergy Intermediate Flushing Verified 09/27/24 10:22 Home Medications Medication Instructions Recorded Confirmed Type coenzyme Q10 200 mg capsule (Co 200 mg PO QAM ##0 03/08/11 12/01/24 History Q-10) nitroglycerin 0.4 mg sublingual 0.4 mg sublingual Q5M PRN chest 04/08/19 12/01/24 History tablet pain #25 tabs aspirin 81 mg tablet,delayed 81 mg PO QAM 07/27/19 12/01/24 History release sodium chloride 0.65 % nasal spray 2 spray intranasal QID PRN NASAL 04/20/20 12/01/24 History aerosol (Deep Sea Nasal) DRYNESS [id number] 300 mcg-K 60 1 tab PO QAM 01/10/22 12/01/24 History mcg-lycop 600 mcg-lutein 300 mcg tablet (Centrum Silver Men) rosuvastatin 40 mg tablet 40 mg PO HS #90 tabs 03/18/24 12/01/24 Rx atenolol 100 mg tablet 100 mg PO BID #180 tabs 05/23/24 12/01/24 Rx escitalopram oxalate 5 mg tablet 5 mg PO QAM 11/04/24 12/01/24 History acetaminophen 325 mg tablet 650 mg (2 x 325 mg) PO Q4H PRN 11/10/24 12/01/24 Rx fever or pain #10 tabs lisinopril 10 mg tablet 10 mg PO HS 12/01/24 12/01/24 History lisinopril 20 mg tablet 20 mg PO QAM 12/01/24 12/01/24 History Past Med/Surg History Problem List (Updated 12/02/24 @ 00:18 by Matthieu Dong MD) Acute UTI (Acute) Influenza A virus subtype H1 2009 pandemic strain present (Acute) Atrial fibrillation with RVR Cholelithiasis Constipation Dysphagia Influenza A RLL pneumonia (Acute) UTI (urinary tract infection) (Acute) AMS (altered mental status) (Acute) Intracranial hemorrhage Seizure-like activity Other symptoms and signs involving cognitive functions and awareness Epistaxis (Acute) H/O umbilical hernia repair (08/18/19) Open Umbilical Hernia Repair Dr. Zamora 08/18/19 Encounter for pre-operative examination Patient okay for surgery as per cardiology 07/26/19. Past heart attack (Acute) had in 1991 Hyperglycemia (Acute) Hypercholesterolemia (Acute) Gross hematuria (Acute) Former smoker (Acute) Elevated prostate specific antigen (PSA) (Acute) Benign prostatic hyperplasia with elevated prostate specific antigen (PSA) (Acute) Allergic rhinitis (Acute) Umbilical hernia without mention of obstruction or gangrene Sick sinus syndrome (Acute) 2008 DX Hypertension (Acute) Medical History (Updated 12/02/24 @ 00:18 by Matthieu Dong MD) Coronary artery disease Paroxysmal atrial fibrillation Presence of cardiac pacemaker Raynauds syndrome Atrial fibrillation DX 2014 (REASON FOR TAKING XARELTO) Myocardial Infarction 1991 Hyperlipidemia Raynauds phenomenon Ulcerative colitis History of cardiac pacemaker 2007 (S/P SYNCOPAL EPISODE) FOLLOWED BY DR. SMITH 2019 CHANGED PACEMAKER (MEDTRONIC DEVICE) Surgical History History of colonoscopy History of cataract surgery RT/LEFT History of cardiac catheterization 1992 ANGIOPLASTY @ 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 HEENT- EOMI, mucous membranes dry. Hearing grossly intact. Heart-normal S1 and S2. No murmurs, rubs or gallops. Lungs-clear bilaterally, no respiratory distress, no accessory muscle use. Abdomen-normal bowel sounds and soft. No ascites noted. Non-tender. Extremities- no clubbing, cyanosis, or edema. Results & Data Results & Data Vital Signs (Past 12 Hours) Vital Signs Temp Pulse Resp BP Pulse Ox O2 Del Method 12/01/24 18:33 86 12/01/24 18:04 37.5 C 85 20 144/96 H 96 Room Air Laboratory Results Reviewed CBC, PT/INR, CMP, Pro-Brent, bio fire, UA, troponin, mag, TSH Diagnostic Findings reviewed cxr, head ct, ap ct Medications Administered ed - Rocephin 2g IV, 500 ml NSS admission - NSS at 80 ml/hr ECG Additional Comments: A-fib with RVR, rate 102 Code Status & VTE Plan Code Status full VTE Prophylaxis Plan VTE Prophylaxis will be ordered: Yes Supervising Physician Co-Signing Physician Notes Attending addendum: I have physically seen this patient, have supervised the ABBE's activities, and agree with the H&P unless as otherwise noted. Assessment and Plan: The patient is an 84-year-old male with past medical history including intracranial hemorrhage 06/30, BPH, sick sinus syndrome, hypertension, atrial fibrillation not on anticoagulation, hyperlipidemia, and anxiety with depression. He presents to the emergency department via EMS after being found more confused and unresponsive to questions and conversations at home by his . Workup in the emergency department included BioFire testing positive for influenza A H1 2009 strain, and urinary tract infection. The patient was then referred for evaluation for admission to the [facility]. #Altered mental status/confusion- Multiple factors including not limited to: Urine tract infection, influenza A 2009 pandemic strain, progression of general debilitated state, and others CT head without contrast negative for acute changes MRI unable to be obtained due to presence of pacemaker Metabolic workup including B12, Lyme testing, TSH and electrolytes otherwise normal Consult PT/OT Most recent admission to [facility] from 11/04-11/11/2024, and then transferred to [facility] for inpatient rehab, where he was just discharged a few days ago. Patient had been attempted to be taken care of by his at home, but may need to go back to inpatient rehab for a while again. #Urinary tract infection- Follow urine culture sensitivity Most recently completed a 5-day course of ceftriaxone Urine culture most recently grew Klebsiella Restart ceftriaxone 2 g IV every 24 hours Follow urine cultures and blood cultures She would likely be on a longer course of antibiotics this time, 10 to 14 days, and may have an issue with prostatitis #Influenza A, 2009 pandemic strain- Incentive spirometry Tamiflu suspension as noted Acetaminophen 1 g IV every 8 hours as needed for mild pain or fever Remaining orders and notations as noted PG Care Time/CCT Total # of Minutes Spent Total Time Spent with Patient: Total time spent is greater than 50% in coordination of care (as documented) at patient's floor/unit and/or counseling patient: Coding Level of Care Code 88695 INT INP/OBS CARE 3/75MIN Diagnoses AMS (altered mental status) R41.82 UTI (urinary tract infection) N39.0 Influenza A J10.1 Dysphagia R13.10 Constipation K59.00 Atrial fibrillation with RVR I48.91 Cholelithiasis K80.20
[2024-12-01] MEDS ORDERED: METOPROLOL TARTRATE 1 MG/ML VIAL IV PRN (22:31)
[2024-12-01] MEDS ORDERED: ONDANSETRON INJ 2 MG/ML 2 ML VIAL IV PRN (23:38)
[2024-12-01] MEDS ORDERED: POLYETHYLENE (MIRALAX) 17 GM PACK PO PRN (23:38)
[2024-12-02] MEDS: SODIUM CHLORIDE 0.9% 1,000 ML IV SCH (00:28)
[2024-12-02 06:48] LABS: Hematocrit (blood only) 34.7 % (42.0-52.0); Hemoglobin 11.5 g/dl (14.0-18.0); Mean Corpuscular Hemoglobin 30.4 pg (25.0-34.0); Mean Corpuscular Hgb Conc 33.1 g/dL (32.0-36.0); Mean Corpuscular Volume 91.8 fL (80.0-100.0); Mean Platelet Volume 12.7 fL (9.4-12.4); Platelet Count 93 K/uL (130-400); RDW Standard Deviation 43.8 fL (36.4-46.3); Red Blood Count 3.78 M/uL (4.70-6.10)
[2024-12-02 07:08] LABS: BUN Creatinine Ratio 18.8 (10-20); Calcium 8.4 mg/dl (8.6-10.3); Potassium 3.9 mmol/L (3.5-5.1)
[2024-12-02] MEDS: ACETAMINOPHEN 1,000 MG/100 ML VIAL IV PRN (08:15)
[2024-12-02] MEDS: OSELTAMIVIR PHOSPHATE SUSP 30 MG/5 ML UDP PO SCH (08:19)
--- NOTE | 2024-12-02 09:11 | Electrocardiogram Report ---
Test Reason : Blood Pressure : */* mmHG Vent. Rate : 102 BPM Atrial Rate : * BPM P-R Int : * ms QRS Dur : 106 ms QT Int : 320 ms P-R-T Axes : * -67 109 degrees QTcB Int : 417 ms Atrial fibrillation with rapid ventricular response Incomplete right bundle branch block Left anterior fascicular block Minimal voltage criteria for LVH, may be normal variant Septal infarct , age undetermined Abnormal ECG When compared with ECG of 07-Nov-2024 09:19, Electronic ventricular pacemaker no longer present Confirmed by Ben Gallardo ([id number]) on 12/02/2024 9:11:10 AM Referred By: REFERRED SELF Confirmed By: Ben Gallardo
--- OUTSIDE RECORDS SUMMARY | 2024-12-02 13:10 | External Medical Summary | Continuity of Care Document ---
Author Name Unknown Organization [place] [address] Address [facility] [id number] Care Team Providers Care Gang Supervisor Name Role Phone Kenny Rubalcava Primary Care Physician [phone] [facility] [id number] Date(s): 11/22/24 - 11/22/24 [facility] 0 [facility] 207 [facility] [address] [address] [phone] Encounter Diagnosis Atrial fibrillation(Discharge Diagnosis) - 11/22/24 Hypertension(Discharge Diagnosis) - 11/22/24 Discharge Disposition: Home or Self Care Attending Physician: MD Rubalcava Joseph P Encounter Type: Clinic Allergies, Adverse Reactions, Alerts Substance Criticality Severity Reaction Reaction Severity Status streptokinase hot flash, rash Active streptogramins Propensity to adverse reaction Active Assessment and Plan Extracted from: Title:Office Visit Note - APSO Author:MD Rubalcava Joseph P Date:11/22/24 1.Atrial fibrillation Rate controlled 2.Hypertension Blood pressure controlled, but lower today and no symptoms of light headed on standing - if so, may decrease medications such as atenolol 50 mg twice a day instead of 100 mg twice a day I have personally spent 22minutes performing cuis-om-yskt and xhh-evfe-cq-face activities on this date of service. My activities included reviewing past records prior tothe encounter, reviewed past lab results,with extensive counseling. Immunizations Given and Recorded Vaccine Date Status Refusal Reason RSV Vaccine Unspecified 12/1/23 Recorded SARS-CoV-2 (COVID-19) mRNA-vacc - [id number] 06/17/23 Recorded influenza virus vaccine, inactivated [...] PO, Daily Start Date: 10/06/24 Status: Ordered Repeat number: 1 atenolol 100 mg oral tablet Start: 04/27/20 10:05:00 AM EDT, 1 tab, PO, bid Start Date: 04/27/20 Status: Ordered Repeat number: 1 Co Q-10 Start: 11/22/24 2:15:00 PM EDT Start Date: 11/22/24 Status: Ordered Repeat number: 1 Crestor 40 mg oral tablet Start: 08/01/13 8:32:59 AM EST, See Instructions, Disp# 90, Refills: 3, TAKE ONE TABLET BY MOUTH ATBEDTIME, Pharmacy: [facility] #[id number], TAKE ONE TABLET BY MOUTH AT BEDTIME Start Date: 08/01/13 Status: Ordered Quantity: 90.0 Unit: tab Repeat number: 4 Deep Sea Nasal [place] Start: 05/22/22 1:13:00 PM EDT, 2 spray intranasally qid Start Date: 05/22/22 Status: Ordered Repeat number: 1 escitalopram 5 mg oral tablet Start: 10/31/24 3:48:00 PM EST, 1 tab, PO, Daily, Disp# 30 tab, Refills: 3, Pharmacy: [facility]/pharmacy #[id number] Start Date: 10/31/24 Status: Ordered Quantity: 30.0 Unit: tab Repeat number: 4 lisinopril 10 mg oral tablet Start: 10/06/24 9:57:00 AM EST, 1 tab, PO, q12h Start Date: 10/06/24 Status: Ordered Repeat number: 1 multivitamin Start: 05/22/22 1:12:00 PM EDT, 1 tab, PO, Daily, centrum silver men Start Date: 05/22/22 Status: Ordered Repeat number: 1 nitroglycerin 0.4 mg sublingual tablet Start: 07/29/24 3:06:00 PM EST, 1 tab, SL, q5min, Disp# 25 tab, Refills: 3, PRN: as needed for chest pain, Pharmacy: [facility]/pharmacy #[id number] Start Date: 07/29/24 Status: Ordered Quantity: 25.0 Unit: tab Repeat number: 4 tetanus/diphth/pertussis (Tdap) adult/adol 5 units-2 units-15.5 mcg/0.5 mL intramuscular suspension Start: 11/22/24 3:02:00 PM EDT, 0.5 mL, IM, ONCE, Disp# 0.5 mL, Pharmacy: [facility]/pharmacy #[id number] Start Date: 11/22/24 Status: Ordered Quantity: 0.5 Unit: mL Repeat number: 1 Tylenol 325 mg oral tablet Start: 08/13/24 12:15:00 PM EST, 2 tab, PO, q4h, PRN: fever/mild pain (1-3) Start Date: 08/13/24 Status: Ordered Repeat number: 1 Mental Status 11/22/24 Barriers to Learning one year None evide nt Mandatory Health Literacy Documentation Yes Health Literacy Communication Barriers R jeremi Primary Language Kazakh Problem List Condition Confirmation Course Effective Dates Status H ealth Status Informant Actinic keratosis Confirmed Active Atrial fibrillation Confirmed Active BPH without urinary obstruction Confirmed Active Body mass index [BMI] 24.0-24.9, adult Confirmed 04/26/24 Active CAD - Coronary artery disease Confirmed Active Changing skin lesion Confirmed Active Daytime sleepiness Confirmed 04/26/24 Active History of actinic keratoses Confirmed Active [...] Effective Dates Health Status Clinical Service Informant Atrial fibrillation Discharge Diagnosis 11/22/24 Non-Specified Hypertension Discharge Diagnosis 11/22/24 Non-Specified Procedures Procedure Date Related Diagnosis Body [...] diverticuli. No polyps/neoplasia. Cecum ok. Random Bx. Vital Signs Most recent to oldest [Reference Range]: 1 Heart Rate 62 bpm (11/22/24 2:22 PM) Respiratory Rate 17 br/min (11/22/24 2:22 PM) Blood Pressure 104/70mmHg (11/22/24 2:22 PM) Cuff Pulse Pressure 34 mmHg (11/22/24 2:22 PM) Social History Social History Type Response Tobacco [...] Unknown Unknown Active Unkn own Unknown Unknown [id number] Unknown 06/06/26 Unknown Unknown Active Unk nown FCM Outpt Note * MD Khadar, Kenny P: PERFORM Event Display: FCM Outpt Note Authored Date: [id number] Assessment/Plan 1.Atrial fibrillation Rate controlled 2.Hypertension Blood pressure controlled, but lower today and no symptoms of light headed on standing - if so, maydecrease medications such as atenolol 50 mg twice a day instead of 100 mg twice a day I have personally spent 22minutes performing jjgd-vu-uasb and dsx-godi-rp-face activities on thisdate of service. My activities included reviewing past records prior tothe encounter, reviewed past lab results,with extensive counseling. Chief Complaint 3 month f/u. Currently in [facility]- maybe about another week. History of Present Illness In rehab after hospital twice with UTI and pneumonia and second after bleeding in brain. Feels well. Using walker and hoping to go home soon. Physical Exam Vitals & Measurements HR:62(Monitored) RR:17 BP:104/70 SpO2:98% PHQ2 Data(Data Documented on:11/22/2024 14:19) Emotional health assessment NEGATIVE Gen - no acute distress Heart - regular rate with ectopy Lungs - decreased breath sounds Problem List/Past Medical History Ongoing Actinic keratosis Atrial fibrillation Body mass index [BMI] 24.0-24.9, adult BPH without urinary obstruction Bursitis, prepatellar, left CAD - Coronary artery disease Changing skin lesion Chronic anticoagulation Daytime sleepiness History of actinic keratoses History of intracranial hemorrhage History of squamous cell carcinoma in situ Hyperlipidemia Hypertension Hypovitaminosis D Impaired fasting glycaemia Inflamed seborrheic keratosis Notalgia paresthetica REJI on CPAP Seborrheic keratoses Sun-damaged skin Tinea unguium Resolved Cyst Fatigue Hearing loss Medicare annual wellness visit, subsequent Neoplasm of uncertain behavior of skin Piriformis syndrome ROUTINE GENERAL MEDICAL EXAMINATION AT A [facility] Senile hyperkeratosis TMJ SYNDROME. Procedure/Surgical History Curettage| Service Date: 07/25/2021have biopsy and cauterization of skin| Service Date: 07/17/2021have biopsy| Service Date: 05/04/2018CT - Computerised tomography,ABD/Pelvis combo| Service Date: 08/26/2016Shave biopsy of skin| Service Date: 08/05/2016Shave biopsy| Service Date: 01/29/2016Cataract surgery| Service Date: 05/17/2014Colonoscopy| Service Date: 09/25/2009Cataract surgery| Service Date: 2003AngiopathypacemakerFull sleep study Medications acetaminophen(Tylenol 325 mg oral tablet), 650 mg= 2 tab, PO, q4h, PRN aspirin(aspirin 81 mg oral delayed release tablet), 81 mg= 1 tab, PO, Daily atenolol(atenolol 100 mg oral tablet), 100 mg= 1 tab, PO, bid escitalopram(escitalopram 5 mg oral tablet), 5 mg= 1 tab, PO, Daily, 3 refills lisinopril(lisinopril 10 mg oral tablet), 10 mg= 1 tab, PO, q12h multivitamin, 1 tab, PO, Daily nitroglycerin(nitroglycerin 0.4 mg sublingual tablet), 0.4 mg= 1 tab, SL, q5min, PRN, 3 refills rosuvastatin(Crestor 40 mg oral tablet), See Instructions, 3 refills sodium chloride nasal(Deep Sea Nasal [place]) tetanus/diphth/pertuss (Tdap) adult/adol(tetanus/diphth/pertussis (Tdap) adult/adol 5 units-2 units-15.5 mcg/0.5 mL intramuscular suspension), 0.5 mL, IM, ONCE ubiquinone(Co Q-10) Allergies streptograminsPropensity to adverse reaction streptokinasehot flash, rash Social History Smoking Status Former Smoker, quit > 1 yr Alcohol Use:Current Type:Liquor Frequency:3-5 times per week [...] Type:Cigarettes Started at age:16Years Stopped at age:21Years Intake ([facility]) Smoking History Cigarette smoker: Former Smoker, quit > 1 yr Tobacco Product Use: Never used other tobacco products Total pack years: 0 If past smoker, what year did you quit: 1961 How many total years did you smoke: 5 Family History Aortic aneurysm..: Father. Arthritis: Mother. Heart attack: Father. Health Status Family Member(s) Immunizations Vaccine Date Status RSV Vaccine Unspecified 08/07/2023 Recorded SARS-CoV-2 (COVID-19) mRNA-vacc - [id number] 06/17/2023 Recorded Comments : 2023-09-04: Historical information-source [...] Recorded Comments : 2019-07-18: Historical information-source unspecified Recommendations Health Maintenance Pending(in the next year) OverDue Medicare Annual Wellness Visit due07/18/21and every 1year Adult Influenza Vaccine due03/07/24and every 1year Due Adult Tdap/Td Vaccine due11/22/24Unknown Frequency Seasonal COVID 19 Vaccine due11/22/24Unknown Frequency Due In Future Adult Social Determinants of Health Screening not due until06/24/25and every 366day Body Mass Index not due until09/07/25and every 366day Satisfied(in the past 1 year) Satisfied Body Mass Index on09/30/24.Satisfied by DARREN Smith Lindsay Electronic Signature on File Electronically Reviewed/Signed by: Kenny Rubalcava MD Author Signature Dt/Tm:11/22/2024 03:12 PM Department of Family Medicine [facility] Patient Care team information Care Team Personnel Name: Sylvia Mendez Amy E Position: Pharmacist Member Role: Pharmacy - Lifetime Address: [address] [address] Name: DO Syed Sameer Position: Resident Member Role: Lifetime Relationship Address: [address] [address] [place] Telecom: [phone] Name: MD Khadar, Kenny Diaz Position: Physician - Family Med Member Role: Primary Care Provider Address: [address] [facility] [address] Telecom: [phone] Care Team Related Persons Name: GREGORY GAMEZ Name: NEHA GAMEZ Name: NEHA GAMEZ Name: FREDDY GAMEZ Insurance Providers Guarantor name: MALATHI Murphy VERA Health Plan Information #: 1 Payer: [employer] P[employer] Member Number: [id number] Policy Number: NA Group Number: [id number] Health Plan Information #: 2 Payer: [employer] P[employer] Member Number: [id number] Policy Number: NA Group Number: [id number]"
[2024-12-02] MEDS: ATENOLOL 50 MG TABLET PO SCH (13:11)
[2024-12-02] MEDS: SENNA 8.6 MG TAB PO SCH (13:11)
[2024-12-02] MEDS: POLYETHYLENE (MIRALAX) 17 GM PACK PO SCH (13:11)
--- NOTE | 2024-12-02 13:56 | Advance Care Plan Prog Note ---
Advanced Care Planning Note Date of Discussion December 02, 2024 ACP Discussion Diagnoses requiring ACP discussion: dementia, history of intracranial hemorrhage, acute UTI and influenza A A lbvr-os-mpcz discussion with the patient and , Hilda regarding the patient's advanced care planning took place during this hospitalization on the above date. The discussion included the explanation and discussion of advance directives and associated forms/documents, as well as the patient's current code status. We also discussed at length the patient's medical conditions (both acute and chronic), general prognosis, treatment options, and goals of care. The following summarizes the discussion: Dung was unable to participate in conversation given his acute illness. Hilda confirms that she continues to want him to be a full code. She is frustrated that he has spent so little time at [facility] but is insistent that she will not put him a alf. She feels Dung still has quality of life when he is feeling well. States that a Neurologist at [place] told him he would get better it would just take a long time and she is hopeful for much improvement. I do relay to her that antibiotics will be able to treat the UTI, but I have a very guarded prognosis of overall improvement with his underlying neurological conditions. She expresses great frustration with the [facility] healthcare system, especially with finding care at home. Advance Care Planning/Goals of Care Continue current evaluation & management of any acute/chronic issues, Will continue to support the patient/family and Will continue to discuss both short- and long-term goals of care Status Resuscitation Status Full Code Total Time I spent a total of 30 minutes was spent on this discussion, including counseling, answering questions, and completing, if any, pertinent advanced care planning forms/documents.
--- NOTE | 2024-12-02 14:09 | Hospitalist Progress Note ---
"Date of Service December 02, 2024 Assessment & Plan (1) AMS (altered mental status): (2) UTI (urinary tract infection): (3) Influenza A: (4) Dysphagia: (5) Constipation: (6) Atrial fibrillation with RVR: (7) Cholelithiasis: Plan Patient is an 84-year-old male with past medical history of intracranial hemorrhage 06/30, BPH, sick sinus syndrome, hypertension, A-fib not anticoagulated. He presented to the ED via EMS after he was found to be more confused and unresponsive to questions at home by his after being home from [facility] for rehab for 2 days. Patient was found to have a UTI and influenza A. #Altered mental status suspect secondary to recent ICH but worsened with acute infection with UTI/influenza A Head CT negative for acute changes. TSH WNL With dysphagia on admission but this has resolved. Pills in carrier. PT/OT consulted, declined evaluations today #UTI | BPH Recent admission with UTI and completed 5-day course of ceftriaxone UA consistent with UTI, UC with Klebsiella, sensitivities pending - continue ceftriaxone Blood cultures pending concerned that last 5 day course was not long enough, more likely repeat UTI from poor hygiene as reported to sit in wet briefs all day at rehab. Regardless can have extended course. Consider repeat UA to ensure clearance. Already has urology appointment scheduled next month AM PSA to asses for prostatitis, but not noted of CT A/P - however prostate is enlarged, not on medication. ? flomax, will check PVR #influenza A CXR showing congestion, cardiomegaly. Stable on room air Contnue Tamiflu, IS #constipation Reports diarrhea for several days, suspect overflow diarrhea AP CT shows moderate amounts of formed stool within colon with prominent small bowel fluid suggesting constipation scheduled Senna and miralax. additional miralax PRN #A-fib with RVR HR 102 on admitting EKG. Has improved since. Continue Atenolol. not anticoagulated given recent history of intracranial hemorrhage #cholelithiasis AP CT showed interval enlargement of 3 cm lamellated stone in gallbladder fundus LFTs WNL, asymptomatic. Follow-up with PCP History of ICH 06/30, no longer on antiseizure medication, follows with neurologist Dr. Dhillon, contributing to confusion HTNcontinue atenolol and lisinopril HLD - continue crestor thrombocytopenia - no signs of bleeding, acute on chronic, likely worsened by viral infection Dispo: continued inpatient stay, awaiting PT/OT evals DVT proh: SCDs/TEDs Admission and Anticipated Discharge Date Admission Date: December 01, 2024 Supervising Physician Co-Signing Physician Notes Attending Attestation - Chart reviewed in detail, care plan d/w REBECCA Martinez. I agree w/ the mitchell components of her documentation. Treat UTI. Treat influenza. Droplet precautions. CT a/p notable for constipation & large gallstone w/o features of cholecystitis. Jonel Martinez MD Subjective patient sleeping upon entering the room. provides most of the history reports that he was home for 2 days from rehab. She is very unhappy with the experience at [facility] Does feel like he had quality of life was able to communicate some of his needs and ambulate with assistance at home, on the second day he was not acting right and that is when she called 911 Dung does awaken to verbal stimuli but does not answer any my questions today telemetry paced in the 70s Review of Systems Review of Systems: Unobtainable due to cognitive status Physical Exam Physical Exam: General: NAD, VS as above, fraile appearing, sleeping but awakens to verbal stimuli Resp: normal respiratory effort, lungs clear to auscultation CV: RRR, no murmur, Abd: normal bowel sounds, non tender, no suprapubic tenderness . Neuro: orientation difficulty to full assess because of dysphagia - does not follow commands Results & Data Results & Data Vital Signs (Past 12 Hours) Vital Signs Temp Pulse Pulse Pulse Resp BP Pulse Ox 12/02/24 11:40 98.2 F 68 16 116/68 95 12/02/24 11:08 12/02/24 08:09 101.1 F H 73 16 138/71 97 12/02/24 07:17 78 12/02/24 03:55 98.8 F 77 18 150/77 H 92 O2 Del Method 12/02/24 11:40 Room Air 12/02/24 11:08 Room Air 12/02/24 08:09 Room Air 12/02/24 07:17 12/02/24 03:55 Room Air Laboratory Results CBC, chemistry, urine culture reviewed PG Care Time/CCT Total # of Minutes Spent Total Time Spent with Patient: Total time spent is greater than 50% in coordination of care (as documented) at patient's floor/unit and/or counseling patient: Coding Level of Care Code 94470 SUB INP/OBS CARE 3/50MIN Diagnoses AMS (altered mental status) R41.82 UTI (urinary tract infection) N39.0 Influenza A J10.1 Dysphagia R13.10 Constipation K59.00 Atrial fibrillation with RVR I48.91 Cholelithiasis K80.20"
[2024-12-02] MEDS: ESCITALOPRAM OXALATE ORAL SOLN 5 MG/5 ML UDP PO SCH (14:22)
[2024-12-02] MEDS: ACETAMINOPHEN 500 MG TAB PO PRN (20:10)
[2024-12-02] MEDS: ROSUVASTATIN CALCIUM 20 MG TAB PO SCH (20:14)
[2024-12-02] MEDS: lisinopril 10 MG TAB PO SCH (20:14)
[2024-12-02] MEDS: cefTRIAXone SODIUM 2,000 MG/50 ML BAG IV SCH (21:38)
[2024-12-02] MEDS ORDERED: PHA DELIRIUM CONSULT PRN (22:33)
[2024-12-03 06:23] LABS: Hematocrit (blood only) 36.3 % (42.0-52.0); Hemoglobin 12.5 g/dl (14.0-18.0); Mean Corpuscular Hemoglobin 31.5 pg (25.0-34.0); Mean Corpuscular Hgb Conc 34.4 g/dL (32.0-36.0); Mean Corpuscular Volume 91.4 fL (80.0-100.0); Mean Platelet Volume 12.9 fL (9.4-12.4); Platelet Count 103 K/uL (130-400); RDW Coefficient of Variation 13.1 % (11.5-14.5); Red Blood Count 3.97 M/uL (4.70-6.10); White Blood Count 5.72 K/ul (4.8-10.8)
[2024-12-03 06:38] LABS: BUN Creatinine Ratio 16.7 (10-20); Calcium 8.6 mg/dl (8.6-10.3); Potassium 3.8 mmol/L (3.5-5.1)
[2024-12-03] MEDS: ASPIRIN 81 MG ECTAB PO SCH (08:39)
[2024-12-03] MEDS: lisinopril 20 MG TAB PO SCH (08:39)
--- NOTE | 2024-12-03 12:37 | Hospitalist Progress Note ---
"Date of Service December 03, 2024 Assessment & Plan (1) AMS (altered mental status): (2) UTI (urinary tract infection): (3) Influenza A: (4) Dysphagia: (5) Constipation: (6) Atrial fibrillation with RVR: (7) Cholelithiasis: Plan Patient is an 84-year-old male with past medical history of intracranial hemorrhage 06/30, BPH, sick sinus syndrome, hypertension, A-fib not anticoagulated. He presented to the ED via EMS after he was found to be more confused and unresponsive to questions at home by his after being home from [facility] for rehab for 2 days. Patient was found to have a UTI and influenza A. #Altered mental status | Metabolic encephalopathy suspect secondary to recent ICH but worsened with acute infection with UTI/influenza A Head CT negative for acute changes. TSH WNL With dysphagia on admission but this has resolved. Pills in carrier. PT/OT consulted, awaiting evals #UTI | BPH Recent admission with UTI and completed 5-day course of ceftriaxone UA consistent with UTI, UC with Klebsiella, pansenstive - continue ceftriaxone Blood cultures: negative at 24 hours concerned that last 5 day course was not long enough, more likely repeat UTI from poor hygiene as reported to sit in wet briefs all day at rehab. Regardless can have extended course. Consider repeat UA to ensure clearance. Already has urology appointment 12/17 PSA negative, and CT/ A/P does not note prostatitis #influenza A CXR showing congestion, cardiomegaly. Stable on room air Contnue Tamiflu, IS #constipation Reports diarrhea for several days, suspect overflow diarrhea AP CT shows moderate amounts of formed stool within colon with prominent small bowel fluid suggesting constipation scheduled Senna and miralax. additional miralax PRN no BM yet #A-fib with RVR HR 102 on admitting EKG. Has improved since. Continue Atenolol. not anticoagulated given recent history of intracranial hemorrhage #cholelithiasis AP CT showed interval enlargement of 3 cm lamellated stone in gallbladder fundus LFTs WNL, asymptomatic. Follow-up with PCP History of ICH 06/30, no longer on antiseizure medication, follows with neurologist Dr. Dhillon, contributing to confusion HTNcontinue atenolol and lisinopril HLD - continue crestor thrombocytopenia - no signs of bleeding, acute on chronic, likely worsened by viral infection, this is improving Dispo: continued inpatient stay, awaiting PT/OT evals DVT proh: SCDs/TEDs Admission and Anticipated Discharge Date Admission Date: December 01, 2024 Supervising Physician Co-Signing Physician Notes Attending Attestation - Chart reviewed in detail, care plan d/w REBECCA Martinez. I agree w/ the mitchell components of her documentation. Jonel Martinez MD Subjective Patient seen this morning - sitting up with breakfast tray in front of him. Says good morning and yes to some of my questions but does not routinely follow commands revisited when is present - feels like he is improving, but 1-2 days from baseline still waiting PT eval tele afib/paced 70s Review of Systems Review of Systems: All systems reviewed & are unremarkable except as noted in Subjective Physical Exam Physical Exam: General: NAD, VS as above, frail appearing, sitting up in bed, appears better than yesterday Resp: normal respiratory effort, lungs coarse in bases, + cough non productive CV: RRR, no murmur, Abd: normal bowel sounds, non tender, no suprapubic tenderness . Neuro: A&O x 1 Results & Data Results & Data Vital Signs (Past 12 Hours) Vital Signs Temp Pulse Pulse Resp BP BP Pulse Ox 12/03/24 11:30 98.2 F 69 16 125/69 97 12/03/24 07:49 98.2 F 80 20 156/96 H 96 12/03/24 07:22 75 12/03/24 04:08 98.8 F 66 20 150/93 H 93 O2 Del Method 12/03/24 11:30 Room Air 12/03/24 07:49 Room Air 12/03/24 07:22 12/03/24 04:08 Room Air Laboratory Results cbc and chemistry reviewed PG Care Time/CCT Total # of Minutes Spent Total Time Spent with Patient: Total time spent is greater than 50% in coordination of care (as documented) at patient's floor/unit and/or counseling patient: Coding Level of Care Code 05372 SUB INP/OBS CARE 3/50MIN Diagnoses AMS (altered mental status) R41.82 UTI (urinary tract infection) N39.0 Influenza A J10.1 Dysphagia R13.10 Constipation K59.00 Atrial fibrillation with RVR I48.91 Cholelithiasis K80.20"
--- NOTE | 2024-12-04 12:07 | Hospitalist Progress Note ---
Date of Service December 04, 2024 Assessment & Plan (1) AMS (altered mental status): (2) UTI (urinary tract infection): (3) Influenza A: (4) Dysphagia: (5) Constipation: (6) Atrial fibrillation with RVR: (7) Cholelithiasis: Plan Patient is an 84-year-old male with past medical history of intracranial hemorrhage 06/30, BPH, sick sinus syndrome, hypertension, A-fib not anticoagulated. He presented to the ED via EMS after he was found to be more confused and unresponsive to questions at home by his after being home from [facility] for rehab for 2 days. Patient was found to have a UTI and influenza A. #Altered mental status | Metabolic encephalopathy suspect secondary to recent ICH but worsened with acute infection with UTI/influenza A Head CT negative for acute changes. TSH WNL With dysphagia on admission but this has resolved. Pills in carrier. PT/OT consulted, awaiting evals #UTI | BPH Recent admission with UTI and completed 5-day course of ceftriaxone UA consistent with UTI, UC with Klebsiella, pansenstive - continue ceftriaxone Blood cultures: negative at 48 hours concerned that last 5 day course was not long enough, more likely repeat UTI from poor hygiene as reported to sit in wet briefs all day at rehab. Regardless can have extended course. Consider repeat UA to ensure clearance. Already has urology appointment 12/17 PSA negative, and CT/ A/P does not note prostatitis #influenza A CXR showing congestion, cardiomegaly. Stable on room air Contnue Tamiflu, IS #constipation Reports diarrhea for several days, suspect overflow diarrhea AP CT shows moderate amounts of formed stool within colon with prominent small bowel fluid suggesting constipation scheduled Senna and miralax. additional miralax PRN - rec continue bowel regimen at discharge + BM 12/03. #A-fib with RVR HR 102 on admitting EKG. Has improved since. Continue Atenolol. not anticoagulated given recent history of intracranial hemorrhage #cholelithiasis AP CT showed interval enlargement of 3 cm lamellated stone in gallbladder fundus LFTs WNL, asymptomatic. Follow-up with PCP History of ICH 06/30, no longer on antiseizure medication, follows with neurologist Dr. Dhillon, contributing to confusion HTNcontinue atenolol and lisinopril HLD - continue crestor thrombocytopenia - no signs of bleeding, acute on chronic, likely worsened by viral infection, this is improving Dispo: continued inpatient stay, awaiting PT/OT evals DVT proh: SCDs/TEDs updated at bedside 12/04. Hoping for AM discharge on 12/06 Admission and Anticipated Discharge Date Admission Date: December 01, 2024 Supervising Physician Co-Signing Physician Notes Attending Attestation - Chart reviewed in detail, care plan d/w PA Sheila Martinez. I agree w/ the mitchell components of her documentation. Jonel Martinez MD Subjective patient seen sitting up in bed, present at bedside. He is more alert today and able to speak in some complete sentences. He states that he is feeling "okay. When I ask him how his abdomen feels he does not know. per documentation in the chart he did have bowel movements yesterday is hoping for Thursday discharge to have time to get caregivers arranged. Patient is unsure if he has been out of bed yet, no PT or OT notes available for me to review at time of dictation. Discussed with and RN, plan is for her to get up out of the bed to the chair today with nursing to see if is comfortable to take him home Telemetry A-fib rates in the 70s Review of Systems Review of Systems: All systems reviewed & are unremarkable except as noted in Subjective Physical Exam Physical Exam: General: NAD, VS as above, frail appearing, sitting up in bed, appears better than yesterday Resp: normal respiratory effort, lungs coarse in bases, + cough non productive CV: RRR, no murmur, Abd: normal bowel sounds, non tender, no suprapubic tenderness . Neuro: A&O x 1 Results & Data Results & Data Vital Signs (Past 12 Hours) Vital Signs Temp Pulse Pulse Pulse Resp BP BP 12/04/24 11:26 98.2 F 68 16 116/69 12/04/24 07:56 97.7 F 63 18 143/84 H 12/04/24 07:12 66 12/04/24 03:16 98.1 F 65 16 138/66 12/04/24 01:00 98.2 F 70 20 138/70 Pulse Ox O2 Del Method 12/04/24 11:26 97 Room Air 12/04/24 07:56 99 Room Air 12/04/24 07:12 12/04/24 03:16 96 Room Air 12/04/24 01:00 95 Room Air Laboratory Results blood cultures reviewed PG Care Time/CCT Total # of Minutes Spent Total Time Spent with Patient: Total time spent is greater than 50% in coordination of care (as documented) at patient's floor/unit and/or counseling patient: Coding Level of Care Code 69385 SUB INP/OBS CARE 2/35MIN Diagnoses AMS (altered mental status) R41.82 UTI (urinary tract infection) N39.0 Influenza A J10.1 Dysphagia R13.10 Constipation K59.00 Atrial fibrillation with RVR I48.91 Cholelithiasis K80.20
[2024-12-05] MEDS: cephALEXin 500 MG CAP PO SCH (09:55)
--- NOTE | 2024-12-05 17:19 | Hospitalist Progress Note ---
"Date of Service December 05, 2024 Assessment & Plan (1) AMS (altered mental status): (2) UTI (urinary tract infection): (3) Influenza A: (4) Dysphagia: (5) Constipation: (6) Atrial fibrillation with RVR: (7) Cholelithiasis: Plan Patient is an 84-year-old male with past medical history of intracranial hemorrhage 06/30, BPH, sick sinus syndrome, hypertension, A-fib not anticoagulated. He presented to the ED via EMS after he was found to be more confused and unresponsive to questions at home by his after being home from [facility] for rehab for 2 days. Patient was found to have a UTI and influenza A. #Altered mental status | Metabolic encephalopathy suspect secondary to recent ICH but worsened with acute infection with UTI/influenza A Head CT negative for acute changes. TSH WNL With dysphagia on admission but this has resolved. Pills in carrier. PT/OT consulted, awaiting evals #UTI | BPH Recent admission with UTI and completed 5-day course of ceftriaxone UA consistent with UTI, UC with Klebsiella, pansensitive - transitioned to Keflex 12/05, patient removed IV site. Blood cultures: negative at 48 hours concerned that last 5 day course was not long enough, more likely repeat UTI from poor hygiene as reported to sit in wet briefs all day at rehab. Regardless can have extended course. Consider repeat UA to ensure clearance. Already has urology appointment 12/17 PSA negative, and CT/ A/P does not note prostatitis #influenza A CXR showing congestion, cardiomegaly. Stable on room air Continue Tamiflu, IS #constipation Reports diarrhea for several days, suspect overflow diarrhea AP CT shows moderate amounts of formed stool within colon with prominent small bowel fluid suggesting constipation scheduled Senna and miralax. additional miralax PRN - rec continue bowel regimen at discharge #A-fib with RVR HR 102 on admitting EKG. Has improved since. Continue Atenolol. not anticoagulated given recent history of intracranial hemorrhage #cholelithiasis AP CT showed interval enlargement of 3 cm lamellated stone in gallbladder fundus LFTs WNL, asymptomatic. Follow-up with PCP History of ICH 06/30, no longer on antiseizure medication, follows with neurologist Dr. Dhillon, contributing to confusion HTNcontinue atenolol and lisinopril HLD - continue crestor thrombocytopenia - no signs of bleeding, acute on chronic, likely worsened by viral infection, this is improving Dispo: continued inpatient stay DVT proh: SCDs/TEDs updated at bedside 12/05. Plan for discharge 12/06. Admission and Anticipated Discharge Date Admission Date: December 01, 2024 Supervising Physician Co-Signing Physician Notes Attending Attestation - Chart reviewed in detail, care plan d/w REBECCA Choi. I agree w/ the mitchell components of her documentation. Possible d/c on 12/06/24. Jonel Martinez MD Subjective Patient seen and examined this morning. Patient pleasant, oriented to himself at time of encounter. He denied any complaints today. Physical Exam Constitutional: WD/WN, vitals as above Eyes: PERRL, conjunctivae normal, anicteric sclerae Respiratory: breathing unlabored Cardiovascular: well perfused Results & Data Results & Data Vital Signs (Past 12 Hours) Vital Signs Temp Pulse Pulse Resp BP Pulse Ox O2 Del Method 12/05/24 15:54 35.9 C L 68 20 135/80 96 Room Air 12/05/24 14:30 71 12/05/24 11:52 36.4 C L 68 20 142/83 H 96 Room Air 12/05/24 08:00 Room Air 12/05/24 07:05 64 PG Care Time/CCT Total # of Minutes Spent Total Time Spent with Patient: Total time spent is greater than 50% in coordination of care (as documented) at patient's floor/unit and/or counseling patient: Coding Level of Care Code 35662 SUB INP/OBS CARE 2/35MIN Diagnoses AMS (altered mental status) R41.82 UTI (urinary tract infection) N39.0 Influenza A J10.1 Dysphagia R13.10 Constipation K59.00 Atrial fibrillation with RVR I48.91 Cholelithiasis K80.20"
[2024-12-06] MEDS ORDERED: PHA DELIRIUM CONSULT PRN (00:35)
[2024-12-06 07:33] VITALS: TEMP 97.3
--- NOTE | 2024-12-06 10:38 | Discharge Summary ---
"Discharge Summary Date of Service December 06, 2024 Principal Dx & Hospital Course #1 = Principal Diagnosis (1) AMS (altered mental status): (2) UTI (urinary tract infection): (3) Influenza A: (4) Dysphagia: (5) Constipation: (6) Atrial fibrillation with RVR: (7) Cholelithiasis: Plan Patient is an 84-year-old male with past medical history of intracranial hemorrhage 06/30, BPH, sick sinus syndrome, hypertension, A-fib not ant icoagulated. He presented to the ED via EMS after he was found to be more confused and unresponsive to questions at home by his after being home from [facility] for rehab for 2 days. Patient was found to have a UTI and influenza A. #Altered mental status | Metabolic encephalopathy suspect secondary to recent ICH but worsened with acute infection with UTI/influenza A Head CT negative for acute changes. TSH WNL With dysphagia on admission but this has resolved. Pills in carrier. PT/OT consulted - recommending rehab, patient discharged home w/ caregivers. #UTI | BPH Recent admission with UTI and completed 5-day course of ceftriaxone concerned that last 5 day course was not long enough, more likely repeat UTI from poor hygiene as reported to sit in wet briefs all day at rehab. Regardless can have extended course. UA consistent with UTI, UC with Klebsiella, pansensitive Blood cultures: negative at 48 hours Already has urology appointment 12/17, encouraged to keep PSA negative, and CT/ A/P does not note prostatitis Discharged home on additional 10 days of Keflex to complete 14 day course. Consider repeat urinalysis at end of treatment to ensure clearanced - defer to PCP. #influenza A CXR showing congestion, cardiomegaly. Stable on room air Tamiflu sent on discharge to complete course. #constipation Reports diarrhea for several days, suspect overflow diarrhea AP CT shows moderate amounts of formed stool within colon with prominent small bowel fluid suggesting constipation Continue Miralax/Senna on discharge. #A-fib with RVR HR 102 on admitting EKG. Has improved since. Continue Atenolol. not anticoagulated given recent history of intracranial hemorrhage #cholelithiasis AP CT showed interval enlargement of 3 cm lamellated stone in gallbladder fundus LFTs WNL, asymptomatic. Follow-up with PCP History of ICH 06/30, no longer on antiseizure medication, follows with neurologist Dr. Dhillon, contributing to confusion HTNcontinue atenolol and lisinopril HLD - continue crestor thrombocytopenia - no signs of bleeding, acute on chronic, likely worsened by viral infection, this is improving updated at bedside w/ discharge plans 12/06. Patient discharged home w/ caregivers. Admission HPI Per Admitting Provider Patient is an 84-year-old male with past medical history of intracranial hemorrhage 06/30, BPH, sick sinus syndrome, hypertension, A-fib not anticoagulated. He presented to the ED via EMS after he was found to be more confused and unresponsive to questions at home by his . Patient was found to have a UTI and influenza A. Patient was recently admitted from 11/04 to 11/11 for UTI and pneumonia. completed a 5-day course of ceftriaxone and 7 days of doxycycline. He was discharged To [facility] where he was sent home Wednesday 11/01. Patient seen at bedside with his . Following history was provided by patient's as patient is confused and slow to respond to questions. she stated that this evening he was more confused than his baseline and not responding to his questions. She also noted him to be warm and have a cough today. He also has been shaky today. She stated he has been confused since his intracranial hemorrhage in June. She also has concerns of him having clenching/rigidity over the past few weeks. stated he has had diarrhea for several days, suspect overflow diarrhea. He denies any shortness of breath, abd pain, dysuria, hematuria. She stated he often has difficulty swallowing pills and she has to put it in applesauce. He has no issues with swallowing liquids at home as per the patient's . Did take his home medications this morning but did not get his evening medications. She stated that there are paperwork states they would not want resuscitated however she believes that he would want CPR and intubated in the event of acute cardiac arrest, will make full code. His is agreeable to starting Tamiflu, as patient is able to tolerate p.o. intake. Of note patient is to have urology appointment with Dr. Pack however has not arranged for several months. He was to undergo workup for recurrent UTIs. Discharge Exam Constitutional WD/WN, vitals as above Eyes PERRL, conjunctivae normal, anicteric sclerae Respiratory breathing unlabored Cardiovascular well perfused Discharge Plan Discharge Items Patient Disposition: Home - Home Health Services Reason For Visit: AMS, INFLUENZA A, UTI Discharge Diagnosis: UTI, Flu A Activity: Resume your previous activity Non-emergency contact: Primary Care Provider Call non-emergency contact if: you have any medication questions, your symptoms worsen and you have a fever Follow-up/Referrals: Kenny Rubalcava MD [Primary Care Provider] - (PLEASE CALL YOUR PRIMARY CARE PROVIDER TO SCHEDULE A HOSPITAL DISCHARGE FOLLOW-UP APPOINTMENT WITHIN 7-10 DAYS) Diet: Heart Healthy Diet Texture: Easy to Chew Addtl Attending Provider Instructions: Mr. Jacobs, You were recently hospitalized for experiencing some more confusion than usual. You were found to have Influenza A and a UTI. You were treated appropriately and are going to be sent home on antibiotics. Please see recommendations below regarding your discharge. Please take Keflex four times daily for the next 10 days. Your next dose at home will be this evening, 4/. Please take with food and a probiotic to avoid upset stomach. Please take Tamiflu for the next 1.5 days. Your next dose will be this evening, 4. Please resume the remainder of your outpatient medications. Please follow up with your PCP within 1-2 weeks of discharge. Please keep your appointment with the urologist. If you develop any worsening symptoms including worsened confusion, weakness, chest pain, shortness of breath please report back to the ED for further care. Sincerely, Racquel Choi PA-C Pending Studies at Discharge: No Stand-Alone Forms: My [facility], Smoking Cessation Medications and DC Order Prescriptions: New oseltamivir [Tamiflu] 30 mg capsule 30 mg PO BID Qty: 3 0RF cephalexin 500 mg capsule 500 mg PO QID Qty: 40 0RF Continued coenzyme Q10 [Co Q-10] 200 mg Capsule 200 mg PO QAM Qty: 0 rosuvastatin 40 mg tablet 40 mg PO HS Qty: 90 3RF atenolol 100 mg tablet 100 mg PO BID Qty: 180 3RF Centrum Silver Men 300-600-300 mcg tablet 1 tab PO QAM nitroglycerin 0.4 mg tablet, sublingual 0.4 mg SL Q5M PRN (Reason: chest pain) Qty: 25 [place] Nasal 0.65 % Aerosol,[place] 2 spray INTRANASAL QID PRN (Reason: NASAL DRYNESS) aspirin 81 mg Tablet,Delayed Release (Dr/Ec) 81 mg PO QAM escitalopram oxalate 5 mg tablet 5 mg PO QAM acetaminophen 325 mg Tablet 650 mg PO Q4H PRN (Reason: fever or pain) Qty: 10 0RF lisinopril 20 mg tablet 20 mg PO QAM Rx Instructions: IN ADDITIONS TO 10MG HS lisinopril 10 mg tablet 10 mg PO HS Discharge Orders: Discharge Order (Routine); Ordered 12/06/24 Ordered By: Racquel Choi Admission Data Admit Date/Time: 12/01/24 22:27 Attending Provider: Jonel Martinez Admit Provider: Jason Dupree Primary Care Provider: Kenny Rubalcava Other Providers: Jason Dupree; [facility],Home [facility] Other Interventions: Discharge Summary Assessment (RN) Last Done: 12/06/24 12:54 Hospital Stay Data Consultations 12/01/24 20:27 ED Decision to Admit Stat Diagnostic Imagining Performed 12/01/24 19:01 CT abd pelvis IV con only Stat CT head/brain wo con Stat Pending Results Patient Have Any Pending Studies at Discharge: No Discharge Instructions Given to Patient (Per Discharging Provider) Nicely, You were recently hospitalized for experiencing some more confusion than usual. You were found to have Influenza A and a UTI. You were treated appropriately and are going to be sent home on antibiotics. Please see recommendations below regarding your discharge. Please take Keflex four times daily for the next 10 days. Your next dose at home will be this evening, 12/06. Please take with food and a probiotic to avoid upset stomach. Please take Tamiflu for the next 1.5 days. Your next dose will be this evening, 4. Please resume the remainder of your outpatient medications. Please follow up with your PCP within 1-2 weeks of discharge. Please keep your appointment with the urologist. If you develop any worsening symptoms including worsened confusion, weakness, chest pain, shortness of breath please report back to the ED for further care. Sincerely, Racquel Choi PA-C Total Time Total Time Spent Total Time Spent (In Minutes): 45 Total Time Includes: Examination of the Patient, Discharge Planning and Medication Reconciliation Coding Level of Care Code 94485 INP/OBS DISCH >30 MIN Diagnoses AMS (altered mental status) R41.82 UTI (urinary tract infection) N39.0 Influenza A J10.1 Dysphagia R13.10 Constipation K59.00 Atrial fibrillation with RVR I48.91 Cholelithiasis K80.20"
[2024-12-06 11:26] VITALS: BP 114/73; PULSE 69; RESP 17; O2SAT 99
== END 2024-12-06 13:32 | disposition home health service (06) | DRG 193 ==
LOC: ED 18:02 → 2N 22:27 → SUATTDRO 22:27 → 2N 12-02 00:10

== ENCOUNTER 2024-12-12 18:45 | Inpatient (IN) ==
[2024-12-12 19:26] LABS: Appearance Urine Clear (Clear); Bacteria Urine Automated None Seen (None Seen); Bilirubin Urine Negative (Negative); Blood Urine Negative (Negative); Cast Urine Automated 0-2 /lpf (0-2); Color Urine Yellow; Epithelial Cell Urine Auto 0-2 /hpf (0-2); Glucose Urine UA Negative (Negative); Ketones Urine Negative (Negative); Leukocyte Esterase Urine Trace (Negative); Nitrite Urine Negative (Negative); Protein Urine Negative (Negative); RBC Urine Automated 0-2 /hpf (0-2); Specific Gravity Urine 1.015 (1.000-1.030); Urobilinogen Urine Negative (Negative); WBC Urine Automated 0-5 /hpf (0-5)
[2024-12-12 20:24] LABS: Basophils # (auto) 0.03 K/uL (0.00-0.20); Basophils % (auto) 0.5 %; Eosinophils # (auto) 0.11 K/uL (0.00-0.50); Hemoglobin 13.3 g/dl (14.0-18.0); Immature Granulocytes # (auto) 0.02 K/uL (0.01-0.20); Immature Granulocytes % (auto) 0.4 %; Lymphocytes # (auto) 1.45 K/uL (1.20-3.40); Lymphocytes % (auto) 26.5 %; Mean Corpuscular Hemoglobin 30.3 pg (25.0-34.0); Mean Corpuscular Hgb Conc 33.3 g/dL (32.0-36.0); Mean Corpuscular Volume 91.1 fL (80.0-100.0); Mean Platelet Volume 11.7 fL (9.4-12.4); Monocytes # (auto) 0.38 K/uL (0.11-0.59); Monocytes % (auto) 6.9 %; Neutrophils # (auto) 3.48 K/uL (1.40-6.50); Neutrophils % (auto) 63.7 %; Platelet Count 157 K/uL (130-400); RDW Coefficient of Variation 12.8 % (11.5-14.5); RDW Standard Deviation 42.6 fL (36.4-46.3); Red Blood Count 4.39 M/uL (4.70-6.10); White Blood Count 5.47 K/ul (4.8-10.8)
--- NOTE | 2024-12-12 20:25 | CT Scan Report ---
Exam(s): CT HEAD Without Contrast EXAM: CT Head Without Intravenous Contrast CLINICAL HISTORY: Reason for exam: AMS. TECHNIQUE: Axial computed tomography images of the head/brain without intravenous contrast. CTDI is 37.32 mGy and DLP is 546.36 mGy-cm. Automated exposure control was utilized for the study. A dose lowering technique was utilized adhering to the principles of ALARA. COMPARISON: 12/01/2024 FINDINGS: Brain: No intracranial hemorrhage. Global parenchymal atrophy. Confluent periventricular low-attenuation. Chronic left frontal infarct. Ventricles: Unremarkable. Bones/joints: Prior left frontal craniotomy. Soft tissues: Unremarkable. Sinuses: No acute sinusitis. Mastoid air cells: Unremarkable as visualized. IMPRESSION: 1. No acute intracranial abnormality. 2. Global parenchymal atrophy and chronic ischemic changes. Electronically signed by: Victorino Banerjee MD 12/12/24 20:23 PM
[2024-12-12 20:40] LABS: Albumin Globulin Ratio 1.8 (0.9-2); Albumin Level 4.1 gm/dl (3.4-5.0); BUN Creatinine Ratio 22.9 (10-20); Bilirubin,Total 0.4 mg/dl (0.2-1.0); Calcium 9.1 mg/dl (8.6-10.3); Creatinine Clr Calc Pharmacy 61.4 ml/min; Globulin 2.3 gm/dl (2.5-4.0); Magnesium 2.2 mg/dl (1.7-2.4); Phosphorus 3.1 mg/dl (2.5-4.9); Potassium 4.4 mmol/L (3.5-5.1); Total Protein 6.4 gm/dl (6.0-8.3)
[2024-12-12 20:46] LABS: Troponin I High Sensitivity 2.4 pg/ml (0-20)
[2024-12-12 20:56] LABS: Thyroid Stimulating Hormone 6.093 uIu/ml (0.300-4.500)
--- NOTE | 2024-12-12 21:11 | Emergency Department Note ---
Impression & Plan AMS (altered mental status) ED Provider Note NAME: MALATHI GAMEZ Jr AGE: 84 SEX: Male INFORMANT: Patient and family ED PROVIDER(S): Noah Domínguez MD CHIEF COMPLAINT: Confusion PLAN: Disposition: Admitted Outpatient prescription management: none Referral: None MEDICAL DECISION MAKING: Patient presented to the Emergency Department due to confusion. Workup was initiated. ECG was unremarkable. Paced rhythm present. Chest x-ray revealed no pneumonia. Head CT performed and revealed chronic changes. Patient CBC and chemistry panels were unremarkable. Urinalysis was obtained and did not reveal any signs of infection. Given the patient's change throughout the day I discussed further evaluation and management in the hospital. [facility] Patient was evaluated in the ER and admitted under Dr. De Santiago service. Care/management discussed with: assistant clinical nurse manager Level of care consideration(s): After review of the information above and other included data, I feel the patient requires escalation of care to admission. Triage Nursing notes: reviewed and agree them. Vital Signs: reviewed and remarkable for no significant abnormalities Additional History obtained from: Family Chronic Medical/Social Conditions affecting care: none Prior/ Outside/ External records reviewed: Reviewed DC summary from 12/06/2024 admission. Patient was treated with Rocephin and discharged on Keflex. Patient had a cephalosporin sensitive Klebsiella. Differential Diagnosis: Infection, hypoglycemia, electrolyte abnormalities, overdose, toxicologic, cardiac sources, intracerebral event, neurologic, trauma, as well as other pathologies. Diagnostics, independently interpreted by me: ECG: Twelve-lead ECG reveals a ventricular paced rhythm at 64 bpm. Occasional PVC. No ST elevation. Cardiac Monitoring: Cardiac monitoring ordered by me: The patient was placed on continuous cardiac monitoring and observed. It revealed a paced rhythm at 69 bpm. Medical decision rules: none Imaging studies: Head CT: A noncontrast CT scan of the head was performed and was negative for tumor, fracture, intracranial hemorrhage, or other acute pathology. Chest x-ray. Findings: A chest x-ray was performed and revealed no pneumothorax, effusion, infiltrate, pulmonary edema, free air under the diaphragm, or wide mediastinum. Impression: No acute disease. HPI: 84 year old Male arrives for evaluation of altered mental status and confusion. This started today with waking per the and is persisting throughout the day. The patient also notes the following associated symptoms, none. states that he was recently admitted and treated for UTI with antibiotics. He still currently taking antibiotics. She thinks that he may have fallen but is unsure if he hit his head. She did not see any lamar. She does note a history of ICH. states patient has a good appetite and was doing well yesterday. He was at baseline.. The patient has been given no new medication for relieving factors. Current pain is rated as 0/10. Pt and deny LOC, headache, fevers, chills, visual changes, neck pain, chest pain, breathing difficulties, nausea, vomiting, abdominal pain, back pain, melena, hematochezia, new urinary symptoms, focal weakness, rash, or other complaints.. PAST MEDICAL HISTORY: See Below, UTI PAST SURGICAL HISTORY: See Below, SOCIAL HISTORY: See Below, HOME MEDICATIONS: See Below ALLERGIES: See Below VITALS: See Below PHYSICAL EXAMINATION: GENERAL: Awake, alert, [id number], in no distress HENT: Normocephalic, atraumatic. Oropharynx unremarkable. EYES: Normal conjunctiva. Sclera non-icteric. NECK: Inspection normal. Non-tender. Supple. No nuchal rigidity. FROM. No masses. RESPIRATORY: Clear to auscultation. No wheezes. No rales. Normal respiratory effort. CARDIAC: Normal rate. Normal rhythm. No murmurs. No rubs. Extremities warm and well perfused. Pulses equal. No JVD. GI: Soft, non-distended. No tenderness to palpation. No rebound or guarding. No masses. RECTAL: Deferred. MUSCULOSKELETAL: Atraumatic. Chest examination reveals no tenderness. The back is kyphotic on inspection without obvious abnormality. There is no CVA tenderness to palpation. No joint edema. LOWER EXTREMITIES: Calves are equal size bilaterally and non-tender. No edema. No discoloration. NEURO: Confused sensorium. Responsive and answering questions however slow to respond and frequently looking to his for answers. No focal sensory or motor deficits noted. SKIN: No rash or jaundice noted. PROCEDURES: none CRITICAL CARE: none OBSERVATION NOTE: none Past Med/Surg History Problem List (Updated 12/12/24 @ 22:55 by Yumiko Estrella PA-C) Recurrent UTI AMS (altered mental status) (Acute) Dementia (Acute) Altered mental status (Acute) Acute UTI (Acute) Influenza A virus subtype H1 2009 pandemic strain present (Acute) Atrial fibrillation with RVR Cholelithiasis Constipation Dysphagia Influenza A AMS (altered mental status) (Acute) Intracranial hemorrhage Seizure-like activity Other symptoms and signs involving cognitive functions and awareness Epistaxis (Acute) H/O umbilical hernia repair (08/18/19) Open Umbilical Hernia Repair Dr. Zamora 08/18/19 Encounter for pre-operative examination Patient okay for surgery as per cardiology 07/26/19. Past heart attack (Acute) had in 1991 Hyperglycemia (Acute) Hypercholesterolemia (Acute) Gross hematuria (Acute) Former smoker (Acute) Elevated prostate specific antigen (PSA) (Acute) Benign prostatic hyperplasia with elevated prostate specific antigen (PSA) (Acute) Allergic rhinitis (Acute) Umbilical hernia without mention of obstruction or gangrene Sick sinus syndrome (Acute) 2008 DX Hypertension (Acute) Medical History (Updated 12/12/24 @ 22:55 by Yumiko Estrella PA-C) RLL pneumonia UTI (urinary tract infection) Coronary artery disease Paroxysmal atrial fibrillation Presence of cardiac pacemaker Raynauds syndrome Atrial fibrillation DX 2014 (REASON FOR TAKING XARELTO) Myocardial Infarction 1991 Hyperlipidemia Raynauds phenomenon Ulcerative colitis History of cardiac pacemaker 2007 (S/P SYNCOPAL EPISODE) FOLLOWED BY DR. SMITH 2019 CHANGED PACEMAKER (MEDTRONIC DEVICE) Surgical History (Updated 12/12/24 @ 00:07 by Sahil Manriquez) History of colonoscopy History of cataract surgery RT/LEFT History of cardiac catheterization 1991 ANGIOPLASTY @ [facility] History of wisdom tooth extraction Family History Father Heart disease Stroke Social History Smoking Status: Unknown if ever smoked Tobacco Type: Cigarettes Second Hand Exposure: No; Do You Dip or Chew Tobacco: No; Hx Alcohol Use: No Hx Substance Use: No Preferred Language: Danish Communication Ability: Impaired Residential Mortgage Underwriter Required: No Beliefs That Will Affect Care: None marital status: Current Living Situation: Spouse 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 status: 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 Feels Safe at Home: Yes Assistive Devices: CPAP, Walker and Wheelchair Allergies Allergies Allergy/AdvReac Type Severity Reaction Status Date / Time streptokinase Allergy Intermediate Flushing Verified 12/12/24 20:39 Home Meds Home Medications Medication Instructions Recorded Confirmed coenzyme Q10 200 mg capsule (Co 200 mg PO QAM ##0 03/08/11 12/12/24 Q-10) nitroglycerin 0.4 mg sublingual 0.4 mg sublingual Q5M PRN chest 04/08/19 12/12/24 tablet pain #25 tabs aspirin 81 mg tablet,delayed 81 mg PO QAM 07/27/19 12/12/24 release sodium chloride 0.65 % nasal spray 2 spray intranasal QID PRN NASAL 04/20/20 12/12/24 aerosol (Deep Sea Nasal) DRYNESS [id number] 300 mcg-K 60 1 tab PO QAM 01/10/22 12/12/24 mcg-lycop 600 mcg-lutein 300 mcg tablet (Centrum Silver Men) escitalopram oxalate 5 mg tablet 5 mg PO QAM 11/04/24 12/12/24 lisinopril 10 mg tablet 10 mg PO HS 12/01/24 12/12/24 lisinopril 20 mg tablet 20 mg PO QAM 12/01/24 12/12/24 Previous Rx's Medication Instructions Recorded rosuvastatin 40 mg tablet 40 mg PO HS #90 tabs 03/18/24 atenolol 100 mg tablet 100 mg PO BID #180 tabs 05/23/24 acetaminophen 325 mg tablet 650 mg (2 x 325 mg) PO Q4H PRN 11/10/24 fever or pain #10 tabs cephalexin 500 mg capsule 500 mg PO QID #40 caps 12/06/24 Results & Data (ED) Vital Signs Vital Signs - 24 hr 12/12/24 18:40 12/12/24 19:20 12/12/24 20:00 Temperature 36.5 C Temperature Source Oral Pulse Rate 75 Pulse Rate [Apical] 71 Respiratory Rate 18 18 Respiratory Effort / Characteristics Non-Labored Spontaneous Non-Labored Spontaneous Respiratory Depth Normal Normal Respiratory Pattern Regular Regular Blood Pressure 170/94 H Blood Pressure [Right Arm] 160/95 H Blood Pressure Mean 119 Blood Pressure Mean [Right Arm] 116 Pulse Oximetry 100 92 96 Oxygen Delivery Method Room Air Room Air Room Air Sepsis Recent Fever Within 48 Hours No Sepsis New/Unexplained Change in Mental Status N/A Sepsis Action Taken by Nursing No Action Required 12/12/24 22:00 Temperature Temperature Source Pulse Rate Pulse Rate [Apical] 66 Respiratory Rate 18 Respiratory Effort / Characteristics Non-Labored Spontaneous Respiratory Depth Normal Respiratory Pattern Regular Blood Pressure Blood Pressure [Right Arm] 150/105 H Blood Pressure Mean Blood Pressure Mean [Right Arm] 120 Pulse Oximetry 97 Oxygen Delivery Method Room Air Sepsis Recent Fever Within 48 Hours Sepsis New/Unexplained Change in Mental Status Sepsis Action Taken by Nursing Laboratory Data 12/12/24 20:05 12/12/24 20:05 Lab Results 12/12/24 12/12/24 Range/Units 19:14 20:05 WBC 5.47 (4.8-10.8) K/ul RBC 4.39 L (4.70-6.10) M/uL Hgb 13.3 L (14.0-18.0) g/dl Hct 40.0 L (42.0-52.0) % MCV 91.1 (80.0-100.0) fL MCH 30.3 (25.0-34.0) pg MCHC 33.3 (32.0-36.0) g/dL RDW Std Deviation 42.6 (36.4-46.3) fL RDW Coeff of Larry 12.8 (11.5-14.5) % Plt Count 157 (130-400) K/uL MPV 11.7 (9.4-12.4) fL Immature Gran % (Auto) 0.4 % Neut % (Auto) 63.7 % Lymph % (Auto) 26.5 % [place] % (Auto) 6.9 % Eos % (Auto) 2.0 % Baso % (Auto) 0.5 % Neut # (Auto) 3.48 (1.40-6.50) K/uL Lymph # (Auto) 1.45 (1.20-3.40) K/uL [place] # (Auto) 0.38 (0.11-0.59) K/uL Eos # (Auto) 0.11 (0.00-0.50) K/uL Baso # (Auto) 0.03 (0.00-0.20) K/uL Immature Gran # (Auto) 0.02 (0.01-0.20) K/uL Sodium 140 (136-145) mmol/L Potassium 4.4 (3.5-5.1) mmol/L Chloride 107 (98-107) mmol/L Carbon Dioxide 30 (21-32) mmol/L Anion Gap 3 (3-11) BUN 19 (6-23) mg/dl Creatinine 0.83 (0.6-1.4) mg/dl Est Cr Clr Drug Dosing 61.4 ml/min eGFR 85.77 BUN/Creatinine Ratio 22.9 H (10-20) Glucose 94 (70-99(Fasting)) mg/dl Lactate 0.8 (0.4-2.0) mmol/L Calcium 9.1 (8.6-10.3) mg/dl Phosphorus 3.1 (2.5-4.9) mg/dl Magnesium 2.2 (1.7-2.4) mg/dl Total Bilirubin 0.4 (0.2-1.0) mg/dl AST 26 (13-39) U/L ALT 28 (7-52) U/L Alkaline Phosphatase 67 (34-104) U/L Troponin I High Sens 2.4 (0-20) pg/ml Total Protein 6.4 (6.0-8.3) gm/dl Albumin 4.1 (3.4-5.0) gm/dl Globulin 2.3 L (2.5-4.0) gm/dl Albumin/Globulin Ratio 1.8 (0.9-2) Lipase 57 (11-82) U/L Procalcitonin < 0.02 (0-0.5) ng/ml TSH 6.093 H (0.300-4.500) uIu/ml Free T4 0.92 (0.61-1.60) ng/dl Urine Color Yellow Urine Appearance Clear (Clear) Urine pH 7.0 (4.5-7.5) Ur Specific [place] 1.015 (1.000-1.030) Urine Protein Negative (Negative) Urine Glucose (UA) Negative (Negative) Urine Ketones Negative (Negative) Urine Blood Negative (Negative) Urine Nitrite Negative (Negative) Urine Bilirubin Negative (Negative) Urine Urobilinogen Negative (Negative) Ur Leukocyte Esterase Trace H (Negative) Urine WBC (Auto) 0-5 (0-5) /hpf Urine RBC (Auto) 0-2 (0-2) /hpf U Hyaline Cast (Auto) 0-2 (0-2) /lpf U Epithel Cells (Auto) 0-2 (0-2) /hpf Urine Bacteria (Auto) None Seen (None Seen) Administered Medications Atenolol (Atenolol 50 Mg Tablet) 100 mg PO BID [facility] Stop: 01/12/25 00:55 Last Admin: 12/13/24 01:43 Dose: 100 mg Documented By: JAEL Cephalexin HCl (Cephalexin 500 Mg Cap) 500 mg PO QID [facility]; Protocol Stop: 12/15/24 22:04 Last Admin: 12/13/24 01:42 Dose: 500 mg Documented By: JAEL Sodium Chloride (Nss) 1,000 mls @ 80 mls/hr IV .[id number] [facility] Stop: 12/13/24 10:44 Last Admin: 12/12/24 23:13 Dose: 80 mls/hr Documented By: JAEL Lisinopril (Lisinopril 10 Mg Tab) 10 mg PO [facility] Stop: 01/12/25 00:55 Last Admin: 12/13/24 01:43 Dose: 10 mg Documented By: JAEL Rosuvastatin Calcium (Rosuvastatin Calcium 20 Mg Tab) 40 mg PO [facility] Stop: 01/12/25 00:55 Last Admin: 12/13/24 01:42 Dose: 40 mg Documented By: JAEL Imaging Data Radiologist's Impression: Chest X-Ray 12/12/24 18:57 EXAM: XR chest 1V portable CLINICAL HISTORY: AMS. TECHNIQUE: An X-ray image of the chest is obtained in AP portable projection. COMPARISON: CR dated 12/01/2024. FINDINGS: Pulmonary Parenchyma: Prominent bronchovascular markings No evidence of consolidation, collapse A nodular shadow is seen at the left lower lung zone. measuring about 1 cm. No evidence of pleural effusion or pleural thickening. Heart and Mediastinum: Cardiomegaly. A pacemaker is noted in place. No mediastinal widening or masses. No hilar or mediastinal lymphadenopathy. Bony Thorax: The bony thorax appears intact without fractures or deformities. Possible right 2nd posterior rib lateral aspect old fracture Soft Tissues: Soft tissues overlying the chest wall are unremarkable. IMPRESSION: 1. Prominent bronchovascular markings (stable), likely lung congestion. 2. Cardiomegaly. 3. Left lower lung zone nodular shadow. Follow-up is advised. Electronically signed by Robbie Silvestre 12-12-2024 9:[address] 12/12/24 19:28 Exam(s): CT HEAD Without Contrast EXAM: CT Head Without Intravenous Contrast CLINICAL HISTORY: Reason for exam: AMS. TECHNIQUE: Axial computed tomography images of the head/brain without intravenous contrast. CTDI is 37.32 mGy and DLP is 546.36 mGy-cm. Automated exposure control was utilized for the study. A dose lowering technique was utilized adhering to the principles of ALARA. COMPARISON: 12/01/2024 FINDINGS: Brain: No intracranial hemorrhage. Global parenchymal atrophy. Confluent periventricular low-attenuation. Chronic left frontal infarct. Ventricles: Unremarkable. Bones/joints: Prior left frontal craniotomy. Soft tissues: Unremarkable. Sinuses: No acute sinusitis. Mastoid air cells: Unremarkable as visualized. IMPRESSION: 1. No acute intracranial abnormality. 2. Global parenchymal atrophy and chronic ischemic changes. Electronically signed by: Victorino Banerjee MD 12/12/24 20:23 PM Discharge Plan Visit Data Chief Complaint: Confusion Stated Complaint: AMS, UTI ED Provider: Noah Domínguez Discharge Problem: AMS (altered mental status) Patient Disposition: Admitted As Inpatient Discharge Instructions Interventions: ED Discharge Assessment Last Done: 12/13/24 00:56
--- NOTE | 2024-12-12 21:28 | XRay Report ---
EXAM: XR chest 1V portable CLINICAL HISTORY: AMS. TECHNIQUE: An X-ray image of the chest is obtained in AP portable projection. COMPARISON: CR dated 12/01/2024. FINDINGS: Pulmonary Parenchyma: Prominent bronchovascular markings No evidence of consolidation, collapse A nodular shadow is seen at the left lower lung zone. measuring about 1 cm. No evidence of pleural effusion or pleural thickening. Heart and Mediastinum: Cardiomegaly. A pacemaker is noted in place. No mediastinal widening or masses. No hilar or mediastinal lymphadenopathy. Bony Thorax: The bony thorax appears intact without fractures or deformities. Possible right 2nd posterior rib lateral aspect old fracture Soft Tissues: Soft tissues overlying the chest wall are unremarkable. IMPRESSION: 1. Prominent bronchovascular markings (stable), likely lung congestion. 2. Cardiomegaly. 3. Left lower lung zone nodular shadow. Follow-up is advised. Electronically signed by Robbie Silvestre 12-12-2024 9:28 PM
[2024-12-12 21:31] LABS: T4 Free Thyroxine 0.92 ng/dl (0.61-1.60)
--- NOTE | 2024-12-12 21:34 | History & Physical Report ---
Date of Service December 12, 2024 Assessment & Plan (1) AMS (altered mental status): (2) Dementia: (3) Recurrent UTI: Plan Patient is an 84-year-old male with past medical history of intracranial hemorrhage 06/30, BPH, sick sinus syndrome, hypertension, A-fib not anticoagulated. Patient has had numerous readmissions for altered mental status and was most recently admitted from 12/01 to 12/06 altered mental status secondary to UTI and influenza A. Patient completed course 5-day course of ceftriaxone and is currently still on a 10-day course of Keflex. Patient presented via EMS due to altered mental status today, patient is completely disoriented and was unable to ambulate at home. Patient's was concerned that he slid out of his chair and may have hit his head. Workup in ED revealed no abnormalities or infectious origin, head CT negative. After extensive discussion with patient's , she would like patient to be admitted in anticipation of placement at a memory care unit as she is unable to care for him at home. #altered mental status/confusion Suspect worsening cognitive baseline exacerbated by intracranial hemorrhage June 2024, recurrent infections, recurrent admissions no signs of infectious etiology, no leukocytosis, VSS, afebrile, UA negative, CXR negative Head CT negative CXR showed prominent bronchovascular markings, cardiomegaly, LLL zone nodular shadow (follow-up is advised); CXR personally compared to previous and similar Laboratories essentially WNL, Electrolytes WNL, TSH WNL given age BUN/CR mildly elevated; NSS x 1L at 80 mL/hour overnight promote good sleep wake cycles - melatonin HS prn case management consulted anticipate placement in a memory care unit, considering [facility] (prefers [facility]) PT/OT consulted repeat CBC with am labs fall and aspiration precautions #recurrent UTIs complete urinary incontinence, patient's frustrated with multiple readmissions for UTIs, has tried to get into urology for several months history of Klebsiella resistant to nitrofurantoin completing course of Keflex from recent admission, continue (to complete 12/15) Patient's requesting urology consult as has has difficulty with outpatient appointment post void bladder scan ordered Urology consulted Chronic stable diagnoses: history of ICH06/2024, no longer on anticoagulation or antiseizure medication, follows with neurology Dr. Dhillon HTNcontinue atenolol and lisinopril HLDcontinue rosuvastatin and ASA A-fib/Sick sinus syndromes/p pacer, continue atenolol, no anticoagulation with history of ICH eri - cpap hs VTE ppx: SCDs, defer chemical ppx with hx of ICH Diet: regular, soft bite sized Dispo: med surg Admission and Anticipated Discharge Date Admission Date: 12/12/24 History of Present Illness Chief Complaint: confusion Primary Care Provider: Kenny Rubalcava MD Patient is an 84-year-old male with past medical history of intracranial hemorrhage 06/30, BPH, sick sinus syndrome, hypertension, A-fib not anticoagulated. Patient has had numerous readmissions for altered mental status and was most recently admitted from 12/01 to 12/06 altered mental status secondary to UTI and influenza A. Patient completed course 5-day course of ceftriaxone and is currently still on a 10-day course of Keflex. Patient presented via EMS due to altered mental status today, patient is completely disoriented and was unable to ambulate at home. Patient's was concerned that he slid out of his chair and may have hit his head. Workup in ED revealed no abnormalities or infectious origin, head CT negative. After extensive discussion with sergo see's , she would like patient to be admitted in anticipation of placement at a memory care unit as she is unable to care for him at home. Patient seen at bedside. His and family friend was present. Patient is completely disoriented however responds to verbal stimuli and commands. His stated that he was more disoriented than baseline today and typically can get up with a walker or wheelchair and today was having difficulty with ambulation. He just was not himself today as per the patient's . She thought he may have a recurrent UTI, however workup in the ED was negative. He did spit out his afternoon Keflex, ordered on admission. Patient's is concerned about recurrent UTIs as patient is completely incontinent of bladder and soaks through depends in bed sheets daily. She has tried numerous times for outpatient urology appointments however has had difficulty obtaining. She would like for urology to evaluate the patient while he is here. Had extensive discus parris with patient's regarding cognitive decline. She feels as though she is unable to care for the patient at home. She has tried home health nurses, home PT/OT, has caregivers 8 hours a day. She has already reached out to [facility] memory care unit in [facility]. She prefers [facility] as she has a family friend that works there. She stated that the patient has advanced directive stating he wishes to be DNR/DNI. Allergies Allergy/AdvReac Type Severity Reaction Status Date / Time streptokinase Allergy Intermediate Flushing Verified 12/12/24 20:39 Home Medications Medication Instructions Recorded Confirmed Type coenzyme Q10 200 mg capsule (Co 200 mg PO QAM ##0 03/08/11 12/12/24 History Q-10) sodium chloride 0.65 % nasal spray 2 spray intranasal QID PRN NASAL 04/20/20 12/12/24 History aerosol (Deep Sea Nasal) DRYNESS [id number] 300 mcg-K 60 1 tab PO QAM 01/10/22 12/12/24 History mcg-lycop 600 mcg-lutein 300 mcg tablet (Centrum Silver Men) acetaminophen 325 mg tablet 650 mg (2 x 325 mg) PO Q4H PRN 11/10/24 12/12/24 Rx fever or pain #10 tabs cephalexin 500 mg capsule 500 mg PO QID #40 caps 12/06/24 12/12/24 Rx aspirin 81 mg tablet,delayed 81 mg PO QAM #30 tabs 12/16/24 Rx release atenolol 100 mg tablet 100 mg PO BID #60 tabs 12/16/24 Rx escitalopram oxalate 5 mg tablet 5 mg PO QAM #30 tabs 12/16/24 Rx lisinopril 10 mg tablet 10 mg PO HS #30 tabs 12/16/24 Rx lisinopril 20 mg tablet 20 mg PO QAM #30 tabs 12/16/24 Rx nitroglycerin 0.4 mg sublingual 0.4 mg sublingual Q5M PRN chest 12/16/24 Rx tablet pain #10 tabs rosuvastatin 40 mg tablet 40 mg PO HS #30 tabs 12/16/24 Rx Past Med/Surg History Problem List (Updated 12/12/24 @ 22:55 by Yumiko Estrella PA-C) Recurrent UTI AMS (altered mental status) (Acute) Dementia (Acute) Altered mental status (Acute) Acute UTI (Acute) Influenza A virus subtype H1 2009 pandemic strain present (Acute) Atrial fibrillation with RVR Cholelithiasis Constipation Dysphagia Influenza A AMS (altered mental status) (Acute) Intracranial hemorrhage Seizure-like activity Other symptoms and signs involving cognitive functions and awareness Epistaxis (Acute) H/O umbilical hernia repair (08/18/19) Open Umbilical Hernia Repair Dr. Zamora 08/18/19 Encounter for pre-operative examination Patient okay for surgery as per cardiology 07/26/19. Past heart attack (Acute) had in 1991 Hyperglycemia (Acute) Hypercholesterolemia (Acute) Gross hematuria (Acute) Former smoker (Acute) Elevated prostate specific antigen (PSA) (Acute) Benign prostatic hyperplasia with elevated prostate specific antigen (PSA) (Acute) Allergic rhinitis (Acute) Umbilical hernia without mention of obstruction or gangrene Sick sinus syndrome (Acute) 2008 DX Hypertension (Acute) Medical History (Updated 12/12/24 @ 22:55 by Yumiko Estrella PA-C) RLL pneumonia UTI (urinary tract infection) Coronary artery disease Paroxysmal atrial fibrillation Presence of cardiac pacemaker Raynauds syndrome Atrial fibrillation DX 2014 (REASON FOR TAKING XARELTO) Myocardial Infarction 1991 Hyperlipidemia Raynauds phenomenon Ulcerative colitis History of cardiac pacemaker 2007 (S/P SYNCOPAL EPISODE) FOLLOWED BY DR. SMITH 2019 CHANGED PACEMAKER (MEDTRONIC DEVICE) Surgical History (Updated 12/12/24 @ 00:07 by Sahil Manriquez) History of colonoscopy History of cataract surgery RT/LEFT History of cardiac catheterization 1991 ANGIOPLASTY @ [facility] [place] History of wisdom tooth extraction Family History Father Heart disease Stroke Social History Smoking Status: Unknown if ever smoked Tobacco Type: Cigarettes Second Hand Exposure: No; Do You Dip or Chew Tobacco: No; Hx Alcohol Use: No Hx Substance Use: No Preferred Language: [place] Communication Ability: Impaired Alumni Coordinator Required: No Beliefs That Will Affect Care: None marital status: Current Living Situation: Spouse 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 status: 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 HEENT- EOMI, mucous membranes dry. Hearing grossly intact. Heart-normal S1 and S2. No murmurs, rubs or gallops. Lungs-clear bilaterally, no respiratory distress, no accessory muscle use. Abdomen-normal bowel sounds and soft. No ascites noted. Non-tender. Extremities- no clubbing, cyanosis, or edema. Results & Data Results & Data Vital Signs (Past 12 Hours) Vital Signs Temp Pulse Pulse Resp BP BP Pulse Ox 12/12/24 20:00 71 18 160/95 H 96 12/12/24 19:20 92 12/12/24 18:40 36.5 C 75 18 170/94 H 100 O2 Del Method 12/12/24 20:00 Room Air 12/12/24 19:20 Room Air 12/12/24 18:40 Room Air Laboratory Results Reviewed CBC, CMP, UA, magnesium, procalcitonin, TSH, free T4 Diagnostic Findings reviewed head CT and CXR Medications Administered EDnone AdmissionNSS at 80 mL/hour x 1 L ECG Additional Comments: ventricular paced rhythm with occasional PVC, rate 64 QTc 445 Code Status & VTE Plan Code Status dnr/dni VTE Prophylaxis Plan VTE Prophylaxis will be ordered: Yes Supervising Physician Co-Signing Physician Notes I personally saw and examined the patient. I independently reviewed the labs, EKG, imaging, problem list, medication list, past medical history and family history. I verified all mitchell points and agree with Yumiko Estrella PA-C with the following exceptions and/or additions: 84-year-old male presents to the ER with altered mental status. Unable to get any independent history from the patient. On reading previous notes appears likely his cognition is just worse from his recent intracranial hemorrhage and he is never fully recovered from this. O/E Alert, disorientated x 3, HS RRR, no murmurs, Chest CTAHn, Abdo SNT, moving all extremities A/P AMS - suspected progressive decline, no acute pathology suspected from history above, examination, imaging and labs, PT/OT/case management PG Care Time/CCT Total # of Minutes Spent Total Time Spent with Patient: Total time spent is greater than 50% in coordination of care (as documented) at patient's floor/unit and/or counseling patient: Coding Level of Care Code 62015 INT INP/OBS CARE 3/75MIN Diagnoses AMS (altered mental status) R41.82 Dementia F03.90 Dementia behavioral or psychological symptom: unspecified whether behavioral, psychotic, or mood disturbance or anxiety Dementia severity: unspecified severity Dementia type: unspecified type Recurrent UTI N39.0 (2) Dementia Dementia behavioral or psychological symptom: unspecified whether behavioral, psychotic, or mood disturbance or anxiety Dementia severity: unspecified severity Dementia type: unspecified type Qualified Code(s): F03.90 - Unspecified dementia, unspecified severity, without behavioral disturbance, psychotic disturbance, mood disturbance, and anxiety
--- NOTE | 2024-12-12 22:00 | Advance Care Plan Prog Note ---
Advanced Care Planning Note Date of Discussion December 12, 2024 ACP Discussion Diagnoses requiring ACP discussion: altered mental status, confusion, dementia A [id number] discussion with the patient's regarding the patient's advanced care planning took place during this hospitalization on the above date. The discussion included the explanation and discussion of advance directives and associated forms/documents, as well as the patient's current code status. We also discussed at length the patient's medical conditions (both acute and chronic), general prognosis, treatment options, and goals of care. The following summarizes the discussion: patient's is concerned about taking care of the patient at home by herself with increasing episodes of confusion over the past few months. Patient had multiple intracranial hemorrhages starting in June 2024 and has been declining since. He has had multiple readmissions for altered mental status and has been found to have pneumonia and UTIs on several occasions, however with this admission there are no signs of infection, head CT is negative, laboratories within normal limits. Patient's has been in contact with [facility] and [facility] memory care units regarding placement of the patient in a memory care unit for suspected dementia. Unclear as to if patient has official diagnosis of dementia with cognitive testing however anticipate some level of dementia with cognitive decline over several months exacerbated by intracranial hemorrhages in June. Patient is disoriented at baseline. Patient's understands that with reoccurring admissions and cognitive decline, she may have difficulty caring for him at home. She would like him to be admitted in anticipation of placement at a memory care unit. She has tried home health nurses and has caregivers for 8 hours a day without success. DPOA-HC/Surrogate Decision Maker Patient's , Hilda Status DNR/DNI Forms/Documents patient's stated that he has advanced directive stating that he would wish to be DNR/DNI Total Time I spent a total of 45 minutes was spent on this discussion, including counseling, answering questions, and completing, if any, pertinent advanced care planning forms/documents.
[2024-12-12] MEDS: SODIUM CHLORIDE 0.9% 1,000 ML IV SCH (23:13)
[2024-12-13] MEDS ORDERED: SODIUM CHLORIDE 0.65% NA SOLN 45 ML (OCEAN) PRN (00:56)
[2024-12-13] MEDS ORDERED: ACETAMINOPHEN 325 MG TAB PO PRN (00:56)
[2024-12-13] MEDS ORDERED: ONDANSETRON INJ 2 MG/ML 2 ML VIAL IV PRN (00:56)
[2024-12-13] MEDS ORDERED: DOCUSATE SODIUM 100 MG CAP PO PRN (00:56)
[2024-12-13] MEDS: cephALEXin 500 MG CAP PO SCH (01:42)
[2024-12-13] MEDS: ROSUVASTATIN CALCIUM 20 MG TAB PO SCH (01:42)
[2024-12-13] MEDS: lisinopril 10 MG TAB PO SCH (01:43)
[2024-12-13] MEDS: ATENOLOL 50 MG TABLET PO SCH (01:43)
[2024-12-13 08:31] LABS: Basophils # (auto) 0.03 K/uL (0.00-0.20); Basophils % (auto) 0.6 %; Eosinophils # (auto) 0.14 K/uL (0.00-0.50); Eosinophils % (auto) 2.6 %; Hematocrit (blood only) 36.1 % (42.0-52.0); Hemoglobin 11.9 g/dl (14.0-18.0); Immature Granulocytes # (auto) 0.02 K/uL (0.01-0.20); Immature Granulocytes % (auto) 0.4 %; Lymphocytes # (auto) 1.46 K/uL (1.20-3.40); Mean Corpuscular Hemoglobin 29.5 pg (25.0-34.0); Mean Corpuscular Volume 89.4 fL (80.0-100.0); Mean Platelet Volume 12.6 fL (9.4-12.4); Monocytes # (auto) 0.38 K/uL (0.11-0.59); Neutrophils # (auto) 3.37 K/uL (1.40-6.50); Neutrophils % (auto) 62.4 %; Platelet Count 117 K/uL (130-400); RDW Coefficient of Variation 12.8 % (11.5-14.5); RDW Standard Deviation 41.6 fL (36.4-46.3); Red Blood Count 4.04 M/uL (4.70-6.10)
[2024-12-13] MEDS: ASPIRIN 81 MG ECTAB PO SCH (08:32)
[2024-12-13] MEDS: lisinopril 20 MG TAB PO SCH (08:32)
[2024-12-13] MEDS: ESCITALOPRAM OXALATE 10 MG TAB PO SCH (08:33)
--- NOTE | 2024-12-13 14:08 | Hospitalist Progress Note ---
Date of Service December 13, 2024 Assessment & Plan (1) AMS (altered mental status): (2) Dementia: (3) Recurrent UTI: Plan This pt is an 84M with PMHx of intracranial hemorrhage 06/30, BPH, sick sinus syndrome, hypertension, A-fib not anticoagulated. Patient has had numerous readmissions for altered mental status and was most recently admitted from 12/01 to 12/06 altered mental status secondary to UTI and influenza A. Patient completed course 5-day course of ceftriaxone and is currently still on a 10-day course of Keflex. Patient presented via EMS due to altered mental status today, patient is completely disoriented and was unable to ambulate at home. Patient's was concerned that he slid out of his chair and may have hit his head. Workup in ED revealed no abnormalities or infectious origin, head CT without acute findings but global parenchymal atrophy. After extensive discussion with patient's , she would like patient to be admitted in anticipation of placement at a memory care unit as she is unable to care for him at home. #altered mental status/confusion Suspect worsening cognitive baseline exacerbated by intracranial hemorrhage June 2024, recurrent infections, recurrent admissions. No signs of infectious etiology with CBC/UA/CXR. No electrolyte abnormalities. Subclinical hypothyroidism with elevated TSH/normal T4. CXR showed prominent bronchovascular markings, cardiomegaly, LLL zone nodular shadow (follow-up is advised) PT/OT consulted CM consulted #recurrent UTIs complete urinary incontinence, patient's frustrated with multiple readmissions for UTIs, has tried to get into urology for several months completing course of Keflex from recent admission, continue (to complete 12/15) Urology consulted per request as has had difficulty with outpatient appointment #history of ICH/GLORIA 7mm saccular aneurysm/H/o CVA1, no longer on anticoagulation or antiseizure medication, follows with neurology Dr. Dhillon. CT head this admission with chronic infarct and evidence of craniotomy but no ICH -continue ASA #HTNBPs controlled to somewhat elevated -continue atenolol and lisinopril #HLD/CADwith h/o RCA PTCA 1991 -continue rosuvastatin and ASA, atenolol #Permanent A-fib/Sick sinus syndromes/p pacer, continue atenolol, no anticoagulation with history of ICH but is on ASA #eri - cpap hs #Abnormal CXR-LLL nodular shadow noted -f/u CXR PA/LAT in AM #Depression/Anxiety -continue Lexapro VTE ppx: SCDs, defer chemical ppx with hx of ICH Dispo: continued inpatient stay updated at bedside 12/13 Admission and Anticipated Discharge Date Admission Date: December 12, 2024 Supervising Physician Co-Signing Physician Notes PA Supervision Note: I did not personally see or examine the patient today, but I verified all mitchell points of REBECCA Martinez's assessment and plan with the following exceptions/additions: None Subjective Patient seen sitting up in bed, at bedside feeding him lunch. Patient is alert to self, unable to verbalize complaints at this time as when I asked him how he is doing he reports "fragrance" reports that yesterday he was acting strangesounds most like he was re fusing care, did not want to get changed when he woke up and his bed was wet also in the middle the day just started taking off his clothes while sitting in the living room Review of Systems Review of Systems: All systems reviewed & are unremarkable except as noted in Subjective Physical Exam Physical Exam: General: NAD, VS as above Resp: normal respiratory effort, lungs clear to auscultation CV: RRR, no murmur, Abd: normal bowel sounds, non tender, no hepatosplenomegaly Extremities: Moves all extremities, no edema Neuro: A&O x1, Results & Data Results & Data Vital Signs (Past 12 Hours) Vital Signs Temp Pulse Resp BP Pulse Ox O2 Del Method 12/13/24 07:31 Room Air 12/13/24 07:07 97.9 F 74 16 157/101 H 97 Room Air PG Care Time/CCT Total # of Minutes Spent Total Time Spent with Patient: Total time spent is greater than 50% in coordination of care (as documented) at patient's floor/unit and/or counseling patient: Coding Level of Care Code 45798 SUB INP/OBS CARE 2/35MIN Diagnoses AMS (altered mental status) R41.82 Dementia F03.90 Dementia behavioral or psychological symptom: unspecified whether behavioral, psychotic, or mood disturbance or anxiety Dementia severity: unspecified severity Dementia type: unspecified type Recurrent UTI N39.0 (2) Dementia Dementia behavioral or psychological symptom: unspecified whether behavioral, psychotic, or mood disturbance or anxiety Dementia severity: unspecified severity Dementia type: unspecified type Qualified Code(s): F03.90 - Unspecified dementia, unspecified severity, without behavioral disturbance, psychotic disturbance, mood disturbance, and anxiety
--- NOTE | 2024-12-14 05:37 | Electrocardiogram Report ---
Test Reason : Blood Pressure : */* mmHG Vent. Rate : 64 BPM Atrial Rate : 340 BPM P-R Int : * ms QRS Dur : 106 ms QT Int : 432 ms P-R-T Axes : * -61 111 degrees QTcB Int : 445 ms Ventricular-paced rhythm with occasional Premature ventricular complexes Abnormal ECG When compared with ECG of 01-Dec-2024 19:05, Ventricular-paced rhythm is now Present Vent. rate has decreased by 38 bpm Confirmed by Dennis Adler ([id number]) on 12/14/2024 5:37:26 AM Referred By: REFERRED SELF Confirmed By: Dennis Adler
--- NOTE | 2024-12-14 09:45 | XRay Report ---
XR chest 1V portable CLINICAL HISTORY: recheck LLL nodular shadow COMPARISON STUDY: 12/12/2024 FINDINGS: Stable pacemaker. Stable cardiomegaly without pulmonary vascular congestion. The prior smal l nodular opacity overlying the left lung base on the prior exam is no longer seen. It likely represe nted nipple shadow artifact on the other exam. There is no pulmonary consolidation or pleural effusio n. No pneumothorax. IMPRESSION: No acute findings. ACT 112: Negative or not required by law. Electronically signed by: Dave Van M.D. 12/14/2024 9:44 AM
--- NOTE | 2024-12-14 09:55 | Hospitalist Progress Note ---
Date of Service December 14, 2024 Assessment & Plan (1) AMS (altered mental status): (2) Dementia: (3) Recurrent UTI: Plan This pt is an 84M with PMHx of intracranial hemorrhage 06/30, BPH, sick sinus syndrome, hypertension, A-fib not anticoagulated. Patient has had numerous readmissions for altered mental status and was most recently admitted from 12/01 to 12/06 altered mental status secondary to UTI and influenza A. Patient completed course 5-day course of ceftriaxone and is currently still on a 10-day course of Keflex. Patient presented via EMS due to altered mental status today, patient is completely disoriented and was unable to ambulate at home. Patient's was concerned that he slid out of his chair and may have hit his head. Workup in ED revealed no abnormalities or infectious origin, head CT without acute findings but global parenchymal atrophy and chronic infarct. CXR initial concern for LLL shadow, but not seen on repeat. After extensive discussion with patient's , she would like patient to be admitted in anticipation of placement at a memory care unit as she is unable to care for him at home. #altered mental status/confusion Suspect worsening cognitive baseline exacerbated by intracranial hemorrhage June 2024, recurrent infections, recurrent admissions. No signs of infectious etiology with CBC/UA/CXR. No electrolyte abnormalities. Subclinical hypothyroidism with elevated TSH/normal T4. PT/OT consulted CM consulted #recurrent UTIs complete urinary incontinence, patient's frustrated with multiple readmissions for UTIs, has tried to get into urology for several months. Urology consulted per 's request - spoke with urology, no acute inpatient needs, recommend monitoring emptying and keep outpatient appointment. Consider reconsult if patient is still here when appointment is scheduled 12/21. Completing course of Keflex from recent admission, continue (to complete 12/15) can consider methenamine after finishing antibiotics #history of ICH/GLORIA 7mm saccular aneurysm/H/o CVA1, no longer on anticoagulation or antiseizure medication, follows with neurology Dr. Dhillon. Continue ASA #HTNBPs controlled to somewhat elevated -continue atenolol and lisinopril #HLD/CADh/o RCA PTCA 1991, continue rosuvastatin and ASA, atenolol #Permanent A-fib/Sick sinus syndromes/p pacer, continue atenolol, no anticoagulation with history of ICH but is on ASA #eri - cpap hs, however does not wear at home and has declined in hospital in t he past. O2 stats are okay overnight #Depression/Anxiety-continue Lexapro VTE ppx: SCDs, defer chemical ppx with hx of ICH Dispo: continued inpatient stay updated at bedside 12/13 and 12/14 Admission and Anticipated Discharge Date Admission Date: December 12, 2024 Supervising Physician Co-Signing Physician Notes PA Supervision Note: I did not personally see or examine the patient today, but I verified all mitchell points of REBECCA Martinez's assessment and plan with the following exceptions/additions: None Subjective Patient seen sitting up in bed eating lunch, no family at bedside. Able to feed himself answers to my questions are not appropiate/adequate. but does reply no to having pain Review of Systems Review of Systems: All systems reviewed & are unremarkable except as noted in Subjective Physical Exam Physical Exam: General: NAD, VS as above, sitting up in bed, eating lunch Resp: normal respiratory effort, CV: well perfused Extremities: Moves all extremities, no edema, SCDs in place Neuro: A&O x1, Results & Data Results & Data Vital Signs (Past 12 Hours) Vital Signs Temp Pulse Resp BP Pulse Ox O2 Del Method 12/14/24 07:06 98.1 F 67 16 181/96 H 99 Room Air Diagnostic Findings cxr reviewed PG Care Time/CCT Total # of Minutes Spent Total Time Spent with Patient: Total time spent is greater than 50% in coordination of care (as documented) at patient's floor/unit and/or counseling patient: Coding Level of Care Code 01423 SUB INP/OBS CARE 10/01MIN Diagnoses AMS (altered mental status) R41.82 Dementia F03.90 Dementia behavioral or psychological symptom: unspecified whether behavioral, psychotic, or mood disturbance or anxiety Dementia severity: unspecified severity Dementia type: unspecified type Recurrent UTI N39.0 (2) Dementia Dementia behavioral or psychological symptom: unspecified whether behavioral, psychotic, or mood disturbance or anxiety Dementia severity: unspecified severity Dementia type: unspecified type Qualified Code(s): F03.90 - Unspecified dementia, unspecified severity, without behavioral disturbance, psychotic disturbance, mood disturbance, and anxiety
[2024-12-14] MEDS: MELATONIN 3 MG TAB PO PRN (21:23)
--- NOTE | 2024-12-15 16:04 | Hospitalist Progress Note ---
Date of Service December 15, 2024 Assessment & Plan (1) AMS (altered mental status): (2) Dementia: (3) Recurrent UTI: Plan This pt is an 84M with PMHx of intracranial hemorrhage 06/30, BPH, sick sinus syndrome, hypertension, A-fib not anticoagulated. Patient has had numerous readmissions for altered mental status and was most recently admitted from 12/01 to 12/06 altered mental status secondary to UTI and influenza A. Patient completed course 5-day course of ceftriaxone and still on a 10-day course of Keflex at time of admission. Patient presented via EMS due to AMS- completely disoriented and unable to ambulate at home. Patient's was concerned that he slid out of his chair and may have hit his head. Workup in ED revealed no abnormalities or infectious origin, head CT without acute findings but global parenchymal atrophy and chronic infarct. CXR initial concern for LLL shadow, but not seen on repeat. After extensive discussion with patient's , she would like patient to be admitted in anticipation of placement at a memory care unit as she is unable to care for him at home. #altered mental status/confusion Suspect worsening cognitive baseline exacerbated by intracranial hemorrhage June 2024, recurrent infections, recurrent admissions. No signs of infectious etiology with CBC/UA/CXR. No electrolyte abnormalities. Subclinical hypothyroidism with elevated TSH/normal T4. PT/OT consulted CM consulted #recurrent UTIs complete urinary incontinence, patient's frustrated with multiple readmissions for UTIs, has tried to get into urology for several months. Urology consulted per 's request - spoke with urology, no acute inpatient needs, recommend monitoring emptying and keep outpatient appointment. Consider reconsult if patient is still here when appointment is scheduled 12/21. Will complete Keflex today - consider methenamine after finishing antibiotics #history of ICH/GLORIA 7mm saccular aneurysm/H/o CVA1, no longer on anticoagulation or antiseizure medication, follows with neurology Dr. Dhillon. Continue ASA #HTNBPs controlled to somewhat elevated -continue atenolol and lisinopril #HLD/CADh/o RCA PTCA 1991, continue rosuvastatin and ASA, atenolol #Permanent A-fib/Sick sinus syndromes/p pacer, continue atenolol, no anticoagulation with history of ICH but is on ASA #eri - cpap hs, however does not wear at home and has declined in hospital in the past. O2 stats are okay overnight #Depression/Anxiety-continue Lexapro VTE ppx: SCDs, defer chemical ppx with hx of ICH Dispo: continued inpatient stay, but plan to discharge to [facility] on 12/16 updated at bedside 12/13 and 12/14 Admission and Anticipated Discharge Date Admission Date: December 12, 2024 Supervising Physician Co-Signing Physician Notes PA Supervision Note: I did not personally see or examine the patient today, but I verified all mitchell points of REBECCA Martinez's assessment and plan with the following exceptions/additions: None Subjective patient seen earlier this morning - resting comfortably no family present at bedside. allowed patient to rest Physical Exam Physical Exam: General: NAD, vitals as above, lying in bed Pulm: breathing unlabored CV: well perfused extremities: moves all extremities Results & Data Results & Data Vital Signs (Past 12 Hours) Vital Signs Temp Pulse Resp BP Pulse Ox O2 Del Method 12/15/24 13:52 97.9 F 65 16 141/85 H 95 Room Air 12/15/24 07:15 Room Air 12/15/24 07:06 97.7 F 68 16 157/90 H 99 Room Air PG Care Time/CCT Total # of Minutes Spent Total Time Spent with Patient: Total time spent is greater than 50% in coordination of care (as documented) at patient's floor/unit and/or counseling patient: Coding Level of Care Code 64996 SUB INP/OBS CARE 10/01MIN Diagnoses AMS (altered mental status) R41.82 Dementia F03.90 Dementia behavioral or psychological symptom: unspecified whether behavioral, psychotic, or mood disturbance or anxiety Dementia severity: unspecified severity Dementia type: unspecified type Recurrent UTI N39.0 (2) Dementia Dementia behavioral or psychological symptom: unspecified whether behavioral, psychotic, or mood disturbance or anxiety Dementia severity: unspecified s everity Dementia type: unspecified type Qualified Code(s): F03.90 - Unspecified dementia, unspecified severity, without behavioral disturbance, psychotic disturbance, mood disturbance, and anxiety
[2024-12-15 19:51] VITALS: TEMP 97.5
[2024-12-16 07:54] VITALS: BP 175/83; PULSE 75; RESP 18; O2SAT 99
--- NOTE | 2024-12-16 09:20 | Discharge Summary ---
Discharge Summary Date of Service December 16, 2024 Principal Dx & Hospital Course #1 = Principal Diagnosis (1) AMS (altered mental status): (2) Dementia: (3) Recurrent UTI: Plan #altered mental status/confusion This pt is an 84M with PMHx of intracranial hemorrhage 06/30, BPH, sick sinus syndrome, hypertension, A-fib not anticoagulated. Patient has had numerous readmissions for altered mental status and was most recently admitted from 12/01 to 12/06 altered mental status secondary to UTI and influenza A. Patient completed 5-day course of ceftriaxone and 10-day course of Keflex. Patient presented via EMS due to AMS- completely disoriented and unable to ambulate at home. Patient's was concerned that he slid out of his chair and may have hit his head. Workup in ED revealed no abnormalities or infectious origin, head CT without acute findings but global parenchymal atrophy and chronic infarct. CXR initial concern for LLL shadow, but not seen on repeat. Suspect worsening cognitive baseline exacerbated by intracranial hemorrhage June 2024, recurrent infections, recurrent admissions. No infectious or acute etiology. Subclinical hypothyroidism with elevated TSH/normal T4. is no longer able to take care of Dung at home, has been accepted to [facility] and stable for discharge today. #recurrent UTIs complete urinary incontinence, patient's frustrated with multiple readmissions for UTIs, has tried to get into urology for several months. Urology consulted per 's request - spoke with urology, no acute inpatient needs, recommend monitoring emptying and keep outpatient appointment. Consider reconsult if patient is still here when appointment is scheduled 12/21. Completed course of keflex. Defer additional medications to outpatient urology visit. #history of ICH/GLORIA 7mm saccular aneurysm/H/o CVA1, no longer on anticoagulation or antiseizure medication, follows with neurology Dr. Dhillon. Continue ASA #HTN-continue atenolol and lisinopril #HLD/CADh/o RCA PTCA 1991, continue rosuvastatin and ASA, atenolol #Permanent A-fib/Sick sinus syndromes/p pacer, continue atenolol, no anticoagulation with history of ICH but is on ASA #eri - cpap hs, however does not wear at home and has declined in hospital in the past. O2 stats are okay overnight #Depression/Anxiety-continue Lexapro Dispo: discharge to [facility] today updated at bedside 12/13 and 12/14 Notes For Next Care Provider keep urology appointment 12/21 Admission HPI Per Admitting Provider Patient is an 84-year-old male with past medical history of intracranial hemorrhage 06/30, BPH, sick sinus syndrome, hypertension, A-fib not anticoagulated. Patient has had numerous readmissions for altered mental status and was most recently admitted from 12/01 to 12/06 altered mental status secondary to UTI and influenza A. Patient completed course 5-day course of ceftriaxone and is currently still on a 10-day course of Keflex. Patient presented via EMS due to altered mental status today, patient is completely disoriented and was unable to ambulate at home. Patient's was concerned that he slid out of his chair and may have hit his head. Workup in ED revealed no abnormalities or infectious origin, head CT negative. After extensive discussion with patient's , she would like patient to be admitted in anticipation of placement at a memory care unit as she is unable to care for him at home. Patient seen at bedside. His and family friend was present. Patient is completely disoriented however responds to verbal stimuli and commands. His stated that he was more disoriented than baseline today and typically can get up with a walker or wheelchair and today was having difficulty with ambulation. He just was not himself today as per the patient's . She thought he may have a recurrent UTI, however workup in the ED was negative. He did spit out his afternoon Keflex, ordered on admission. Patient's is concerned about recurrent UTIs as patient is completely incontinent of bladder and soaks through depends in bed sheets daily. She has tried numerous times for outpatient urology appointments however has had difficulty obtaining. She would like for urology to evaluate the patient while he is here. Had extensive discussion with patient's regarding cognitive decline. She feels as though she is unable to care for the patient at home. She has tried home health nurses, home PT/OT, has caregivers 8 hours a day. She has already reached out to [facility] memory care unit in [facility]. She prefers [facility] as she has a family friend that works there. She stated that the patient has advanced directive stating he wishes to be DNR/DNI. Discharge Exam General: NAD, vitals as above, lying in bed Pulm: breathing unlabored, CTA CV: well perfused, afib extremities: moves all extremities A&O x 1 Discharge Plan Discharge Items Patient Disposition: Personal Assisted Reason For Visit: PLACEMENT, AMS Discharge Diagnosis: hx of ICH Activity: Resume your previous activity Non-emergency contact: Primary Care Provider Call non-emergency contact if: you have any medication questions, your pain is not controlled and your temperature is above 101 Follow-up/Referrals: Jerman Pack MD [Physician] - (keep appointment 12/21) Kenny Rubalcava MD [Primary Care Provider] - Diet: Regular Diet Texture: Dental soft (bite-sized) Addtl Attending Provider Instructions: You were hospitalized after having difficult behaviors at home. Thankfully, there was no infectious or acute process found on your workup. You are being discharged to [facility] for further care and for your safety. You completed the extended course of antibiotics while you were here. Please keep your urology appointment as scheduled. You have blood cultures pending at the time of discharge, they are negative at 48 hours but take 5 days to get final results. If they turn positive you will be notified, you can also check in with your PCP or the [facility] portal. However, given your symptoms I do not expect they will be positive. No changes to your home medications. take care! Pending Studies at Discharge: Yes (blood cultures ) Stand-Alone Forms: My [facility] [employer] Skilled Items Patient informed of condition?: Yes DNR: Yes Discharge Level of Care: Other Communicable Disease: No Discharge Prognosis: Stable Lines: None Urinary Catheter: No Medications and DC Order Prescriptions: Continued coenzyme Q10 [Co Q-10] 200 mg Capsule 200 mg PO QAM Qty: 0 Centrum Silver Men 300-600-300 mcg tablet 1 tab PO QAM Deep Sea Nasal 0.65 % Aerosol,[place] 2 spray INTRANASAL QID PRN (Reason: NASAL DRYNESS) acetaminophen 325 mg Tablet 650 mg PO Q4H PRN (Reason: fever or pain) Qty: 10 0RF atenolol 100 mg tablet 100 mg PO BID Qty: 60 0RF lisinopril 20 mg tablet 20 mg PO QAM Qty: 30 0RF aspirin 81 mg Tablet,Delayed Release (Dr/Ec) 81 mg PO QAM Qty: 30 0RF lisinopril 10 mg tablet 10 mg PO HS Qty: 30 0RF nitroglycerin 0.4 mg tablet, sublingual 0.4 mg SL Q5M PRN (Reason: chest pain) Qty: 10 0RF rosuvastatin 40 mg tablet 40 mg PO HS Qty: 30 0RF escitalopram oxalate 5 mg tablet 5 mg PO QAM Qty: 30 0RF Discontinued cephalexin 500 mg capsule 500 mg PO QID Qty: 40 0RF Rx Instructions: STARTED 12/06/24 FOR 10 DAYS Discharge Orders: Discharge Order (Routine); Ordered 12/16/24 Ordered By: Sheila Martinez Admission Data Admit Date/Time: 12/12/24 22:19 Attending Provider: Jonel Martinez Admit Provider: Jonel De Santiago Primary Care Provider: Kenny Rubalcava Other Providers: Jonel De Santiago; Ginny Jackson [facility] Stay Data Consultations 12/12/24 21:38 ED Decision to Admit Stat Diagnostic Imagining Performed Laboratory Results WBC 5.40 K/ul (4.8-10.8) 12/13/24 07:44 RBC 4.04 M/uL (4.70-6.10) L 12/13/24 07:44 Hgb 11.9 g/dl (14.0-18.0) L 12/13/24 07:44 Hct 36.1 % (42.0-52.0) L 12/13/24 07:44 MCV 89.4 fL (80.0-100.0) 12/13/24 07:44 MCH 29.5 pg (25.0-34.0) 12/13/24 07:44 MCHC 33.0 g/dL (32.0-36.0) 12/13/24 07:44 RDW Std Deviation 41.6 fL (36.4-46.3) 12/13/24 07:44 RDW Coeff of Larry 12.8 % (11.5-14.5) 12/13/24 07:44 Plt Count 117 K/uL (130-400) L 12/13/24 07:44 MPV 12.6 fL (9.4-12.4) H 12/13/24 07:44 Immature Gran % (Auto) 0.4 % 12/13/24 07:44 Neut % (Auto) 62.4 % 12/13/24 07:44 Lymph % (Auto) 27.0 % 12/13/24 07:44 [place] % (Auto) 7.0 % 12/13/24 07:44 Eos % (Auto) 2.6 % 12/13/24 07:44 Baso % (Auto) 0.6 % 12/13/24 07:44 Neut # (Auto) 3.37 K/uL (1.40-6.50) 12/13/24 07:44 Lymph # (Auto) 1.46 K/uL (1.20-3.40) 12/13/24 07:44 [place] # (Auto) 0.38 K/uL (0.11-0.59) 12/13/24 07:44 Eos # (Auto) 0.14 K/uL (0.00-0.50) 12/13/24 07:44 Baso # (Auto) 0.03 K/uL (0.00-0.20) 12/13/24 07:44 Immature Gran # (Auto) 0.02 K/uL (0.01-0.20) 12/13/24 07:44 Sodium 140 mmol/L (136-145) 12/12/24 20:05 Potassium 4.4 mmol/L (3.5-5.1) 12/12/24 20:05 Chloride 107 mmol/L (98-107) 12/12/24 20:05 Carbon Dioxide 30 mmol/L (21-32) 12/12/24 20:05 Anion Gap 3 (3-11) 12/12/24 20:05 BUN 19 mg/dl (6-23) 12/12/24 20:05 Creatinine 0.83 mg/dl (0.6-1.4) 12/12/24 20:05 Est Cr Clr Drug Dosing 61.4 ml/min 12/12/24 20:05 eGFR 85.77 12/12/24 20:05 BUN/Creatinine Ratio 22.9 (10-20) H 12/12/24 20:05 Glucose 94 mg/dl (70-99(Fasting)) 12/12/24 20:05 Lactate 0.8 mmol/L (0.4-2.0) 12/12/24 20:05 Calcium 9.1 mg/dl (8.6-10.3) 12/12/24 20:05 Phosphorus 3.1 mg/dl (2.5-4.9) 12/12/24 20:05 Magnesium 2.2 mg/dl (1.7-2.4) 12/12/24 20:05 Total Bilirubin 0.4 mg/dl (0.2-1.0) 12/12/24 20:05 AST 26 U/L (13-39) 12/12/24 20:05 ALT 28 U/L (7-52) 12/12/24 20:05 Alkaline Phosphatase 67 U/L (34-104) 12/12/24 20:05 Troponin I High Sens 2.4 pg/ml (0-20) 12/12/24 20:05 Total Protein 6.4 gm/dl (6.0-8.3) 12/12/24 20:05 Albumin 4.1 gm/dl (3.4-5.0) 12/12/24 20:05 Globulin 2.3 gm/dl (2.5-4.0) L 12/12/24 20:05 Albumin/Globulin Ratio 1.8 (0.9-2) 12/12/24 20:05 Lipase 57 U/L (11-82) 12/12/24 20:05 Procalcitonin < 0.02 ng/ml (0-0.5) 12/12/24 20:05 TSH 6.093 uIu/ml (0.300-4.500) H 12/12/24 20:05 Free T4 0.92 ng/dl (0.61-1.60) 12/12/24 20:05 Urine Color Yellow 12/12/24 19:14 Urine Appearance Clear (Clear) 12/12/24 19:14 Urine pH 7.0 (4.5-7.5) 12/12/24 19:14 Ur Specific [place] 1.015 (1.000-1.030) 12/12/24 19:14 Urine Protein Negative (Negative) 12/12/24 19:14 Urine Glucose (UA) Negative (Negative) 12/12/24 19:14 Urine Ketones Negative (Negative) 12/12/24 19:14 Urine Blood Negative (Negative) 12/12/24 19:14 Urine Nitrite Negative (Negative) 12/12/24 19:14 Urine Bilirubin Negative (Negative) 12/12/24 19:14 Urine Urobilinogen Negative (Negative) 12/12/24 19:14 Ur Leukocyte Esterase Trace (Negative) H 12/12/24 19:14 Urine WBC (Auto) 0-5 /hpf (0-5) 12/12/24 19:14 Urine RBC (Auto) 0-2 /hpf (0-2) 12/12/24 19:14 U Hyaline Cast (Auto) 0-2 /lpf (0-2) 12/12/24 19:14 U Epithel Cells (Auto) 0-2 /hpf (0-2) 12/12/24 19:14 Urine Bacteria (Auto) None Seen (None Seen) 12/12/24 19:[address] 12/12/24 19:28 Exam(s): CT HEAD Without Contrast EXAM: CT Head Without Intravenous Contrast CLINICAL HISTORY: Reason for exam: AMS. TECHNIQUE: Axial computed tomography images of the head/brain without intravenous contrast. CTDI is 37.32 mGy and DLP is 546.36 mGy-cm. Automated exposure control was utilized for the study. A dose lowering technique was utilized adhering to the principles of ALARA. COMPARISON: 12/01/2024 FINDINGS: Brain: No intracranial hemorrhage. Global parenchymal atrophy. Confluent periventricular low-attenuation. Chronic left frontal infarct. Ventricles: Unremarkable. Bones/joints: Prior left frontal craniotomy. Soft tissues: Unremarkable. Sinuses: No acute sinusitis. Mastoid air cells: Unremarkable as visualized. IMPRESSION: 1. No acute intracranial abnormality. 2. Global parenchymal atrophy and chronic ischemic changes. Electronically signed by: Victorino Banerjee MD 12/12/24 20:23 PM Chest X-Ray 12/14/24 08:52 XR chest 1V portable CLINICAL HISTORY: recheck LLL nodular shadow COMPARISON STUDY: 12/12/2024 FINDINGS: Stable pacemaker. Stable cardiomegaly without pulmonary vascular congestion. The prior small nodular opacity overlying the left lung base on the prior exam is no longer seen. It likely represented nipple shadow artifact on the other exam. There is no pulmonary consolidation or pleural effusion. No pneumothorax. IMPRESSION: No acute findings. ACT 112: Negative or not required by law. Electronically signed by: Dave Van M.D. 12/14/2024 9:44 AM Pending Results Patient Have Any Pending Studies at Discharge: Yes (blood cultures ) Discharge Instructions Given to Patient (Per Discharging Provider) You were hospitalized after having difficult behaviors at home. Thankfully, there was no infectious or acute process found on your workup. You are being discharged to [facility] for further care and for your safety. You completed the extended course of antibiotics while you were here. Please keep your urology appointment as scheduled. You have blood cultures pending at the time of discharge, they are negative at 48 hours but take 5 days to get final results. If they turn positive you will be notified, you can also check in with your PCP or the [facility] portal. However, given your symptoms I do not expect they will be positive. No changes to your home medications. take care! Total Time Total Time Spent Total Time Spent (In Minutes): Time spent day of discharge 35 minutes including direct patient care, medication reconciliation, documentation, review of labs and images, and coordination of care. Discussed with CM Coding Level of Care Code 24921 INP/OBS DISCH >30 MIN Diagnoses AMS (altered mental status) R41.82 Dementia F03.90 Dementia behavioral or psychological symptom: unspecified whether behavioral, psychotic, or mood disturbance or anxiety Dementia severity: unspecified severity Dementia type: unspecified type Recurrent UTI N39.0
== END 2024-12-16 11:20 | disposition home or self-care (01) | DRG 884 ==
LOC: ED 18:45 → SUATTDRO 22:19 → EDINP 22:19 → 3E 12-13 02:29

== ENCOUNTER 2025-01-04 14:40 | Observation (INO) ==
[2025-01-04 15:21] LABS: iSTAT Creatinine 1.5 mg/dl (0.6-1.3); iSTAT Hemoglobin 13.9 g/dl (14.0-18.0); iSTAT Ionized Calcium 1.2 mmol/l (1.12-1.32); iSTAT Potassium 3.2 mmol/L (3.3-5.0)
[2025-01-04 15:23] LABS: Basophils # (auto) 0.02 K/uL (0.00-0.20); Basophils % (auto) 0.2 %; Eosinophils # (auto) 0.08 K/uL (0.00-0.50); Eosinophils % (auto) 0.8 %; Hematocrit (blood only) 44.6 % (42.0-52.0); Hemoglobin 14.2 g/dl (14.0-18.0); Immature Granulocytes # (auto) 0.03 K/uL (0.01-0.20); Immature Granulocytes % (auto) 0.3 %; Lymphocytes # (auto) 1.56 K/uL (1.20-3.40); Lymphocytes % (auto) 16.5 %; Mean Corpuscular Hemoglobin 29.6 pg (25.0-34.0); Mean Corpuscular Hgb Conc 31.8 g/dL (32.0-36.0); Mean Corpuscular Volume 92.9 fL (80.0-100.0); Mean Platelet Volume 12.8 fL (9.4-12.4); Monocytes # (auto) 0.65 K/uL (0.11-0.59); Monocytes % (auto) 6.9 %; Neutrophils # (auto) 7.14 K/uL (1.40-6.50); Neutrophils % (auto) 75.3 %; Platelet Count 98 K/uL (130-400); RDW Coefficient of Variation 14.2 % (11.5-14.5); RDW Standard Deviation 48.8 fL (36.4-46.3); White Blood Count 9.48 K/ul (4.8-10.8)
--- NOTE | 2025-01-04 15:39 | Emergency Department Note ---
Impression & Plan Acute hypernatremia, Right clavicle fracture, Lumbar compression fracture, History of intracranial hemorrhage ED Provider Note NAME: MALATHI GAMEZ Jr AGE: 84 SEX: M : 1940 ARRIVES VIA: Ambulance INFORMANT: Patient ED PROVIDER(S): Matthieu Dong MD CHIEF COMPLAINT: Fall, referred PLAN: Disposition: Admit MEDICAL DECISION MAKING: The patient is a pleasant 84-year-old gentleman with a past medical history of ICH in June 2024 with associated large area of encephalomalacia where he has a nonverbal baseline mental status, history of atrial fibrillation not on anticoagulation secondary to bleeding risk, hyperlipidemia who presents to the emergency department via EMS from his personal shelter where he resides in a dementia unit for evaluation of an unwitnessed fall which had occurred Thursday evening and was found in the morning by staff. The patient's reports that staff was unsure of when he actually had fallen. However he was ambulating without significant pain and so the patient was not referred to the emergency department. His reports that she had visited with him yesterday and he lay in bed all day and did not want to do much at all. She understands it could be possible that he did not eat or drink much either because of that. They did have a scheduled appointment with their neurologist today and upon their assessment was referred to the emergency department due to the patient's fall. On my evaluation patient is no acute distress, afebrile with stable vital signs. He is nonverbal at his baseline. He does follow commands. Contusion of the right superior orbital region/forehead. He has contusion of his right scapular and posterior shoulder region with limited range of motion secondary to pain. There is no gross deformity. Distal PMS is intact. There is no midline CTL spine tenderness palpation or step-offs. EKG demonstrates atrial fibrillation without overt acute ischemia. Chest x-ray and right shoulder x-ray demonstrate right distal clavicular fracture and otherwise no evidence of pneumothorax or rib fracture. WBC, hemoglobin within normal limits. Platelets 98K, similar to prior range values. Chemistry without metabolic acidosis. Cr 1.45 increased from baseline. Sodium is severely elevated at 159 consistent with an approximate 4L free water deficit. LFTs are unremarkable. CT of the head, chest, abdomen pelvis as well as CT L-spine were performed. A mild L5 compression fracture is described with minimal loss of height and otherwise were negative for additional acute traumatic injuries. IV fluid hydration was ordered however Redirection of the patient to cooperate was difficult and fluid was not administered. Second IV site was placed and IV fluid hydration initiated. Findings were reviewed with the patient and family at the bedside. They do agree with plan for admission for further management of the patient's hyponatremia. Typical management of clavicular fracture was reviewed however given the patient's underlying dementia unlikely to tolerate sling. Case was discussed with Mary Pompa, admitting resident, with TIMOTHY Feldman hospitalist who will evaluate the patient for admission. Further management per admitting team. Triage Nursing notes reviewed and agree them. Prior/external medical records reviewed Vital Signs: reviewed Differential diagnosis: Fracture, dislocation, contusion, intra-abdominal, pneumothorax, intrathoracic, intracranial, neurologic, compartment syndrome, rhabdomyolysis, as well as other pathologies. ER treatment provided: See below. Diagnostics interpreted by me: ECG: Atrial fibrillation, 95 bpm, incomplete right bundle branch block, left anterior fascicular block, no overt ST ovation or depression, QTc 505, QRS 108. Cardiac Monitoring: An order for continuous cardiac monitoring was placed and demonstrated Atrial fibrillation, 95 bpm, no ectopy. Laboratory studies: See below Imaging studies: See below Consultation(s): Mary Pompa, admitting resident, with TIMOTHY Feldman hospitalist HPI: Per MDM. ROS: See above HPI for pertinent positives & negatives. A total of 10 systems reviewed and were otherwise negative. VITALS:See Below PHYSICAL EXAMINATION: GENERAL: Awake, alert, in no distress HENT: Normocephalic, contusion of the right superior orbital region/forehead. Oropharynx with dry mucous membranes and otherwise unremarkable. EYES: Normal conjunctiva. Sclera non-icteric. NECK: Supple. No nuchal rigidity. FROM. No JVD. RESPIRATORY: Clear to auscultation. CARDIAC: Regular rate, normal rhythm. Extremities warm and well perfused. Pulses equal. ABDOMEN: Soft, non-distended. No tenderness to palpation. No rebound or guarding. No masses. MUSCULOSKELETAL: Chest examination reveals no tenderness. The back is symmetrical on inspection without obvious abnormality. There is no CVA tenderness to palpation. No joint edema. Contusion of his right scapular and posterior shoulder region with limited range of motion secondary to pain. There is no gross deformity. Distal PMS is intact. There is no midline CTL spine tenderness palpation or step-offs. LOWER EXTREMITIES: Calves are equal size bilaterally and non-tender. No edema. No discoloration. NEURO: Nonverbal at patient's baseline. Moves all extremities with equal strength with generalized weakness. SKIN: No rash or jaundice noted. ED COURSE: Critical Care: I have personally spent greater than 35 minutes of critical care time in the direct management of this patient. This includes bedside care, interpretation of diagnostic studies, and testing, discussion with consultants, patient, and family members, and other required patient management activities. This 35 minutes is in excess of all separately billable procedures. Matthieu Dong MD Past Med/Surg History Problem List (Updated 01/05/25 @ 14:15 by Matthieu Dong MD) History of intracranial hemorrhage (Acute) Lumbar compression fracture (Acute) Right clavicle fracture (Acute) Acute hypernatremia (Acute) Fall Acute hypernatremia Acute head trauma Nocturia Urinary incontinence Altered mental status (Acute) Acute UTI (Acute) Influenza A virus subtype H1 2009 pandemic strain present (Acute) Atrial fibrillation with RVR Cholelithiasis Constipation Dysphagia Influenza A AMS (altered mental status) (Acute) Intracranial hemorrhage Seizure-like activity Other symptoms and signs involving cognitive functions and awareness Epistaxis (Acute) H/O umbilical hernia repair (08/18/19) Open Umbilical Hernia Repair Dr. Zamora 08/18/19 Encounter for pre-operative examination Patient okay for surgery as per cardiology 07/26/19. Past heart attack (Acute) had in 1991 Hyperglycemia (Acute) Hypercholesterolemia (Acute) Gross hematuria (Acute) Former smoker (Acute) Elevated prostate specific antigen (PSA) (Acute) Benign prostatic hyperplasia with elevated prostate specific antigen (PSA) (Acute) Allergic rhinitis (Acute) Umbilical hernia without mention of obstruction or gangrene Sick sinus syndrome (Acute) 2008 DX Hypertension (Acute) Medical History (Updated 01/05/25 @ 14:15 by Matthieu Dong MD) AMS (altered mental status) Dementia RLL pneumonia UTI (urinary tract infection) Coronary artery disease Paroxysmal atrial fibrillation Presence of cardiac pacemaker Raynauds syndrome Atrial fibrillation DX 2014 (REASON FOR TAKING XARELTO) Myocardial Infarction 1992 Hyperlipidemia Raynauds phenomenon Ulcerative colitis History of cardiac pacemaker 2007 (S/P SYNCOPAL EPISODE) FOLLOWED BY DR. EATON 2019 CHANGED PACEMAKER (MEDTRONIC DEVICE) Surgical History History of colonoscopy History of cataract surgery RT/LEFT History of cardiac catheterization [place] [facility] [place] Family History Father Heart disease Stroke Social History Smoking Status: Unknown if ever smoked Tobacco Type: Cigarettes Second Hand Exposure: No; Do You Dip or Chew Tobacco: No; Hx Alcohol Use: No Hx Substance Use: No Preferred Language: Guinean Communication Ability: Effective Breaker Boss Required: Voice and No Beliefs That Will Affect Care: None marital status: Current Living Situation: Correction 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 status: 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 Feels Safe at Home: Yes Assistive Devices: None Allergies Allergies Allergy/AdvReac Type Severity Reaction Status Date / Time streptokinase Allergy Intermediate Flushing Verified 12/21/24 14:01 Home Meds Home Medications Medication Instructions Recorded Confirmed coenzyme Q10 200 mg capsule (Co 200 mg PO QAM ##0 03/08/11 01/04/25 Q-10) sodium chloride 0.65 % nasal spray 2 spray intranasal Q4 PRN NASAL 04/20/20 01/04/25 aerosol (Deep Sea Nasal) DRYNESS [id number] 300 mcg-K 60 1 tab PO QAM 01/10/22 01/04/25 mcg-lycop 600 mcg-lutein 300 mcg tablet (Centrum Silver Men) acetaminophen 325 mg tablet 650 mg PO Q4H PRN GENERAL 01/04/25 01/04/25 DISCOMFORT docusate sodium 100 mg capsule 100 mg PO .EVERY 24 HOURS PRN 01/04/25 01/04/25 Constipation vibegron 75 mg tablet 75 mg PO DAILY 01/04/25 01/04/25 Previous Rx's Medication Instructions Recorded aspirin 81 mg tablet,delayed 81 mg PO QAM #30 tabs 12/16/24 release atenolol 100 mg tablet 100 mg PO BID #60 tabs 12/16/24 lisinopril 10 mg tablet 10 mg PO HS #30 tabs 12/16/24 lisinopril 20 mg tablet 20 mg PO QAM #30 tabs 12/16/24 nitroglycerin 0.4 mg sublingual 0.4 mg sublingual Q5M PRN chest 12/16/24 tablet pain #10 tabs rosuvastatin 40 mg tablet 40 mg PO HS #30 tabs 12/16/24 escitalopram oxalate 5 mg tablet 5 mg PO QAM #30 tabs 01/04/25 Results & Data (ED) Vital Signs Vital Signs - 24 hr 01/04/25 14:50 01/04/25 14:52 01/04/25 15:19 Temperature 36.6 C Temperature Source Oral Pulse Rate 95 H Pulse Rate [Apical] 86 91 H Respiratory Rate 16 20 16 Respiratory Effort / Characteristics Non-Labored Spontaneous Non-Labored Spontaneous Respiratory Depth Blood Pressure 154/102 H Blood Pressure [Right Arm] 154/102 H 154/102 H Blood Pressure Mean 119 Blood Pressure Mean [Right Arm] 119 119 Blood Pressure Position [Right Arm] Lying Pulse Oximetry 96 98 98 Oxygen Delivery Method Room Air Room Air Room Air Sepsis Recent Fever Within 48 Hours No Sepsis New/Unexplained Change in Mental Status No Sepsis Action Taken by Nursing No Action Required 01/04/25 16:01 01/04/25 17:00 01/04/25 17:00 Temperature Temperature Source Pulse Rate 89 Pulse Rate [Apical] 80 80 Respiratory Rate 16 16 Respiratory Effort / Characteristics Non-Labored Spontaneous Respiratory Depth Normal Blood Pressure Blood Pressure [Right Arm] 164/109 H 164/109 H Blood Pressure Mean Blood Pressure Mean [Right Arm] 127 127 Blood Pressure Position [Right Arm] Pulse Oximetry 99 99 Oxygen Delivery Method Room Air Room Air Sepsis Recent Fever Within 48 Hours Sepsis New/Unexplained Change in Mental Status Sepsis Action Taken by Nursing 01/04/25 18:00 01/04/25 19:00 01/04/25 19:00 Temperature Temperature Source Pulse Rate Pulse Rate [Apical] 92 H 92 H 83 Respiratory Rate 18 18 16 Respiratory Effort / Characteristics Non-Labored Spontaneous Non-Labored Spontaneous Respiratory Depth Blood Pressure Blood Pressure [Right Arm] 135/92 135/92 133/83 Blood Pressure Mean Blood Pressure Mean [Right Arm] 106 106 99 Blood Pressure Position [Right Arm] Lying Pulse Oximetry 96 96 92 Oxygen Delivery Method Room Air Room Air Room Air Sepsis Recent Fever Within 48 Hours Sepsis New/Unexplained Change in Mental Status Sepsis Action Taken by Nursing 01/04/25 20:00 01/04/25 20:08 Temperature Temperature Source Pulse Rate 90 Pulse Rate [Apical] 89 Respiratory Rate 16 Respiratory Effort / Characteristics Non-Labored Spontaneous Respiratory Depth Blood Pressure Blood Pressure [Right Arm] 145/93 H Blood Pressure Mean Blood Pressure Mean [Right Arm] 110 Blood Pressure Position [Right Arm] Lying Pulse Oximetry Oxygen Delivery Method Sepsis Recent Fever Within 48 Hours Sepsis New/Unexplained Change in Mental Status Sepsis Action Taken by Nursing Laboratory Data Attestation: I reviewed the patient's lab results. 01/05/25 07:25 01/05/25 07: Lab Results 01/04/25 01/04/25 01/04/25 Range/Units 14:55 15:09 18:49 WBC 9.48 (4.8-10.8) K/ul RBC 4.80 (4.70-6.10) M/uL Hgb 14.2 (14.0-18.0) g/dl POC Hgb 13.9 L 12.9 L (14.0-18.0) g/dl Hct 44.6 (42.0-52.0) % POC Hct 41 L 38 L (42-52) % MCV 92.9 (80.0-100.0) fL MCH 29.6 (25.0-34.0) pg MCHC 31.8 L (32.0-36.0) g/dL RDW Std Deviation 48.8 H (36.4-46.3) fL RDW Coeff of Larry 14.2 (11.5-14.5) % Plt Count 98 L (130-400) K/uL MPV 12.8 H (9.4-12.4) fL Immature Gran % (Auto) 0.3 % Neut % (Auto) 75.3 % Lymph % (Auto) 16.5 % [place] % (Auto) 6.9 % Eos % (Auto) 0.8 % Baso % (Auto) 0.2 % Neut # (Auto) 7.14 H (1.40-6.50) K/uL Lymph # (Auto) 1.56 (1.20-3.40) K/uL [place] # (Auto) 0.65 H (0.11-0.59) K/uL Eos # (Auto) 0.08 (0.00-0.50) K/uL Baso # (Auto) 0.02 (0.00-0.20) K/uL Immature Gran # (Auto) 0.03 (0.01-0.20) K/uL PT 12.3 H (9.0-12.0) Seconds INR 1.1 (0.9-1.1) APTT 23 (21-31) Seconds PTT Ratio 0.9 POC Sodium 161 H* 160 H* (135-144) mmol/L Sodium 159 H* (136-145) mmol/L POC Potassium 3.2 L 3.1 L (3.3-5.0) mmol/L Potassium 3.2 L (3.5-5.1) mmol/L POC Chloride 118 H 121 H (101-112) mmol/L Chloride 122 H (98-107) mmol/L Carbon Dioxide 31 (21-32) mmol/L POC Total CO2 29 24 (24-31) mmol/L Anion Gap 6 (3-11) POC Anion Gap 18.0 20.0 (16-25) mmol/L POC BUN 32 H 25 H (7-18) mg/dl BUN 27 H (6-23) mg/dl Creatinine 1.46 H (0.6-1.4) mg/dl POC Creatinine 1.5 H 1.3 (0.6-1.3) mg/dl Est Cr Clr Drug Dosing 31.5 ml/min eGFR 46.84 BUN/Creatinine Ratio 18.5 (10-20) Glucose 87 (70-99(Fasting)) mg/dl POC Glucose (other) 86 86 (70-99) mg/dl Calcium 9.1 (8.6-10.3) mg/dl POC Ioniz Calcium Fouzia 1.20 1.05 L (1.12-1.32) mmol/l Total Bilirubin 0.9 (0.2-1.0) mg/dl AST 28 (13-39) U/L ALT 18 (7-52) U/L Alkaline Phosphatase 105 H (34-104) U/L Total Protein 6.6 (6.0-8.3) gm/dl Albumin 4.0 (3.4-5.0) gm/dl Globulin 2.6 (2.5-4.0) gm/dl Albumin/Globulin Ratio 1.5 (0.9-2) Administered Medications Acetaminophen (Acetaminophen 325 Mg Tab) 650 mg PO Q4H PRN PRN Reason: pain/fever Stop: 02/03/25 22:26 Last Admin: 01/05/25 01:21 Dose: 650 mg Documented By: AES Aspirin (Aspirin 81 Mg Ectab) 81 mg PO [facility] Stop: 02/04/25 08:59 Last Admin: 01/05/25 09:09 Dose: Not Given Documented By: RLB Atenolol (Atenolol 50 Mg Tablet) 100 mg PO BID [facility] Stop: 02/03/25 22:26 Last Admin: 01/05/25 09:09 Dose: Not Given Documented By: Admin: 01/04/25 22:49 Dose: 100 mg Documented By: AES Escitalopram Oxalate (Escitalopram Oxalate 10 Mg Tab) [facility] Stop: 02/04/25 08:59 Last Admin: 01/05/25 09:10 Dose: Not Given Documented By: RLB Potassium Chloride 40 meq/ (Dextrose/Sodium Chloride) 1,020 mls @ 100 mls/hr IV .[id number] [facility] Stop: 01/08/25 10:14 Last Admin: 01/05/25 13:37 Dose: 100 mls/hr Documented By: RLGood Lisinopril (Lisinopril 20 Mg Tab) 20 mg PO [facility] Stop: 02/04/25 08:59 Last Admin: 01/05/25 09:09 Dose: Not Given Documented By: RLB Lisinopril (Lisinopril 10 Mg Tab) 10 mg PO [facility] Stop: 02/03/25 22:26 Last Admin: 01/04/25 22:50 Dose: 10 mg Documented By: AES Melatonin (Melatonin 3 Mg Tab) 3 mg PO HS PRN PRN Reason: Insomnia Stop: 02/03/25 22:26 Last Admin: 01/05/25 01:21 Dose: 3 mg Documented By: AES Rosuvastatin Calcium (Rosuvastatin Calcium 20 Mg Tab) 40 mg PO [facility] Stop: 02/03/25 22:26 Last Admin: 01/04/25 22:50 Dose: 40 mg Documented By: AES Vibegron (Vibegron 75 Mg Tab) 75 mg PO DAILY [facility] Stop: 02/04/25 08:59 Last Admin: 01/05/25 09:10 Dose: Not Given Documented By: RLB Discontinued Medications Sodium Chloride (Nss) 1,000 mls @ 999 mls/hr IV .Q1H1M ONE Stop: 01/04/25 16:40 Last Infusion: 01/04/25 20:30 Dose: Infused Documented By: Admin: 01/04/25 16:23 Dose: 999 mls/hr Documented By: ZACH Dextrose (D5w) 500 mls @ 75 mls/hr IV .[id number] RUFUS Stop: 01/05/25 02:39 Last Infusion: 01/05/25 04:09 Dose: Infused Documented By: Admin: 01/04/25 20:22 Dose: 75 mls/hr Documented By: ZACH Potassium Chloride 40 meq/ (Dextrose/Sodium Chloride) 1,020 mls @ 100 mls/hr IV .[id number] RUFUS Stop: 01/05/25 23:23 Last Infusion: 01/05/25 13:38 Dose: Infused Documented By: Admin: 01/05/25 04:11 Dose: 100 mls/hr Documented By: PEDRO Imaging Data Radiologist's Impression: Cervical Spine CT 01/04/25 15:04 CT cervical spine without IV contrast History: Trauma Comparison: 08/12/2024 Technique: Using multidetector thin collimation helical acquisition technique, axial, coronal and sagittal CT images through the cervical spine were obtained without intravenous contrast. Dose reduction techniques were achieved by using automatic exposure control and/or adjustment of mA and/or kV according to patient size and/or use of iterative reconstruction technique. Findings: The cervical vertebrae are normally aligned. Straightened cervical lordosis. No acute fracture or subluxation. No prevertebral edema. The bones are demineralized. There is moderate facet arthrosis, spondylosis and uncal spurring at all levels. There is no fracture or subluxation. Moderate to severe disc space narrowing and canal and foraminal stenosis at all levels. Canal stenosis is moderate to severe at C4-C5. No abnormality of the paraspinous soft tissues. Impression: No acute fracture or traumatic subluxation. Electronically signed by Samuel Pang 01-04-2025 5:[address] 01/04/25 15:04 CT head without contrast History: Trauma Comparison: 12/01/2024 Technique: Using multidetector thin collimation helical acquisition technique, axial, coronal and sagittal CT images from the skull base to the vertex were obtained without intravenous contrast. Dose reduction techniques were achieved by using automatic exposure control and/or adjustment of mA and/or kV according to patient size and/or use of iterative reconstruction technique. Findings: Brain and extra-axial spaces: There is moderate cortical atrophy and chronic ischemic periventricular white matter hypodensity. No acute infarct, hemorrhage or mass noted. Old left frontal infarct. Continue dilation of the ventricular system. Bones/joints: No acute changes. Soft tissues: No significant abnormality noted. Vasculature: No acute abnormality noted. Sinuses: No layering fluid in the visualized portions of the paranasal sinuses. Mastoid air cells: No mastoid effusion. Orbits: No significant abnormality noted. IMPRESSION: No acute intracranial pathology. Dilation of the ventricular system in the sylvian fissures may be seen with NPH in the appropriate clinical setting. Electronically signed by Samuel Pang 01-04-2025 5:02 PM Shoulder X-Ray 01/04/25 15:05 XR shoulder RT min 2V routine CLINICAL HISTORY: Shoulder trauma, COMPARISON: 05/22/2022 FINDINGS: There is an acute, comminuted fracture of the distal right clavicle just proximal to the acromioclavicular joint. The distal clavicle is displaced dorsally by half the width the shaft. There is no significant angulation. There is no humeral fracture identified. There is no definite glenohumeral malalignment although the upper arm is held in internal rotation on all the available views. IMPRESSION: Distal clavicle fracture as described. No definite evidence of shoulder joint dislocation although a posterior dislocation is difficult to completely exclude due to the internal rotation positioning on the available views. ACT 112: Negative or not required by law. Electronically signed by: Ashley Flower M.D. 01/04/2025 3:56 PM Chest X-Ray 01/04/25 15:06 PORTABLE SUPINE AP CHEST RADIOGRAPH CLINICAL HISTORY: Fall. COMPARISON STUDY: Chest radiograph December 14, 2024. FINDINGS: There is no pneumothorax or pleural effusion supine exam. Left subclavian pacer is in place. There is no evidence for pulmonary edema. No airspace opacities are present. There is an acute comminuted displaced distal right clavicular fracture. IMPRESSION: 1. No acute cardiopulmonary findings. 2. Acute comminuted displaced distal right clavicular fractures better depicted on the dedicated right shoulder radiographs. ACT 112: Negative or not required by law. Electronically signed by: Varun Collins M.D. 01/04/2025 4:02 PM Abdomen/Pelvis CT 01/04/25 15:36 EXAMINATION: CT of the chest, abdomen and pelvis, as well as the thoracic and lumbar spine, performed without the administration of IV contrast TECHNIQUE: Helical CT images from the lung apices through the symphysis pubis were obtained without contrast. Coronal and sagittal reformatted images were generated at a workstation for further assessment. Dose reduction techniques were achieved by using automatic exposure control and/or adjustment of mA and/or kV according to patient size and/or use of iterative reconstruction technique. COMPARISON: None HISTORY: Trauma FINDINGS: Lines and tubes: None Mediastinum/Neck Base: No thyroid nodules. Central tracheobronchial tree is patent. Heart size is enlarged. There is fatty filtration about the subendocardial region of the left ventricle about the lateral free wall. Left chest wall dual-lead AICD in place. There are heavy coronary calcifications. No pericardial effusion. Normal thoracic vasculature. No thoracic lymphadenopathy. Lungs: No consolidation. There is a trace left-sided pleural effusion. There is a tiny subtle area of airway centric nodularity of the right middle lobe, axial image 35, consistent with infectious bronchiolitis. Liver: No suspicious liver lesions. There is a small cyst. Gallbladder: There is a calcified gallstone. No evidence of acute cholecystitis. Spleen: Normal size. Pancreas: No suspicious pancreatic lesions. The pancreatic duct is not dilated. Adrenal glands: No adrenal nodules. Kidneys: No hydronephrosis or obstructing renal stones. Bladder / Pelvic organs: Unremarkable. Bowel: No bowel obstruction. No abnormal bowel wall thickening. The appendix is unremarkable. Lymph nodes: No retroperitoneal, mesenteric, or pelvic lymphadenopathy. Peritoneum / Retroperitoneum: No free fluid or air within the abdomen. Vessels: No infrarenal aortic aneurysm. Heavy aortoiliac calcification. Bones and soft tissues: Degenerative changes of the spine. At L5 there is an acute appearing anterosuperior endplate compression fracture, with approximately 10 to 15% height loss. There are moderate degenerative facet changes at L4-5 and L5-S1. Mild degenerative facet changes at L3-4. No fracture or traumatic subluxation of the thoracic spine. IMPRESSION: 1. L5 mild, acute appearing anterosuperior endplate compression fracture, as above. 2. No other acute finding in the chest, abdomen or pelvis, or of the thoracic spine. 3. Sequelae of prior myocardial infarct, as above. 4. Cholelithiasis. Electronically signed by Samuel Pang 01-04-2025 5:[address] 01/04/25 15:36 EXAMINATION: CT of the chest, abdomen and pelvis, as well as the thoracic and lumbar spine, performed without the administration of IV contrast TECHNIQUE: Helical CT images from the lung apices through the symphysis pubis were obtained without contrast. Coronal and sagittal reformatted images were generated at a workstation for further assessment. Dose reduction techniques were achieved by using automatic exposure control and/or adjustment of mA and/or kV according to patient size and/or use of iterative reconstruction technique. COMPARISON: None HISTORY: Trauma FINDINGS: Lines and tubes: None Mediastinum/Neck Base: No thyroid nodules. Central tracheobronchial tree is patent. Heart size is enlarged. There is fatty filtration about the subendocardial region of the left ventricle about the lateral free wall. Left chest wall dual-lead AICD in place. There are heavy coronary calcifications. No pericardial effusion. Normal thoracic vasculature. No thoracic lymphadenopathy. Lungs: No consolidation. There is a trace left-sided pleural effusion. There is a tiny subtle area of airway centric nodularity of the right middle lobe, axial image 35, consistent with infectious bronchiolitis. Liver: No suspicious liver lesions. There is a small cyst. Gallbladder: There is a calcified gallstone. No evidence of acute cholecystitis. Spleen: Normal size. Pancreas: No suspicious pancreatic lesions. The pancreatic duct is not dilated. Adrenal glands: No adrenal nodules. Kidneys: No hydronephrosis or obstructing renal stones. Bladder / Pelvic organs: Unremarkable. Bowel: No bowel obstruction. No abnormal bowel wall thickening. The appendix is unremarkable. Lymph nodes: No retroperitoneal, mesenteric, or pelvic lymphadenopathy. Peritoneum / Retroperitoneum: No free fluid or air within the abdomen. Vessels: No infrarenal aortic aneurysm. Heavy aortoiliac calcification. Bones and soft tissues: Degenerative changes of the spine. At L5 there is an acute appearing anterosuperior endplate compression fracture, with approximately 10 to 15% height loss. There are moderate degenerative facet changes at L4-5 and L5-S1. Mild degenerative facet changes at L3-4. No fracture or traumatic subluxation of the thoracic spine. IMPRESSION: 1. L5 mild, acute appearing anterosuperior endplate compression fracture, as above. 2. No other acute finding in the chest, abdomen or pelvis, or of the thoracic spine. 3. Sequelae of prior myocardial infarct, as above. 4. Cholelithiasis. Electronically signed by Samuel Pang 01-04-2025 5:[address] 01/04/25 15:36 EXAMINATION: CT of the chest, abdomen and pelvis, as well as the thoracic and lumbar spine, performed without the administration of IV contrast TECHNIQUE: Helical CT images from the lung apices through the symphysis pubis were obtained without contrast. Coronal and sagittal reformatted images were generated at a workstation for further assessment. Dose reduction techniques were achieved by using automatic exposure control and/or adjustment of mA and/or kV according to patient size and/or use of iterative reconstruction technique. COMPARISON: None HISTORY: Trauma FINDINGS: Lines and tubes: None Mediastinum/Neck Base: No thyroid nodules. Central tracheobronchial tree is patent. Heart size is enlarged. There is fatty filtration about the subendocardial region of the left ventricle about the lateral free wall. Left chest wall dual-lead AICD in place. There are heavy coronary calcifications. No pericardial effusion. Normal thoracic vasculature. No thoracic lymphadenopathy. Lungs: No consolidation. There is a trace left-sided pleural effusion. There is a tiny subtle area of airway centric nodularity of the right middle lobe, axial image 35, consistent with infectious bronchiolitis. Liver: No suspicious liver lesions. There is a small cyst. Gallbladder: There is a calcified gallstone. No evidence of acute cholecystitis. Spleen: Normal size. Pancreas: No suspicious pancreatic lesions. The pancreatic duct is not dilated. Adrenal glands: No adrenal nodules. Kidneys: No hydronephrosis or obstructing renal stones. Bladder / Pelvic organs: Unremarkable. Bowel: No bowel obstruction. No abnormal bowel wall thickening. The appendix is unremarkable. Lymph nodes: No retroperitoneal, mesenteric, or pelvic lymphadenopathy. Peritoneum / Retroperitoneum: No free fluid or air within the abdomen. Vessels: No infrarenal aortic aneurysm. Heavy aortoiliac calcification. Bones and soft tissues: Degenerative changes of the spine. At L5 there is an acute appearing anterosuperior endplate compression fracture, with approximately 10 to 15% height loss. There are moderate degenerative facet changes at L4-5 and L5-S1. Mild degenerative facet changes at L3-4. No fracture or traumatic subluxation of the thoracic spine. IMPRESSION: 1. L5 mild, acute appearing anterosuperior endplate compression fracture, as above. 2. No other acute finding in the chest, abdomen or pelvis, or of the thoracic spine. 3. Sequelae of prior myocardial infarct, as above. 4. Cholelithiasis. Electronically signed by Samuel Pang 01-04-2025 5:[address] 01/04/25 15:36 EXAMINATION: CT of the chest, abdomen and pelvis, as well as the thoracic and lumbar spine, performed without the administration of IV contrast TECHNIQUE: Helical CT images from the lung apices through the symphysis pubis were obtained without contrast. Coronal and sagittal reformatted images were generated at a workstation for further assessment. Dose reduction techniques were achieved by using automatic exposure control and/or adjustment of mA and/or kV according to patient size and/or use of iterative reconstruction technique. COMPARISON: None HISTORY: Trauma FINDINGS: Lines and tubes: None Mediastinum/Neck Base: No thyroid nodules. Central tracheobronchial tree is patent. Heart size is enlarged. There is fatty filtration about the subendocardial region of the left ventricle about the lateral free wall. Left chest wall dual-lead AICD in place. There are heavy coronary calcifications. No pericardial effusion. Normal thoracic vasculature. No thoracic lymphadenopathy. Lungs: No consolidation. There is a trace left-sided pleural effusion. There is a tiny subtle area of airway centric nodularity of the right middle lobe, axial image 35, consistent with infectious bronchiolitis. Liver: No suspicious liver lesions. There is a small cyst. Gallbladder: There is a calcified gallstone. No evidence of acute cholecystitis. Spleen: Normal size. Pancreas: No suspicious pancreatic lesions. The pancreatic duct is not dilated. Adrenal glands: No adrenal nodules. Kidneys: No hydronephrosis or obstructing renal stones. Bladder / Pelvic organs: Unremarkable. Bowel: No bowel obstruction. No abnormal bowel wall thickening. The appendix is unremarkable. Lymph nodes: No retroperitoneal, mesenteric, or pelvic lymphadenopathy. Peritoneum / Retroperitoneum: No free fluid or air within the abdomen. Vessels: No infrarenal aortic aneurysm. Heavy aortoiliac calcification. Bones and soft tissues: Degenerative changes of the spine. At L5 there is an acute appearing anterosuperior endplate compression fracture, with approximately 10 to 15% height loss. There are moderate degenerative facet changes at L4-5 and L5-S1. Mild degenerative facet changes at L3-4. No fracture or traumatic subluxation of the thoracic spine. IMPRESSION: 1. L5 mild, acute appearing anterosuperior endplate compression fracture, as above. 2. No other acute finding in the chest, abdomen or pelvis, or of the thoracic spine. 3. Sequelae of prior myocardial infarct, as above. 4. Cholelithiasis. Electronically signed by Samuel Pang 01-04-2025 5:02 PM Discharge Plan Visit Data Chief Complaint: Fall Stated Complaint: FALL, R SHOULDER PAIN ED Provider: Matthieu Dong Discharge Problem: Acute hypernatremia, Right clavicle fracture, Lumbar compression fracture, History of intracranial hemorrhage Patient Disposition: Admitted As Inpatient Condition: Fair Discharge Instructions Interventions: ED Discharge Assessment Last Done: 01/04/25 22:06 Discharge Problem: Right clavicle fracture Qualifiers: Encounter type: initial encounter Clavicle location: lateral end Fracture type: closed Fracture alignment: displaced Qualified Code(s): S42.031A - Displaced fracture of lateral end of right clavicle, initial encounter for closed fracture Lumbar compression fracture Qualifiers: Encounter type: initial encounter Lumbar vertebra fracture level: unspecified lumbar vertebra Qualified Code(s): S32.000A - Wedge compression fracture of unspecified lumbar vertebra, initial encounter for closed fracture
[2025-01-04 15:49] LABS: INR 1.1 (0.9-1.1); Partial Thromboplastin Ratio 0.9; Partial Thromboplastin Time 23 Seconds (21-31); Prothrombin Time 12.3 Seconds (9.0-12.0)
[2025-01-04 15:53] LABS: Albumin Globulin Ratio 1.5 (0.9-2); BUN Creatinine Ratio 18.5 (10-20); Bilirubin,Total 0.9 mg/dl (0.2-1.0); Calcium 9.1 mg/dl (8.6-10.3); Creatinine Clr Calc Pharmacy 31.5 ml/min; Globulin 2.6 gm/dl (2.5-4.0); Potassium 3.2 mmol/L (3.5-5.1); Total Protein 6.6 gm/dl (6.0-8.3)
--- NOTE | 2025-01-04 15:58 | XRay Report ---
XR shoulder RT min 2V routine CLINICAL HISTORY: Shoulder trauma, COMPARISON: 05/22/2022 FINDINGS: There is an acute, comminuted fracture of the distal right clavicle just proximal to the a cromioclavicular joint. The distal clavicle is displaced dorsally by half the width the shaft. There is no significant angulation. There is no humeral fracture identified. There is no definite glenohume ral malalignment although the upper arm is held in internal rotation on all the available views. IMPRESSION: Distal clavicle fracture as described. No definite evidence of shoulder joint dislocation although a posterior dislocation is difficult to completely exclude due to the internal rotation pos itioning on the available views. ACT 112: Negative or not required by law. Electronically signed by: Ashley Flower M.D. 01/04/2025 3:56 PM
--- NOTE | 2025-01-04 16:03 | XRay Report ---
PORTABLE SUPINE AP CHEST RADIOGRAPH CLINICAL HISTORY: Fall. COMPARISON STUDY: Chest radiograph December 14, 2024. FINDINGS: There is no pneumothorax or pleural effusion supine exam. Left subclavian pacer is in place . There is no evidence for pulmonary edema. No airspace opacities are present. There is an acute comm inuted displaced distal right clavicular fracture. IMPRESSION: 1. No acute cardiopulmonary findings. 2. Acute comminuted displaced distal right clavicular fractures better depicted on the dedicated righ t shoulder radiographs. ACT 112: Negative or not required by law. Electronically signed by: Varun Collins M.D. 01/04/2025 4:02 PM
[2025-01-04] MEDS: SODIUM CHLORIDE 0.9% 1,000 ML IV ONE (16:23)
--- NOTE | 2025-01-04 17:02 | CT Scan Report ---
EXAMINATION: CT of the chest, abdomen and pelvis, as well as the thoracic and lumbar spine, performed without the administration of IV contrast TECHNIQUE: Helical CT images from the lung apices through the symphysis pubis were obtained without contrast. Coronal and sagittal reformatted images were generated at a workstation for further assessment. Dose reduction techniques were achieved by using automatic exposure control and/or adjustment of mA and/or kV according to patient size and/or use of iterative reconstruction technique. COMPARISON: None HISTORY: Trauma FINDINGS: Lines and tubes: None Mediastinum/Neck Base: No thyroid nodules. Central tracheobronchial tree is patent. Heart size is enlarged. There is fatty filtration about the subendocardial region of the left ventricle about the lateral free wall. Left chest wall dual-lead AICD in place. There are heavy coronary calcifications. No pericardial effusion. Normal thoracic vasculature. No thoracic lymphadenopathy. Lungs: No consolidation. There is a trace left-sided pleural effusion. There is a tiny subtle area of airway centric nodularity of the right middle lobe, axial image 35, consistent with infectious bronchiolitis. Liver: No suspicious liver lesions. There is a small cyst. Gallbladder: There is a calcified gallstone. No evidence of acute cholecystitis. Spleen: Normal size. Pancreas: No suspicious pancreatic lesions. The pancreatic duct is not dilated. Adrenal glands: No adrenal nodules. Kidneys: No hydronephrosis or obstructing renal stones. Bladder / Pelvic organs: Unremarkable. Bowel: No bowel obstruction. No abnormal bowel wall thickening. The appendix is unremarkable. Lymph nodes: No retroperitoneal, mesenteric, or pelvic lymphadenopathy. Peritoneum / Retroperitoneum: No free fluid or air within the abdomen. Vessels: No infrarenal aortic aneurysm. Heavy aortoiliac calcification. Bones and soft tissues: Degenerative changes of the spine. At L5 there is an acute appearing anterosuperior endplate compression fracture, with approximately 10 to 15% height loss. There are moderate degenerative facet changes at L4-5 and L5-S1. Mild degenerative facet changes at L3-4. No fracture or traumatic subluxation of the thoracic spine. IMPRESSION: 1. L5 mild, acute appearing anterosuperior endplate compression fracture, as above. 2. No other acute finding in the chest, abdomen or pelvis, or of the thoracic spine. 3. Sequelae of prior myocardial infarct, as above. 4. Cholelithiasis. Electronically signed by Samuel Pang 01-04-2025 5:02 PM
--- NOTE | 2025-01-04 17:03 | CT Scan Report ---
CT head without contrast History: Trauma Comparison: 12/01/2024 Technique: Using multidetector thin collimation helical acquisition technique, axial, coronal and sagittal CT images from the skull base to the vertex were obtained without intravenous contrast. Dose reduction techniques were achieved by using automatic exposure control and/or adjustment of mA and/or kV according to patient size and/or use of iterative reconstruction technique. Findings: Brain and extra-axial spaces: There is moderate cortical atrophy and chronic ischemic periventricular white matter hypodensity. No acute infarct, hemorrhage or mass noted. Old left frontal infarct. Continue dilation of the ventricular system. Bones/joints: No acute changes. Soft tissues: No significant abnormality noted. Vasculature: No acute abnormality noted. Sinuses: No layering fluid in the visualized portions of the paranasal sinuses. Mastoid air cells: No mastoid effusion. Orbits: No significant abnormality noted. IMPRESSION: No acute intracranial pathology. Dilation of the ventricular system in the sylvian fissures may be seen with NPH in the appropriate clinical setting. Electronically signed by Samuel Pang 01-04-2025 5:02 PM
--- NOTE | 2025-01-04 17:05 | CT Scan Report ---
CT cervical spine without IV contrast History: Trauma Comparison: 08/12/2024 Technique: Using multidetector thin collimation helical acquisition technique, axial, coronal and sagittal CT images through the cervical spine were obtained without intravenous contrast. Dose reduction techniques were achieved by using automatic exposure control and/or adjustment of mA and/or kV according to patient size and/or use of iterative reconstruction technique. Findings: The cervical vertebrae are normally aligned. Straightened cervical lordosis. No acute fracture or subluxation. No prevertebral edema. The bones are demineralized. There is moderate facet arthrosis, spondylosis and uncal spurring at all levels. There is no fracture or subluxation. Moderate to severe disc space narrowing and canal and foraminal stenosis at all levels. Canal stenosis is moderate to severe at C4-C5. No abnormality of the paraspinous soft tissues. Impression: No acute fracture or traumatic subluxation. Electronically signed by Samuel Pang 01-04-2025 5:04 PM
[2025-01-04 19:01] LABS: iSTAT Creatinine 1.3 mg/dl (0.6-1.3); iSTAT Hemoglobin 12.9 g/dl (14.0-18.0); iSTAT Ionized Calcium 1.05 mmol/l (1.12-1.32); iSTAT Potassium 3.1 mmol/L (3.3-5.0)
--- NOTE | 2025-01-04 19:42 | History & Physical Report ---
Date of Service January 04, 2025 Assessment & Plan (1) Acute hypernatremia: (2) Fall: (3) Dementia: (4) Hypercholesterolemia: (5) Hypertension: (6) History of cardiac pacemaker: (7) Paroxysmal atrial fibrillation: (8) Lumbar compression fracture: Plan This is an 83-year-old male with a history of hypertension, hyperlipidemia, CAD, A-fib/sick sinus syndrome, pacemaker, BPH, REJI, and history of dementia and gradually declining cognition after history of SAH with IVH who was admitted after experiencing an unwitnessed fall in [facility] and found hypernatremia on admission labs. Hypernatremia - Sodium of 159 at time of admission which, given dry mucous membranes and other lab findings is suggestive it being related to profound hypovolemia - Patient at baseline cognition (maybe a little more confused with arrival to ED per family members); no other sxs at the time of evaluation - Patient given NSS 1L bolus in ED - Started on D5 water at 75 ml/hr - Encourage PO intake as able - Monitor morning BMP Hypovolemia // Fall - Likely related to poor PO intake, leading to dehydration - Fall was unwitnessed and patient found the next morning, but consider possible it was due to orthostatism - Imaging at time of admission showing fractured (R) clavicle and mild L5 compression fracture - Pain control with Tylenol prn - Fall precautions Dementia // AMS Hx ICH - Patient with dementia and declining cognitive status since hx of ICH; resides in memory unit - Relatives at bedside and state patient is at baseline cognition with maybe some minor worsening with arrival to hospital - Frequent reorientation HTN - Continue Lisinopril HLD - Continue Rosuvastatin Dispo: Admit to Med/Surg Fluids: D5 water @ 75 ml/hr Diet: HH VTE ppx: SCD History of Present Illness Chief Complaint: Fall Primary Care Provider: Kenny Rubalcava MD This is an 83-year-old male with a history of hypertension, hyperlipidemia, CAD, A-fib/sick sinus syndrome, pacemaker, BPH, REJI, and history of dementia and gradually declining cognition after history of SAH with IVH who came to the emergency department after seeing his neurologist earlier today due to noted bruises on the right side of his forehead that was consequent to a fall that he sustained on Thursday (01/02/2025). Patient is a resident of the memory unit in [facility] and on Thursday (01/03/2025) he was found by staff lying on the ground close to his bed. His fall was unwitnessed but was thought to be caused by him trying to get out of bed and losing his balance. Shortly after he was found, patient was able to stand and move pretty well, and therefore was not taken to the hospital. He was seen by his neurologist earlier today who also noted the bruising on the patient's face and recommended that he be seen in the emergency department. On arrival to emergency department, patient accompanied by his daughter and his who state the patient is close to his baseline cognition but does seem a little bit more confused since arriving to the hospital. They had been told by the staff from [facility] that patient was consuming an appropriate amount of water and food but they are not very sure whether or not they were watching him while he consumed this. Patient had not complained of pain and is able to move all extremities pretty well. ED Course: given NSS 1L bolus Labs/Imaging: CBC without leukocytosis, hemoglobin of 14.2, platelets of 98. CMP showing hyponatremia of 159, hypokalemia of 3.2, hyperchloremia 122, BUN of 27, creatinine 1.46. Head CT showing changes suggestive of NPH but no other acute intracranial abnormalities. C-spine CT without fractures. L-spine CT with mild L5 compression fracture. Right shoulder x-ray with distal clavicle displaced dorsally. Chest x-ray without acute pulmonary findings but does note an acute comminuted displaced distal right clavicular fracture. Allergies Allergy/AdvReac Type Severity Reaction Status Date / Time streptokinase Allergy Intermediate Flushing Verified 12/21/24 14:01 Home Medications Medication Instructions Recorded Confirmed Type coenzyme Q10 200 mg capsule (Co 200 mg PO QAM ##0 03/08/11 01/04/25 History Q-10) sodium chloride 0.65 % nasal spray 2 spray intranasal Q4 PRN NASAL 04/20/20 01/04/25 History aerosol (Deep Sea Nasal) DRYNESS [id number] 300 mcg-K 60 1 tab PO QAM 01/10/22 01/04/25 History mcg-lycop 600 mcg-lutein 300 mcg tablet (Centrum Silver Men) aspirin 81 mg tablet,delayed 81 mg PO QAM #30 tabs 12/16/24 01/04/25 Rx release atenolol 100 mg tablet 100 mg PO BID #60 tabs 12/16/24 01/04/25 Rx lisinopril 10 mg tablet 10 mg PO HS #30 tabs 12/16/24 01/04/25 Rx lisinopril 20 mg tablet 20 mg PO QAM #30 tabs 12/16/24 01/04/25 Rx nitroglycerin 0.4 mg sublingual 0.4 mg sublingual Q5M PRN chest 12/16/24 01/04/25 Rx tablet pain #10 tabs rosuvastatin 40 mg tablet 40 mg PO HS #30 tabs 12/16/24 01/04/25 Rx acetaminophen 325 mg tablet 650 mg PO Q4H PRN GENERAL 01/04/25 01/04/25 History DISCOMFORT docusate sodium 100 mg capsule 100 mg PO .EVERY 24 HOURS PRN 01/04/25 01/04/25 History Constipation escitalopram oxalate 5 mg tablet 5 mg PO QAM #30 tabs 01/04/25 01/04/25 Rx vibegron 75 mg tablet 75 mg PO DAILY 01/04/25 01/04/25 History Past Med/Surg History Problem List (Updated 01/04/25 @ 20:42 by Matthiue Dong MD) History of intracranial hemorrhage (Acute) Lumbar compression fracture (Acute) Right clavicle fracture (Acute) Acute hypernatremia (Acute) Fall Acute hypernatremia Acute head trauma Nocturia Urinary incontinence Altered mental status (Acute) Acute UTI (Acute) Influenza A virus subtype H1 2009 pandemic strain present (Acute) Atrial fibrillation with RVR Cholelithiasis Constipation Dysphagia Influenza A AMS (altered mental status) (Acute) Intracranial hemorrhage Seizure-like activity Other symptoms and signs involving cognitive functions and awareness Epistaxis (Acute) H/O umbilical hernia repair (08/18/19) Open Umbilical Hernia Repair Dr. Zamora 08/18/19 Encounter for pre-operative examination Patient okay for surgery as per cardiology 07/26/19. Past heart attack (Acute) had in 1991 Hyperglycemia (Acute) Hypercholesterolemia (Acute) Gross hematuria (Acute) Former smoker (Acute) Elevated prostate specific antigen (PSA) (Acute) Benign prostatic hyperplasia with elevated prostate specific antigen (PSA) (Acute) Allergic rhinitis (Acute) Umbilical hernia without mention of obstruction or gangrene Sick sinus syndrome (Acute) 2007 DX Hypertension (Acute) Medical History (Updated 01/04/25 @ 20:42 by Matthieu Dong MD) AMS (altered mental status) Dementia RLL pneumonia UTI (urinary tract infection) Coronary artery disease Paroxysmal atrial fibrillation Presence of cardiac pacemaker Raynauds syndrome Atrial fibrillation DX 2015 (REASON FOR TAKING XARELTO) Myocardial Infarction 1992 Hyperlipidemia Raynauds phenomenon Ulcerative colitis History of cardiac pacemaker 2007 (S/P SYNCOPAL EPISODE) FOLLOWED BY DR. SMITH 2019 CHANGED PACEMAKER (MEDTRONIC DEVICE) Surgical History History of colonoscopy History of cataract surgery RT/LEFT History of cardiac catheterization 1992 ANGIOPLASTY @ [facility] [place] History of wisdom tooth extraction Family History Father Heart disease Stroke Social History Smoking Status: Unknown if ever smoked Tobacco Type: Cigarettes Second Hand Exposure: No; Do You Dip or Chew Tobacco: No; Hx Alcohol Use: No Hx Substance Use: No Preferred Language: Yoruba Communication Ability: Effective Atmospheric Technician Required: Voice and No Beliefs That Will Affect Care: None marital status: Current Living Situation: Care Home 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 status: 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 Feels Safe at Home: Yes Assistive Devices: None Review of Systems Review of Systems: As per HPI Physical Exam Physical Exam: GENERAL: Awake and alert, confused, afebrile, nontoxic, no acute distress HEAD: hematoma noted on (R) temporal side of forehead w/o associated skin laceration or sign of bleed/exudates, no other wounds or skin changes in scalp or other areas of face CARDIO: RRR, no r/m/g PULMONARY: CTA bilaterally, normal respiratory effort, no respiratory distress GI: soft, non distended, non tender EXTREMITIES: no swelling or calf tenderness bilaterally, no obvious deformity or skin changes/laceration on exam Results & Data Results & Data Vital Signs (Past 12 Hours) Vital Signs Temp Pulse Pulse Resp BP BP Pulse Ox 01/04/25 19:00 83 16 133/83 92 01/04/25 19:00 92 H 18 135/92 96 01/04/25 18:00 92 H 18 135/92 96 01/04/25 17:00 80 16 164/109 H 99 01/04/25 17:00 80 16 164/109 H 99 01/04/25 16:01 89 01/04/25 15:19 91 H 16 154/102 H 98 01/04/25 14:52 36.6 C 95 H 20 154/102 H 98 01/04/25 14:50 86 16 154/102 H 96 O2 Del Method 01/04/25 19:00 Room Air 01/04/25 19:00 Room Air 01/04/25 18:00 Room Air 01/04/25 17:00 Room Air 01/04/25 17:00 Room Air 01/04/25 16:01 01/04/25 15:19 Room Air 01/04/25 14:52 Room Air 01/04/25 14:50 Room Air Supervising Physician Co-Signing Physician Notes I personally saw and examined the patient. I independently reviewed the labs, EKG, imaging, problem list, medication list, past medical history and family history. I verified all mitchell points and agree with resident physician Dr Mary Pompa MD with the following exceptions and/or additions: 84 year old male presents to the ER with unwitnessed fall. Unable to get any further history from the patient O/E Alert but not orienated x3, HS increased rate, irregular rhythm, no murmurs, Chest CTAB, Abdo SNT, no areas of cellulitis seen A/P Fall / lumbar compression fracture - vitamin D level with AM labs, PT/OT, pain medication as needed (currently not in pain) Hypernatremia - appears to be dehydrated on exam, 3.9L free water deficit back to 140, switch IV fluids to contain potassium as this was also low, start D5W + 40 meq K Cl @ 100ml/hr Resident Activity Tracking Resident Involvement: Resident Care Provided Care Provided: Adult Hospital Medicine (3) Dementia Dementia behavioral or psychological symptom: unspecified whether behavioral, psychotic, or mood disturbance or anxiety Dementia severity: unspecified severity Dementia type: unspecified type Qualified Code(s): F03.90 - Unspecified dementia, unspecified severity, without behavioral disturbance, psychotic disturbance, mood disturbance, and anxiety
[2025-01-04] MEDS: DEXTROSE 5% 500 ML IV SCH (20:22)
[2025-01-04] MEDS ORDERED: POLYETHYLENE (MIRALAX) 17 GM PACK PO PRN (22:27)
[2025-01-04] MEDS: ATENOLOL 50 MG TABLET PO SCH (22:49)
[2025-01-04] MEDS: ROSUVASTATIN CALCIUM 20 MG TAB PO SCH (22:50)
[2025-01-04] MEDS: lisinopril 10 MG TAB PO SCH (22:50)
[2025-01-05] MEDS: MELATONIN 3 MG TAB PO PRN (01:21)
[2025-01-05] MEDS: ACETAMINOPHEN 325 MG TAB PO PRN (01:21)
[2025-01-05] MEDS: POTASSIUM CHLORIDE 40 MEQ in D5W AND NSS 1,000 ML IV SCH (04:11)
--- NOTE | 2025-01-05 06:34 | Billing Data ---
Date of Service January 04, 2025 Coding Level of Care Code 33216 INT INP/OBS CARE
[2025-01-05 08:10] LABS: Hematocrit (blood only) 37.2 % (42.0-52.0); Hemoglobin 11.7 g/dl (14.0-18.0); Mean Corpuscular Hemoglobin 29.8 pg (25.0-34.0); Mean Corpuscular Hgb Conc 31.5 g/dL (32.0-36.0); Mean Corpuscular Volume 94.7 fL (80.0-100.0); Mean Platelet Volume 13.4 fL (9.4-12.4); Platelet Count 72 K/uL (130-400); RDW Coefficient of Variation 13.8 % (11.5-14.5); RDW Standard Deviation 48.7 fL (36.4-46.3); Red Blood Count 3.93 M/uL (4.70-6.10); White Blood Count 6.97 K/ul (4.8-10.8)
[2025-01-05 08:57] LABS: BUN Creatinine Ratio 18.2 (10-20); Calcium 8.2 mg/dl (8.6-10.3); Creatinine Clr Calc Pharmacy 36.1 ml/min; Potassium 2.9 mmol/L (3.5-5.1)
[2025-01-05] MEDS: ASPIRIN 81 MG ECTAB PO SCH (09:09)
[2025-01-05] MEDS: lisinopril 20 MG TAB PO SCH (09:09)
[2025-01-05] MEDS: ESCITALOPRAM OXALATE 10 MG TAB PO SCH (09:10)
[2025-01-05] MEDS: VIBEGRON 75 MG TAB PO SCH (09:10)
--- NOTE | 2025-01-05 11:14 | Hospitalist Progress Note ---
Date of Service January 05, 2025 Assessment & Plan (1) Acute hypernatremia: (2) Fall: (3) Hypercholesterolemia: (4) Hypertension: (5) History of cardiac pacemaker: Plan This is an 83-year-old male with a history of hypertension, hyperlipidemia, CAD, A-fib/sick sinus syndrome, pacemaker, BPH, REJI, and history of dementia and gradually declining cognition after history of SAH with IVH who was admitted after experiencing an unwitnessed fall in [facility] and found hyper natremia on admission labs. Hypernatremia * 2/2 dehydration, decreased po. - Na on arrival: 159-- > 158 - K: 2.8 - Patient at baseline cognition per admitting provider. - S/P NSS 1L bolus in ED - IVF changed to D5 1/2 NSS at 100 ml/hr with KCl. - Encourage PO intake as able. - recheck BMP at 2 pm today. Hypovolemia /Fall * poor PO intake.>>> dehydration - Fall was unwitnessed and patient found the next morning, but consider possible it was due to orthostatism - Imaging at time of admission showing fractured (R) clavicle and mild L5 compression fracture - Pain control with Tylenol prn - Fall precautions Dementia /AMS Hx ICH - Patient with dementia and declining cognitive status since hx of ICH; resides in memory unit - Relatives at bedside and state patient is at baseline cognition with maybe some minor worsening with arrival to hospital - Frequent reorientation HTN - Continue Lisinopril HLD - Continue Rosuvastatin VTE ppx: SCD Code Admission and Anticipated Discharge Date Admission Date: January 04, 2025 Supervising Physician Co-Signing Physician Notes ATTESTATION I also saw the patient and confirmed mitchell portions of the history and exam. I agree with the impression and plan in the resident documentation, and as summarized below. Patient sleeping but awakens to voice. Seems drowsy; he cannot tell me where he is (noted dementia so this may be baseline). EXAM VS stable CV RRR Respirations non labored. DATA Labs HgB 11.7 Na 159 > 158 > 155 K 3.2 > 2.9 > 3.5 Cr 1.46 > 1.21 > 1.04 Vitamin D 28.4 IMPRESSION & PLAN Metabolic encephalopathy Hypernatremia Hypokalemia Acute kidney failure Age-related osteoporosis with current pathologic fracture, r distal clavicle and L5 vertebra Dementia Suspect hypernatremia related to dehydration, volume depletion Continue current fluids, recheck sodium in 6 hours Monitor volume status clinically Pain seems well controlled at present Subjective Delirious this AM. Not communicative at all. No oriented to TPP. Restrained in bed. Review of Systems Review of Systems: As per HPI Physical Exam Physical Exam: Constitutional: Restrained in bed, Bruise on forehead, frail looking, dehydrated. HEENT: Bruise in forehead. CVS: Look well perfused. Respiratory: No increased work of breathing GI: Nondistended MSK: No gross deformities noted Skin: Warm, Dry Neuro: Not oriented to TPP. Results & Data Results & Data Vital Signs (Past 12 Hours) Vital Signs Temp Pulse Resp BP Pulse Ox O2 Del Method 01/05/25 07:28 36.6 C 68 16 133/83 100 Room Air Resident Activity Tracking Resident Involvement: Resident Care Provided Care Provided: Adult Hospital Medicine
[2025-01-05] MEDS: POTASSIUM CHLORIDE 40 MEQ in D5W AND 1/2NSS 1,000 ML IV SCH ×2 (13:37→17:36)
[2025-01-05 15:10] LABS: BUN Creatinine Ratio 19.2 (10-20); Calcium 7.9 mg/dl (8.6-10.3); Potassium 3.5 mmol/L (3.5-5.1)
[2025-01-06 07:43] LABS: Hematocrit (blood only) 38.1 % (42.0-52.0); Mean Corpuscular Hemoglobin 29.3 pg (25.0-34.0); Mean Corpuscular Hgb Conc 31.5 g/dL (32.0-36.0); Mean Corpuscular Volume 92.9 fL (80.0-100.0); Mean Platelet Volume 12.9 fL (9.4-12.4); Platelet Count 75 K/uL (130-400); RDW Coefficient of Variation 13.7 % (11.5-14.5); RDW Standard Deviation 46.4 fL (36.4-46.3); White Blood Count 7.14 K/ul (4.8-10.8)
--- NOTE | 2025-01-06 07:58 | Hospitalist Progress Note ---
Date of Service January 06, 2025 Assessment & Plan (1) Acute hypernatremia: (2) Fall: (3) Hypercholesterolemia: (4) Hypertension: (5) History of cardiac pacemaker: Plan This is an 83-year-old male with a history of hypertension, hyperlipidemia, CAD, A-fib/sick sinus syndrome, pacemaker, BPH, REJI, and history of dementia and gradually declining cognition after history of SAH with IVH who was admitted after experiencing an unwitnessed fall in [facility] and found hyper natremia on admission labs. Hypernatremia * 2/2 dehydration, decreased po. - Na on arrival: 159-- > 158---->151 - K: 2.8---3.8 - Patient at baseline cognition per on bedside. - IVF changed to D5 1/2 NSS at 80 ml/hr with KCl. - Encourage PO intake as able. - recheck BMP AM Hypovolemia /Fall * poor PO intake.>>> dehydration - Fall was unwitnessed and patient found the next morning, but consider possible it was due to orthostatism - Imaging at time of admission showing fractured (R) clavicle and mild L5 compression fracture - Pain control with Tylenol prn - Fall precautions Dementia /AMS Hx ICH - Patient with dementia and declining cognitive status since hx of ICH; resides in memory unit - Relatives at bedside and state patient is at baseline cognition with maybe some minor worsening with arrival to hospital - Frequent reorientation HTN - Continue Lisinopril HLD - Continue Rosuvastatin Thrombocytopenia: - Platelets in 70s. Stable. - No new bleeding. - Outpatient follow up. VTE ppx: SCD Code: Full Admission and Anticipated Discharge Date Admission Date: January 04, 2025 Supervising Physician Co-Signing Physician Notes ATTESTATION I also saw the patient and confirmed mitchell portions of the history and exam. I agree with the impression and plan in the resident documentation, and as summarized below. He is awake, seated in bed. Smiles, pleasant. Confused, but suspect at his baseline. Overall, markedly more awake than yesterday. EXAM VS stable Alert. NAD. CV RRR Respirations non labored. Slight B/L LE edema DATA Labs Na 159 > 158 > 155 > 151 K 3.2 > 2.9 > 3.5 > 3.8 Cr 1.46 > 1.21 > 1.04 > 0.93 Urine sodium 136, urine osmo 615, plasma osmo 322 IMPRESSION & PLAN Metabolic encephalopathy, improved Hypernatremia, improving Hypokalemia, resolved Acute kidney failure, resolved Age-related osteoporosis with current pathologic fracture, r distal clavicle and L5 vertebra Dementia Suspect hypernatremia related to dehydration, volume depletion Considered element of central DI given sub acute and acute head injury, although labs not consistent with such He is continuing to improve in terms of serum sodium Slight LE edema so will back down rate Pain seems well controlled at present Subjective Looks better this morning. Met his at bedside who feels he is nearly to his baseline now. Still not oriented but answers question. Looks well perfused. Review of Systems Review of Systems: As per HPI Physical Exam Physical Exam: Constitutional: Restrained in bed, Bruise on forehead, frail looking. HEENT: Bruise in forehead. CVS: Look well perfused. Respiratory: No increased work of breathing GI: Nondistended MSK: No gross deformities noted Skin: Warm, Dry. Pitting edema BL legs. Neuro: Not oriented to TPP. Results & Data Results & Data Vital Signs (Past 12 Hours) Vital Signs Temp Pulse Resp BP Pulse Ox O2 Del Method 01/06/25 07:07 36.7 C 74 16 135/70 96 Room Air 01/05/25 20:00 36.3 C L 76 18 136/75 95 Room Air Resident Activity Tracking Resident Involvement: Resident Care Provided Care Provided: Adult Hospital Medicine
[2025-01-06 08:06] LABS: BUN Creatinine Ratio 17.2 (10-20); Calcium 8.1 mg/dl (8.6-10.3); Creatinine Clr Calc Pharmacy 46.9 ml/min; Potassium 3.8 mmol/L (3.5-5.1)
[2025-01-06] MEDS: POTASSIUM CHLORIDE 40 MEQ in D5W AND 1/2NSS 1,000 ML IV SCH (11:20)
[2025-01-07 09:47] LABS: Hematocrit (blood only) 35.7 % (42.0-52.0); Hemoglobin 11.7 g/dl (14.0-18.0); Mean Corpuscular Hemoglobin 29.6 pg (25.0-34.0); Mean Corpuscular Hgb Conc 32.8 g/dL (32.0-36.0); Mean Corpuscular Volume 90.4 fL (80.0-100.0); Mean Platelet Volume 13.7 fL (9.4-12.4); Platelet Count 70 K/uL (130-400); RDW Coefficient of Variation 13.3 % (11.5-14.5); RDW Standard Deviation 43.9 fL (36.4-46.3); Red Blood Count 3.95 M/uL (4.70-6.10); White Blood Count 6.67 K/ul (4.8-10.8)
--- NOTE | 2025-01-07 10:03 | Hospitalist Progress Note ---
Date of Service January 07, 2025 Assessment & Plan (1) Acute hypernatremia: (2) Fall: (3) Hypercholesterolemia: (4) Hypertension: (5) History of cardiac pacemaker: Plan This is an 83-year-old male with a history of hypertension, hyperlipidemia, CAD, A-fib/sick sinus syndrome, pacemaker, BPH, REJI, and history of dementia and gradually declining cognition after history of SAH with IVH who was admitted after experiencing an unwitnessed fall in [facility] and found hyper natremia on admission labs. Hypernatremia; corrected * 2/2 dehydration, decreased po. - Na on arrival: 159-- > 158---->151---->141 - K: 2.8---3.8. - IVF changed stopped.e. - recheck BMP AM Hypovolemia /Fall * poor PO intake.>>> dehydration - Fall was unwitnessed and patient found the next morning, but consider possible it was due to orthostatism - Imaging at time of admission showing fractured (R) clavicle and mild L5 compression fracture - Pain control with Tylenol prn - Fall precautions Right Clavicle Fracture: - Barely symptomatic, non tender clavicle, though its comminuted and displaced. - DNVS intact. - Poor surgical candidate. - Can use sling if needed. Dementia /AMS Hx ICH - Patient with dementia and declining cognitive status since hx of ICH; resides in memory unit - Relatives at bedside and state patient is at baseline cognition with maybe some minor worsening with arrival to hospital - Frequent reorientation HTN - Continue Lisinopril HLD - Continue Rosuvastatin Thrombocytopenia: - Platelets in 70s. Stable. - No new bleeding. - Outpatient follow up. VTE ppx: SCD Code: Full Dispo: Will be back to memory unit on DC. Admission and Anticipated Discharge Date Admission Date: January 04, 2025 Supervising Physician Co-Signing Physician Notes ATTESTATION I also saw the patient and confirmed mitchell portions of the history and exam. I agree with the impression and plan in the resident documentation, and as s ummarized below. Sleepy this morning, but awake on recheck later in the afternoon. Does not seem to be having any pain with respect to his clavicular fracture or compression fracture. EXAM VS stable Alert. NAD. CV RRR He is able to raise his right arm to about 90 degrees without discomfort. I can palpate along his clavicle without noted tenderness Coil Cleaner is good. Distal pulses noted. Respirations non labored. Slight B/L LE edema DATA Labs Na 159 > 158 > 155 > 151 > 141 K 3.2 > 2.9 > 3.5 > 3.8 > 3.8 Cr 1.46 > 1.21 > 1.04 > 0.93 > 0.96 Urine sodium 136, urine osmo 615, plasma osmo 322 IMPRESSION & PLAN Metabolic encephalopathy, improved Hypernatremia, improving Hypokalemia, resolved Acute kidney failure, resolved Age-related osteoporosis with current pathologic fracture, r distal clavicle and L5 vertebra Dementia Right clavicular fracture Suspect hypernatremia related to dehydration, volume depletion, resolved Transition to PO fluids and monitor May sling right arm if needed for comfort, although I think this would cause him more agitation than anything given he has no pain at the moment Discussed with nursing to be aware of injury with transfers/movement/etc. Pain seems well controlled at present Review of Systems Review of Systems: As per HPI Physical Exam Physical Exam: Constitutional: Restrained in bed, Bruise on forehead, frail looking. HEENT: Bruise in forehead. CVS: Look well perfused. Respiratory: No increased work of breathing GI: Nondistended MSK: No gross deformities noted Skin: Warm, Dry. Pitting edema BL legs. Neuro: Not oriented to TPP. Results & Data Results & Data Vital Signs (Past 12 Hours) Vital Signs Temp Pulse Resp BP Pulse Ox O2 Del Method 01/07/25 07:33 36.3 C L 66 18 165/90 H 96 Room Air Resident Activity Tracking Resident Involvement: Resident Care Provided Care Provided: Adult Hospital Medicine
[2025-01-07 10:31] LABS: BUN Creatinine Ratio 14.6 (10-20); Creatinine Clr Calc Pharmacy 45.5 ml/min; Potassium 3.8 mmol/L (3.5-5.1)
[2025-01-07 10:33] LABS: BUN Creatinine Ratio 14.6 (10-20); Calcium 8.1 mg/dl (8.6-10.3); Creatinine Clr Calc Pharmacy 45.5 ml/min; Potassium 3.8 mmol/L (3.5-5.1)
--- NOTE | 2025-01-07 14:39 | Electrocardiogram Report ---
Test Reason : Blood Pressure : */* mmHG Vent. Rate : 95 BPM Atrial Rate : * BPM P-R Int : * ms QRS Dur : 108 ms QT Int : 402 ms P-R-T Axes : * -60 117 degrees QTcB Int : 505 ms Atrial fibrillation Left anterior fascicular block Left ventricular hypertrophy with repolarization abnormality ( Tony product ) Cannot rule out Septal infarct , age undetermined Prolonged QT Abnormal ECG When compared with ECG of 12-Dec-2024 19:09, Atrial fibrillation has replaced Electronic ventricular pacemaker Vent. rate has increased by 31 bpm Confirmed by Love Street (Scottie) on 01/07/2025 2:39:06 PM Referred By: REFERRED SELF Confirmed By: Love Street
--- NOTE | 2025-01-08 07:30 | Hospitalist Progress Note ---
Date of Service January 08, 2025 Assessment & Plan (1) Acute hypernatremia: (2) Fall: (3) Hypercholesterolemia: (4) Hypertension: (5) History of cardiac pacemaker: Plan This is an 83-year-old male with a history of hypertension, hyperlipidemia, CAD, A-fib/sick sinus syndrome, pacemaker, BPH, REJI, and history of dementia and gradually declining cognition after history of SAH with IVH who was admitted after experiencing an unwitnessed fall in [facility] and found hyper natremia on admission labs. After admission, sodium is corrected with IV fluids and better PO free water. Per , he is closer to baseline. Pending disposition as family seems interested to take him back home with arrangement of private hospitality team member, possibly on Thursday. I have not been able to talk about possibility of home hospice as he likely to meet criteria for hospice given his severe dementia. Home hospice could be helpful for him and family, if they agree for this. Hypernatremia; corrected * 2/2 dehydration, decreased PO - Na on arrival: 159-- > 158---->151---->141--- >143( 01/08) - K: 3.9 - Follow BMP AM trend. Hypovolemia /Fall * poor PO intake.>>> dehydration - Fall was unwitnessed and patient found the next morning, but consider possible it was due to orthostatism - Imaging at time of admission showing fractured (R) clavicle and mild L5 compression fracture - Pain control with Tylenol prn - Fall precautions Right Clavicle Fracture: - Barely symptomatic, non tender clavicle, though its comminuted and displaced. - DNVS intact. - Poor surgical candidate. - Can use sling if needed. Dementia /AMS Hx ICH - Patient with dementia and declining cognitive status since hx of ICH; resides in memory unit - Frequent reorientation HTN - Continue Lisinopril HLD - Continue Rosuvastatin Thrombocytopenia: - Platelets in 70s. Stable. - No new bleeding. - Outpatient follow up. VTE ppx: SCD Code: Full Dispo: Family interested to take back home with private career based intervention coordinator on Thursday. CM following. Home hospice discussion would be potentially helpful for his care. Admission and Anticipated Discharge Date Admission Date: January 04, 2025 Supervising Physician Co-Signing Physician Notes ATTESTATION I also saw the patient and confirmed mitchell portions of the history and exam. I agree with the impression and plan in the resident documentation, and as summarized below. Sleeping but awakens to voice. NAD. Smiles - yes/no responses. Not sure of his baseline but suspect this is near. EXAM VS stable Alert. NAD. CV RRR Right arm in a sling DATA Labs No new labs today Na 159 > 158 > 155 > 151 > 141 > 143 K 3.2 > 2.9 > 3.5 > 3.8 > 3.8 > 3.9 Cr 1.46 > 1.21 > 1.04 > 0.93 > 0.96 > 0.93 Urine sodium 136, urine osmo 615, plasma osmo 322 IMPRESSION & PLAN Metabolic encephalopathy, resolved Hypernatremia, resolved Hypokalemia, resolved Acute kidney failure, resolved Age-related osteoporosis with current pathologic fracture, r distal clavicle and L5 vertebra Dementia Right clavicular fracture Suspect hypernatremia related to dehydration, volume depletion, resolved Transition to PO fluids and monitor May sling right arm if needed for comfort, although I think this would cause him more agitation than anything given he has no pain at the moment Discussed with nursing to be aware of injury with transfers/movement/etc. Pain seems well controlled at present. Family interested in returning home instead of memory unit. He may meet hospice guidelines for dementia (FAST 7A) but would need some collateral information to make this assessment. Hospice admission would allow for home DME items needed, including hospital bed. Discuss with family and palliative team on Thursday Subjective Stable from yesterday. Still not oriented to time, place and person, hence not able to discuss more about his code status. No visitor bedside this AM. I met his 2 days ago and updated the plan. At that point was convinced Mr. Jacobs is close to baseline and she was hoping to get him back to home if she can arrange for his care. We did not discuss detail about her plan, though. Review of Systems Review of Systems: As per HPI Physical Exam Physical Exam: Constitutional: Restrained in bed, Bruise on forehead, frail looking. HEENT: Bruise in forehead. CVS: Look well perfused. Respiratory: No increased work of breathing GI: Nondistended MSK: No gross deformities noted Skin: Warm, Dry. Pitting edema BL legs. Neuro: Not oriented to TPP. Results & Data Results & Data Vital Signs (Past 12 Hours) Vital Signs Temp Pulse Resp BP Pulse Ox O2 Del Method 01/08/25 07:14 36.5 C 87 18 160/83 H 95 Room Air 01/07/25 19:40 36.4 C L 80 18 148/77 H 97 Room Air Resident Activity Tracking Resident Involvement: Resident Care Provided Care Provided: Adult Hospital Medicine
[2025-01-08 08:40] LABS: BUN Creatinine Ratio 18.3 (10-20); Calcium 8.4 mg/dl (8.6-10.3); Creatinine Clr Calc Pharmacy 46.9 ml/min; Potassium 3.9 mmol/L (3.5-5.1)
[2025-01-09 07:58] LABS: Basophils # (auto) 0.03 K/uL (0.00-0.20); Basophils % (auto) 0.4 %; Eosinophils # (auto) 0.21 K/uL (0.00-0.50); Eosinophils % (auto) 2.5 %; Hematocrit (blood only) 37.3 % (42.0-52.0); Hemoglobin 12.3 g/dl (14.0-18.0); Immature Granulocytes # (auto) 0.02 K/uL (0.01-0.20); Immature Granulocytes % (auto) 0.2 %; Lymphocytes # (auto) 1.14 K/uL (1.20-3.40); Lymphocytes % (auto) 13.6 %; Mean Corpuscular Hemoglobin 29.1 pg (25.0-34.0); Mean Corpuscular Volume 88.4 fL (80.0-100.0); Mean Platelet Volume 13.4 fL (9.4-12.4); Monocytes # (auto) 0.59 K/uL (0.11-0.59); Neutrophils # (auto) 6.39 K/uL (1.40-6.50); Neutrophils % (auto) 76.3 %; Platelet Count 69 K/uL (130-400); RDW Coefficient of Variation 13.7 % (11.5-14.5); RDW Standard Deviation 43.2 fL (36.4-46.3); Red Blood Count 4.22 M/uL (4.70-6.10); White Blood Count 8.38 K/ul (4.8-10.8)
[2025-01-09 08:11] LABS: Calcium 8.3 mg/dl (8.6-10.3); Potassium 3.6 mmol/L (3.5-5.1)
--- NOTE | 2025-01-09 14:30 | Hospitalist Progress Note ---
"Date of Service January 09, 2025 Assessment & Plan (1) Acute hypernatremia: (2) Fall: (3) Hypercholesterolemia: (4) Hypertension: (5) History of cardiac pacemaker: Plan This is an 83-year-old male with a history of hypertension, hyperlipidemia, CAD, A-fib/sick sinus syndrome, pacemaker, BPH, REJI, and history of dementia and gradually declining cognition after history of SAH with IVH who was admitted after experiencing an unwitnessed fall in [facility] and found hypernatremia on admission labs. Imaging showing Right clavicle fracture and L5 compression fracture. After admission, sodium is corrected with IV fluids and better PO free water. Mental status has returned to baseline. is not interested in sending him back to [facility]. Plan is home with hospice. Hypernatremia; corrected 2/2 dehydration, decreased PO. this has corrected with IV and PO fluids. Now 142 Hypovolemia /Fall | Right clavicle Fracture Fall was unwitnessed and patient found the next morning, but consider possible it was due to orthostasis/hypotension. Resulting in right clavicle comminute and displaced fracture and mild L5 compression fracture Sling in place for comfort Pain control - schedule tylenol 500mg TID as patient does not communicate pain well, prn PO tylenol also available PT/OT consulted - poor rehab candidate with dementia. unwilling to send to rehab. Agreeable to hospice - CM following Dementia /AMS | Hx ICH - Patient with dementia and declining cognitive status since hx of ICH; - Frequent reorientation HTN - Continue Lisinopril HLD - Continue Rosuvastatin Thrombocytopenia: - Platelets in 70s. Stable. - No new bleeding. Outpatient follow up. VTE ppx: SCD Dispo: plan for home with hospice, possibly tomorrow updated at bedside 01/09 Admission and Anticipated Discharge Date Admission Date: January 04, 2025 Subjective Patient seen working with OT, present at bedside He is not able to follow commands, and is using his broken arm to try to move, causing himself pain patient not able to provide any meaningful history Disucssed with - she is unwilling to send him back to [facility] stating she doesnt trust them. Discussed with her at his current functional status that I do not feel it is safe to go home with her as just the primary caregiver without 24/7 help. She was understanding of this. At this time she is agreeable to hospice at home. Review of Systems Review of Systems: Unobtainable due to cognitive status Physical Exam Physical Exam: General: NAD, VS as above, working with therapy to attempt to sit at the side of the bed and then resting comfortably Resp: normal respiratory effort, CV: RRR, no murmur, extremities: RUE in sling, able to move fingers distally Neuro: hard to asses oreintation as very minimal speaking, alert to self at best Results & Data Results & Data Vital Signs (Past 12 Hours) Vital Signs Temp Pulse Resp BP Pulse Ox O2 Del Method 01/09/25 07:02 97.7 F 83 18 144/95 H 98 Room Air Laboratory Results cbc and chemistry reviewed PG Care Time/CCT Total # of Minutes Spent Total Time Spent with Patient: Total time spent is greater than 50% in coordination of care (as documented) at patient's floor/unit and/or counseling patient: Coding Level of Care Code 81217 SUB INP/OBS CARE 2/35MIN Diagnoses Acute hypernatremia E87.0 Fall W19.XXXA Hypercholesterolemia E78.00 Hypertension I10 History of cardiac pacemaker Z95.0"
[2025-01-09 20:16] VITALS: TEMP 97.7
[2025-01-09] MEDS: ACETAMINOPHEN 500 MG TAB PO SCH (20:38)
[2025-01-10 07:04] VITALS: BP 168/97; PULSE 66; RESP 16; O2SAT 99
--- NOTE | 2025-01-10 08:42 | Discharge Summary ---
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 Imaging showing Right clavicle fracture and L5 compression fracture. After admission, sodium is corrected with IV fluids and better PO free water. Mental status has returned to baseline. Dung is unable to follow commands to be able to participate in therapy, is agreeable that would not be a good fit for him. Discussed [facility] vs home - did not want to send him back to [facility] discussed sending him back home with hospice as well as her private pay caregivers and she was agreeable to this. Sling for comfort, scheduled tylenol 500mg TID has been helpful for pain. Plan for home with hospice today. Hospice meds sent - ativan, zofran and morphine. Discussed with , did not want chandler placed prior to discharge. Will plan to continue medications at this time. Hypernatremia; corrected 2/2 dehydration, decreased PO. this has corrected with IV and PO fluids. Now 142 HTN - Continue Lisinopril HLD - Continue Rosuvastatin Thrombocytopenia - Platelets in 70s. Stable. No intervention with hospice. Dispo: home with hospice, updated at bedside 01/09 and by phone 01/10 Notes For Next Care Provider home with hopsice Admission HPI Per Admitting Provider This is an 83-year-old male with a history of hypertension, hyperlipidemia, CAD, A-fib/sick sinus syndrome, pacemaker, BPH, REJI, and history of dementia and gradually declining cognition after history of SAH with IVH who came to the emergency department after seeing his neurologist earlier today due to noted bruises on the right side of his forehead that was consequent to a fall that he sustained on Thursday (01/02/2025). Patient is a resident of the memory unit in [facility] and on Thursday (01/03/2025) he was found by staff lying on the ground close to his bed. His fall was unwitnessed but was thought to be caused by him trying to get out of bed and losing his balance. Shortly after he was found, patient was able to stand and move pretty well, and therefore was not taken to the hospital. He was seen by his neurologist earlier today who also noted the bruising on the patient's face and recommended that he be seen in the emergency department. On arrival to emergency department, patient accompanied by his daughter and his who state the patient is close to his baseline cognition but does seem a little bit more confused since arriving to the [facility]. They had been told by the staff from [facility] that patient was consuming an appropriate amount of water and food but they are not very sure whether or not they were watching him while he consumed this. Patient had not complained of pain and is able to move all extremities pretty well. ED Course: given NSS 1L bolus Labs/Imaging: CBC without leukocytosis, hemoglobin of 14.2, platelets of 98. CMP showing hyponatremia of 159, hypokalemia of 3.2, hyperchloremia 122, BUN of 27, creatinine 1.46. Head CT showing changes suggestive of NPH but no other acute intracranial abnormalities. C-spine CT without fractures. L-spine CT with mild L5 compression fracture. Right shoulder x-ray with distal clavicle displaced dorsally. Chest x-ray without acute pulmonary findings but does note an acute comminuted displaced distal right clavicular fracture. Discharge Exam General: NAD, VS as above, sitting up in bed, being fed, plesant and smiling Resp: normal respiratory effort, CV: well perfused extremities: does wince with palpation to right shoulder Neuro: hard to asses oreintation as very minimal speaking, alert to self at best Discharge Plan Discharge Items Patient Disposition: Hospice - Home Reason For Visit: FALL Discharge Diagnosis: Right Humerus Fracture Condition on Discharge: Fair Activity: As commented below Activity Comment: as desired Lifting Comment: no lifting with right arm Non-emergency contact: Primary Care Provider Call non-emergency contact if: you have any medication questions, your symptoms worsen and your temperature is above 101 Follow-up/Referrals: Kenny Rubalcava MD [Primary Care Provider] - Diet: Regular Addtl Attending Provider Instructions: Mr. Jacobs, You were hospitalized after a fall resulting in a humerus fracture. Unfortunately, with your dementia and hx of brain bleed it is going to be very hard for your to do you daily activities with this fracture. You are not a candidate for surgery and would be very difficult to have you complete a rehab stay. Your family has opted to return home with hospice, which will be very beneficial for you. This will allow to focus on your comfort and remain in your own home. You will be returning home with hospice. At this point you do not need to follow up with any of your regular doctors or specialist, your hospice agency is now your main point of contact. They will be available 30/03 to answer any and all questions that you may have. They will be able to order medications and help with dosing when needed. I have continued all your home medications at this point, and have increased the lexapro dose as neurology recommended. As we discussed, it is okay to continue to take medications for now, if Dung is providing resistance or does not want to take his medications one day that is okay. I stopped the non-essential vitamins. - medications I think he could stop without issue would be lisinopril, rousvastatin. We have been using one tab of tylenol with meals to help keep his pain at bay. The hospice journey is about comfort and patient preference. He does not have to do exercises, take medications, get out of bed, etc if he doesnt want to. Try to make this time as enjoyable for both of you. If there are acute medical concerns please call your hospice provider, NOT 911. They will be able to help. I have sent in the following medications if needed before hospice is able to send meds: - zofran (ondansetron) - as needed for nausea - morphine - as needed for pain or air hunger - ativan (lorazepam) - as needed for anxiety/agitation or restlessness Thank you for allowing us to participate in Dung's care. Take care Pending Studies at Discharge: No Stand-Alone Forms: My [facility] Medications and DC Order Prescriptions: New ondansetron 4 mg tablet,disintegrating 4 mg PO QID PRN (Reason: nausea and vomiting) Qty: 14 0RF lorazepam [Ativan] 0.5 mg tablet 0.5 mg sublingual Q6H PRN (Reason: anxiety or agitation) Qty: 14 0RF morphine 20 mg/5 mL (4 mg/mL) solution 5 mg PO Q3H PRN (Reason: pain) Qty: 100 0RF Continued vibegron 75 mg tablet 75 mg PO DAILY Deep [place] Nasal 0.65 % Aerosol,[place] 2 spray INTRANASAL Q4 PRN (Reason: NASAL DRYNESS) acetaminophen 325 mg tablet 650 mg PO Q4H PRN (Reason: GENERAL DISCOMFORT) docusate sodium 100 mg Capsule 100 mg PO .EVERY 24 HOURS PRN (Reason: Constipation) atenolol 100 mg tablet 100 mg PO BID Qty: 60 0RF lisinopril 20 mg tablet 20 mg PO QAM Qty: 30 0RF aspirin 81 mg Tablet,Delayed Release (Dr/Ec) 81 mg PO QAM Qty: 30 0RF lisinopril 10 mg tablet 10 mg PO HS Qty: 30 0RF nitroglycerin 0.4 mg tablet, sublingual 0.4 mg SL Q5M PRN (Reason: chest pain) Qty: 10 0RF rosuvastatin 40 mg tablet 40 mg PO HS Qty: 30 0RF Changed escitalopram oxalate 5 mg tablet 10 mg PO QAM Qty: 30 0RF Discontinued coenzyme Q10 [Co Q-10] 200 mg Capsule 200 mg PO QAM Qty: 0 Centrum Silver Men 300-600-300 mcg tablet 1 tab PO QAM Discharge Orders: Discharge Order (Routine); Ordered 01/10/25 Ordered By: Sheila Delgado/Other Patient Handouts: Starting Hospice, Hospice- Caring for Your Loved One Admission Data Admit Date/Time: 01/04/25 20:50 Attending Provider: Heraclio Lockett Admit Provider: Mary Pompa Primary Care Provider: Kenny Rubalcava Other Providers: Jonel De Santiago; [facility] Hospital Stay Data Consultations 01/04/25 19:05 ED Decision to Admit Stat Diagnostic Imagining Performed Cervical Spine CT 01/04/25 15:04 CT cervical spine without IV contrast History: Trauma Comparison: 08/12/2024 Technique: Using multidetector thin collimation helical acquisition technique, axial, coronal and sagittal CT images through the cervical spine were obtained without intravenous contrast. Dose reduction techniques were achieved by using automatic exposure control and/or adjustment of mA and/or kV according to patient size and/or use of iterative reconstruction technique. Findings: The cervical vertebrae are normally aligned. Straightened cervical lordosis. No acute fracture or subluxation. No prevertebral edema. The bones are demineralized. There is moderate facet arthrosis, spondylosis and uncal spurring at all levels. There is no fracture or subluxation. Moderate to severe disc space narrowing and canal and foraminal stenosis at all levels. Canal stenosis is moderate to severe at C4-C5. No abnormality of the paraspinous soft tissues. Impression: No acute fracture or traumatic subluxation. Electronically signed by Samuel Pang 01-04-2025 5:[address] 01/04/25 15:04 CT head without contrast History: Trauma Comparison: 12/01/2024 Technique: Using multidetector thin collimation helical acquisition technique, axial, coronal and sagittal CT images from the skull base to the vertex were obtained without intravenous contrast. Dose reduction techniques were achieved by using automatic exposure control and/or adjustment of mA and/or kV according to patient size and/or use of iterative reconstruction technique. Findings: Brain and extra-axial spaces: There is moderate cortical atrophy and chronic ischemic periventricular white matter hypodensity. No acute infarct, hemorrhage or mass noted. Old left frontal infarct. Continue dilation of the ventricular system. Bones/joints: No acute changes. Soft tissues: No significant abnormality noted. Vasculature: No acute abnormality noted. Sinuses: No layering fluid in the visualized portions of the paranasal sinuses. Mastoid air cells: No mastoid effusion. Orbits: No significant abnormality noted. IMPRESSION: No acute intracranial pathology. Dilation of the ventricular system in the sylvian fissures may be seen with NPH in the appropriate clinical setting. Electronically signed by Samuel Pang 01-04-2025 5:02 PM Shoulder X-Ray 01/04/25 15:05 XR shoulder RT min 2V routine CLINICAL HISTORY: Shoulder trauma, COMPARISON: 05/22/2022 FINDINGS: There is an acute, comminuted fracture of the distal right clavicle just proximal to the acromioclavicular joint. The distal clavicle is displaced dorsally by half the width the shaft. There is no significant angulation. There is no humeral fracture identified. There is no definite glenohumeral malalignment although the upper arm is held in internal rotation on all the available views. IMPRESSION: Distal clavicle fracture as described. No definite evidence of shoulder joint dislocation although a posterior dislocation is difficult to completely exclude due to the internal rotation positioning on the available views. ACT 112: Negative or not required by law. Electronically signed by: Ashley Flower M.D. 01/04/2025 3:56 PM Chest X-Ray 01/04/25 15:06 PORTABLE SUPINE AP CHEST RADIOGRAPH CLINICAL HISTORY: Fall. COMPARISON STUDY: Chest radiograph December 14, 2024. FINDINGS: There is no pneumothorax or pleural effusion supine exam. Left subclav nolberto pacer is in place. There is no evidence for pulmonary edema. No airspace opacities are present. There is an acute comminuted displaced distal right clavicular fracture. IMPRESSION: 1. No acute cardiopulmonary findings. 2. Acute comminuted displaced distal right clavicular fractures better depicted on the dedicated right shoulder radiographs. ACT 112: Negative or not required by law. Electronically signed by: Varun Collins M.D. 01/04/2025 4:02 PM Abdomen/Pelvis CT 01/04/25 15:36 EXAMINATION: CT of the chest, abdomen and pelvis, as well as the thoracic and lumbar spine, performed without the administration of IV contrast TECHNIQUE: Helical CT images from the lung apices through the symphysis pubis were obtained without contrast. Coronal and sagittal reformatted images were generated at a workstation for further assessment. Dose reduction techniques were achieved by using automatic exposure control and/or adjustment of mA and/or kV according to patient size and/or use of iterative reconstruction technique. COMPARISON: None HISTORY: Trauma FINDINGS: Lines and tubes: None Mediastinum/Neck Base: No thyroid nodules. Central tracheobronchial tree is patent. Heart size is enlarged. There is fatty filtration about the subendocardial region of the left ventricle about the lateral free wall. Left chest wall dual-lead AICD in place. There are heavy coronary calcifications. No pericardial effusion. Normal thoracic vasculature. No thoracic lymphadenopathy. Lungs: No consolidation. There is a trace left-sided pleural effusion. There is a tiny subtle area of airway centric nodularity of the right middle lobe, axial image 35, consistent with infectious bronchiolitis. Liver: No suspicious liver lesions. There is a small cyst. Gallbladder: There is a calcified gallstone. No evidence of acute cholecystitis. Spleen: Normal size. Pancreas: No suspicious pancreatic lesions. The pancreatic duct is not dilated. Adrenal glands: No adrenal nodules. Kidneys: No hydronephrosis or obstructing renal stones. Bladder / Pelvic organs: Unremarkable. Bowel: No bowel obstruction. No abnormal bowel wall thickening. The appendix is unremarkable. Lymph nodes: No retroperitoneal, mesenteric, or pelvic lymphadenopathy. Peritoneum / Retroperitoneum: No free fluid or air within the abdomen. Vessels: No infrarenal aortic aneurysm. Heavy aortoiliac calcification. Bones and soft tissues: Degenerative changes of the spine. At L5 there is an acute appearing anterosuperior endplate compression fracture, with approximately 10 to 15% height loss. There are moderate degenerative facet changes at L4-5 and L5-S1. Mild degenerative facet changes at L3-4. No fracture or traumatic subluxation of the thoracic spine. IMPRESSION: 1. L5 mild, acute appearing anterosuperior endplate compression fracture, as above. 2. No other acute finding in the chest, abdomen or pelvis, or of the thoracic spine. 3. Sequelae of prior myocardial infarct, as above. 4. Cholelithiasis. Electronically signed by Samuel Pang 01-04-2025 5:[address] 01/04/25 15:36 EXAMINATION: CT of the chest, abdomen and pelvis, as well as the thoracic and lumbar spine, performed without the administration of IV contrast TECHNIQUE: Helical CT images from the lung apices through the symphysis pubis were obtained without contrast. Coronal and sagittal reformatted images were generated at a workstation for further assessment. Dose reduction techniques were achieved by using automatic exposure control and/or adjustment of mA and/or kV according to patient size and/or use of iterative reconstruction technique. COMPARISON: None HISTORY: Trauma FINDINGS: Lines and tubes: None Mediastinum/Neck Base: No thyroid nodules. Central tracheobronchial tree is patent. Heart size is enlarged. There is fatty filtration about the subendocardial region of the left ventricle about the lateral free wall. Left chest wall dual-lead AICD in place. There are heavy coronary calcifications. No pericardial effusion. Normal thoracic vasculature. No thoracic lymphadenopathy. Lungs: No consolidation. There is a trace left-sided pleural effusion. There is a tiny subtle area of airway centric nodularity of the right middle lobe, axial image 35, consistent with infectious bronchiolitis. Liver: No suspicious liver lesions. There is a small cyst. Gallbladder: There is a calcified gallstone. No evidence of acute cholecystitis. Spleen: Normal size. Pancreas: No suspicious pancreatic lesions. The pancreatic duct is not dilated. Adrenal glands: No adrenal nodules. Kidneys: No hydronephrosis or obstructing renal stones. Bladder / Pelvic organs: Unremarkable. Bowel: No bowel obstruction. No abnormal bowel wall thickening. The appendix is unremarkable. Lymph nodes: No retroperitoneal, mesenteric, or pelvic lymphadenopathy. Peritoneum / Retroperitoneum: No free fluid or air within the abdomen. Vessels: No infrarenal aortic aneurysm. Heavy aortoiliac calcification. Bones and soft tissues: Degenerative changes of the spine. At L5 there is an acute appearing anterosuperior endplate compression fracture, with approximately 10 to 15% height loss. There are moderate degenerative facet changes at L4-5 and L5-S1. Mild degenerative facet changes at L3-4. No fracture or traumatic subluxation of the thoracic spine. IMPRESSION: 1. L5 mild, acute appearing anterosuperior endplate compression fracture, as above. 2. No other acute finding in the chest, abdomen or pelvis, or of the thoracic spine. 3. Sequelae of prior myocardial infarct, as above. 4. Cholelithiasis. Electronically signed by Samuel Pang 01-04-2025 5:[address] 01/04/25 15:36 EXAMINATION: CT of the chest, abdomen and pelvis, as well as the thoracic and lumbar spine, performed without the administration of IV contrast TECHNIQUE: Helical CT images from the lung apices through the symphysis pubis were obtained without contrast. Coronal and sagittal reformatted images were generated at a workstation for further assessment. Dose reduction techniques were achieved by using automatic exposure control and/or adjustment of mA and/or kV according to patient size and/or use of iterative reconstruction technique. COMPARISON: None HISTORY: Trauma FINDINGS: Lines and tubes: None Mediastinum/Neck Base: No thyroid nodules. Central tracheobronchial tree is patent. Heart size is enlarged. There is fatty filtration about the subendocardial region of the left ventricle about the lateral free wall. Left chest wall dual-lead AICD in place. There are heavy coronary calcifications. No pericardial effusion. Normal thoracic vasculature. No thoracic lymphadenopathy. Lungs: No consolidation. There is a trace left-sided pleural effusion. There is a tiny subtle area of airway centric nodularity of the right middle lobe, axial image 35, consistent with infectious bronchiolitis. Liver: No suspicious liver lesions. There is a small cyst. Gallbladder: There is a calcified gallstone. No evidence of acute cholecystitis. Spleen: Normal size. Pancreas: No suspicious pancreatic lesions. The pancreatic duct is not dilated. Adrenal glands: No adrenal nodules. Kidneys: No hydronephrosis or obstructing renal stones. Bladder / Pelvic organs: Unremarkable. Bowel: No bowel obstruction. No abnormal bowel wall thickening. The appendix is unremarkable. Lymph nodes: No retroperitoneal, mesenteric, or pelvic lymphadenopathy. Peritoneum / Retroperitoneum: No free fluid or air within the abdomen. Vessels: No infrarenal aortic aneurysm. Heavy aortoiliac calcification. Bones and soft tissues: Degenerative changes of the spine. At L5 there is an acute appearing anterosuperior endplate compression fracture, with approximately 10 to 15% height loss. There are moderate degenerative facet changes at L4-5 and L5-S1. Mild degenerative facet changes at L3-4. No fracture or traumatic subluxation of the thoracic spine. IMPRESSION: 1. L5 mild, acute appearing anterosuperior endplate compression fracture, as above. 2. No other acute finding in the chest, abdomen or pelvis, or of the thoracic spine. 3. Sequelae of prior myocardial infarct, as above. 4. Cholelithiasis. Electronically signed by Samuel Pang 01-04-2025 5:[address] 01/04/25 15:36 EXAMINATION: CT of the chest, abdomen and pelvis, as well as the thoracic and lumbar spine, performed without the administration of IV contrast TECHNIQUE: Helical CT images from the lung apices through the symphysis pubis were obtained without contrast. Coronal and sagittal reformatted images were generated at a workstation for further assessment. Dose reduction techniques were achieved by using automatic exposure control and/or adjustment of mA and/or kV according to patient size and/or use of iterative reconstruction technique. COMPARISON: None HISTORY: Trauma FINDINGS: Lines and tubes: None Mediastinum/Neck Base: No thyroid nodules. Central tracheobronchial tree is patent. Heart size is enlarged. There is fatty filtration about the subendocardial region of the left ventricle about the lateral free wall. Left chest wall dual-lead AICD in place. There are heavy coronary calcifications. No pericardial effusion. Normal thoracic vasculature. No thoracic lymphadenopathy. Lungs: No consolidation. There is a trace left-sided pleural effusion. There is a tiny subtle area of airway centric nodularity of the right middle lobe, axial image 35, consistent with infectious bronchiolitis. Liver: No suspicious liver lesions. There is a small cyst. Gallbladder: There is a calcified gallstone. No evidence of acute cholecystitis. Spleen: Normal size. Pancreas: No suspicious pancreatic lesions. The pancreatic duct is not dilated. Adrenal glands: No adrenal nodules. Kidneys: No hydronephrosis or obstructing renal stones. Bladder / Pelvic organs: Unremarkable. Bowel: No bowel obstruction. No abnormal bowel wall thickening. The appendix is unremarkable. Lymph nodes: No retroperitoneal, mesenteric, or pelvic lymphadenopathy. Peritoneum / Retroperitoneum: No free fluid or air within the abdomen. Vessels: No infrarenal aortic aneurysm. Heavy aortoiliac calcification. Bones and soft tissues: Degenerative changes of the spine. At L5 there is an acute appearing anterosuperior endplate compression fracture, with approximately 10 to 15% height loss. There are moderate degenerative facet changes at L4-5 and L5-S1. Mild degenerative facet changes at L3-4. No fracture or traumatic subluxation of the thoracic spine. IMPRESSION: 1. L5 mild, acute appearing anterosuperior endplate compression fracture, as above. 2. No other acute finding in the chest, abdomen or pelvis, or of the thoracic spine. 3. Sequelae of prior myocardial infarct, as above. 4. Cholelithiasis. Electronically signed by Samuel Pang 01-04-2025 5:02 PM Pending Results Patient Have Any Pending Studies at Discharge: No Discharge Instructions Given to Patient (Per Discharging Provider) Mr. Jcaobs, You were hospitalized after a fall resulting in a humerus fracture. Unfortunately, with your dementia and hx of brain bleed it is going to be very hard for your to do you daily activities with this fracture. You are not a candidate for surgery and would be very difficult to have you complete a rehab stay. Your family has opted to return home with hospice, which will be very beneficial for you. This will allow to focus on your comfort and remain in your own home. You will be returning home with hospice. At this point you do not need to follow up with any of your regular doctors or specialist, your hospice agency is now your main point of contact. They will be available 30/03 to answer any and all questions that you may have. They will be able to order medications and help w ith dosing when needed. I have continued all your home medications at this point, and have increased the lexapro dose as neurology recommended. As we discussed, it is okay to continue to take medications for now, if Dung is providing resistance or does not want to take his medications one day that is okay. I stopped the non-essential vitamins. - medications I think he could stop without issue would be lisinopril, rousvastatin. We have been using one tab of tylenol with meals to help keep his pain at bay. The hospice journey is about comfort and patient preference. He does not have to do exercises, take medications, get out of bed, etc if he doesnt want to. Try to make this time as enjoyable for both of you. If there are acute medical concerns please call your hospice provider, NOT 911. They will be able to help. I have sent in the following medications if needed before hospice is able to send meds: - zofran (ondansetron) - as needed for nausea - morphine - as needed for pain or air hunger - ativan (lorazepam) - as needed for anxiety/agitation or restlessness Thank you for allowing us to participate in Dung's care. Take care Total Time Total Time Spent Total Time Spent (In Minutes): Time spent day of discharge 36 minutes including direct patient care, medication reconciliation, documentation, review of labs and images, and coordination of care. Coding Level of Care Code 68529 INP/OBS DISCH >30 MIN Diagnoses Acute hypernatremia E87.0 Fall W19.XXXA Hypercholesterolemia E78.00 Hypertension I10 History of cardiac pacemaker Z95.0"
[2025-01-10] MEDS: ESCITALOPRAM OXALATE 10 MG TAB PO SCH (09:51)
== END 2025-01-10 12:55 | disposition hospice, home (50) | DRG 640 ==
LOC: ED 14:40 → INTOOBSV 20:50 → SUATTDRO 20:50 → 3N 20:50

== ENCOUNTER 2025-01-19 20:30 | Observation (INO) ==
--- NOTE | 2025-01-19 23:17 | Emergency Department Note ---
Impression & Plan AMS (altered mental status), Hospice care patient ED Provider Note Provider: Brennon Bates MD CHIEF COMPLAINT: Altered HISTORY OF PRESENT ILLNESS: Patient is a 84-year-old gentleman history of multiple strokes, dementia on hospice presenting from home as the states he had a sudden change of mental status around 7 to 7:30 PM. Began to flail a bit and then closed his eyes and now occasionally withdraws but is not interacting as normal. Has had significant aphasia since prior strokes and has been hospice over the past week. No falls reported. Patient himself is unable to verbalize any complaints just closing his eyes. states this is significant change and did not want to do so came here for further evaluation. Patient evidently has been eating and had some dinner tonight. PAST MEDICAL HISTORY: As noted above MEDICATIONS: Reviewed SOCIAL HISTORY: , on hospice PHYSICAL EXAM: GENERAL: Eyes closed resting on stretcher at bedside. Head: normocephalic and atraumatic EYES: No injection, discharge or icterus. When the eyelids are manually open, PERRL and occasionally makes eye contact NECK: Trachea midline. ENT: Mucous membranes pink and moist. LUNGS: Airway patent. No retractions. Breath sounds clear HEART: Regular rate and rhythm. No chest wall tenderness ABDOMEN: Soft and non-tender, without guarding or rebound SKIN: Acyanotic, warm, dry, without rashes EXTREMITIES: Without swelling, tenderness or deformity NEUROLOGICAL: Withdraws in all 4 extremities. Not following commands. Nonverbal at this time. Patient's imaging reviewed. Differential includes Infection, dehydration, metabolic abnormality, hypo/hyperglycemia, electrolyte disturbance, anemia, hypoxia, cardiac sources, intracerebral event, toxicologic, neurologic, as well as other pathologies. IMPRESSION/MEDICAL DECISION MAKING: Discussed with and a CT head ordered to look for possible new strokes or bleeds based on prior history. He is on hospice and they do not wish for invasive testing or surgical procedures and as such a limited diagnostic evaluation here today. Patient does not seem in any significant distress. What she describes does not really sound like a seizure. Does not seem febrile here. He does not seem clinically dehydrated. CT of the head shows per radiology no acute findings or bleed. Discussed with case management as well as that given the hour while she does have some home services during the day she has not everything at night unsure how well she did be able to care for him and his new altered state at night tonight. In shared decision making with the discussed we could change status and be more aggressive and complete more of a workup here, we could bring him in to the hospital for additional support while hospice works for additional support at home at least overnight or if she very much wished we could send her home with him. Patient is a little bit more awake on reassessment. In shared decision-making with , she did not feel comfortable taking him home given his change in status overnight and be by herself with him. As such again will defer further testing per her wishes and hospice goals but plan to bring the patient in for the night pending additional services to be set up at home for hospice. Reached out to the hospitalist team. DIAGNOSIS: Hospice, change in mental status DISPOSITION: Hospitalist will evaluate agreeable. Past Med/Surg History Problem List (Updated 01/19/25 @ 23:40 by Brennon Bates M.D.) Hospice care patient (Acute) AMS (altered mental status) (Acute) Hospice care patient Acute head trauma Nocturia Urinary incontinence Altered mental status (Acute) Acute UTI (Acute) Influenza A virus subtype H1 2009 pandemic strain present (Acute) Atrial fibrillation with RVR Cholelithiasis Constipation Dysphagia Influenza A AMS (altered mental status) (Acute) Intracranial hemorrhage Seizure-like activity Other symptoms and signs involving cognitive functions and awareness Epistaxis (Acute) H/O umbilical hernia repair (08/18/19) Open Umbilical Hernia Repair Dr. Zamora 08/18/19 Encounter for pre-operative examination Patient okay for surgery as per cardiology 07/26/19. Past heart attack (Acute) had in 1991 Hyperglycemia (Acute) Gross hematuria (Acute) Former smoker (Acute) Elevated prostate specific antigen (PSA) (Acute) Benign prostatic hyperplasia with elevated prostate specific antigen (PSA) (Acute) Allergic rhinitis (Acute) Umbilical hernia without mention of obstruction or gangrene Sick sinus syndrome (Acute) 2007 DX Medical History (Updated 01/19/25 @ 23:40 by Brennon Bates M.D.) History of intracranial hemorrhage Lumbar compression fracture Right clavicle fracture Hypercholesterolemia Hypertension AMS (altered mental status) Dementia RLL pneumonia UTI (urinary tract infection) Coronary artery disease Paroxysmal atrial fibrillation Presence of cardiac pacemaker Raynauds syndrome Atrial fibrillation DX 2014 (REASON FOR TAKING XARELTO) Myocardial Infarction 1991 Hyperlipidemia Raynauds phenomenon Ulcerative colitis History of cardiac pacemaker 2007 (S/P SYNCOPAL EPISODE) FOLLOWED BY DR. SMITH 2019 CHANGED PACEMAKER (MEDTRONIC DEVICE) Surgical History (Updated 01/16/25 @ 00:06 by Sahil Manriquez) History of colonoscopy History of cataract surgery RT/LEFT [place] of [place] [facility] [place] of wisdom tooth extraction Family History Father Heart disease Stroke Social History Smoking Status: Never smoker Tobacco Type: Cigarettes Second Hand Exposure: No; Do You Dip or Chew Tobacco: No; Hx Alcohol Use: No Hx Substance Use: No Preferred Language: Palestinian Communication Ability: Effective Furnace Combustion Analyst Required: Voice and No Beliefs That Will Affect Care: None marital status: Current Living Situation: Detention 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 status: 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 Feels Safe at Home: Yes Assistive Devices: None Allergies Allergies Allergy/AdvReac Type Severity Reaction Status Date / Time streptokinase Allergy Intermediate Flushing Verified 01/20/25 00:18 Home Meds Home Medications Medication Instructions Recorded Confirmed sodium chloride 0.65 % nasal spray 2 spray intranasal Q4 PRN NASAL 04/20/20 01/20/25 aerosol (Deep Sea Nasal) DRYNESS acetaminophen 325 mg tablet 650 mg PO Q4H PRN GENERAL 01/04/25 01/20/25 DISCOMFORT docusate sodium 100 mg capsule 100 mg PO .EVERY 24 HOURS PRN 01/04/25 01/20/25 Constipation vibegron 75 mg tablet 75 mg PO DAILY 01/04/25 01/20/25 Previous Rx's Medication Instructions Recorded aspirin 81 mg tablet,delayed 81 mg PO QAM #30 tabs 12/16/24 release atenolol 100 mg tablet 100 mg PO BID #60 tabs 12/16/24 lisinopril 10 mg tablet 10 mg PO HS #30 tabs 12/16/24 lisinopril 20 mg tablet 20 mg PO QAM #30 tabs 12/16/24 nitroglycerin 0.4 mg sublingual 0.4 mg sublingual Q5M PRN chest 12/16/24 tablet pain #10 tabs rosuvastatin 40 mg tablet 40 mg PO HS #30 tabs 12/16/24 escitalopram oxalate 5 mg tablet 10 mg (2 x 5 mg) PO QAM #30 tabs 01/09/25 lorazepam 0.5 mg tablet (Ativan) 0.5 mg sublingual Q6H PRN anxiety 01/10/25 or agitation #14 tabs morphine 20 mg/5 mL (4 mg/mL) oral 5 mg (1.25 mL) PO Q3H PRN pain 01/10/25 solution #100 mL ondansetron 4 mg disintegrating 4 mg PO QID PRN nausea and 01/10/25 tablet vomiting #14 tabs Results & Data (ED) Vital Signs Vital Signs - 24 hr 01/19/25 20:44 01/19/25 20:57 01/19/25 21:07 Temperature 36.5 C Temperature Source Oral Pulse Rate 78 68 Pulse Rate [Apical] Pulse Rhythm Regular Pulse Rhythm [Apical] Pulse Strength Normal Pulse Strength [Apical] Respiratory Rate 18 Respiratory Effort / Characteristics Non-Labored Respiratory Depth Normal Respiratory Pattern Regular Blood Pressure 145/96 H Blood Pressure [Right Arm] Blood Pressure Mean 112 Blood Pressure Mean [Right Arm] Blood Pressure Position Lying Blood Pressure Position [Right Arm] Pulse Oximetry 96 96 Oxygen Delivery Method Room Air Room Air Sepsis Recent Fever Within 48 Hours No Sepsis New/Unexplained Change in Mental Status Yes Sepsis Action Taken by Nursing No Action Required 01/19/25 22:26 01/20/25 00:00 Temperature Temperature Source Pulse Rate Pulse Rate [Apical] 80 70 Pulse Rhythm Pulse Rhythm [Apical] Regular Regular Pulse Strength Pulse Strength [Apical] Normal Normal Respiratory Rate 17 17 Respiratory Effort / Characteristics Non-Labored Non-Labored Respiratory Depth Normal Normal Respiratory Pattern Regular Regular Blood Pressure Blood Pressure [Right Arm] 164/89 H 142/87 H Blood Pressure Mean Blood Pressure Mean [Right Arm] 114 105 Blood Pressure Position Blood Pressure Position [Right Arm] Lying Lying Pulse Oximetry 95 94 Oxygen Delivery Method Room Air Room Air Sepsis Recent Fever Within 48 Hours Sepsis New/Unexplained Change in Mental Status Sepsis Action Taken by Nursing Imaging Data Radiologist's Impression: Head CT 01/19/25 21:54 Exam(s): CT HEAD Without Contrast EXAM: CT Head Without Intravenous Contrast CLINICAL HISTORY: Reason for exam: altered, hx bleeds. TECHNIQUE: Axial computed tomography images of the head/brain without intravenous contrast. CTDI is 39.03 mGy and DLP is 1874.62 mGy-cm. Automated exposure control was utilized for the study. A dose lowering technique was utilized adhering to the principles of ALARA. COMPARISON: CT December 12, 2024. FINDINGS: Brain: Severe chronic, small vessel ischemic changes in the white matter. Old left frontal encephalomalacia. No acute intracranial edema, hemorrhage or abnormal mass-effect. Ventricles: Markedly enlarged but stable ventricles. This may be on the basis of severe periventricular volume loss. Bones/joints: Previous left frontal craniotomy. No acute fracture. Soft tissues: Unremarkable. Sinuses: Unremarkable as visualized. No acute sinusitis. Mastoid air cells: Unremarkable as visualized. No mastoid effusion. IMPRESSION: No acute findings in the head/brain. Electronically signed by: Dung Yen MD 01/19/25 23:22 PM Discharge Plan Visit Data Chief Complaint: Unresponsive Stated Complaint: Unresponsive, Hospice ED Provider: Brennon Bates Discharge Problem: AMS (altered mental status), Hospice care patient Patient Disposition: Being Evaluated by Hospitalist Condition: Fair Forms Stand Alone Forms: [facility] Prescriptions Prescriptions: No Action vibegron 75 mg tablet 75 mg PO DAILY Deep Sea Nasal 0.65 % Aerosol,[place] 2 spray INTRANASAL Q4 PRN (Reason: NASAL DRYNESS) acetaminophen 325 mg tablet 650 mg PO Q4H PRN (Reason: GENERAL DISCOMFORT) docusate sodium 100 mg Capsule 100 mg PO .EVERY 24 HOURS PRN (Reason: Constipation) escitalopram oxalate 5 mg tablet 10 mg PO QAM Qty: 30 0RF ondansetron 4 mg tablet,disintegrating 4 mg PO QID PRN (Reason: nausea and vomiting) Qty: 14 0RF lorazepam [Ativan] 0.5 mg tablet 0.5 mg sublingual Q6H PRN (Reason: anxiety or agitation) Qty: 14 0RF morphine 20 mg/5 mL (4 mg/mL) solution 5 mg PO Q3H PRN (Reason: pain) Qty: 100 0RF atenolol 100 mg tablet 100 mg PO BID Qty: 60 0RF lisinopril 20 mg tablet 20 mg PO QAM Qty: 30 0RF aspirin 81 mg Tablet,Delayed Release (Dr/Ec) 81 mg PO QAM Qty: 30 0RF lisinopril 10 mg tablet 10 mg PO HS Qty: 30 0RF nitroglycerin 0.4 mg tablet, sublingual 0.4 mg SL Q5M PRN (Reason: chest pain) Qty: 10 0RF rosuvastatin 40 mg tablet 40 mg PO HS Qty: 30 0RF Referrals Referrals: Kenny Rubalcava MD [Primary Care Provider] -
--- NOTE | 2025-01-19 23:23 | CT Scan Report ---
Exam(s): CT HEAD Without Contrast EXAM: CT Head Without Intravenous Contrast CLINICAL HISTORY: Reason for exam: altered, hx bleeds. TECHNIQUE: Axial computed tomography images of the head/brain without intravenous contrast. CTDI is 39.03 mGy and DLP is 1874.62 mGy-cm. Automated exposure control was utilized for the study. A dose lowering technique was utilized adhering to the principles of ALARA. COMPARISON: CT December 12, 2024. FINDINGS: Brain: Severe chronic, small vessel ischemic changes in the white matter. Old left frontal encephalomalacia. No acute intracranial edema, hemorrhage or abnormal mass-effect. Ventricles: Markedly enlarged but stable ventricles. This may be on the basis of severe periventricular volume loss. Bones/joints: Previous left frontal craniotomy. No acute fracture. Soft tissues: Unremarkable. Sinuses: Unremarkable as visualized. No acute sinusitis. Mastoid air cells: Unremarkable as visualized. No mastoid effusion. IMPRESSION: No acute findings in the head/brain. Electronically signed by: Dung Yen MD 01/19/25 23:22 PM
--- NOTE | 2025-01-20 00:04 | History & Physical Report ---
Date of Service January 20, 2025 Assessment & Plan (1) Unresponsiveness: (2) Hospice care patient: Plan 84-year-old male with history of hypertension, Hyperlipidemia, prior intracranial hemorrhage, dementia, on home hospice presenting after an unresponsive episode. CT of the head is unremarkable. Patient's does not wish to pursue any further diagnostic testing at this time due to the fact the patient is on hospice. She would rather focus on maximizing symptom management and comfort. She does not feel comfortable taking the patient home this evening as she does not have home health aides or nurses available during the night. She reports she would like to take him home tomorrow #Unresponsive episodeetiology unclear. CT head is unchanged from prior. No additional diagnostic workup at this time #Hospice patient Continue Tylenol as needed for pain Continue Colace as needed for constipation Zofran as needed for nausea Case management consultation to arrange for ride home in a van or ambulance tomorrow when medically discharged Patient's Hilda can be reached at (P) [phone] or (cell) [phone] #Hypertensionblood pressure mildly elevated Continue atenolol 100 mg p.o. twice daily Continue lisinopril 20 mg p.o. every morning and 10 mg p.o. nightly #Hyperlipidemia Continue Crestor 40 mg p.o. nightly #Anxiety/mental health Continue with Lexapro 10 mg p.o. every morning # overactive bladder Continue Gemtesa 75 mg p.o. daily History of Present Illness Chief Complaint: unresponsive episode Primary Care Provider: Kenny Rubalcava MD Dung Jacobs is an 84-year-old male with history of prior intracranial hemorrhage, hypertension, hyperlipidemia, coronary artery disease, atrial fibrillation, dementia presenting from home after an unresponsive episode. History obtained from the as patient is largely nonverbal. Patient was doing well all day. He and his ate dinner and patient had a bowl of ice cream. After their meal he was laying in bed and his was sitting next to him. Patient began making weird, gurgling/gasping noises with his breathing and reports that he began flailing about with both arms and both legs, nonrhythmic. His eyes were open but not focusing. The episode lasted approximately 1 minute then the patient fell asleep. He did cough up a tiny piece of pasta during the event. He has been somewhat less responsive since. Patient with no history of seizures. states that he did have a similar episode in September and workup at that time revealed another intracranial hemorrhage. denies any other complaints aside from some intermittent swelling of patient's right hand. 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 He tries to feed himself but needs a lot of assistance. Patient was previously at [facility] [place] but did sustain a fall resulting in a collarbone and spinal fracture therefore he was moved home with his . He is on home hospice. Patient's reports that they have caretakers during the day but not at night. She is uncomfortable taking the patient home following this episode. In the ER he is afebrile, hemodynamically stable Seems to be waking up more and following more commands. did agree to a CT of the head to rule out new intracranial hemorrhage however, does not wish to have any additional workup at this time as patient is on hospice and she wants to focus more on keeping him comfortable rather than diagnostic testing and further interventions. Allergies Allergy/AdvReac Type Severity Reaction Status Date / Time streptokinase Allergy Intermediate Flushing Verified 01/20/25 00:18 Home Medications Medication Instructions Recorded Confirmed Type sodium chloride 0.65 % nasal spray 2 spray intranasal Q4 PRN NASAL 04/20/20 History aerosol (Deep Sea Nasal) DRYNESS aspirin 81 mg tablet,delayed 81 mg PO QAM #30 tabs 12/16/24 01/20/25 Rx release atenolol 100 mg tablet 100 mg PO BID #60 tabs 12/16/24 01/20/25 Rx lisinopril 10 mg tablet 10 mg PO HS #30 tabs 12/16/24 01/20/25 Rx lisinopril 20 mg tablet 20 mg PO QAM #30 tabs 12/16/24 01/20/25 Rx nitroglycerin 0.4 mg sublingual 0.4 mg sublingual Q5M PRN chest 12/16/24 01/20/25 Rx tablet pain #10 tabs rosuvastatin 40 mg tablet 40 mg PO HS #30 tabs 12/16/24 01/20/25 Rx acetaminophen 325 mg tablet 650 mg PO Q4H PRN GENERAL 01/04/25 01/20/25 History DISCOMFORT docusate sodium 100 mg capsule 100 mg PO .EVERY 24 HOURS PRN 01/04/25 01/20/25 History Constipation vibegron 75 mg tablet 75 mg PO DAILY 01/04/25 01/20/25 History escitalopram oxalate 5 mg tablet 10 mg (2 x 5 mg) PO QAM #30 tabs 01/09/25 01/20/25 Rx lorazepam 0.5 mg tablet (Ativan) 0.5 mg sublingual Q6H PRN anxiety 01/10/25 01/20/25 Rx or agitation #14 tabs morphine 20 mg/5 mL (4 mg/mL) oral 5 mg (1.25 mL) PO Q3H PRN pain 01/10/25 01/20/25 Rx solution #100 mL ondansetron 4 mg disintegrating 4 mg PO QID PRN nausea and 01/10/25 01/20/25 Rx tablet vomiting #14 tabs Past Med/Surg History Problem List (Updated 01/20/25 @ 01:48 by Carla Rodriguez DO) Unresponsiveness Hospice care patient (Acute) AMS (altered mental status) (Acute) Hospice care patient Acute head trauma Nocturia Urinary incontinence Altered mental status (Acute) Acute UTI (Acute) Influenza A virus subtype H1 2009 pandemic strain present (Acute) Atrial fibrillation with RVR Cholelithiasis Constipation Dysphagia Influenza A AMS (altered mental status) (Acute) Intracranial hemorrhage Seizure-like activity Other symptoms and signs involving cognitive functions and awareness Epistaxis (Acute) H/O umbilical hernia repair (08/18/19) Open Umbilical Hernia Repair Dr. Zamora 08/18/19 Encounter for pre-operative examination Patient okay for surgery as per cardiology 07/26/19. Past heart attack (Acute) had in 1991 Hyperglycemia (Acute) Gross hematuria (Acute) Former smoker (Acute) Elevated prostate specific antigen (PSA) (Acute) Benign prostatic hyperplasia with elevated prostate specific antigen (PSA) (Acute) Allergic rhinitis (Acute) Umbilical hernia without mention of obstruction or gangrene Sick sinus syndrome (Acute) 2007 DX Medical History (Updated 01/20/25 @ 01:48 by Carla Rodriguez DO) History of intracranial hemorrhage Lumbar compression fracture Right clavicle fracture Hypercholesterolemia Hypertension AMS (altered mental status) Dementia RLL pneumonia UTI (urinary tract infection) Coronary artery disease Paroxysmal atrial fibrillation Presence of cardiac pacemaker Raynauds syndrome Atrial fibrillation DX 2014 (REASON FOR TAKING XARELTO) Myocardial Infarction 1991 Hyperlipidemia Raynauds phenomenon Ulcerative colitis History of cardiac pacemaker 2007 (S/P SYNCOPAL EPISODE) FOLLOWED BY DR. SMITH 2019 CHANGED PACEMAKER (MEDTRONIC DEVICE) Surgical History History of colonoscopy History of cataract surgery RT/LEFT History of cardiac catheterization 1992 ANGIOPLASTY @ [facility] [place] History of wisdom tooth extraction Family History Father Heart disease Stroke Social History Smoking Status: Never smoker Tobacco Type: Cigarettes Second Hand Exposure: No; Do You Dip or Chew Tobacco: No; Hx Alcohol Use: No Hx Substance Use: No Preferred Language: Irish Communication Ability: Effective Communication Equipment Mechanic Required: Voice and No Beliefs That Will Affect Care: None marital status: Current Living Situation: Senior Living 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: 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 Feels Safe at Home: Yes Assistive Devices: None Review of Systems Review of Systems: Unobtainable due to reduced consciousness Physical Exam Physical Exam: General: elderly male resting comfortably in bed, NAD Skin: dressings present on bilateral heels HEENT: NC/AT, PERRL, anicteric sclera, conjunctiva without injection, external ear normal to inspection and nontender, nares patent, moist mucus membranes, neck supple, trachea midline, no LAD, no thyromegaly, no JVD Heart: +S1/S2, regular, no m/r/g Lungs: equal air entry bilaterally, no rales/rhonchi/wheezes Abd: +BS, soft, ND, no masses/organomegaly/ascites Ext: warm, 2+ pulses in UE/LE bilaterally, no clubbing/cyanosis or edema Neuro - somnolent, arousable, is following some commands, non-verbal Results & Data Results & Data Vital Signs (Past 12 Hours) Vital Signs Temp Pulse Resp BP Pulse Ox O2 Del Method 01/19/25 21:07 96 Room Air 01/19/25 20:57 36.5 C 68 18 145/96 H 96 Room Air 01/19/25 20:44 78 Laboratory Results Impressions Head CT 01/19/25 21:54 Exam(s): CT HEAD Without Contrast EXAM: CT Head Without Intravenous Contrast CLINICAL HISTORY: Reason for exam: altered, hx bleeds. TECHNIQUE: Axial computed tomography images of the head/brain without intravenous contrast. CTDI is 39.03 mGy and DLP is 1874.62 mGy-cm. Automated exposure control was utilized for the study. A dose lowering technique was utilized adhering to the principles of ALARA. COMPARISON: CT December 12, 2024. FINDINGS: Brain: Severe chronic, small vessel ischemic changes in the white matter. Old left frontal encephalomalacia. No acute intracranial edema, hemorrhage or abnormal mass-effect. Ventricles: Markedly enlarged but stable ventricles. This may be on the basis of severe periventricular volume loss. Bones/joints: Previous left frontal craniotomy. No acute fracture. Soft tissues: Unremarkable. Sinuses: Unremarkable as visualized. No acute sinusitis. Mastoid air cells: Unremarkable as visualized. No mastoid effusion. IMPRESSION: No acute findings in the head/brain. Electronically signed by: Dung Yen MD 01/19/25 23:22 PM Code Status & VTE Plan VTE Prophylaxis Plan VTE Prophylaxis will be ordered: Yes PG Care Time/CCT Total # of Minutes Spent Total Time Spent with Patient: Total time spent is greater than 50% in coordination of care (as documented) at patient's floor/unit and/or counseling patient: Coding Level of Care Code 52080 INT INP/OBS CARE 2/55MIN Diagnoses Unresponsiveness R41.89 Hospice care patient Z51.5
[2025-01-20] MEDS ORDERED: ONDANSETRON INJ 2 MG/ML 2 ML VIAL IV PRN (01:48)
[2025-01-20] MEDS ORDERED: ACETAMINOPHEN 325 MG TAB PO PRN (01:48)
[2025-01-20] MEDS ORDERED: DOCUSATE SODIUM 100 MG CAP PO PRN (02:46)
[2025-01-20] MEDS: ESCITALOPRAM OXALATE 10 MG TAB PO SCH (10:39)
[2025-01-20] MEDS: ATENOLOL 50 MG TABLET PO SCH (10:39)
[2025-01-20] MEDS: lisinopril 20 MG TAB PO SCH (10:39)
[2025-01-20] MEDS: ASPIRIN 81 MG ECTAB PO SCH (10:40)
[2025-01-20] MEDS: VIBEGRON 75 MG TAB PO SCH (10:40)
--- NOTE | 2025-01-20 10:49 | Electrocardiogram Report ---
Test Reason : Blood Pressure : */* mmHG Vent. Rate : 67 BPM Atrial Rate : * BPM P-R Int : * ms QRS Dur : 112 ms QT Int : 432 ms P-R-T Axes : * -56 119 degrees QTcB Int : 456 ms Atrial fibrillation with frequent ventricular-paced complexes and with premature ventricular or aberr antly conducted complexes Non-specific intra-ventricular conduction delay Left anterior fascicular block Left ventricular hypertrophy with repolarization abnormality Left anterior fascicular block Abnormal ECG When compared with ECG of 04-Jan-2025 14:49, Electronic ventricular pacemaker has replaced Atrial fibrillation Confirmed by Samuel Dubose ([id number]) on 01/20/2025 10:48:46 AM Referred By: REFERRED SELF Confirmed By: Samuel Dubose
--- NOTE | 2025-01-20 11:34 | Discharge Summary ---
Discharge Summary Date of Service January 20, 2025 Principal Dx & Hospital Course #1 = Principal Diagnosis (1) Unresponsiveness: (2) Hospice care patient: Plan 84-year-old male with history of hypertension, Hyperlipidemia, prior intra cranial hemorrhage, dementia, on home hospice presenting after an unresponsive episode. CT of the head is unremarkable. Patient's does not wish to pursue any further diagnostic testing at this time due to the fact the patient is on hospice. She would rather focus on maximizing symptom management and comfort. She does not feel comfortable taking the patient home this evening as she does not have home health aides or nurses available during the night. She reports she would like to take him home tomorrow #Unresponsive episodeetiology unclear. CT head is unchanged from prior. No additional diagnostic workup at this time. The patient is now awake and alert but confused as to place and time #Hospice patient Continue Tylenol as needed for pain Continue Colace as needed for constipation Zofran as needed for nausea Case management consultation to arrange for ride home in a van or ambulance tomorrow when medically discharged Patient's Hilda can be reached at (H) [phone] or (cell) [phone] #Hypertensionblood pressure mildly elevated Continue atenolol 100 mg p.o. twice daily Continue lisinopril 20 mg p.o. every morning and 10 mg p.o. nightly #Hyperlipidemia Continue Crestor 40 mg p.o. nightly #Anxiety/mental health Continue with Lexapro 10 mg p.o. every morning # overactive bladder Continue Gemtesa 75 mg p.o. daily Admission HPI Per Admitting Provider Dung Jacobs is an 84-year-old male with history of prior intracranial hemorrhage, hypertension, hyperlipidemia, coronary artery disease, atrial fibrillation, dementia presenting from home after an unresponsive episode. History obtained from the as patient is largely nonverbal. Patient was doing well all day. He and his ate dinner and patient had a bowl of ice cream. After their meal he was laying in bed and his was sitting next to him. Patient began making weird, gurgling/gasping noises with his breathing and reports that he began flailing about with both arms and both legs, nonrhythmic. His eyes were open but not focusing. The episode lasted approximately 1 minute then the patient fell asleep. He did cough up a tiny piece of pasta during the event. He has been somewhat less responsive since. Patient with no history of seizures. states that he did have a similar episode in September and workup at that time revealed another intracranial hemorrhage. denies any other complaints aside from some intermittent swelling of patient's right hand. 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 He tries to feed himself but needs a lot of assistance. Patient was previously at [facility] but did sustain a fall resulting in a collarbone and spinal fracture therefore he was moved home with his . He is on home hospice. Patient's reports that they have caretakers during the day but not at night. She is uncomfortable taking the patient home following this episode. In the ER he is afebrile, hemodynamically stable Seems to be waking up more and following more commands. did agree to a CT of the head to rule out new intracranial hemorrhage however, does not wish to have any additional workup at this time as patient is on hospice and she wants to focus more on keeping him comfortable rather than diagnostic testing and further interventions. Discharge Plan Discharge Items Patient Disposition: Hospice - Home Reason For Visit: UNRESPONSIVE EPISODE Discharge Diagnosis: Unresponsive episode Condition on Discharge: Fair Activity: Resume your previous activity Non-emergency contact: Primary Care Provider Call non-emergency contact if: your symptoms worsen Follow-up/Referrals: Kenny Rubalcava MD [Primary Care Provider] - Diet: Regular Addtl Attending Provider Instructions: All medications remain the same. Resume home hospice care Pending Studies at Discharge: No Stand-Alone Forms: My [facility] Medications and DC Order Prescriptions: Continued vibegron 75 mg tablet 75 mg PO DAILY Deep Sea Nasal 0.65 % Aerosol,[place] 2 spray INTRANASAL Q4 PRN (Reason: NASAL DRYNESS) acetaminophen 325 mg tablet 650 mg PO Q4H PRN (Reason: GENERAL DISCOMFORT) docusate sodium 100 mg Capsule 100 mg PO .EVERY 24 HOURS PRN (Reason: Constipation) escitalopram oxalate 5 mg tablet 10 mg PO QAM Qty: 30 0RF ondansetron 4 mg tablet,disintegrating 4 mg PO QID PRN (Reason: nausea and vomiting) Qty: 14 0RF lorazepam [Ativan] 0.5 mg tablet 0.5 mg sublingual Q6H PRN (Reason: anxiety or agitation) Qty: 14 0RF morphine 20 mg/5 mL (4 mg/mL) solution 5 mg PO Q3H PRN (Reason: pain) Qty: 100 0RF atenolol 100 mg tablet 100 mg PO BID Qty: 60 0RF lisinopril 20 mg tablet 20 mg PO QAM Qty: 30 0RF aspirin 81 mg Tablet,Delayed Release (Dr/Ec) 81 mg PO QAM Qty: 30 0RF lisinopril 10 mg tablet 10 mg PO HS Qty: 30 0RF nitroglycerin 0.4 mg tablet, sublingual 0.4 mg SL Q5M PRN (Reason: chest pain) Qty: 10 0RF rosuvastatin 40 mg tablet 40 mg PO HS Qty: 30 0RF Discharge Orders: Discharge Order (Routine); Ordered 01/20/25 Ordered By: Dung Hung Admission Data Admit Date/Time: 01/20/25 00:03 Attending Provider: Dung Hung Admit Provider: Carla Rodriguez Primary Care Provider: Kenny Rubalcava Other Providers: Carla Rodriguez Hospital Stay Data Consultations 01/19/25 23:37 ED Decision to Admit Stat Diagnostic Imagining Performed 01/19/25 21:54 CT head/brain wo con Stat Pending Results Patient Have Any Pending Studies at Discharge: No Discharge Instructions Given to Patient (Per Discharging Provider) All medications remain the same. Resume home hospice care Total Time Total Time Spent Total Time Spent (In Minutes): 45 minutes Coding Level of Care Code 16441 INP/OBS DISCH >30 MIN Diagnoses Unresponsiveness R41.89 Hospice care patient Z51.5
[2025-01-20 13:29] VITALS: BP 149/94; PULSE 67; RESP 20; TEMP 97.5; O2SAT 98
[2025-01-20] MEDS ORDERED: lisinopril 10 MG TAB PO SCH (21:00)
[2025-01-20] MEDS ORDERED: ROSUVASTATIN CALCIUM 20 MG TAB PO SCH (21:00)
== END 2025-01-20 13:30 | disposition hospice, home (50) ==
LOC: ED 20:30 → EDINP 20:30 → SUATTDRO 01-20 00:03 → EDINP 01-20 01:46